=== PATIENT | female | born 1940 | race Caucasian/White ===

== ENCOUNTER → 2017-01-01 | Outpatient (CLI) | payer BC ==
[~2017-01-01] MED LIST: ASPI325T45 PO; CLC100 PO; FLAX10007 PO; FLNIN/ NAE; GLUC500C4 PO; LISI-461 PO; LVNIS80 SC; MULT-506 PO; OMEP20CA9 PO; POLY335025 PO; RXC5 PO; SALI0.6510 NAE; TNR25 PO; ULT50X PO
--- NOTE | 2017-01-01 17:21 | DIAGNOSTIC IMAGING REPORT ---
MRI OF THE BRAIN WITHOUT IV CONTRAST CLINICAL HISTORY: Right-sided facial droop. COMPARISON STUDY: CT of the brain dated 01/01/2013. MRI of the brain dated 04/17/2012. TECHNIQUE: MRI of the brain was performed utilizing various T1 and T2-weighted sequences in the axial, sagittal, and coronal planes. IV contrast was not administered for this examination. FINDINGS: Brain parenchyma: There is age-related involutional change noting mild subcortical and periventricular microangiopathic disease. Right occipital encephalomalacia is unchanged and consistent with a remote infarct. There is no hemorrhage or mass effect. There is no restricted diffusion to suggest acute ischemia. Lynn-white matter differentiation is preserved. No extra-axial fluid collection is seen. The cerebellar tonsils are normal in configuration. Ventricles, sulci, and cisterns: Prominent secondary to involutional change. Pituitary and sella: Unremarkable. Intracranial vasculature: Normal flow voids are maintained at the skull base. Orbits: The bony orbits are grossly intact. Orbital contents are normal in appearance. Sinuses and mastoids: Clear. Calvarium: Unremarkable. Cervical cord: Partially visualized cervical spinal cord is normal in morphology and signal intensity. IMPRESSION: 1. No acute intracranial abnormality. 2. Remote right occipital infarct. Electronically signed by: Irvin Barber M.D. 01/01/2017 5:19 PM Dictated Date/Time: 01/01/2017 5:16 PM
== END | disposition home or self-care (01) ==
LOC: C.MRIBC 15:43
PROVIDERS: ATTEND Internal Medicine
DX: G51.0 Bell's palsy (principal); R51 Headache

== ENCOUNTER → 2017-02-15 | Outpatient (CLI) | payer BC ==
[2017-02-15 17:50] LABS: HEMATOCRIT 40.9 % (37-47); MEAN CELL VOLUME 89.7 fL (80-100); MEAN CORPUSCULAR HEMOGLOBIN 28.9 pg (25-34); MEAN CORPUSCULAR HGB CONC 32.3 g/dl (32-36); MEAN PLATELET VOLUME 9.7 fL (7.4-10.4); PLATELET COUNT 251 K/uL (130-400); RED BLOOD COUNT 4.56 M/uL (4.2-5.4); WHITE BLOOD COUNT 6.34 K/uL (4.8-10.8)
[2017-02-18 12:32] LABS: C-REACTIVE PROT HIGHSEN 1.4 MG/L
== END | disposition home or self-care (01) ==
LOC: C.LAB 16:45
PROVIDERS: ATTEND Ophthalmology
DX: H47.10 Unspecified papilledema (principal)

== ENCOUNTER → 2017-05-15 | Day surgery (SDC) | payer BC ==
[2017-04-24 08:39] VITALS: Ht 167.6 cm; Wt 88.6 kg
[~2017-05-15] VITALS: Ht 167.6 cm; Wt 88.6 kg
[~2017-05-15] MED LIST changes: +500ML BSS 0.3ML EPI 1:1000PF IRRIG ONE; +ACETAMINOPHEN 325 MG TAB PO PRN; +AMVISC PLUS 0.8ML SYRINGE INT OCU ONE; +ATROPINE SULFATE 0.1 MG/ML 5ML SYR IV PRN; +BSS FLUSH ONE; -CLC100 PO; +ENDOCOAT 0.85ML SYRINGE INT OCU ONE; +EpHEDrine SULFATE INJ 50 MG/ML AMP IV PRN; +EpINEphrine INJ 1MG/ML AMP 1 MG/ML AMP ONE; -FLNIN/ NAE; -GLUC500C4 PO; +GLUCTAB7 PO; +LACTATED RINGER'S 1000ML 500 ML IV SCH; +LIDOCAINE 4% OP SOLN DROP CHARGE ONE; +LIDOCAINE 4% OP SOLN DROP CHARGE OPL SCH; +LIDOCAINE HCL 1% MPF 2 ML VIAL ONE; -LISI-461 PO; +LISI10TA PO; -LVNIS80 SC; +MIDAZOLAM HCL 1 MG/ML 2ML VIAL ONE; +MIX: 4ML BSS 1ML EPI 1:1000 PF TOP ONE; +MOXIFLOXACIN OPH SOLN PER DROP CHARGE ONE; -POLY335025 PO; +POVIDONE-IODINE OP SOLN 30 ML BTL ONE; +PROPARACAINE 0.5% OP SOLN PER DROP CHARGE OPL SCH; -RXC5 PO; -SALI0.6510 NAE; +SENNTAB23 PO; -TNR25 PO; +TOBRAMYCIN/DEXAMETHASONE OPH OINT PER APPLN CHARGE ONE; -ULT50X PO
--- NOTE | 2017-05-15 07:25 | History & Physical Bridge - SC ---
H&P Re-Evaluation Bridge Note: I have examined the patient, reviewed the History & Physical and in the interval since the performance of the History & Physical I have noted the following changes of clinical significance: No changes noted
[2017-05-15] MEDS: PHENYLEPHRINE HCL 2.5% OP SOLN PER DROP CHARGE OPL SCH ×3 (07:32→07:42)
[2017-05-15] MEDS: TROPICAMIDE 1% OP SOLN PER DROP CHARGE OPL SCH ×3 (07:33→07:43)
[2017-05-15] MEDS: CYCLOPENTOLATE HCL 1% OP SOLN PER DROP CHARGE OPL SCH ×3 (07:34→07:44)
[2017-05-15] MEDS: MOXIFLOXACIN OPH SOLN PER DROP CHARGE OPL SCH ×3 (07:35→07:45)
--- NOTE | 2017-05-15 08:30 | [facility] Post Operative Brief Note ---
Immediate Operative Summary Operative Date May 15, 2017. Pre-Operative Diagnosis Cataract Left Eye Post-Operative Diagnosis Same Procedure(s) Performed Left Cataract Phacoemulsification With Intraocular Lens Implant Surgeon Dr. Navarro Vice President Of Talent Acquisition Surgeon(s) None Estimated Blood Loss 0 Findings left cataract Specimens None Complication(s) None Disposition
--- NOTE | 2017-05-15 08:31 | [facility] Operative Report ---
Operative Report Date of Service May 15, 2017. Operative Report DATE OF OPERATION: 05/15/17 PREOPERATIVE DIAGNOSIS: Senile nuclear cataract, left eye POSTOPERATIVE DIAGNOSIS: Senile nuclear cataract, left eye PROCEDURE PERFORMED: Phacoemulsification with intraocular lens implantation, left eye SURGEON: Dr. Gerson Navarro ANESTHESIA: Topical with 1% intracameral lidocaine and monitored anesthesia care COMPLICATIONS: None DESCRIPTION OF PROCEDURE: After positively identifying the patient both verbally and by wristband in the preoperative area, the left eye was marked as the operative eye. The patient was then brought back to the operating room by the anesthesia and nursing staff where they were given a drop of Lidocaine and betadine into the operative eye. They were then sterilely prepped and draped in the standard fashion typical for ophthalmic surgery. Steri-strips were placed along the upper eyelids to keep the lashes back, and a lid speculum was placed into the operative eye. At this point, a documented time out was performed with members of the ophthalmology, nursing, and anesthesia staffs all agreeing upon the correct patient, correct location for surgery, correct procedure, and correct type and power of intraocular lens to be implanted. The microscope was then swung into position. First, a paracentesis wound was made using a sideport blade. Then, in sequence, 1% preservative-free lidocaine followed by Endocoat viscoelastic was injected into the anterior chamber. Next , the main incision was made with a keratome blade in triplanar fashion. A sharp cystotome was introduced into the eye and used to create a tear in the anterior capsule, which was directed into a continuous curvilinear capsulorrhexis using Utrata forceps. Hydrodissection was then performed with BSS on a flat-tip cannula. Next, the phacoemulsification handpiece was introduced into the eye and used to remove the nucleus in a chyijf-ewf-prdlwmw fashion. This was done without complication and then the irrigation-aspiration handpiece was introduced into the eye and used to remove all remaining cortical and epinuclear material. Amvisc was then injected into the anterior chamber as well as into the capsular bag and using the lens injector system, an MX60 24.0 D lens, serial number [id number], and expiration date 11/2019 was injected into the capsular bag and rotated into the correct position. Next, the irrigation- aspiration handpiece was used to remove all remaining Amvisc. BSS was used to hydrate the main wound, and then BSS was injected into the paracentesis site to reach physiologic pressure and then the main wound was checked and found to be watertight. The patient was given drops of Vigamox and Tobradex ointment into the operative eye, and then the surrounding area was cleaned and dried. A clear plastic shield was placed over the eye and the patient was then sat up and taken from the operating room by the anesthesia staff having tolerated the procedure well and suffering no complications. DISPOSITION: The patient was returned to the recovery room in stable condition. I attest to the content of the Intraoperative Record and any orders documented therein. Any exceptions are noted below.
[2017-05-15 08:32] VITALS: TEMP 36.4
--- NOTE | 2017-05-15 08:32 | Discharge Instructions-SurgCtr ---
Discharge Instructions Date of Service May 15, 2017. Visit Reason for Visit: Cataract Left Eye Discharge Discharge Diagnosis / Problem: left cataract Discharge Goals Goal(s): Decrease discomfort, Improve function Activity Recommendations Activity Limitations: as noted below Anesthesia . Post Anesthesia Instructions: If you have had General Anesthesia or IV Sedation: * Do not drive today. * Resume driving when surgeon permits. * Do not make important decisions or sign legal documents today. * Call surgeon for: 1. Temperature elevations greater than 101 degrees F. 2. Uncontrollable pain. 3. Excessive bleeding. 4. Persistent nausea and vomiting. 5. Medication intolerance (nausea, vomiting or rash). * For nausea and vomiting use only clear liquids such as: tea, soda, bouillon until nausea subsides, then gradually increase diet as tolerated. * If you have any concerns or questions, call your surgeon's office. If physician is unavailable and it is an emergency, call 911 or go to the nearest emergency room. . Instructions / Follow-Up Instructions / Follow-Up ACTIVITY RECOMMENDATIONS: * Light activities. * You may walk outside, read, watch television. * You may notice redness on the white part of the eye and some blurry vision - this is normal. MEDICATIONS: Resume previous medications unless instructed otherwise by your surgeon. Start all eye drops at 10:30 am today: * Eye drops (today): Prednisone - one drop in operative eye every 2 hours while awake Ofloxacin - one drop in operative eye every 2 hours while awake Bromfenac - one drop in operative eye daily SPECIAL CARE INSTRUCTIONS: * Tape plastic shield over eye to sleep at night. Call your doctor at with any concerns or problems. FOLLOW UP VISIT: Follow-up with Dr Navarro at [facility] as scheduled. Diet Recommendations Home Diet: no limitations Procedures Procedures Performed: Left Cataract Phacoemulsification With Intraocular Lens Implant Pending Studies Studies pending at discharge: no Medical Emergencies . Who to Call and When: Medical Emergencies: If at any time you feel your situation is an emergency, please call 911 immediately. . Non-Emergent Contact Non-Emergency issues call your: Surgeon . . "Provider Documentation" section prepared by Gerson Navarro. .
--- NOTE | 2017-05-15 08:54 | Anesthesia Progress Nt - [facility] ---
Anesthesia Post Op Note Date & Time May 15, 2017 at 08:53 Vital Signs Pain Intensity: 0 Vital Signs Past 12 Hours Date Time Temp Pulse Resp B/P (MAP) Pulse Ox O2 Delivery O2 Flow Rate FiO2 05/15/17 08:32 36.4 86 16 144/84 (104) 100 Room Air 05/15/17 07:19 36.2 89 16 157/93 (114) 97 Room Air Notes Mental Status: alert / awake / arousable, participated in evaluation Pt Amnestic to Procedure: Yes Nausea / Vomiting: adequately controlled Pain: adequately controlled Airway Patency, RR, SpO2: stable & adequate BP & HR: stable & adequate Hydration State: stable & adequate Anesthetic Complications: no major complications apparent
[2017-05-15 09:04] VITALS: BP 154/82; PULSE 89; O2SAT 100
== END | disposition home or self-care (01) ==
LOC: X.SURG 07:06
PROVIDERS: ATTEND Ophthalmology
DX: H25.12 Age-related nuclear cataract, left eye (principal); I10 Essential (primary) hypertension; G51.0 Bell's palsy; Z88.5 Allergy status to narcotic agent; Z98.890 Other specified postprocedural states; Z96.643 Presence of artificial hip joint, bilateral; Z86.73 Personal history of transient ischemic attack (TIA), and cerebral infarction without residual deficits

== ENCOUNTER → 2017-05-29 | Day surgery (SDC) | payer BC ==
[2017-05-21 16:40] VITALS: Ht 167.6 cm; Wt 88.6 kg
[~2017-05-29] VITALS: Ht 167.6 cm; Wt 88.6 kg
[~2017-05-29] MED LIST changes: +ACET-1047 PO; +ASPECOTC PO; +ASPI-428 PO; -ASPI325T45 PO; +ASPI325T60 PO; +ASPI81TA28 PO; +BENZ10LO2; +CMD5 PO; +CPC LOZ; +DLCS PR; +DOCU100C31 PO; +ERTA1INJ IV; +FRRS300 PO; +GNTOPO OP; -LIDOCAINE 4% OP SOLN DROP CHARGE OPL SCH; +LIDOCAINE 4% OP SOLN DROP CHARGE OPR SCH; +LPR25 PO; +LVNIS100 SQ; +METO-551 PO; +MOMLX PO; +MRLP17X PO; +ONDA4TAB46 PO; +PANT1TAB3 PO; +PANT40TA PO; -PROPARACAINE 0.5% OP SOLN PER DROP CHARGE OPL SCH; +PROPARACAINE 0.5% OP SOLN PER DROP CHARGE OPR SCH; +RXC5 PO; +SENN8.6T7 PO; +SODIENE6 PR; +WARF5TAB7 PO
[2017-05-29] MEDS: PHENYLEPHRINE HCL 2.5% OP SOLN PER DROP CHARGE OPR SCH ×3 (06:53→07:02)
[2017-05-29] MEDS: TROPICAMIDE 1% OP SOLN PER DROP CHARGE OPR SCH ×3 (06:54→07:03)
[2017-05-29] MEDS: CYCLOPENTOLATE HCL 1% OP SOLN PER DROP CHARGE OPR SCH ×3 (06:55→07:04)
[2017-05-29] MEDS: MOXIFLOXACIN OPH SOLN PER DROP CHARGE OPR SCH ×3 (06:55→07:05)
--- NOTE | 2017-05-29 07:59 | [facility] Post Operative Brief Note ---
Immediate Operative Summary Operative Date May 29, 2017. Pre-Operative Diagnosis Cataract Right Eye Post-Operative Diagnosis Same Procedure(s) Performed Right Cataract Phacoemulsification With Intraocular Lens Implant Surgeon Dr. Navarro Mold Sprayer Surgeon(s) None Estimated Blood Loss 0 mL Findings right cataract Specimens None Complication(s) None Disposition
--- NOTE | 2017-05-29 08:00 | [facility] Operative Report ---
Operative Report Date of Service May 29, 2017. Operative Report DATE OF OPERATION: 05/29/17 PREOPERATIVE DIAGNOSIS: Senile nuclear cataract, right eye POSTOPERATIVE DIAGNOSIS: Senile nuclear cataract, right eye PROCEDURE PERFORMED: Phacoemulsification with intraocular lens implantation, right eye SURGEON: Dr. Gerson Navarro ANESTHESIA: Topical with 1% intracameral lidocaine and monitored anesthesia care COMPLICATIONS: None DESCRIPTION OF PROCEDURE: After positively identifying the patient both verbally and by wristband in the preoperative area, the right eye was marked as the operative eye. The patient was then brought back to the operating room by the anesthesia and nursing staff where they were given a drop of Lidocaine and betadine into the operative eye. They were then sterilely prepped and draped in the standard fashion typical for ophthalmic surgery. Steri-strips were placed along the upper eyelids to keep the lashes back, and a lid speculum was placed into the operative eye. At this point, a documented time out was performed with members of the ophthalmology, nursing, and anesthesia staffs all agreeing upon the correct patient, correct location for surgery, correct procedure, and correct type and power of intraocular lens to be implanted. The microscope was then swung into position. First, a paracentesis wound was made using a sideport blade. Then, in sequence, 1% preservative-free lidocaine followed by Endocoat viscoelastic was injected into the anterior chamber. Next , the main incision was made with a keratome blade in triplanar fashion. A sharp cystotome was introduced into the eye and used to create a tear in the anterior capsule, which was directed into a continuous curvilinear capsulorrhexis using Utrata forceps. Hydrodissection was then performed with BSS on a flat-tip cannula. Next, the phacoemulsification handpiece was introduced into the eye and used to remove the nucleus in a [id number]-tro-jfopvzl fashion. This was done without complication and then the irrigation-aspiration handpiece was introduced into the eye and used to remove all remaining cortical and epinuclear material. Amvisc was then injected into the anterior chamber as well as into the capsular bag and using the lens injector system, an MX60 23.0 D lens, serial number [id number], and expiration date 01/2020 was injected into the capsular bag and rotated into the correct position. Next, the irrigation- aspiration handpiece was used to remove all remaining Amvisc. BSS was used to hydrate the main wound, and then BSS was injected into the paracentesis site to reach physiologic pressure and then the main wound was checked and found to be watertight. The patient was given drops of Vigamox and Tobradex ointment into the operative eye, and then the surrounding area was cleaned and dried. A clear plastic shield was placed over the eye and the patient was then sat up and taken from the operating room by the anesthesia staff having tolerated the procedure well and suffering no complications. DISPOSITION: The patient was returned to the recovery room in stable condition. I attest to the content of the Intraoperative Record and any orders documented therein. Any exceptions are noted below.
--- NOTE | 2017-05-29 08:01 | Discharge Instructions-SurgCtr ---
Discharge Instructions Date of Service May 29, 2017. Visit Reason for Visit: Cataract Right Eye Discharge Discharge Diagnosis / Problem: right cataract Discharge Goals Goal(s): Decrease discomfort, Improve function Activity Recommendations Activity Limitations: as noted below Anesthesia . Post Anesthesia Instructions: If you have had General Anesthesia or IV Sedation: * Do not drive today. * Resume driving when surgeon permits. * Do not make important decisions or sign legal documents today. * Call surgeon for: 1. Temperature elevations greater than 101 degrees F. 2. Uncontrollable pain. 3. Excessive bleeding. 4. Persistent nausea and vomiting. 5. Medication intolerance (nausea, vomiting or rash). * For nausea and vomiting use only clear liquids such as: tea, soda, bouillon until nausea subsides, then gradually increase diet as tolerated. * If you have any concerns or questions, call your surgeon's office. If physician is unavailable and it is an emergency, call 911 or go to the nearest emergency room. . Instructions / Follow-Up Instructions / Follow-Up ACTIVITY RECOMMENDATIONS: * Light activities. * You may walk outside, read, watch television. * You may notice redness on the white part of the eye and some blurry vision - this is normal. MEDICATIONS: Resume previous medications unless instructed otherwise by your surgeon. Start all eye drops at 10 am today: * Eye drops (today): Prednisone - one drop in operative eye every 2 hours while awake Ofloxacin - one drop in operative eye every 2 hours while awake Bromfenac - one drop in operative eye daily SPECIAL CARE INSTRUCTIONS: * Tape plastic shield over eye to sleep at night. Call your doctor at with any concerns or problems. FOLLOW UP VISIT: Follow-up with Dr Navarro at [facility] as scheduled. Diet Recommendations Home Diet: no limitations Procedures Procedures Performed: Right Cataract Phacoemulsification With Intraocular Lens Implant Pending Studies Studies pending at discharge: no Medical Emergencies . Who to Call and When: Medical Emergencies: If at any time you feel your situation is an emergency, please call 911 immediately. . Non-Emergent Contact Non-Emergency issues call your: Surgeon . . "Provider Documentation" section prepared by Gerson Navarro. .
[2017-05-29 08:02] VITALS: TEMP 36.4
--- NOTE | 2017-05-29 08:17 | Anesthesiology Progress Note ---
Anesthesia Post Op Note Date & Time May 29, 2017 at 08:17 Vital Signs Pain Intensity: 0 Vital Signs Past 12 Hours Date Time Temp Pulse Resp B/P (MAP) Pulse Ox O2 Delivery O2 Flow Rate FiO2 05/29/17 08:02 36.4 90 16 150/88 (108) 98 Room Air 05/29/17 06:43 36.3 95 18 144/84 (104) 95 Room Air Notes Mental Status: alert / awake / arousable, participated in evaluation Nausea / Vomiting: adequately controlled Pain: adequately controlled Airway Patency, RR, SpO2: stable & adequate BP & HR: stable & adequate Hydration State: stable & adequate Anesthetic Complications: no major complications apparent
[2017-05-29 08:27] VITALS: BP 127/78; PULSE 94; O2SAT 99
== END | disposition home or self-care (01) ==
LOC: X.SURG 06:28
PROVIDERS: ATTEND Ophthalmology
DX: H25.11 Age-related nuclear cataract, right eye (principal); Z96.643 Presence of artificial hip joint, bilateral; Z98.42 Cataract extraction status, left eye; Z98.890 Other specified postprocedural states; I10 Essential (primary) hypertension; Z88.5 Allergy status to narcotic agent; Z86.73 Personal history of transient ischemic attack (TIA), and cerebral infarction without residual deficits

== ENCOUNTER 2017-09-19 14:11 | Inpatient (IN) | payer OTHER ==
[~2017-09-19] VITALS: Ht 170.2 cm; Wt 105.0 kg
[~2017-09-19 14:11] MED LIST changes: -500ML BSS 0.3ML EPI 1:1000PF IRRIG ONE; -ACET-1047 PO; -ACETAMINOPHEN 325 MG TAB PO PRN; -AMVISC PLUS 0.8ML SYRINGE INT OCU ONE; -ASPI-428 PO; -ASPI325T60 PO; -ASPI81TA28 PO; -ATROPINE SULFATE 0.1 MG/ML 5ML SYR IV PRN; -BENZ10LO2; -BSS FLUSH ONE; -CMD5 PO; -CPC LOZ; -DLCS PR; -DOCU100C31 PO; -ENDOCOAT 0.85ML SYRINGE INT OCU ONE; -ERTA1INJ IV; -EpHEDrine SULFATE INJ 50 MG/ML AMP IV PRN; -EpINEphrine INJ 1MG/ML AMP 1 MG/ML AMP ONE; -FRRS300 PO; -GNTOPO OP; -LACTATED RINGER'S 1000ML 500 ML IV SCH; -LIDOCAINE 4% OP SOLN DROP CHARGE ONE; -LIDOCAINE 4% OP SOLN DROP CHARGE OPR SCH; -LIDOCAINE HCL 1% MPF 2 ML VIAL ONE; -LPR25 PO; -LVNIS100 SQ; -METO-551 PO; -MIDAZOLAM HCL 1 MG/ML 2ML VIAL ONE; -MIX: 4ML BSS 1ML EPI 1:1000 PF TOP ONE; -MOMLX PO; -MOXIFLOXACIN OPH SOLN PER DROP CHARGE ONE; -MRLP17X PO; -ONDA4TAB46 PO; -PANT1TAB3 PO; -PANT40TA PO; -POVIDONE-IODINE OP SOLN 30 ML BTL ONE; -PROPARACAINE 0.5% OP SOLN PER DROP CHARGE OPR SCH; -RXC5 PO; -SENN8.6T7 PO; -SODIENE6 PR; -TOBRAMYCIN/DEXAMETHASONE OPH OINT PER APPLN CHARGE ONE; -WARF5TAB7 PO
--- NOTE | 2017-09-19 14:44 | EMERGENCY ROOM VISIT NOTE ---
History First contact with patient: 14:14 Chief Complaint: FALL Stated Complaint: FALL/HIP PAIN History of Present Illness The patient is a 77 year old female s/p bilat hip arthroplasty who presents to the Emergency Room with complaints of right hip pain after a fall from standing. The patient states that she was standing in front of a wood pile and placing wood on it. When she turned to grab more wood she misstep and fell onto the right hip. She instantly felt right hip pain and " I knew I broke it". Her called and she came to the ED via EMS. She notes no presyncope/ syncope / palpitations/ chest pain or SOB with the fall. She also notes no head injury with this fall and denies any sensation of nausea or a GR at this time. She it not on any blood thinners aside from aspirin. Currently the pain is a 2/10 however any movement will aggravate the pain and become a 10/10. She is non weight bearing because of the pain. It is described as an ache and is above the right hip and non radiating. She denies any numbness/ tingling of the LE. She notes weakness of the right LE secondary to pain. Her most recent hip arthroplasty was in [address] Jose and was also secondary to a left hip fracture. She is a non smoker and drinks a glass of wine 2-4 x/ week. She did not take her lisinopril this morning however did take her ASA. 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 Family History No significant family history Social History Smoking Status: Never Smoker Smokeless Tobacco Use: No Alcohol Use: occasionally Drug Use: none Marital Status: Housing Status: lives with significant other Occupation Status: retired Current/Historical Medications Scheduled Aspirin (Aspirin), 325 MG PO QAM Flaxseed (Linseed) (Flax Seed Oil), 1,000 MG PO QAM Hlahfanxnua-Rdovxvdkitz-Bbm C- (Glucosamine Chondroitin), 2 TABS PO QAM Lisinopril (Prinivil), 10 MG PO QAM Multivitamin (Multivitamin), 1 TAB PO QAM Omeprazole (Prilosec), 20 MG PO QAM Sennosides-Docusate Sodium (Stool Softener), 1 TAB PO QAM Physical Exam Vital Signs Date Time Temp Pulse Resp B/P (MAP) Pulse Ox O2 Delivery O2 Flow Rate FiO2 09/19/17 14:12 36.9 99 21 166/100 99 Room Air Physical Exam General: not in acute distress, laying in the bed Skin: no rashes noted, no suspicious lesions, no areas of inflammations/ lacerations/ erythema noted, mild stasis dermatitis of bilat LE CVS: S1/ S2 noted, RRR, no rubs/ murmurs noted, no cyanosis RVS: Clear throughout bilaterally, not in acute respiratory distress, no wheezing/ rales/ crackles noted ENT: no erythema/ injection/ ulcerations noted in the pharynx Neck: inspection WNL, full ROM of neck, no bruits noted ABD: BSx4, no pain/ tenderness on palpation, no organomegaly, negative murphys, psoas, Rovsing, CVA tenderness MSK: inspection of all limbs WNL except for an externally rotated right leg, no ecchymosis of the right hip noted and tender to palpation of the right hip, motor and sensation intact in all limbs except right LE, She is able to move the right foot and toes on command however refuses to test knee/ right leg secondary to pain NVS: PERRL, EOMI, sensation intact in all extremities Lymph: No lymphadenopathy palpable Medical Decision & Procedures ER Provider Diagnostic Interpretation: SINGLE VIEW PELVIS; 2 VIEWS RIGHT HIP; 2 VIEWS RIGHT FEMUR CLINICAL HISTORY: Fall with right leg pain. FINDINGS: An AP view of the pelvis with AP and crosstable lateral views of the right hip as well as AP and crosstable lateral views of the right femur are obtained. Correlation is made with pelvic radiograph dated 06/20/2014. The skeletal structures are osteopenic. There is no radiographic evidence of fracture involving the bony pelvis. There are bilateral hip arthroplasties in near-anatomic alignment. Periprosthetic lucency is noted around the right hip arthroplasty stem. There is a minimally distracted acute fracture through the subtrochanteric right femur around the proximal arthroplasty stem. There are small medial distracted fragments. Fracture lucency is also seen around the distal stem of the arthroplasty. This is not clearly extend to the cortex. The distal femoral shaft is intact. Arthritic change is noted in the right knee. There is mild soft tissue edema in the right upper thigh. Calcified fibroids are seen in the pelvis. Lumbosacral spondylosis is partially imaged. IMPRESSION: 1. There is an acute, comminuted, and minimally distracted fracture of the subtrochanteric right femur around the proximal stem of a right hip arthroplasty. 2. Fracture lucency is also identified involving the cortex around the distal aspect of the right hip arthroplasty. This does not clearly extend to the cortex. 3. The distal right femoral shaft is intact. 4. No fracture is identified involving the bony pelvis or the partially imaged left hip. SINGLE VIEW CHEST CLINICAL HISTORY: Fall. Hip fracture. Preoperative examination. FINDINGS: An AP, portable, supine chest radiograph is compared to study dated 06/18/2014. The examination is degraded by portable technique and apical lordotic positioning. The heart is enlarged and there is atherosclerotic calcification of the thoracic aorta. The pulmonary vasculature is noncongested. Chronic interstitial thickening is similar to previous. No airspace consolidation or large pleural effusion is identified. No pneumothorax is seen. The skeletal structures are osteopenic. The bony thorax is grossly intact. Arthritic change is noted in the shoulders. A band of linear sclerosis is noted in the right humeral head/neck. IMPRESSION: 1. Cardiomegaly with no acute cardiopulmonary abnormality. 2. A band of sclerosis is partially visualized in the right humeral head/neck. This may be on a degenerative basis. Correlate with radiographs if there is right shoulder pain. Laboratory Results 09/19/17 15:28 Red Blood Count 4.78, Mean Corpuscular Volume 88.5, Mean Corpuscular Hemoglobin 29.5, Mean Corpuscular Hemoglobin Concent 33.3, Mean Platelet Volume 9.6, Neutrophils (%) (Auto) 69.9, Lymphocytes (%) (Auto) 21.4, Monocytes (%) (Auto) 7.5, Eosinophils (%) (Auto) 0.7, Basophils (%) (Auto) 0.2, Neutrophils # (Auto) 6.36, Lymphocytes # (Auto) 1.95, Monocytes # (Auto) 0.68, Eosinophils # (Auto) 0.06, Basophils # (Auto) 0.02 Test 09/19/17 15:28 White Blood Count 9.10 K/uL (4.8-10.8) Red Blood Count 4.78 M/uL (4.2-5.4) Hemoglobin 14.1 g/dL (12.0-16.0) Hematocrit 42.3 % (37-47) Mean Corpuscular Volume 88.5 fL (80-100) Mean Corpuscular Hemoglobin 29.5 pg (25-34) Mean Corpuscular Hemoglobin Concent 33.3 g/dl (32-36) Platelet Count 258 K/uL (130-400) Mean Platelet Volume 9.6 fL (7.4-10.4) Neutrophils (%) (Auto) 69.9 % Lymphocytes (%) (Auto) 21.4 % Monocytes (%) (Auto) 7.5 % Eosinophils (%) (Auto) 0.7 % Basophils (%) (Auto) 0.2 % Neutrophils # (Auto) 6.36 K/uL (1.4-6.5) Lymphocytes # (Auto) 1.95 K/uL (1.2-3.4) Monocytes # (Auto) 0.68 K/uL (0.11-0.59) Eosinophils # (Auto) 0.06 K/uL (0-0.5) Basophils # (Auto) 0.02 K/uL (0-0.2) RDW Standard Deviation 47.1 fL (36.4-46.3) RDW Coefficient of Variation 14.5 % (11.5-14.5) Immature Granulocyte % (Auto) 0.3 % Immature Granulocyte # (Auto) 0.03 K/uL (0.00-0.02) Prothrombin Time 10.2 SECONDS (9.0-12.0) Prothromb Time International Ratio 1.0 (0.9-1.1) Activated Partial Thromboplast Time 23.6 SECONDS (21.0-31.0) Partial Thromboplastin Ratio 0.9 ECG Per My Interpretation Indication: other Rate (beats per minute): 87 Rhythm: atrial fibrillation Change: A fibb has now replaced NSR, rate controlled No overt ischemic changes, no ectopy ED Course 1415: Patient was evaluated by resident 1430: Patient was evaluated by attending 1530: Case was discussed with orthopedics, Jamal Canales, made aware of case [id number]: Barbarasanti Cruz of [facility] [place] was contacted and patient will be further evaluated by hospitalist Medical Decision Differential diagnosis includes but is not limited to hip fracture, hip dislocation, septic arthritis, AVN, OA Patient was assessed in the ED and findings were concerning for a right hip fracture as hip was noted to externally rotated but neurovascularly intact. Xrays revealed a right subtrochanteric fracture. The patient was evaluated with a CBC/ blood type/ BMP and coag levels and case was discussed with the surgeon and PA Jamal Gillespie. CBC did not reveal any anemia or sign of infectious process. EKG interestingly revealed A fibb however on initial assessment the patient was regular based on auscultation and corresponding palpation of radial pulse. Patient denied a history of heart arrhythmia. A magnesium and TSH was added to the patient's labs. Case was discussed with hospitalist and patient was accepted for admission for further evaluation and care. Medication Reconcilliation Current Medication List: was personally reviewed by id Blood Pressure Screening Patient's blood pressure: Elevated blood pressure Blood pressure disposition: Elevated BP felt to be situational Impression Primary Impression: Subtrochanteric fracture of right femur Additional Impression: Atrial fibrillation by electrocardiogram Departure Information Dispostion Admitted as an inpatient Condition GOOD Referrals Radha Mirza D.O. (PCP) Patient Instructions My [facility] Problem Qualifiers
[2017-09-19] MEDS ORDERED: ACETAMINOPHEN 500 MG TAB PO PRN (15:15)
[2017-09-19] MEDS ORDERED: HYDROmorphone INJ 0.5 MG/0.5 ML SYR IV PRN ×2 (15:15→16:45)
--- NOTE | 2017-09-19 15:31 | DIAGNOSTIC IMAGING REPORT ---
SINGLE VIEW PELVIS; 2 VIEWS RIGHT HIP; 2 VIEWS RIGHT FEMUR CLINICAL HISTORY: Fall with right leg pain. FINDINGS: An AP view of the pelvis with AP and crosstable lateral views of the right hip as well as AP and crosstable lateral views of the right femur are obtained. Correlation is made with pelvic radiograph dated 06/20/2014. The skeletal structures are osteopenic. There is no radiographic evidence of fracture involving the bony pelvis. There are bilateral hip arthroplasties in near-anatomic alignment. Periprosthetic lucency is noted around the right hip arthroplasty stem. There is a minimally distracted acute fracture through the subtrochanteric right femur around the proximal arthroplasty stem. There are small medial distracted fragments. Fracture lucency is also seen around the distal stem of the arthroplasty. This is not clearly extend to the cortex. The distal femoral shaft is intact. Arthritic change is noted in the right knee. There is mild soft tissue edema in the right upper thigh. Calcified fibroids are seen in the pelvis. Lumbosacral spondylosis is partially imaged. IMPRESSION: 1. There is an acute, comminuted, and minimally distracted fracture of the subtrochanteric right femur around the proximal stem of a right hip arthroplasty. 2. Fracture lucency is also identified involving the cortex around the distal aspect of the right hip arthroplasty. This does not clearly extend to the cortex. 3. The distal right femoral shaft is intact. 4. No fracture is identified involving the bony pelvis or the partially imaged left hip. Electronically signed by: Irvin Barber M.D. 09/19/2017 3:29 PM Dictated Date/Time: 09/19/2017 3:24 PM
--- NOTE | 2017-09-19 15:33 | DIAGNOSTIC IMAGING REPORT ---
SINGLE VIEW CHEST CLINICAL HISTORY: Fall. Hip fracture. Preoperative examination. FINDINGS: An AP, portable, supine chest radiograph is compared to study dated 06/18/2014. The examination is degraded by portable technique and apical lordotic positioning. The heart is enlarged and there is atherosclerotic calcification of the thoracic aorta. The pulmonary vasculature is noncongested. Chronic interstitial thickening is similar to previous. No airspace consolidation or large pleural effusion is identified. No pneumothorax is seen. The skeletal structures are osteopenic. The bony thorax is grossly intact. Arthritic change is noted in the shoulders. A band of linear sclerosis is noted in the right humeral head/neck. IMPRESSION: 1. Cardiomegaly with no acute cardiopulmonary abnormality. 2. A band of sclerosis is partially visualized in the right humeral head/neck. This may be on a degenerative basis. Correlate with radiographs if there is right shoulder pain. Electronically signed by: Irvin Barber M.D. 09/19/2017 3:32 PM Dictated Date/Time: 09/19/2017 3:30 PM
[2017-09-19 15:43] LABS: BASO % 0.2 %; BASO ABS # 0.02 K/uL (0-0.2); EOS % 0.7 %; EOS ABS # 0.06 K/uL (0-0.5); HEMATOCRIT 42.3 % (37-47); HEMOGLOBIN 14.1 g/dL (12.0-16.0); IG# 0.03 K/uL (0.00-0.02); LYMPH % 21.4 %; LYMPH ABS # 1.95 K/uL (1.2-3.4); MEAN CELL VOLUME 88.5 fL (80-100); MEAN CORPUSCULAR HEMOGLOBIN 29.5 pg (25-34); MEAN CORPUSCULAR HGB CONC 33.3 g/dl (32-36); MEAN PLATELET VOLUME 9.6 fL (7.4-10.4); MONO % 7.5 %; MONO ABS # 0.68 K/uL (0.11-0.59); NEUT % 69.9 %; NEUT ABS # 6.36 K/uL (1.4-6.5); PLATELET COUNT 258 K/uL (130-400); RED CELL DISTRIBUTION WIDTH CV 14.5 % (11.5-14.5); RED CELL DISTRIBUTION WIDTH SD 47.1 fL (36.4-46.3)
[2017-09-19 15:56] LABS: PTT PATIENT 23.6 SECONDS (21.0-31.0)
[2017-09-19 16:10] LABS: CALCIUM 9.3 mg/dl (8.5-10.1); CREATININE 1.25 mg/dl (0.60-1.20)
[2017-09-19 16:12] VITALS: O2SAT 99; Ht 170.2 cm; Wt 105.0 kg
[2017-09-19] MEDS: HYDROmorphone INJ 0.5 MG/0.5 ML SYR IV PRN ×2 (16:29→23:31)
[2017-09-19] MEDS ORDERED: MAGNESIUM HYDROXIDE SUSP 30 ML UDC PO PRN (16:45)
[2017-09-19] MEDS ORDERED: POLYETHYLENE (MIRALAX) 17 GM PACK PO PRN (16:45)
[2017-09-19] MEDS ORDERED: SOD PHOSPHATE/SOD BIPHOSPHATE ENEMA 132 ML BTL PR PRN (16:45)
[2017-09-19] MEDS ORDERED: BISACODYL 10 MG SUPP PR PRN (16:45)
[2017-09-19] MEDS ORDERED: NALOXONE HCL 0.4 MG/1 ML VIAL/CARP IV PRN (16:45)
[2017-09-19] MEDS ORDERED: ONDANSETRON INJ 2 MG/ML 2 ML VIAL IV PRN (16:45)
--- NOTE | 2017-09-19 17:15 | History and Physical ---
History & Physical Date & Time of Service: Sep 19, 2017 at 16:46 Chief Complaint: Fall/Hip Pain Primary Care Physician: Radha Mirza D.O. History of Present Illness Source: patient She is a 77-year-old white female with the significant past medical history of atrial fibrillation, hypertension, esophageal reflux, hyperlipidemia, and also history of CVA with residual deficit and apparently was brought to the emergency room with a history of fall and subsequent right hip fracture. She was standing on a pellet of food and then picked up a piece of food to stack it on the other time, she lost balance and fell on her right. She has had severe pain in the right hip area and she could not get. She denies to have any warning symptoms before the fall and she did not lose any consciousness. She was brought into the emergency room and an x-ray noted to have right closed periprosthetic fracture of the from that point also consulted and she was admitted on the medical service She denies to have any cardiac symptoms on exertion before for she has history of atrial fibrillation rate is controlled and she was on Xarelto before but not been taking any anticoagulation. 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 (9) Carotis Stenosis-asymptomatic Surgical Problems: (1) Knee Joint Replacement Status (2) Presence of both artificial hip joints Family History No significant family history Social History Smoking Status: Never Smoker Smokeless Tobacco Use: No Drug Use: none Marital Status: Housing status: lives with significant other Occupational Status: retired Immunizations History of Influenza Vaccine: Yes Influenza Vaccine Date: Apr 18, 2012 History of Tetanus Vaccine?: Yes History of Pneumococcal: Yes History of Hepatitis B Vaccine: No Other Immunizations: Varicella Zoster Allergies Coded Allergies: Morphine (Verified Adverse Reaction, Mild, N/V, 09/19/17) Had morphine and zofran and did not get sick Propoxyphene (Verified Adverse Reaction, Mild, N/V, 09/19/17) Home Medications Scheduled Aspirin (Aspirin), 325 MG PO QAM Flaxseed (Linseed) (Flax Seed Oil), 1,000 MG PO QAM Qixawnrokng-Wxhgmxtyopc-Mtv C- (Glucosamine Chondroitin), 2 TABS PO QAM Lisinopril (Prinivil), 10 MG PO QAM Multivitamin (Multivitamin), 1 TAB PO QAM Omeprazole (Prilosec), 20 MG PO QAM Sennosides-Docusate Sodium (Stool Softener), 1 TAB PO QAM Review of Systems Musculoskeletal: + joint pain (Right Hip and Adjoining area) Physical Exam Vital Signs Date Time Temp Pulse Resp B/P (MAP) Pulse Ox O2 Delivery O2 Flow Rate FiO2 09/19/17 16:30 90 18 156/86 97 Room Air 09/19/17 16:12 99 Room Air 09/19/17 14:12 36.9 99 21 166/100 99 Room Air General Appearance: + moderate distress (Pain in right hip) Head: normocephalic Eyes: normal inspection ENT: normal ENT inspection Neck: supple Respiratory/Chest: chest non-tender, lungs clear, normal breath sounds Cardiovascular: + systolic murmur (2/6 precordial area), + irregularly irregular Abdomen/GI: non tender Back: normal inspection Extremities/Musculoskelatal: + pedal edema (Chronic ), + swelling (Right hip and adjoining area) Neurologic/Psych: no motor/sensory deficits Skin: normal color Lymphatic: no adenopathy Diagnostics Laboratory Results Results Past 24 Hours Test 09/19/17 15:28 Range/Units White Blood Count 9.10 4.8-10.8 K/uL Red Blood Count 4.78 4.2-5.4 M/uL Hemoglobin 14.1 12.0-16.0 g/dL Hematocrit 42.3 37-47 % Mean Corpuscular Volume 88.5 80-100 fL Mean Corpuscular Hemoglobin 29.5 25-34 pg Mean Corpuscular Hemoglobin Concent 33.3 32-36 g/dl Platelet Count 258 130-400 K/uL Mean Platelet Volume 9.6 7.4-10.4 fL Neutrophils (%) (Auto) 69.9 % Lymphocytes (%) (Auto) 21.4 % Monocytes (%) (Auto) 7.5 % Eosinophils (%) (Auto) 0.7 % Basophils (%) (Auto) 0.2 % Neutrophils # (Auto) 6.36 1.4-6.5 K/uL Lymphocytes # (Auto) 1.95 1.2-3.4 K/uL Monocytes # (Auto) 0.68 0.11-0.59 K/uL Eosinophils # (Auto) 0.06 0-0.5 K/uL Basophils # (Auto) 0.02 0-0.2 K/uL RDW Standard Deviation 47.1 36.4-46.3 fL RDW Coefficient of Variation 14.5 11.5-14.5 % Immature Granulocyte % (Auto) 0.3 % Immature Granulocyte # (Auto) 0.03 0.00-0.02 K/uL Prothrombin Time 10.2 9.0-12.0 SECONDS Prothromb Time International Ratio 1.0 0.9-1.1 Activated Partial Thromboplast Time 23.6 21.0-31.0 SECONDS Partial Thromboplastin Ratio 0.9 Sodium Level 139 136-145 mmol/L Potassium Level 4.0 3.5-5.1 mmol/L Chloride Level 107 98-107 mmol/L Carbon Dioxide Level 26 21-32 mmol/L Anion Gap 7.0 3-11 mmol/L Blood Urea Nitrogen 11 7-18 mg/dl Creatinine 1.25 0.60-1.20 mg/dl Est Creatinine Clear Calc Drug Dose 45.5 ml/min Estimated GFR () 47.4 Estimated GFR (Non- 40.9 BUN/Creatinine Ratio 9.0 10-20 Random Glucose 131 70-99 mg/dl Calcium Level 9.3 8.5-10.1 mg/dl Magnesium Level 2.2 1.8-2.4 mg/dl Thyroid Stimulating Hormone (TSH) 1.890 0.300-4.500 uIu/ml Diagnostic Radiology Femur::1. There is an acute, comminuted, and minimally distracted fracture of the subtrochanteric right femur around the proximal stem of a right hip arthroplasty. 2. Fracture lucency is also identified involving the cortex around the distal aspect of the right hip arthroplasty. This does not clearly extend to the CXR::1. Cardiomegaly with no acute cardiopulmonary abnormality. 2. A band of sclerosis is partially visualized in the right humeral head/neck. This may be on a degenerative basis. Correlate with radiographs if there is right shoulder pain. Pelvis::1. There is an acute, comminuted, and minimally distracted fracture of the subtrochanteric right femur around the proximal stem of a right hip arthroplasty. 2. Fracture lucency is also identified involving the cortex around the distal aspect of the right hip arthroplasty. This does not clearly extend to the EKG EKG-Atrial Fibrillation -Rate controlled,Nonspecific ST-T changes Impression Assessment and Plan Right hip periprosthetic fracture secondary to mechanical fall No orthopedic surgeon was consulted and she will be admitted to medical floor Hip fracture protocol followed There is no contraindication to proposed surgery Discussed with Orth-Surgery on Saturday Atrial fibrillation Rate is controlled without any symptoms Not on any anticoagulation now except aspirin Origins Xarelto before Echo in December 2016 unremarkable Hypertension BP is controlled and continue lisinopril Esophageal reflux Continue with omeprazole DVT prophylaxis SCDs for now CODE STATUS-she will be full code In my clinical assessment the beneficially meets criteria as per CMS for 2 minute rest in the hospital Advanced Directives Existing Living Will: Yes Existing Power of Catalog Specialist: No Resuscitation Status VTE Prophylaxis Will order VTE Prophylaxis: Yes (As per Ortho)
--- NOTE | 2017-09-19 17:48 | EMERGENCY ROOM VISIT NOTE ---
History Report prepared by Parth: Theron Faria Under the Supervision of: Dr. Mauro Kauffman D.O. First contact with patient: 14:14 Chief Complaint: FALL Stated Complaint: FALL/HIP PAIN History of Present Illness The patient is a 77 year old female who presents to the Emergency Room with complaints of right hip pain after a mechanical fall that occurred shortly prior to arrival today. The patient states that she was standing in front of a wood pile and placing wood on it. When she turned to grab more wood she misstep and fell onto her right hip. She instantly felt right hip pain and stats; "I knew I broke it." Her called and she came to the ED via EMS. She notes no presyncope, syncope, palpitations, chest pain or SOB with the fall. She also notes no head injury with this fall and denies any sensation of nausea or a GR at this time. She is not on any blood thinners aside from aspirin. Currently the pain is a 2/10 however any movement will aggravate the pain and become a 10/ 10. She is non-weight bearing because of the pain. It is described as an "ache" and is above the right hip and non radiating. She denies any numbness or tingling of the LE. She notes weakness of the right LE secondary to pain. Source of History: patient Onset: Shortly [employer] Position: other (RIGHT HIP) Symptom Intensity: 10/10 with movement. 2/10 curently Quality: ache Modifying Factors (Worsening): movement Associated Symptoms: No LOC, No headache Review of Systems See HPI for pertinent positives & negatives. A total of 10 systems reviewed and were otherwise negative. Past Medical & Surgical Medical Problems: (1) Closed right hip fracture (2) Diab Diana Wo Compl, Type Ii Or Unspec Type, Not Uncntrld (3) Esophageal Reflux (4) Hyperlipidemia Nec/Nos (5) Hypertension Nos (6) Personal Hx Of Tia,& Cerebral Infarction W/Out Res Deficits Surgical Problems: (1) Knee Joint Replacement Status (2) Presence of both artificial hip joints Family History No significant family history Social History Smoking Status: Never Smoker Smokeless Tobacco Use: No Alcohol Use: occasionally Drug Use: none Marital Status: Housing Status: lives with significant other Occupation Status: retired Current/Historical Medications Scheduled Aspirin (Aspirin), 325 MG PO QAM Flaxseed (Linseed) (Flax Seed Oil), 1,000 MG PO QAM Rzwppacyksh-Cbhgexlgofg-Qav C- (Glucosamine Chondroitin), 2 TABS PO QAM Lisinopril (Prinivil), 10 MG PO QAM Multivitamin (Multivitamin), 1 TAB PO QAM Omeprazole (Prilosec), 20 MG PO QAM Sennosides-Docusate Sodium (Stool Softener), 1 TAB PO QAM Allergies Coded Allergies: Morphine (Verified Adverse Reaction, Mild, N/V, 09/19/17) Had morphine and zofran and did not get sick Propoxyphene (Verified Adverse Reaction, Mild, N/V, 09/19/17) Physical Exam Vital Signs Date Time Temp Pulse Resp B/P (MAP) Pulse Ox O2 Delivery O2 Flow Rate FiO2 09/19/17 16:30 90 18 156/86 97 Room Air 09/19/17 16:12 99 Room Air 09/19/17 14:12 36.9 99 21 166/100 99 Room Air Physical Exam GENERAL: alert, well appearing, well nourished, no distress, non-toxic, laying on coronel. HEAD: normal cephalic, atraumatic EYE EXAM: normal conjunctiva, PERRL and EOM's grossly intact OROPHARYNX: no exudate, no erythema, lips, buccal mucosa, and tongue normal and mucous membranes are moist EARS: TMs clear b/l NECK: supple, no nuchal rigidity, no adenopathy, non-tender CHEST: stable to compression anteriorly and posteriorly LUNGS: clear to auscultation. Normal chest wall mechanics HEART: no murmurs, S1 normal and S2 normal ABDOMEN: abdomen soft, non-tender, normo-active bowel sounds, no masses, no rebound or guarding. PELVIS: stable to compression anteriorly and posteriorly BACK: Back is symmetrical on inspection and there is no deformity, no midline tenderness, no CVA tenderness. UPPER EXTREMITIES: full active and passive range of motion of all joints without tenderness to palpation LOWER EXTREMITIES: There is tenderness to palpation over the right proximal femur. DP 2/4 bilaterally. full active and passive range of motion of all joints without tenderness to palpation. Gross sensation is intact. NEURO EXAM: Normal sensorium, cranial nerves II-XII grossly intact, normal speech, no gross weakness of arms.GCS: 15. Medical Decision & Procedures ER Provider Diagnostic Interpretation: Radiology results as stated below per my review and the radiologist's interpretation: SINGLE VIEW CHEST CLINICAL HISTORY: Fall. Hip fracture. Preoperative examination. FINDINGS: An AP, portable, supine chest radiograph is compared to study dated 06/18/2014. The examination is degraded by portable technique and apical lordotic positioning. The heart is enlarged and there is atherosclerotic calcification of the thoracic aorta. The pulmonary vasculature is noncongested. Chronic interstitial thickening is similar to previous. No airspace consolidation or large pleural effusion is identified. No pneumothorax is seen. The skeletal structures are osteopenic. The bony thorax is grossly intact. Arthritic change is noted in the shoulders. A band of linear sclerosis is noted in the right humeral head/neck. IMPRESSION: 1. Cardiomegaly with no acute cardiopulmonary abnormality. 2. A band of sclerosis is partially visualized in the right humeral head/neck. This may be on a degenerative basis. Correlate with radiographs if there is right shoulder pain. Electronically signed by: Irvin Barber M.D. 09/19/2017 3:32 PM Dictated Date/Time: 09/19/2017 3:30 PM SINGLE VIEW PELVIS; 2 VIEWS RIGHT HIP; 2 VIEWS RIGHT FEMUR CLINICAL HISTORY: Fall with right leg pain. FINDINGS: An AP view of the pelvis with AP and crosstable lateral views of the right hip as well as AP and crosstable lateral views of the right femur are obtained. Correlation is made with pelvic radiograph dated 06/20/2014. The skeletal structures are osteopenic. There is no radiographic evidence of fracture involving the bony pelvis. There are bilateral hip arthroplasties in near-anatomic alignment. Periprosthetic lucency is noted around the right hip arthroplasty stem. There is a minimally distracted acute fracture through the subtrochanteric right femur around the proximal arthroplasty stem. There are small medial distracted fragments. Fracture lucency is also seen around the distal stem of the arthroplasty. This is not clearly extend to the cortex. The distal femoral shaft is intact. Arthritic change is noted in the right knee. There is mild soft tissue edema in the right upper thigh. Calcified fibroids are seen in the pelvis. Lumbosacral spondylosis is partially imaged. IMPRESSION: 1. There is an acute, comminuted, and minimally distracted fracture of the subtrochanteric right femur around the proximal stem of a right hip arthroplasty. 2. Fracture lucency is also identified involving the cortex around the distal aspect of the right hip arthroplasty. This does not clearly extend to the cortex. 3. The distal right femoral shaft is intact. 4. No fracture is identified involving the bony pelvis or the partially imaged left hip. Electronically signed by: Irvin Barber M.D. 09/19/2017 3:29 PM Dictated Date/Time: 09/19/2017 3:24 PM SINGLE VIEW PELVIS; 2 VIEWS RIGHT HIP; 2 VIEWS RIGHT FEMUR CLINICAL HISTORY: Fall with right leg pain. FINDINGS: An AP view of the pelvis with AP and crosstable lateral views of the right hip as well as AP and crosstable lateral views of the right femur are obtained. Correlation is made with pelvic radiograph dated 06/20/2014. The skeletal structures are osteopenic. There is no radiographic evidence of fracture involving the bony pelvis. There are bilateral hip arthroplasties in near-anatomic alignment. Periprosthetic lucency is noted around the right hip arthroplasty stem. There is a minimally distracted acute fracture through the subtrochanteric right femur around the proximal arthroplasty stem. There are small medial distracted fragments. Fracture lucency is also seen around the distal stem of the arthroplasty. This is not clearly extend to the cortex. The distal femoral shaft is intact. Arthritic change is noted in the right knee. There is mild soft tissue edema in the right upper thigh. Calcified fibroids are seen in the pelvis. Lumbosacral spondylosis is partially imaged. IMPRESSION: 1. There is an acute, comminuted, and minimally distracted fracture of the subtrochanteric right femur around the proximal stem of a right hip arthroplasty. 2. Fracture lucency is also identified involving the cortex around the distal aspect of the right hip arthroplasty. This does not clearly extend to the cortex. 3. The distal right femoral shaft is intact. 4. No fracture is identified involving the bony pelvis or the partially imaged left hip. Electronically signed by: Irvin Barber M.D. 09/19/2017 3:29 PM Dictated Date/Time: 09/19/2017 3:24 PM Laboratory Results 09/19/17 15:28 Red Blood Count 4.78, Mean Corpuscular Volume 88.5, Mean Corpuscular Hemoglobin 29.5, Mean Corpuscular Hemoglobin Concent 33.3, Mean Platelet Volume 9.6, Neutrophils (%) (Auto) 69.9, Lymphocytes (%) (Auto) 21.4, Monocytes (%) (Auto) 7.5, Eosinophils (%) (Auto) 0.7, Basophils (%) (Auto) 0.2, Neutrophils # (Auto) 6.36, Lymphocytes # (Auto) 1.95, Monocytes # (Auto) 0.68, Eosinophils # (Auto) 0.06, Basophils # (Auto) 0.02 09/19/17 15:28 Test 09/19/17 15:28 09/19/17 16:40 White Blood Count 9.10 K/uL (4.8-10.8) Red Blood Count 4.78 M/uL (4.2-5.4) Hemoglobin 14.1 g/dL (12.0-16.0) Hematocrit 42.3 % (37-47) Mean Corpuscular Volume 88.5 fL (80-100) Mean Corpuscular Hemoglobin 29.5 pg (25-34) Mean Corpuscular Hemoglobin Concent 33.3 g/dl (32-36) Platelet Count 258 K/uL (130-400) Mean Platelet Volume 9.6 fL (7.4-10.4) Neutrophils (%) (Auto) 69.9 % Lymphocytes (%) (Auto) 21.4 % Monocytes (%) (Auto) 7.5 % Eosinophils (%) (Auto) 0.7 % Basophils (%) (Auto) 0.2 % Neutrophils # (Auto) 6.36 K/uL (1.4-6.5) Lymphocytes # (Auto) 1.95 K/uL (1.2-3.4) Monocytes # (Auto) 0.68 K/uL (0.11-0.59) Eosinophils # (Auto) 0.06 K/uL (0-0.5) Basophils # (Auto) 0.02 K/uL (0-0.2) RDW Standard Deviation 47.1 fL (36.4-46.3) RDW Coefficient of Variation 14.5 % (11.5-14.5) Immature Granulocyte % (Auto) 0.3 % Immature Granulocyte # (Auto) 0.03 K/uL (0.00-0.02) Prothrombin Time 10.2 SECONDS (9.0-12.0) Prothromb Time International Ratio 1.0 (0.9-1.1) Activated Partial Thromboplast Time 23.6 SECONDS (21.0-31.0) Partial Thromboplastin Ratio 0.9 Anion Gap 7.0 mmol/L (3-11) Est Creatinine Clear Calc Drug Dose 45.5 ml/min Estimated GFR () 47.4 Estimated GFR (Non- 40.9 BUN/Creatinine Ratio 9.0 (10-20) Calcium Level 9.3 mg/dl (8.5-10.1) Magnesium Level 2.2 mg/dl (1.8-2.4) Thyroid Stimulating Hormone (TSH) 1.890 uIu/ml (0.300-4.500) Urine Color YELLOW Urine Appearance CLEAR (CLEAR) Urine pH 5.5 (4.5-7.5) Urine Specific Shorter 1.015 (1.000-1.030) Urine Protein NEG (NEG) Urine Glucose (UA) NEG (NEG) Urine Ketones 1+ (NEG) Urine Occult Blood NEG (NEG) Urine Nitrite NEG (NEG) Urine Bilirubin NEG (NEG) Urine Urobilinogen NEG (NEG) Urine Leukocyte Esterase NEG (NEG) Laboratory results per my review. Medications Administered Medications (Trade) Dose Ordered Sig/Beatriz Route Start Time Stop Time Status Last Admin Dose Admin Hydromorphone HCl (Dilaudid Inj) 0.25 mg Q20M PRN IV 09/19/17 15:15 10/03/17 15:14 09/19/17 16:29 0.25 MG ED Course ED COURSE: Vital signs were reviewed and showed hypertensive vitals. The patients medical record was reviewed The above diagnostic studies were performed and reviewed. ED treatments and interventions as stated above. 1414: The patient was evaluated by the Resident Physician at this time. 1429: The patient was evaluated in room B4B. A complete history and physical examination was performed. 1520: Upon reevaluation, the patient is laying flat in bed.I discussed my findings with the patient and she understands and agrees with the treatment plan. Based on the patients age, coexisting illnesses, exam and lab findings the decision to treat as an inpatient was made. The patient remained stable while under my care. The patient will be evaluated for further management. 1529: I discussed the case with Dr. Jamal Jean Baptiste - [facility]. He will evaluate the patient for further treatment. Medical Decision Differential diagnoses include major intracranial, cervical, spinal, thoracic, abdominal, pelvic and neurologic injury. Fracture, contusion, sprain, strain, laceration, abrasions included as well. Patient is a 77-year-old female who presents the ER following a mechanical fall onto her right hip. X-rays were obtained and show right hip fracture. Labs along with CBC, BMP and INR were consequently obtained and were unremarkable. UA negative. Patient was given IV Dilaudid. Patient was discussed with orthopedics and internal medicine. Patient was seen independently of my resident. Patient was admitted after discussion with the patient, orthopedics and internal medicine for a right hip fracture following a mechanical fall. She had no headache or neck pain. No blood thinners. Medication Reconcilliation Current Medication List: was personally reviewed by me Blood Pressure Screening Patient's blood pressure: Elevated blood pressure Consults Time Called: 1529 [facility] Phys[facility] Returned Call: 1529 I discussed the case with Dr. Berry [facility]. He will evaluate the patient for further treatment. Impression Primary Impression: Subtrochanteric fracture of right femur Additional Impression: Atrial fibrillation by electrocardiogram Scribe Attestation The scribe's documentation has been prepared under my direction and personally reviewed by me in its entirety. I confirm that the note above accurately reflects all work, treatment, procedures, and medical decision making performed by me. Departure Information Dispostion Admitted as an inpatient Referrals Radha Mirza D.O. (PCP) Patient Instructions [facility] Problem Qualifiers Primary Impression: Subtrochanteric fracture of right femur Encounter type: initial encounter Fracture type: closed Fracture alignment : nondisplaced Qualified Codes: S72.24XA - Nondisplaced subtrochanteric fracture of right femur, initial encounter for closed fracture
[2017-09-19] MEDS: D5W AND LACTATED RINGERS 1,000 ML IV SCH (18:24)
[2017-09-19 18:25] VITALS: BP 164/95; PULSE 88; TEMP 36.5; O2SAT 92
--- NOTE | 2017-09-19 20:07 | Anesthesiology Progress Note ---
Anesthesia Progress Note Date of Service Sep 19, 2017. Progress Notes Pt is scheduled for repair of R hip periprosthetic fx on 09/20/17. The pt is a 77F h/o chronic afib, HTN, HL, PVD s/p R CEA, h/o TIA, GERD, cancer. She presents 2/2 mechanical fall. The patient has a remote history of xarelto use but has not used the medication in months. She is currently on ASA 325 for anticoagulation. The patient has good functional status. Labs and EKG were reviewed. The patient is an acceptable candidate for anesthesia. Consent was obtained from the patient. All questions and concerns were addressed.
[2017-09-19] MEDS: DOCUSATE SODIUM/SENNA 50/8.6MG TAB PO SCH (20:45)
[2017-09-19 23:25] VITALS: BP 178/102; PULSE 103; TEMP 36.9; O2SAT 96
[2017-09-19 23:54] VITALS: BP 149/82; PULSE 92
[2017-09-20] MEDS: HYDROmorphone INJ 0.5 MG/0.5 ML SYR IV PRN (05:31)
[2017-09-20] MEDS: D5W AND LACTATED RINGERS 1,000 ML IV SCH (05:35)
[2017-09-20 05:44] LABS: HEMATOCRIT 40.7 % (37-47); HEMOGLOBIN 13.8 g/dL (12.0-16.0); MEAN CELL VOLUME 87.7 fL (80-100); MEAN CORPUSCULAR HEMOGLOBIN 29.7 pg (25-34); MEAN CORPUSCULAR HGB CONC 33.9 g/dl (32-36); MEAN PLATELET VOLUME 9.4 fL (7.4-10.4); PLATELET COUNT 248 K/uL (130-400); RED CELL DISTRIBUTION WIDTH CV 14.4 % (11.5-14.5); RED CELL DISTRIBUTION WIDTH SD 46.5 fL (36.4-46.3)
[2017-09-20] MEDS ORDERED: CEFAZOLIN 2000MG IV PUSH 15 ML IV SCH (06:00)
[2017-09-20] MEDS ORDERED: CEFAZOLIN IV 2,000 MG in DEXTROSE 5% 50ML 50 ML IV SCH (06:00)
[2017-09-20 06:19] LABS: CALCIUM 9.3 mg/dl (8.5-10.1); CREATININE 0.93 mg/dl (0.60-1.20)
[2017-09-20 07:41] VITALS: BP 157/92; PULSE 100; TEMP 36.8; O2SAT 94
--- NOTE | 2017-09-20 08:28 | Clinical Documentation Query ---
CLINICAL DOCUMENTATION QUERY 77 yo female admitted for fall and right hip periprosthetic fracture. Creatinine level was 1.25 trending down to 0.93. Baseline creatinines are 0.84 - 0.96. In your clinical opinion is this patient being managed for: ( ) Acute kidney failure, resolved ( ) Not Agree ( ) Other explanation of clinical findings (Please Explain) ( ) Unable to determine (Please Define) ( ) Need to Discuss The medical record reflects the following clinical findings, treatment, and risk factors. Clinical Indicators: As above Treatment: IV hydration, PRPs Risk Factors: Afib, HTN, age Please clarify and document your clinical opinion in the progress notes and discharge summary. Terms such as "probable", "suspected", "likely", "questionable", "possible", or "still to be ruled out" are acceptable. IF IN AGREEMENT, YOU MUST DOCUMENT ABOVE DIAGNOSTIC STATEMENT IN DAILY PROGRESS NOTES AND DISCHARGE SUMMARY. This document is not part of the patient's record. Thank You, Erin Sy RN [phone]
[2017-09-20] MEDS: PANTOprazole SOD 40 MG TAB PO SCH (09:03)
[2017-09-20] MEDS: LISINOPRIL 10 MG TAB PO SCH (09:04)
[2017-09-20] MEDS: DOCUSATE SODIUM/SENNA 50/8.6MG TAB PO SCH ×2 (09:04→20:40)
[2017-09-20] MEDS: MULTIVITAMIN TAB PO SCH (09:04)
[2017-09-20] MEDS: SODIUM CHLORIDE 0.9% 1000ML 1,000 ML IV SCH ×2 (09:43→22:17)
[2017-09-20] MEDS ORDERED: TRAMADOL HCL 50 MG TAB PO PRN (14:45)
[2017-09-20 15:04] VITALS: BP 149/90; PULSE 88; TEMP 36.8; O2SAT 95
--- NOTE | 2017-09-20 17:10 | Progress Note ---
Medicine Progress Note Date & Time of Visit: Sep 20, 2017 at 16:54. Subjective Pt was seen and examined Lying in bed with no distress Pt said that she does have pain in her RLE only when she moves the leg She said that last night the pain woke her up while sleeping after tossing around She said that she was very active and cutting her wood because the fracture She said that she never had any chest pain, palpitation and SOB She said that she does not have any pain currently Objective Last 8 Hrs Date Time Temp Pulse Resp B/P (MAP) Pulse Ox O2 Delivery O2 Flow Rate FiO2 09/20/17 15:15 Room Air 09/20/17 15:04 36.8 88 18 149/90 (109) 95 Room Air Physical Exam: General- No acute distress Head- atraumatic Eyes- PERRL, EOMI ENT- oropharynx clear Neck- supple, no JVD Lungs- clear to auscultation Heart- regular rhythm; +murmur Abdomen- normal bowel sounds, soft Extremities- no calf tenderness Neuro- alert, oriented x 3; PERRL, EOMI Skin- warm & dry Laboratory Results: Last 24 Hours Test 09/20/17 05:25 White Blood Count 9.90 K/uL Red Blood Count 4.64 M/uL Hemoglobin 13.8 g/dL Hematocrit 40.7 % Mean Corpuscular Volume 87.7 fL Mean Corpuscular Hemoglobin 29.7 pg Mean Corpuscular Hemoglobin Concent 33.9 g/dl RDW Standard Deviation 46.5 fL RDW Coefficient of Variation 14.4 % Platelet Count 248 K/uL Mean Platelet Volume 9.4 fL Sodium Level 137 mmol/L Potassium Level 4.0 mmol/L Chloride Level 107 mmol/L Carbon Dioxide Level 27 mmol/L Anion Gap 3.0 mmol/L Blood Urea Nitrogen 10 mg/dl Creatinine 0.93 mg/dl Est Creatinine Clear Calc Drug Dose 61.1 ml/min Estimated GFR () 67.7 Estimated GFR (Non- 58.5 BUN/Creatinine Ratio 11.3 Random Glucose 146 mg/dl Calcium Level 9.3 mg/dl Assessment & Plan Right hip periprosthetic fracture secondary to mechanical fall Xray right hip showed an acute, comminuted, and minimally distracted fracture of the subtrochanteric right femur around the proximal stem of a right hip arthroplasty. Continue pain control Before the fracture pt had a a functional capacity with a METS greater than 4 Never had any chest pain, palpitation and SOB Last ECHO was done on 12/24 was unremarkable Medically stable to proceed with the surgery Ortho plan for surgery tomorrow NPO after midnight Atrial fibrillation Rate is controlled without any symptoms Not on any anticoagulation now except aspirin Stable Acute Kidney Injury Creatine on admission 1.25 Baseline btw 0.9 to 1.1 Resolved Hypertension BP stable Will hold am dose lisinopril for the surgery Monitor BP Esophageal reflux Continue with omeprazole DVT prophylaxis On SCDs for now Disposition Plan for surgery tomorrow Current Inpatient Medications: Current Inpatient Medications Medications (Trade) Dose Ordered Sig/Beatriz Route Start Time Stop Time Status Last Admin Dose Admin Acetaminophen (Tylenol Tab) 1,000 mg Q6H PRN PO 09/19/17 15:15 10/19/17 15:14 09/20/17 12:29 1,000 MG Hydromorphone HCl (Dilaudid Inj) 0.25 mg Q20M PRN IV 09/19/17 15:15 10/03/17 15:14 09/20/17 05:31 0.25 MG Ondansetron HCl (Zofran Inj) 4 mg Q6H PRN IV 09/19/17 16:45 10/19/17 16:44 Hydromorphone HCl (Dilaudid Inj) 0.5 mg Q20M PRN IV 09/19/17 16:45 10/03/17 16:44 Naloxone HCl (Narcan Inj) 0.1 mg PRN PRN IV 09/19/17 16:45 10/19/17 16:44 Senna/Docusate Sodium (Senokot S Tab) 2 tab HS PO 09/19/17 21:00 10/19/17 20:59 09/19/17 20:45 2 TAB Polyethylene (Miralax Powder Packet) 17 gm DAILY PRN PO 09/19/17 16:45 10/19/17 16:44 Magnesium Hydroxide (Milk Of Magnesia Susp) 30 ml DAILY PRN PO 09/19/17 16:45 10/19/17 16:44 Bisacodyl (Dulcolax Supp) 10 mg DAILY PRN [place] 09/19/17 16:45 10/19/17 16:44 Sodium Biphosphate/ Sodium Phosphate (Fleet Enema) 132 ml PRN PRN [place] 09/19/17 16:45 Lisinopril (Zestril Tab) 10 mg QAM PO 09/20/17 09:00 10/20/17 08:59 09/20/17 09:04 10 MG Multivitamins (Multivitamin Tab) 1 tab QAM PO 09/20/17 09:00 10/20/17 08:59 09/20/17 09:04 1 TAB Senna/Docusate Sodium (Senokot S Tab) 1 tab QAM PO 09/20/17 09:00 10/20/17 08:59 09/20/17 09:04 1 TAB Pantoprazole Sodium (Protonix Tab) 40 mg QAM PO 09/20/17 09:00 10/20/17 08:59 09/20/17 09:03 40 MG Cefazolin Sodium 15 ml @ 3.75 mls/ min PREOP IV 09/20/17 06:00 09/20/17 18:00 Sodium Chloride 1,000 ml @ 75 mls/hr [id number] IV 09/20/17 09:15 10/20/17 09:14 09/20/17 09:43 75 MLS/HR Tramadol HCl (Ultram Tab) 50 mg Q6 PRN PO 09/20/17 14:45 10/20/17 14:44
--- NOTE | 2017-09-20 20:01 | CONSULTATION REPORT ---
DATE OF CONSULTATION: 09/20/2017 REASON FOR CONSULT: Right periprosthetic femur fracture. HISTORY OF PRESENT ILLNESS: Patient is a 77-year-old white female known to our practice who is status post left and right total hip arthroplasties by Dr. Jose in the past. The right one was done in 2002. She apparently was helping load some firewood at home, and she was standing on a pallet. She states that she has been having balance issues of late and ended up losing her balance and fell off the pallet on to her right side. She had immediate pain in her hip and groin, and she was unable to ambulate well and was brought to the Emergency Room. She was seen by the staff. X-rays were taken, and it was found that she had a periprosthetic femur fracture of the right hip. She was admitted by [facility] service, and we have been asked to see her for her hip fracture. She denies any loss of consciousness at the time of the fall. She denies any spinning sensations, lightheadedness, or dizziness. No shortness of breath or chest pain at the time of the fall or after the fall. Currently, she is comfortable with the right hip as long as she does not move but is complaining of some low back pain which she always has due to sleeping on her back for too long. She states that this has not worsened since after the admission. PAST MEDICAL HISTORY: Diabetes mellitus, GERD, hyperlipidemia, hypertension, history of CVA in the past, atrial fibrillation with no chronic anticoagulation, history of Elkins's palsy, Lyme's disease, carotid artery stenosis. 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 FAMILY HISTORY: Noncontributory. SOCIAL HISTORY: Patient is a nonsmoker, does not use alcohol, and is . MEDICATIONS: Aspirin 325 mg p.o. daily, flaxseed oil 1000 mg p.o. q.a.m., glucosamine 2 tabs p.o. q.a.m., lisinopril 10 mg p.o. q.a.m., multivitamin 1 tablet p.o. q.a.m., omeprazole 20 mg p.o. q.a.m., and stool softener 1 tablet p.o. q.a.m. ALLERGIES: MORPHINE WHICH WAS CAUSING MILD NAUSEA AND VOMITING AND PROPOXYPHENE. REVIEW OF SYSTEMS: As per admitting history and physical. PHYSICAL EXAMINATION: GENERAL: Patient is an elderly white female who appears her stated age. She is pleasant and cooperative, in no acute distress, alert and oriented to person and place at this time. MUSCULOSKELETAL: On examination of her right lower extremity, it is shortened and externally rotated compared to the left side. No attempts were made to move the right hip due to a fracture. She states that even moving the knee causes extreme pain in her right hip, and at this point, range of motion of the knee is declined. She is nontender on palpation of the right knee at this time. She is able to move her right ankle and toes quite well and has good sensation of her right foot. Left lower extremity essentially within normal limits at this time. A well-healed scar from the previous NIDA is noted. She has range of motion within normal limits of the left lower extremity. Distal pulses of the lower extremities are 2/4, and again, sensation is intact. Upper extremities essentially at this time bilaterally are within normal limits and has good range of motion, and she denies pain at the shoulders, elbows, and wrists. Strengths are equal, and distal pulses of the upper extremities are essentially 2/4 bilaterally. She denies any neck pain at this time and has good range of motion with flexion, extension, and rotationally. She complains of some low back pain which she always has and has had it for quite some time, which has not increased since the fall. She denies any thoracic back pain. There are no gross motor or sensory deficits seen at this time other than due to fracture of her right hip. ASSESSMENT: Right periprosthetic femur fracture. PLAN: The case has been discussed with Dr. Bonilla who has reviewed her films. Plans will be for open reduction and internal fixation of the current hip fracture, removal of hardware, and implantation of a long stem total hip arthroplasty. We will have to order long NIDA stems in as they are not kept here at the hospital. Hopefully they will be here later this afternoon , and plans will be to do the case tomorrow. CAT
[2017-09-20 22:43] VITALS: BP 169/91; PULSE 115; TEMP 37.4; O2SAT 94
[2017-09-20 23:15] VITALS: BP 163/85; PULSE 118
[2017-09-21] VITALS (10 sets, daily range): BP systolic 96–161; BP diastolic 47–97; PULSE 88–108; TEMP 36.2–37.2; O2SAT 91–97
[2017-09-21] MEDS: TRANEXAMIC ACID INJ 1,000 MG in SODIUM CHLORIDE 0.9% 100ML 100 ML IV SCH ×2 (06:00→07:00)
[2017-09-21] MEDS ORDERED: CEFAZOLIN 2000MG IV PUSH 15 ML IV SCH (06:00)
[2017-09-21] MEDS ORDERED: ROPIVACAINE 5MG/ML 30 ML 150 MG, BUPIVACAINE 0.5% MPF INJ 30 ML, EpINEphrine HCL INJ 0.... INFIL SCH ×8 (06:00)
[2017-09-21] MEDS ORDERED: MIDAZOLAM HCL 1 MG/ML 2ML VIAL ONE (06:52)
[2017-09-21] MEDS ORDERED: LIDOCAINE HCL 2% 2 ML VIAL (20MG/ML) ONE (06:52)
[2017-09-21] MEDS ORDERED: PROPOFOL IV EMULSION 10 MG/ML 20 ML VIAL IV ONE (06:52)
[2017-09-21] MEDS ORDERED: POVIDONE-IODINE OP SOLN 30 ML BTL ONE (07:09)
[2017-09-21] MEDS ORDERED: BACITRACIN 50000 UNIT VIAL ONE (07:09)
[2017-09-21] MEDS ORDERED: FENTANYL CITRATE INJ 50 MCG/1 ML 2 ML VIAL ONE ×4 (07:15→12:11)
[2017-09-21] MEDS ORDERED: ROCURONIUM BROMIDE 10 MG/ML 5 ML VIAL IV ONE (07:17)
[2017-09-21] MEDS ORDERED: LABETALOL HCL IV 5 MG/ML 20ML IV PRN (07:30)
[2017-09-21] MEDS ORDERED: ONDANSETRON INJ 2 MG/ML 2 ML VIAL IV PRN ×2 (07:30→13:45)
[2017-09-21] MEDS ORDERED: ATROPINE SULFATE 0.1 MG/ML 5ML SYR IV PRN (07:30)
[2017-09-21] MEDS ORDERED: HYDROmorphone INJ 2 MG/ML SYR/VIAL IV PRN (07:30)
--- NOTE | 2017-09-21 07:47 | Orthopedic Progress Note ---
Orthopedic Progress Note Date of Service Sep 21, 2017. Subjective Additional Notes: Patient was seen in the preoperative holding area, comfortable, pain with movement of her right lower extremity, no acute issues overnight. Objective No apparent distress, alert and oriented 3 Right lower extremity is neurovascularly sensory intact, positive EHL/FHL/TA/ GS. Sensory intact to light touch grossly, +2 dorsalis pedis pulse, compartments soft nontender, skin intact over right hip. Date Time Temp Pulse Resp B/P (MAP) Pulse Ox O2 Delivery O2 Flow Rate FiO2 09/21/17 07:04 37.2 105 20 161/97 (118) 93 Room Air 09/20/17 23:15 Room Air 09/20/17 23:15 118 163/85 (111) 09/20/17 22:43 37.4 115 18 169/91 (117) 94 Room Air 09/20/17 15:15 Room Air 09/20/17 15:04 36.8 88 18 149/90 (109) 95 Room Air Assessment & Plan Assessment: Right proximal femur periprosthetic fracture with loose femoral stem Plan: I have indicated the patient for open reduction internal fixation of her greater trochanteric fracture, revision of the femoral stem component, head and liner exchange and possible acetabular cup revision. The patient was medically stabilized on 09/21/2017. I indicated the patient for revision right total hip arthroplasty, femoral stem, ORIF greater trochanter, head and liner exchange and possible revision acetabular cup. The patient was informed of the risks and benefits of surgery, which include but not limited to infection, bleeding, blood clots, damage to nerves, vessels, bone and soft tissue, nonunion malunion of greater trochanter, dislocation, leg length discrepancy, failure of the implants, need for additional surgery and . The the patient chose to move forward with surgical intervention and informed consent was obtained.
[2017-09-21] MEDS ORDERED: CEFAZOLIN SOD 1 GM VIAL ONE ×2 (07:51→11:54)
[2017-09-21] MEDS ORDERED: METOPROLOL TARTRATE 1 MG/ML VIAL ONE (08:23)
[2017-09-21] MEDS ORDERED: ESMOLOL HCL 10 MG/ML 10 ML VIAL ONE (08:28)
[2017-09-21] MEDS: DOCUSATE SODIUM/SENNA 50/8.6MG TAB PO SCH ×2 (09:00→21:37)
[2017-09-21] MEDS: PANTOprazole SOD 40 MG TAB PO SCH (09:00)
[2017-09-21] MEDS: MULTIVITAMIN TAB PO SCH (09:00)
[2017-09-21 11:31] LABS: HEMATOCRIT 38.6 % (37-47); HEMOGLOBIN 13.1 g/dL (12.0-16.0)
[2017-09-21] MEDS: SODIUM CHLORIDE 0.9% 1000ML 1,000 ML IV SCH (11:55)
--- NOTE | 2017-09-21 12:46 | DIAGNOSTIC IMAGING REPORT ---
CROSSTABLE LATERAL VIEW OF THE RIGHT HIP 2 VIEWS CLINICAL HISTORY: Intraoperative radiograph. COMPARISON: 09/19/2017 DISCUSSION: 2 intraoperative views are provided for interpretation. There is a long stem total right hip arthroplasty. There are multiple proximal cerclage wires present. There is no dislocation. There is air within the soft tissues. IMPRESSION: Intraoperative radiograph demonstrating a total right hip arthroplasty with long femoral stem and multiple proximal cerclage wires. Electronically signed by: Tanner Fernández M.D. 09/21/2017 12:44 PM Dictated Date/Time: 09/21/2017 12:43 PM
[2017-09-21] MEDS ORDERED: NEOSTIGMINE METHYLSULFATE 5 MG/5 ML SYR ONE (13:11)
[2017-09-21] MEDS ORDERED: ONDANSETRON INJ 2 MG/ML 2 ML VIAL ONE (13:11)
[2017-09-21] MEDS ORDERED: GLYCOPYRROLATE INJ 0.2 MG/ML VIAL ONE (13:11)
--- NOTE | 2017-09-21 13:38 | [facility] Post Operative Brief Note ---
Immediate Operative Summary Operative Date Sep 21, 2017. Pre-Operative Diagnosis Right proximal femur periprosthetic fracture with loose femoral stem Post-Operative Diagnosis Same as preoperative Procedure(s) Performed Right Hip, Revision Total Hip, Femoral Stem, Head and Liner Exchange, Open Reduction Internal Fixation Greater Trochanter Surgeon Dr. Nam Zhu Medical Economics Consultant Surgeon(s) Javier Quintero PA-C Estimated Blood Loss 500ml Findings Consistent with Post-Op Diagnosis Fluids (cc crystalloids) 3200 Specimens A.) Explanted Hardware, Right Hip Drains None Anesthesia Type General Complication(s) none Disposition Disposition: Recovery Room / PACU
[2017-09-21] MEDS ORDERED: SODIUM CHLORIDE 0.9% 1000ML 1,000 ML IV SCH (13:41)
[2017-09-21] MEDS ORDERED: HYDROmorphone INJ 0.5 MG/0.5 ML SYR IV PRN (13:45)
[2017-09-21] MEDS ORDERED: COUGH DROP (SUGAR FREE) LOZ 24 LOZ/1 BOX LOZ PRN (13:45)
[2017-09-21] MEDS ORDERED: NALOXONE HCL 0.4 MG/1 ML VIAL/CARP IV PRN (13:45)
[2017-09-21 14:49] LABS: HEMATOCRIT 37.6 % (37-47); HEMOGLOBIN 12.3 g/dL (12.0-16.0)
--- NOTE | 2017-09-21 14:52 | DIAGNOSTIC IMAGING REPORT ---
R HIP UNILATERAL 2 VIEWS CLINICAL HISTORY: Total right hip revision. COMPARISON: 09/19/2017 DISCUSSION: There is a long stem total right hip arthroplasty with multiple cerclage wires. There is a metallic claw with screws at the level the greater trochanter. The lesser trochanter is fractured and distracted proximally, by approximately 3 cm.. IMPRESSION: Total right hip revision with a long stem femoral component and greater trochanteric claw with screws. There are multiple cerclage wires. The lesser trochanter is fractured and distracted proximally x 3 cm. There is is no dislocation. Electronically signed by: Tanner Fernández M.D. 09/21/2017 2:50 PM Dictated Date/Time: 09/21/2017 2:40 PM
--- NOTE | 2017-09-21 15:56 | Orthopedic Progress Note ---
Orthopedic Progress Note Date of Service Sep 21, 2017. Subjective Additional Notes: Post-operative progress note Patient seen in recovery room, comfortable, pain well controlled, no acute issues. Objective NAD, AOx3 RLE NVSI +EHL/FHL/TA/GS SILT grossly, CR< 2 seconds, +2 DP pulse, dressing cdi, compartments soft NT Date Time Temp Pulse Resp B/P (MAP) Pulse Ox O2 Delivery O2 Flow Rate FiO2 09/21/17 15:21 36.4 93 18 114/70 (85) 93 Nasal Cannula 2.0 09/21/17 14:55 36.2 96 18 140/71 (94) 91 Nasal Cannula 2.0 09/21/17 14:40 36.6 96 20 128/71 96 Nasal Cannula 3 09/21/17 14:30 94 20 122/78 99 Nasal Cannula 3 09/21/17 14:20 89 20 108/78 97 Nasal Cannula 3 09/21/17 14:10 89 18 127/63 95 Oxymask 10 09/21/17 14:00 87 18 125/81 97 Oxymask 10 09/21/17 13:50 104 18 112/68 97 Oxymask 10 09/21/17 13:44 36.8 104 18 116/68 97 Oxymask 10 09/21/17 07:05 Room Air 09/21/17 07:04 37.2 105 20 161/97 (118) 93 Room Air 09/20/17 23:15 Room Air 09/20/17 23:15 118 163/85 (111) 09/20/17 22:43 37.4 115 18 169/91 (117) 94 Room Air Laboratory Results 24 Hours: Test 09/21/17 00:00 09/21/17 14:36 Hematocrit 38.6 % 37.6 % Hemoglobin 13.1 g/dL 12.3 g/dL Assessment & Plan Assessment: Revision right NIDA, femoral stem, head and liner exchange, ORIF greater trochanter. Plan: -ancef x24 -DVT ppx: ASA BID -TTWB RLE -PT/OT -Posterior hip precautions -PO XR: well aligned well fixed prosthesis, no dislocation -am labs -monitor HMV
--- NOTE | 2017-09-21 17:48 | Anesthesiology Progress Note ---
Anesthesia Progress Note Date of Service Sep 21, 2017. Progress Notes patient complaining of irritated right eye, "feels like there's something in it ". Was not bothering her after surgery while in recovery. Eye is not red but is watering, maybe a little better since they put saline drops in it. Don't see anything in her eye. Will have them use gentamicin ointment for a couple days, told her to let us know if still bothering her tomorrow.
--- NOTE | 2017-09-21 18:39 | Progress Note ---
Medicine Progress Note Date & Time of Visit: Sep 21, 2017 at 18:31. Subjective Pt was seen and examined Lying in bed with no distress eating her dinner Pt had surgery done and tolerated well She said that she feels fine She said that she felt a little dizzy early when she was standing up to transfer to chair Denies any any chest pain, palpitation, dizziness and SOB Objective Last 8 Hrs Date Time Temp Pulse Resp B/P (MAP) Pulse Ox O2 Delivery O2 Flow Rate FiO2 09/21/17 17:45 36.3 94 20 99/47 (64) 96 Room Air 09/21/17 16:58 36.3 97 18 115/79 (91) 97 Nasal Cannula 2.0 09/21/17 15:51 36.5 88 18 96/58 (71) 97 Nasal Cannula 2.0 09/21/17 15:21 36.4 93 18 114/70 (85) 93 Nasal Cannula 2.0 09/21/17 15:15 93 Nasal Cannula 2.0 09/21/17 14:55 36.2 96 18 140/71 (94) 91 Nasal Cannula 2.0 09/21/17 14:40 36.6 96 20 128/71 96 Nasal Cannula 3 09/21/17 14:30 94 20 122/78 99 Nasal Cannula 3 09/21/17 14:20 89 20 108/78 97 Nasal Cannula 3 09/21/17 14:10 89 18 127/63 95 Oxymask 10 09/21/17 14:00 87 18 125/81 97 Oxymask 10 09/21/17 13:50 104 18 112/68 97 Oxymask 10 09/21/17 13:44 36.8 104 18 116/68 97 Oxymask 10 Physical Exam: General- No acute distress Head- atraumatic Eyes- PERRL, EOMI ENT- oropharynx clear Neck- supple, no JVD Lungs- clear to auscultation Heart- regular rhythm; +murmur Abdomen- normal bowel sounds, soft Extremities- no calf tenderness Neuro- alert, oriented x 3; PERRL, EOMI Skin- warm & dry Laboratory Results: Last 24 Hours Test 09/21/17 00:00 09/21/17 13:53 09/21/17 14:36 Hemoglobin 13.1 g/dL 12.3 g/dL Hematocrit 38.6 % 37.6 % Bedside Glucose 106 mg/dl Assessment & Plan Right hip periprosthetic fracture secondary to mechanical fall Xray right hip showed an acute, comminuted, and minimally distracted fracture of the subtrochanteric right femur around the proximal stem of a right hip arthroplasty. Continue pain control Before the fracture pt had a a functional capacity with a METS greater than 4 Never had any chest pain, palpitation and SOB Last ECHO was done on 12/24 was unremarkable Medically stable to proceed with the surgery Ortho plan for surgery tomorrow NPO after midnight 09/21 S/P day#0 Revision right NIDA, femoral stem, head and liner exchange, ORIF greater trochanter. No post op complication Monitor H/H Incentive spirometry Fall precaution Continue pain control PT/OT Fall precaution Atrial fibrillation Rate is controlled without any symptoms Not on any anticoagulation now except aspirin Stable Acute Kidney Injury Creatine on admission 1.25 Baseline btw 0.9 to 1.1 Resolved Hypertension BP low Continue holding lisinopril for the surgery If BP drops further, will start on gentle fluid (500ml) Monitor BP Esophageal reflux Continue with omeprazole DVT prophylaxis ASA BID as per ortho Disposition Will discharge once medically stable Current Inpatient Medications: Current Inpatient Medications Medications (Trade) Dose Ordered Sig/Beatriz Route Start Time Stop Time Status Last Admin Dose Admin Polyethylene (Miralax Powder Packet) 17 gm DAILY PRN PO 09/19/17 16:45 10/19/17 16:44 Magnesium Hydroxide (Milk Of Magnesia Susp) 30 ml DAILY PRN PO 09/19/17 16:45 10/19/17 16:44 Bisacodyl (Dulcolax Supp) 10 mg DAILY PRN [place] 09/19/17 16:45 10/19/17 16:44 Sodium Biphosphate/ Sodium Phosphate (Fleet Enema) 132 ml PRN PRN [place] 09/19/17 16:45 Lisinopril (Zestril Tab) 10 mg QAM PO 09/20/17 09:00 10/20/17 08:59 Future Hold 09/20/17 09:04 10 MG Multivitamins (Multivitamin Tab) 1 tab QAM PO 09/20/17 09:00 10/20/17 08:59 09/20/17 09:04 1 TAB Senna/Docusate Sodium (Senokot S Tab) 1 tab QAM PO 09/20/17 09:00 10/20/17 08:59 09/20/17 09:04 1 TAB Pantoprazole Sodium (Protonix Tab) 40 mg QAM PO 09/20/17 09:00 10/20/17 08:59 09/20/17 09:03 40 MG Sodium Chloride 1,000 ml @ 0 mls/hr Q0M IV 09/21/17 13:41 10/21/17 13:40 Cefazolin Sodium 2000 mg/Syringe 15 ml @ 3.75 mls/ min Q8H IV 09/21/17 16:00 09/22/17 00:03 Ondansetron HCl (Zofran Inj) 4 mg Q6H PRN IV 09/21/17 13:45 10/21/17 13:44 Acetaminophen (Tylenol Tab) 650 mg Q6H PRN PO 09/21/17 13:45 10/21/17 13:44 Oxycodone HCl (Roxicodone Immediate Rel Tab) 5 mg Q4H PRN PO 09/21/17 13:45 10/05/17 13:44 Oxycodone HCl (Roxicodone Immediate Rel Tab) 10 mg Q4H PRN PO 09/21/17 13:45 10/05/17 13:44 Aspirin/Aluminum/ Magnesium/Ca Carb (Ascriptin Tab) 325 mg BID PO 09/21/17 21:00 10/21/17 20:59 Hydromorphone HCl (Dilaudid Inj) 0.5 mg Q20M PRN IV 09/21/17 13:45 10/05/17 13:44 Naloxone HCl (Narcan Inj) 0.4 mg Q1M PRN IV 09/21/17 13:45 10/21/17 13:44 Menthol (Nice Shena) 1 shena Q2H PRN SHENA 09/21/17 13:45 10/21/17 13:44 Senna/Docusate Sodium (Senokot S Tab) 2 tab HS PO 09/21/17 21:00 10/21/17 20:59 Gentamicin Sulfate (Gentamicin 0.3% Oph Oint) 1 appln Q4 OP 09/21/17 20:00 09/24/17 20:00
[2017-09-21] MEDS: CEFAZOLIN IV 2,000 MG in SYRINGE 0 ML IV SCH (18:42)
[2017-09-21] MEDS: GENTAMICIN SULFATE 0.3% OP OINT 3.5 GM TUBE OP SCH (21:34)
[2017-09-21] MEDS: ASPIRIN/ALUM/MAGNES/CAL CARB 325 MG TAB PO SCH (21:37)
[2017-09-22] MEDS: CEFAZOLIN IV 2,000 MG in SYRINGE 0 ML IV SCH (00:57)
[2017-09-22] MEDS: GENTAMICIN SULFATE 0.3% OP OINT 3.5 GM TUBE OP SCH ×6 (00:58→20:27)
[2017-09-22] MEDS ORDERED: CEFAZOLIN IV 2,000 MG in DEXTROSE 5% 50ML 50 ML IV SCH (06:00)
[2017-09-22] MEDS ORDERED: ROPIVACAINE 5MG/ML 30 ML 150 MG, BUPIVACAINE/EPINEPHR 0.5% MPF 30 ML, KETOROLAC TROMETH... INFIL SCH ×7 (06:00)
[2017-09-22] MEDS ORDERED: TRANEXAMIC ACID INJ 1,000 MG in SODIUM CHLORIDE 0.9% 100ML 100 ML IV SCH (06:00)
[2017-09-22] MEDS: OXYCODONE HCL IR 5 MG TAB (IMMEDIATE RELEASE) PO PRN ×3 (06:27→16:41)
[2017-09-22 07:06] LABS: CALCIUM 7.9 mg/dl (8.5-10.1); CREATININE 0.95 mg/dl (0.60-1.20); POTASSIUM 4.4 mmol/L (3.5-5.1)
--- NOTE | 2017-09-22 07:22 | Orthopedic Progress Note ---
Orthopedic Progress Note Date of Service Sep 22, 2017. Subjective Post OP Day: 1 Reports: feeling well, pain controlled w PO medications, Denies: complaints, chest pain, SOB, nausea / vomiting, light headedness, calf pain Additional Notes: denies chest pain, SOB, denies fever/chills. currently at rest pain tolerable Objective calves soft nontender, N/V intact, dressing C/D/I, A&O x3, toes mobile, hemovac drainage (275cc total since surgery) DP+2 Date Time Temp Pulse Resp B/P (MAP) Pulse Ox O2 Delivery O2 Flow Rate FiO2 09/21/17 23:45 93 Nasal Cannula 2.0 09/21/17 23:40 36.4 100 18 121/74 (90) 96 Nasal Cannula 2.0 09/21/17 19:53 36.4 108 18 104/65 (78) 92 Nasal Cannula 2.0 09/21/17 17:45 36.3 94 20 99/47 (64) 96 Room Air 09/21/17 16:58 36.3 97 18 115/79 (91) 97 Nasal Cannula 2.0 09/21/17 15:51 36.5 88 18 96/58 (71) 97 Nasal Cannula 2.0 09/21/17 15:21 36.4 93 18 114/70 (85) 93 Nasal Cannula 2.0 09/21/17 15:15 93 Nasal Cannula 2.0 09/21/17 14:55 36.2 96 18 140/71 (94) 91 Nasal Cannula 2.0 09/21/17 14:40 36.6 96 20 128/71 96 Nasal Cannula 3 09/21/17 14:30 94 20 122/78 99 Nasal Cannula 3 09/21/17 14:20 89 20 108/78 97 Nasal Cannula 3 09/21/17 14:10 89 18 127/63 95 Oxymask 10 09/21/17 14:00 87 18 125/81 97 Oxymask 10 09/21/17 13:50 104 18 112/68 97 Oxymask 10 09/21/17 13:44 36.8 104 18 116/68 97 Oxymask 10 Laboratory Results 24 Hours: Test 09/21/17 14:36 09/22/17 06:11 Hematocrit 37.6 % Hemoglobin 12.3 g/dL Assessment & Plan Assessment: POD #1 s/p Revision right NIDA, femoral stem, head and liner exchange, ORIF greater trochanter. Plan: -ancef x24 -DVT ppx: ASA BID -TTWB RLE -PT/OT -Posterior hip precautions -PO XR: well aligned well fixed prosthesis, no dislocation -am labs- CBC pending Discharge Planning Discharge Planning: uncertain DVT Prophylaxis: TEDs, SCDs, ASA
[2017-09-22 07:25] LABS: HEMATOCRIT 28.8 % (37-47); HEMOGLOBIN 9.4 g/dL (12.0-16.0); MEAN CELL VOLUME 88.6 fL (80-100); MEAN CORPUSCULAR HEMOGLOBIN 28.9 pg (25-34); MEAN CORPUSCULAR HGB CONC 32.6 g/dl (32-36); MEAN PLATELET VOLUME 9.9 fL (7.4-10.4); PLATELET COUNT 195 K/uL (130-400); RED CELL DISTRIBUTION WIDTH CV 14.3 % (11.5-14.5); RED CELL DISTRIBUTION WIDTH SD 46.6 fL (36.4-46.3); WHITE BLOOD COUNT 11.97 K/uL (4.8-10.8)
[2017-09-22 08:10] VITALS: BP 127/81; PULSE 113; TEMP 36.5; O2SAT 94
[2017-09-22] MEDS: MULTIVITAMIN TAB PO SCH (08:24)
[2017-09-22] MEDS: PANTOprazole SOD 40 MG TAB PO SCH (08:24)
[2017-09-22] MEDS: ASPIRIN/ALUM/MAGNES/CAL CARB 325 MG TAB PO SCH ×2 (08:24→20:28)
[2017-09-22] MEDS: DOCUSATE SODIUM/SENNA 50/8.6MG TAB PO SCH ×2 (08:24→20:27)
[2017-09-22] MEDS: ACETAMINOPHEN 325 MG TAB PO PRN (09:22)
[2017-09-22 11:50] VITALS: BP 107/70; PULSE 113; TEMP 36.4; O2SAT 90
[2017-09-22 15:19] VITALS: BP 127/74; PULSE 105; TEMP 37; O2SAT 94
--- NOTE | 2017-09-22 17:36 | Progress Note ---
Medicine Progress Note Date & Time of Visit: Sep 22, 2017 at 17:31. Subjective Pt was seen and examined Lying in bed with no distress Pt said that pain seems to control She said that she does have some pain when moving her leg certain way Denies any chest pain, palpitation, dizziness and SOB Objective Last 8 Hrs Date Time Temp Pulse Resp B/P (MAP) Pulse Ox O2 Delivery O2 Flow Rate FiO2 09/22/17 15:35 Room Air 09/22/17 15:19 37.0 105 18 127/74 (91) 94 Room Air 09/22/17 11:50 36.4 113 18 107/70 (82) 90 Room Air Physical Exam: General- No acute distress Head- atraumatic Eyes- PERRL, EOMI ENT- oropharynx clear Neck- supple, no JVD Lungs- clear to auscultation Heart- regular rhythm; +murmur Abdomen- normal bowel sounds, soft Extremities- no calf tenderness Neuro- alert, oriented x 3; PERRL, EOMI Skin- warm & dry Laboratory Results: Last 24 Hours Test 09/22/17 06:11 White Blood Count 11.97 K/uL Red Blood Count 3.25 M/uL Hemoglobin 9.4 g/dL Hematocrit 28.8 % Mean Corpuscular Volume 88.6 fL Mean Corpuscular Hemoglobin 28.9 pg Mean Corpuscular Hemoglobin Concent 32.6 g/dl RDW Standard Deviation 46.6 fL RDW Coefficient of Variation 14.3 % Platelet Count 195 K/uL Mean Platelet Volume 9.9 fL Sodium Level 136 mmol/L Potassium Level 4.4 mmol/L Chloride Level 107 mmol/L Carbon Dioxide Level 25 mmol/L Anion Gap 4.0 mmol/L Blood Urea Nitrogen 15 mg/dl Creatinine 0.95 mg/dl Est Creatinine Clear Calc Drug Dose 59.9 ml/min Estimated GFR () 66.0 Estimated GFR (Non- 57.0 BUN/Creatinine Ratio 16.3 Random Glucose 109 mg/dl Calcium Level 7.9 mg/dl Assessment & Plan Right hip periprosthetic fracture secondary to mechanical fall Xray right hip showed an acute, comminuted, and minimally distracted fracture of the subtrochanteric right femur around the proximal stem of a right hip arthroplasty. Continue pain control Before the fracture pt had a a functional capacity with a METS greater than 4 Never had any chest pain, palpitation and SOB Last ECHO was done on 12/24 was unremarkable Medically stable to proceed with the surgery Ortho plan for surgery tomorrow NPO after midnight 09/22 S/P day#1 Revision right NIDA, femoral stem, head and liner exchange, ORIF greater trochanter. No post op complication Hgb 9.4 Incentive spirometry Fall precaution Continue pain control PT/OT Fall precaution Atrial fibrillation Rate is controlled without any symptoms Not on any anticoagulation now except aspirin Stable Acute Kidney Injury Creatine on admission 1.25 Baseline btw 0.9 to 1.1 Resolved Hypertension BP low Will resume lisinopril tomorrow Monitor BP Esophageal reflux Continue with omeprazole DVT prophylaxis ASA BID as per ortho Disposition Will discharge once medically stable Current Inpatient Medications: Current Inpatient Medications Medications (Trade) Dose Ordered Sig/Beatriz Route Start Time Stop Time Status Last Admin Dose Admin Polyethylene (Miralax Powder Packet) 17 gm DAILY PRN PO 09/19/17 16:45 10/19/17 16:44 Magnesium Hydroxide (Milk Of Magnesia Susp) 30 ml DAILY PRN PO 09/19/17 16:45 10/19/17 16:44 Bisacodyl (Dulcolax Supp) 10 mg DAILY PRN [place] 09/19/17 16:45 10/19/17 16:44 Sodium Biphosphate/ Sodium Phosphate (Fleet Enema) 132 ml PRN PRN [place] 09/19/17 16:45 Lisinopril (Zestril Tab) 10 mg QAM PO 09/20/17 09:00 10/20/17 08:59 Future Hold 09/20/17 09:04 10 MG Multivitamins (Multivitamin Tab) 1 tab QAM PO 09/20/17 09:00 10/20/17 08:59 09/22/17 08:24 1 TAB Senna/Docusate Sodium (Senokot S Tab) 1 tab QAM PO 09/20/17 09:00 10/20/17 08:59 09/22/17 08:24 1 TAB Pantoprazole Sodium (Protonix Tab) 40 mg QAM PO 09/20/17 09:00 10/20/17 08:59 09/22/17 08:24 40 MG Sodium Chloride 1,000 ml @ 0 mls/hr Q0M IV 09/21/17 13:41 10/21/17 13:40 Ondansetron HCl (Zofran Inj) 4 mg Q6H PRN IV 09/21/17 13:45 10/21/17 13:44 Acetaminophen (Tylenol Tab) 650 mg Q6H PRN PO 09/21/17 13:45 10/21/17 13:44 09/22/17 09:22 650 MG Oxycodone HCl (Roxicodone Immediate Rel Tab) 5 mg Q4H PRN PO 09/21/17 13:45 10/05/17 13:44 09/22/17 06:27 5 MG Oxycodone HCl (Roxicodone Immediate Rel Tab) 10 mg Q4H PRN PO 09/21/17 13:45 10/05/17 13:44 09/22/17 16:41 10 MG Aspirin/Aluminum/ Magnesium/Ca Carb (Ascriptin Tab) 325 mg BID PO 09/21/17 21:00 10/21/17 20:59 09/22/17 08:24 325 MG Hydromorphone HCl (Dilaudid Inj) 0.5 mg Q20M PRN IV 09/21/17 13:45 10/05/17 13:44 09/22/17 09:56 0.5 MG Naloxone HCl (Narcan Inj) 0.4 mg Q1M PRN IV 09/21/17 13:45 10/21/17 13:44 Menthol (Nice Shena) 1 shena Q2H PRN SHENA 09/21/17 13:45 10/21/17 13:44 Senna/Docusate Sodium (Senokot S Tab) 2 tab HS PO 09/21/17 21:00 10/21/17 20:59 09/21/17 21:37 2 TAB Gentamicin Sulfate (Gentamicin 0.3% Oph Oint) 1 appln Q4 OP 09/21/17 20:00 09/24/17 20:00 09/22/17 15:34 1 APPLN
[2017-09-22 23:05] VITALS: BP 124/74; PULSE 103; TEMP 37.1; O2SAT 91
[2017-09-23] MEDS: GENTAMICIN SULFATE 0.3% OP OINT 3.5 GM TUBE OP SCH ×7 (00:58→23:48)
[2017-09-23] MEDS: OXYCODONE HCL IR 5 MG TAB (IMMEDIATE RELEASE) PO PRN ×2 (04:43→10:10)
[2017-09-23 07:02] VITALS: BP 152/77; PULSE 113; TEMP 37.2; O2SAT 93
[2017-09-23] MEDS: ACETAMINOPHEN 325 MG TAB PO PRN (07:51)
[2017-09-23 08:39] LABS: HEMATOCRIT 29.1 % (37-47); HEMOGLOBIN 9.5 g/dL (12.0-16.0); MEAN CELL VOLUME 88.7 fL (80-100); MEAN CORPUSCULAR HGB CONC 32.6 g/dl (32-36); MEAN PLATELET VOLUME 9.6 fL (7.4-10.4); PLATELET COUNT 262 K/uL (130-400); RED CELL DISTRIBUTION WIDTH CV 14.7 % (11.5-14.5); RED CELL DISTRIBUTION WIDTH SD 47.6 fL (36.4-46.3); WHITE BLOOD COUNT 11.12 K/uL (4.8-10.8)
--- NOTE | 2017-09-23 08:40 | Orthopedic Progress Note ---
Orthopedic Progress Note Date of Service Sep 23, 2017. Subjective Additional Notes: Patient seen sitting in the chair at bedside, comfortable, c/o pain with activity, no acute issues overnight. Objective NAD, AOx3 RLE NVSI +EHL/FHL/TA'/GS SILT grossly, + 2 DP pulse, compartments soft NT, dressing cdi Date Time Temp Pulse Resp B/P (MAP) Pulse Ox O2 Delivery O2 Flow Rate FiO2 09/23/17 07:02 37.2 113 20 152/77 (102) 93 Room Air 09/22/17 23:30 Room Air 09/22/17 23:05 37.1 103 17 124/74 (91) 91 Room Air 09/22/17 15:35 Room Air 09/22/17 15:19 37.0 105 18 127/74 (91) 94 Room Air 09/22/17 11:50 36.4 113 18 107/70 (82) 90 Room Air Laboratory Results 24 Hours: Test 09/23/17 08:24 Assessment & Plan Assessment: POD #2 s/p Revision right NIDA, femoral stem, head and liner exchange, ORIF greater trochanter. Plan: -DVT ppx: ASA BID -TTWB RLE -PT/OT -Posterior hip precautions -PO XR: well aligned well fixed prosthesis, no dislocation -am labs- CBC pending Discharge Planning Discharge Planning: uncertain DVT Prophylaxis: TEDs, SCDs, ASA
[2017-09-23] MEDS: DOCUSATE SODIUM/SENNA 50/8.6MG TAB PO SCH ×2 (08:55→21:04)
[2017-09-23] MEDS: MULTIVITAMIN TAB PO SCH (08:55)
[2017-09-23] MEDS: ASPIRIN/ALUM/MAGNES/CAL CARB 325 MG TAB PO SCH ×2 (08:55→21:03)
[2017-09-23] MEDS: PANTOprazole SOD 40 MG TAB PO SCH (08:56)
--- NOTE | 2017-09-23 09:42 | Anesthesiology Progress Note ---
Anesthesia Post Op Note Date & Time Sep 23, 2017 at 09:42 Vital Signs Pain Intensity: 4.0 Vital Signs Past 12 Hours Date Time Temp Pulse Resp B/P (MAP) Pulse Ox O2 Delivery O2 Flow Rate FiO2 09/23/17 07:30 Room Air 09/23/17 07:02 37.2 113 20 152/77 (102) 93 Room Air 09/22/17 23:30 Room Air 09/22/17 23:05 37.1 103 17 124/74 (91) 91 Room Air Notes Mental Status: alert / awake / arousable, participated in evaluation Pt Amnestic to Procedure: Yes Nausea / Vomiting: adequately controlled Pain: adequately controlled Airway Patency, RR, SpO2: stable & adequate BP & HR: stable & adequate Hydration State: stable & adequate Anesthetic Complications: no major complications apparent
[2017-09-23] MEDS: LISINOPRIL 10 MG TAB PO SCH (10:07)
[2017-09-23 15:33] VITALS: BP 96/58; PULSE 122; TEMP 36.7; O2SAT 96
[2017-09-23] MEDS ORDERED: SODIUM CHLORIDE 0.9% 500ML 500 ML IV SCH (16:30)
[2017-09-23 17:34] LABS: POTASSIUM 4.2 mmol/L (3.5-5.1)
--- NOTE | 2017-09-23 19:16 | Progress Note ---
Medicine Progress Note Date & Time of Visit: Sep 23, 2017 at 19:04. Subjective Pt was seen and examined Lying in bed with no distress Pt said that she feels tired today She said that she feels weak when she tried to get up to go to use the bathroom Pt said that she is having a lot of pain Denies any chest pain, palpitation, dizziness and SOB Objective Last 8 Hrs Date Time Temp Pulse Resp B/P (MAP) Pulse Ox O2 Delivery O2 Flow Rate FiO2 09/23/17 17:18 Room Air 09/23/17 15:33 36.7 122 18 96/58 (71) 96 Room Air Physical Exam: General- No acute distress Head- atraumatic Eyes- PERRL, EOMI ENT- oropharynx clear Neck- supple, no JVD Lungs- clear to auscultation Heart- irregular rhythm; +murmur Abdomen- normal bowel sounds, soft Extremities- no calf tenderness Neuro- alert, oriented x 3; PERRL, EOMI Skin- warm & dry Laboratory Results: Last 24 Hours Test 09/23/17 08:24 09/23/17 16:32 White Blood Count 11.12 K/uL Red Blood Count 3.28 M/uL Hemoglobin 9.5 g/dL Hematocrit 29.1 % Mean Corpuscular Volume 88.7 fL Mean Corpuscular Hemoglobin 29.0 pg Mean Corpuscular Hemoglobin Concent 32.6 g/dl RDW Standard Deviation 47.6 fL RDW Coefficient of Variation 14.7 % Platelet Count 262 K/uL Mean Platelet Volume 9.6 fL Potassium Level 4.2 mmol/L Magnesium Level 2.4 mg/dl Assessment & Plan Right hip periprosthetic fracture secondary to mechanical fall Xray right hip showed an acute, comminuted, and minimally distracted fracture of the subtrochanteric right femur around the proximal stem of a right hip arthroplasty. Continue pain control Before the fracture pt had a a functional capacity with a METS greater than 4 Never had any chest pain, palpitation and SOB Last ECHO was done on 12/24 was unremarkable Medically stable to proceed with the surgery Ortho plan for surgery tomorrow NPO after midnight 09/23 S/P day#2 Revision right NIDA, femoral stem, head and liner exchange, ORIF greater trochanter. No post op complication Hgb 9.5 Incentive spirometry Fall precaution Continue pain control PT/OT Fall precaution Atrial fibrillation Rate has been in the low 100's Not on any anticoagulation now except aspirin EKG done showed Afib with Rate in the 118 If HR remains above 110, will transfer to telemetry to monitor Low BP, unable to start on beta lia Stable Acute Kidney Injury Creatine on admission 1.25 Baseline btw 0.9 to 1.1 Resolved Hypertension BP low Hold BP med Monitor BP Esophageal reflux Continue with omeprazole DVT prophylaxis ASA BID as per ortho Disposition Possible transfer to tele if BP remains elevate Current Inpatient Medications: Current Inpatient Medications Medications (Trade) Dose Ordered Sig/Beatriz Route Start Time Stop Time Status Last Admin Dose Admin Polyethylene (Miralax Powder Packet) 17 gm DAILY PRN PO 09/19/17 16:45 10/19/17 16:44 Magnesium Hydroxide (Milk Of Magnesia Susp) 30 ml DAILY PRN PO 09/19/17 16:45 10/19/17 16:44 Bisacodyl (Dulcolax Supp) 10 mg DAILY PRN IN 09/19/17 16:45 10/19/17 16:44 Sodium Biphosphate/ Sodium Phosphate (Fleet Enema) 132 ml PRN PRN IN 09/19/17 16:45 Lisinopril (Zestril Tab) 10 mg QAM PO 09/20/17 09:00 10/20/17 08:59 Future hold 09/23/17 10:07 10 MG Multivitamins (Multivitamin Tab) 1 tab QAM PO 09/20/17 09:00 10/20/17 08:59 09/23/17 08:55 1 TAB Senna/Docusate Sodium (Senokot S Tab) 1 tab QAM PO 09/20/17 09:00 10/20/17 08:59 09/23/17 08:55 1 TAB Pantoprazole Sodium (Protonix Tab) 40 mg QAM PO 09/20/17 09:00 10/20/17 08:59 09/23/17 08:56 40 MG Ondansetron HCl (Zofran Inj) 4 mg Q6H PRN IV 09/21/17 13:45 10/21/17 13:44 Acetaminophen (Tylenol Tab) 650 mg Q6H PRN PO 09/21/17 13:45 10/21/17 13:44 09/23/17 07:51 650 MG Oxycodone HCl (Roxicodone Immediate Rel Tab) 5 mg Q4H PRN PO 09/21/17 13:45 10/05/17 13:44 09/23/17 04:43 5 MG Oxycodone HCl (Roxicodone Immediate Rel Tab) 10 mg Q4H PRN PO 09/21/17 13:45 10/05/17 13:44 09/23/17 10:10 10 MG Aspirin/Aluminum/ Magnesium/Ca Carb (Ascriptin Tab) 325 mg BID PO 09/21/17 21:00 10/21/17 20:59 09/23/17 08:55 325 MG Hydromorphone HCl (Dilaudid Inj) 0.5 mg Q20M PRN IV 09/21/17 13:45 10/05/17 13:44 09/22/17 09:56 0.5 MG Naloxone HCl (Narcan Inj) 0.4 mg Q1M PRN IV 09/21/17 13:45 10/21/17 13:44 Menthol (Nice Shena) 1 shena Q2H PRN SHENA 09/21/17 13:45 10/21/17 13:44 Senna/Docusate Sodium (Senokot S Tab) 2 tab HS PO 09/21/17 21:00 10/21/17 20:59 09/22/17 20:27 2 TAB Gentamicin Sulfate (Gentamicin 0.3% Oph Oint) 1 appln Q4 OP 09/21/17 20:00 09/24/17 20:00 09/23/17 17:18 1 APPLN Sodium Chloride 500 ml @ 50 mls/hr Q10H IV 09/23/17 16:30 09/24/17 02:29 09/23/17 17:17 50 MLS/HR
[2017-09-23 21:02] VITALS: BP 124/73; PULSE 104
[2017-09-23 23:14] VITALS: BP 145/79; PULSE 122; TEMP 37.1; O2SAT 96
[2017-09-24] VITALS (7 sets, daily range): BP systolic 99–128; BP diastolic 57–72; PULSE 99–115; TEMP 36.9; O2SAT 92–95
[2017-09-24] MEDS: GENTAMICIN SULFATE 0.3% OP OINT 3.5 GM TUBE OP SCH ×3 (03:28→13:34)
--- NOTE | 2017-09-24 08:11 | Orthopedic Progress Note ---
Orthopedic Progress Note Date of Service Sep 24, 2017. Subjective Post OP Day: 3 Reports: feeling well, Denies: complaints Additional Notes: Sitting up in chair at bedside. No complaints this AM. Objective calves soft nontender, N/V intact, dressing C/D/I, A&O x3, toes mobile Date Time Temp Pulse Resp B/P (MAP) Pulse Ox O2 Delivery O2 Flow Rate FiO2 09/24/17 07:30 Room Air 09/24/17 07:14 36.9 99 17 110/61 (77) 95 Room Air 09/24/17 03:00 106 128/71 (90) 09/23/17 23:30 Room Air 09/23/17 23:14 37.1 122 18 145/79 (101) 96 Room Air 09/23/17 21:02 104 124/73 (90) 09/23/17 17:18 Room Air 09/23/17 15:33 36.7 122 18 96/58 (71) 96 Room Air Laboratory Results 24 Hours: Test 09/23/17 08:24 Hematocrit 29.1 % Hemoglobin 9.5 g/dL Assessment & Plan Assessment: POD #3 s/p Revision right NIDA, femoral stem, head and liner exchange, ORIF greater trochanter. Plan: Continue PT/OT Planning for SNF transfer today Inhouse Planning Pain Management: Dilaudid, Oxy IR DVT Prophylaxis: VENKATESHs, SCDs, ASA Discharge Planning Discharge Planning: retirement facility DVT Prophylaxis: TEDs, SCDs, ASA Therapy: Physical Therapy
--- NOTE | 2017-09-24 08:15 | Consultant Recommendations ---
Bone Drier Operator Recommendations Date of Service Sep 24, 2017. Bone Drier Operator Recommendations ACTIVITY RECOMMENDATIONS: YOU WILL BE TOE TOUCH WEIGHT BEARING ON THE RIGHT LEG. USE WALKER FOR AMBULATION. SELF CARE INSTRUCTIONS AFTER TOTAL HIP REPLACEMENT Until the incision and soft tissues around your hip have healed, there is a possibility that the hip prosthesis could dislocate. A. Observe the following precautions to prevent dislocation: 1. Don't bend your hip greater than 90 degrees. 2. Avoid crossing your legs or ankles while standing or lying. 3. Sit with your feet placed 6 inches apart. 4. When sitting, keep your knees below your hips. Sit on a firm surface, avoid deep, soft chairs and couches. Use an elevated toilet seat in the bathroom. 5. Don't bend over at the waist. Use a long handled shoehorn and a sock aid to help you put on your shoes and socks. A manager physical can help you waste picker objects that are too high or too low to reach. 6. Keep car riding to a minimum for at least one month after surgery. B. Your balance may be shaky for a while. Use crutches or a walker until directed by your doctor. C. Use hand rails when walking on stairs. D. Wear low heeled shoes with non-slip soles. E. Be sure that your floors are free of things that could trip you - throw rugs , electrical cords, small objects. Avoid wet and waxed floors, especially with crutches and canes. F. Try to walk several times a day with rest periods between. G. Continue with all the exercises taught to you in the hospital. Again, make walking a part of your daily routine. SPECIAL CARE INSTRUCTIONS: VERY IMPORTANT TO READ AND REVIEW A. You may still be at risk for phlebitis and blood clots. 1. Wear surgical stockings (VENKATESH hose) for 2 weeks after surgery to improve circulation and reduce swelling. 2. Take Aspirin 81mg twice daily for 4 weeks or as directed by your doctor. This is your blood thinner. 3. High risk patients may be prescribed a stronger blood thinner if necessary. 4. If you are on Coumadin normally, your family doctor/entry level management should monitor your blood work. Expect a phone call the day of or the day after bloodwork is drawn to adjust your dosage. B. You must take antibiotics before having dental work, bladder, bowel and other surgery. Your doctor will provide you with a permanent card to carry describing precautions. C. Call [facility] if you have a fever, redness or swelling around the incision, cloudy drainage from incision, or sudden increase in pain in your hip, not relieved by your regular pain medication. D. Please call the office at if you have any concerns or questions about your operation or recovery. * YOU MAY SHOWER, NO TUB BATHS UNTIL CLEARED BY YOUR DOCTOR. * WEAR VENKATESH HOSE 20 HOURS PER DAY FOR 2 WEEKS. * YOU SHOULD USE A WALKER OR CRUTCHES FOR 2-4 WEEKS. THIS WILL HELP PREVENT STRAIN ON YOUR HIP MUSCLE AND ALLOW IT TO HEAL PROPERLY. YOU MAY WEAN TO A CANE TOLERATED. * MOST PATIENTS WILL HAVE HOME NURSING FOR THERAPY. IF YOU DECIDE TO DO OUTPATIENT PHYSICAL THERAPY, PLEASE SCHEDULE THIS 3 TIMES PER WEEK. * CHANGE DRESSING DAILY. KEEP WOUND COVERED WITH TEGADERM/4X4'S UNTIL SEEN BACK IN OFFICE . FOLLOW UP VISIT: If appointment is not already scheduled: Please call [facility] to make a follow-up appointment with DR Bonilla for 2 weeks after your surgery at .
[2017-09-24] MEDS: OXYCODONE HCL IR 5 MG TAB (IMMEDIATE RELEASE) PO PRN ×2 (08:38→14:06)
[2017-09-24] MEDS: ACETAMINOPHEN 325 MG TAB PO PRN ×2 (08:38→14:06)
[2017-09-24] MEDS: MULTIVITAMIN TAB PO SCH (08:39)
[2017-09-24] MEDS: ASPIRIN/ALUM/MAGNES/CAL CARB 325 MG TAB PO SCH (08:39)
[2017-09-24] MEDS: PANTOprazole SOD 40 MG TAB PO SCH (08:39)
[2017-09-24] MEDS: DOCUSATE SODIUM/SENNA 50/8.6MG TAB PO SCH (08:39)
[2017-09-24] MEDS ORDERED: MOMLX PO (12:53)
[2017-09-24] MEDS ORDERED: DLCS PR (12:53)
[2017-09-24] MEDS ORDERED: SENN8.6T7 PO (12:53)
[2017-09-24] MEDS ORDERED: ASPI325T60 PO (12:53)
[2017-09-24] MEDS ORDERED: MRLP17X PO (12:53)
[2017-09-24] MEDS ORDERED: BISACODYL 10 MG SUPP PR STA (13:13)
[2017-09-24] MEDS ORDERED: SOD PHOSPHATE/SOD BIPHOSPHATE ENEMA 132 ML BTL PR ONE (13:15)
[2017-09-24] MEDS ORDERED: SODIENE6 PR (13:17)
[2017-09-24] MEDS ORDERED: CPC LOZ (13:17)
[2017-09-24] MEDS ORDERED: GNTOPO OP (13:17)
[2017-09-24] MEDS ORDERED: ACET-1047 PO (13:17)
[2017-09-24] MEDS ORDERED: RXC5 PO (13:17)
--- NOTE | 2017-09-24 13:21 | Discharge Summary ---
Discharge Summary Date of Service Sep 24, 2017. Discharge Summary Admission Date: Sep 19, 2017 at 16:50 Discharge Date: Sep 24, 2017 Discharge Disposition: snf facility ([facility] ) Principal Diagnosis: RIGHT HIP PERIPROSTHETIC FRACTURE S/P ORIF REVISION SURGERY /A FIB CHRONIC Procedures: s/p Revision R NIDA, femoral stem and head and liner exchange, ORIF greater trochanter Consultations: ORTHOPEDICS Medication Reconciliation New Medications: Metoprolol Tartrate (Lopressor) 25 Mg Tab 12.5 MG PO BID for 30 Days, #30 TAB Acetaminophen (Mapap) 325 Mg Tab 650 MG PO Q6H PRN for For mild pain (pain scale 1-3), #30 TAB Aspirin Buffered (Olivier Carb-Mag (Tri-Buffered Aspirin) 1 Tab Tab 325 MG PO BID for 60 Days, TAB TAKE WITH FULL STOMACH NEEDS TO CONTINUE 6-8 WEEKS POST HIP SURGERY FOR DVT PROPHYLAXIS THEN TRANSITION TO 325 MG ONCE DAILY Bisacodyl (Bisac-Evac) 10 Mg Supp 10 MG ID DAILY PRN for Constipation, #30 SUPP Gentamicin Sulfate (Gentak) 12 Appln/3.5 Gm Oint 1 APPLN OP Q4 for 30 Days Magnesium Hydroxide (Milk of Magnesia) 30 Ml Susp 30 ML PO Q8 PRN for Constipation for 30 Days Menthol (Ricola) 24 Shena/1 Box Lozg 1 SHENA SHENA Q2H PRN for SORE THROAT, #30 Oxycodone HCl (Oxycodone HCl) 5 Mg Tab 10 MG PO Q6 PRN for Pain, #10 TAB Polyethylene (Miralax) 17 Gm Pow 17 GM PO DAILY PRN for Constipation for 30 Days Sennosides-Docusate Sodium (Senokot S) 1 Tab Tab 2 TAB PO HS for 30 Days, TAB CONTINUE SCHEDULED DOSE WHEN TAKING NARCOTIC PAIN MEDICATIONS HOLD FOR LOOSE STOOL Sodium Phosphates (Enema Jaobv-Zi-Wlo) 1 Pat Pat 132 ML ID PRN PRN for Constipation, #30 Continued Medications: Flaxseed (Linseed) (Flax Seed Oil) 1,000 Mg Cap 1000 MG PO QAM Vvrrghfwldh-Zrezmtnkocl-Exc C- (Glucosamine Chondroitin) 1 Tab Tab 2 TABS PO QAM Lisinopril (Prinivil) 10 Mg Tab 10 MG PO QAM Multivitamin (Multivitamin) Tab 1 TAB PO QAM Omeprazole (Prilosec) 20 Mg Cap 20 MG PO QAM Sennosides-Docusate Sodium (Stool Softener) 1 Tab Tab 1 TAB PO QAM Discontinued Medications: Aspirin (Aspirin) 325 Mg Tab 325 MG PO QAM Admission Information HPI (per Admitting provider): She is a 77-year-old white female with the significant past medical history of atrial fibrillation, hypertension, esophageal reflux, hyperlipidemia, and also history of CVA with residual deficit and apparently was brought to the emergency room with a history of fall and subsequent right hip fracture. She was standing on a pellet of food and then picked up a piece of food to stack it on the other time, she lost balance and fell on her right. She has had severe pain in the right hip area and she could not get. She denies to have any warning symptoms before the fall and she did not lose any consciousness. She was brought into the emergency room and an x-ray noted to have right closed periprosthetic fracture of the from that point also consulted and she was admitted on the medical service She denies to have any cardiac symptoms on exertion before for she has history of atrial fibrillation rate is controlled and she was on Xarelto before but not been taking any anticoagulation. She had an echocardiogram that was done in December of last year and that did show mild borderline LVH with EF of 55-60% mild aortic sclerosis but no stenosis and mild MR Physical Exam (per Admitting): General Appearance: + moderate distress (Pain in right hip) Head: normocephalic Eyes: normal inspection ENT: normal ENT inspection Neck: supple Respiratory/Chest: chest non-tender, lungs clear, normal breath sounds Cardiovascular: + systolic murmur (2/6 precordial area), + irregularly irregular Abdomen/GI: non tender Back: normal inspection Extremities/Musculoskelatal: + pedal edema (Chronic ), + swelling (Right hip and adjoining area) Neurologic/Psych: no motor/sensory deficits Skin: normal color Lymphatic: no adenopathy Hospital Course Has minimum pain on the right hip surgical area, Had not had a bowel movement since admission, Ordered for Dulcolax suppository Denies of any complaint of palpitation, chest discomfort or dizzy spell Accepted at rehab to [facility] PHYSICAL EXAM General: Very pleasant elderly female no sign of any distress HEENT: Sclera nonicteric, pupils reactive to light Lungs: Clear to auscultate no wheeze or rales Heart: Irregular Abdomen: Soft nontender, active bowel sounds : Extremity: Right hip surgical site well-healed Neuro: Alert awake oriented 3, no focal neurological deficit Date Time Temp Pulse Resp B/P (MAP) Pulse Ox O2 Delivery O2 Flow Rate FiO2 09/24/17 14:57 103 09/24/17 14:52 115 21 124/72 (89) 95 Room Air 09/24/17 14:22 36.9 106 12 92 Room Air 09/24/17 14:07 106 12 107/57 (74) 92 Room Air 09/24/17 07:30 Room Air 09/24/17 07:14 36.9 99 17 110/61 (77) 95 Room Air 09/24/17 03:00 106 128/71 (90) ASSESSMENT AND PLAN RIGHT HIP PERIPROSTHETIC FRACTURE secondary to mechanical fall Xray right hip showed an acute, comminuted, and minimally distracted fracture of the subtrochanteric right femur around the proximal stem of a right hip arthroplasty. S/P day#3 Revision right NIDA, femoral stem, head and liner exchange, ORIF greater trochanter. No post op complication Hemoglobin stable Incentive spirometry Appreciate input from orthopedics PT OT evaluation appreciated Accepted at [facility] for rehab CHRONIC ATRIAL FIBRILLATION Rate has been in the low 100's Denies of any symptom Patient has been on full-strength aspirin 325 mg daily for anticoagulation Added Lopressor AK I on CKD stage III Creatine on admission 1.25 Baseline btw 0.9 to 1.1 Resolved with IV fluids Hypertension Blood pressure stabilized Added low dose Lopressor for A. fib DVT prophylaxis ASA 325 BID for 4-6 weeks as per ortho Disposition Transfer to [facility] for rehab today Total time spent on discharge = 40 MINS This includes examination of the patient, discharge planning, medication reconciliation, and communication with other providers. Discharge Instructions Discharge Instructions Date of Service Sep 24, 2017. Admission Reason for Admission: Closed Right Hip Fracture Discharge Discharge Diagnosis / Problem: RIGHT HIP PERIPROSTHETIC FRACTURE S/P ORIF REVISION SURGERY /A FIB CHRONIC Discharge Goals Goal(s): Decrease discomfort, Improve function, Increase independence, Improve disease control, Diagnostic testing, Therapeutic intervention Activity Recommendations Activity Level: Assistance Required Therapies: Physical Therapy, Occupational Therapy Weightbearing Status: Right toe touch Lifting Limitations: until after follow-up appointment (WITH ORTHOPEDICS ) .- Additional Information Patient informed of condition: Yes Advance Directives: No DNR: No Level of Care: Skilled Communicable Disease: No Prognosis: Stable Rosas Catheter: No Instructions / Follow-Up Instructions / Follow-Up ORTHOPEDICS FOLLOW UP WITH DR Bonilla in 2 weeks call .to schedule appointment Family physician follow up with Kristi Nice in 1-2 weeks after discharge from Rehab Current Hospital Diet Patient's current hospital diet: Diabetes Type 2 Diet Discharge Diet Recommended Diet: Diabetes Type 2 Diet Procedures Procedures Performed: Right Hip, Revision Total Hip, Femoral Stem, Head and Liner Exchange, Open Reduction Internal Fixation Greater Trochanter Pending Studies Studies pending at discharge: yes List of pending studies: STAPLE REMOVAL/REPEAT XRAY OF HIP IN 2 WEEKS AT ORTHOPEDICS OFFICE Physician Orders On Transfer Dressing Changes: CHANGE DRESSING DAILY Medical Emergencies . Who to Call and When: Medical Emergencies: If at any time you feel your situation is an emergency, please call 911 immediately. . Non-Emergent Contact Non-Emergency issues call your: Primary Care Provider, Specialist (ORTHOPEDICS ) Contact Number: ORTHOPEDICS DR Bonilla Call Non-Emergent contact if: you have a fever, your pain is not controlled, your pain is worsening, your pain is concerning you, wound has increased drainage, wound has increased redness, wound has increased pain . . "Provider Documentation" section prepared by Johanna Mock. . Family Law Paralegal Recommendations Family Law Paralegal Recommendations: ACTIVITY RECOMMENDATIONS: YOU WILL BE TOE TOUCH WEIGHT BEARING ON THE RIGHT LEG. USE WALKER FOR AMBULATION. SELF CARE INSTRUCTIONS AFTER TOTAL HIP REPLACEMENT Until the incision and soft tissues around your hip have healed, there is a possibility that the hip prosthesis could dislocate. A. Observe the following precautions to prevent dislocation: 1. Don't bend your hip greater than 90 degrees. 2. Avoid crossing your legs or ankles while standing or lying. 3. Sit with your feet placed 6 inches apart. 4. When sitting, keep your knees below your hips. Sit on a firm surface, avoid deep, soft chairs and couches. Use an elevated toilet seat in the bathroom. 5. Don't bend over at the waist. Use a long handled shoehorn and a sock aid to help you put on your shoes and socks. A pineapple plantation manager can help you picking crew supervisor objects that are too high or too low to reach. 6. Keep car riding to a minimum for at least one month after surgery. B. Your balance may be shaky for a while. Use crutches or a walker until directed by your doctor. C. Use hand rails when walking on stairs. D. Wear low heeled shoes with non-slip soles. E. Be sure that your floors are free of things that could trip you - throw rugs , electrical cords, small objects. Avoid wet and waxed floors, especially with crutches and canes. F. Try to walk several times a day with rest periods between. G. Continue with all the exercises taught to you in the hospital. Again, make walking a part of your daily routine. SPECIAL CARE INSTRUCTIONS: VERY IMPORTANT TO READ AND REVIEW A. You may still be at risk for phlebitis and blood clots. 1. Wear surgical stockings (VENKATESH hose) for 2 weeks after surgery to improve circulation and reduce swelling. 2. Take Aspirin 325 mg twice daily for 4 weeks or as directed by your doctor. This is your blood thinner. B. You must take antibiotics before having dental work, bladder, bowel and other surgery. Your doctor will provide you with a permanent card to carry describing precautions. C. Call [facility] if you have a fever, redness or swelling around the incision, cloudy drainage from incision, or sudden increase in pain in your hip, not relieved by your regular pain medication. D. Please call the office at if you have any concerns or questions about your operation or recovery. * YOU MAY SHOWER, NO TUB BATHS UNTIL CLEARED BY YOUR DOCTOR. * WEAR VENKATESH HOSE 20 HOURS PER DAY FOR 2 WEEKS. * YOU SHOULD USE A WALKER OR CRUTCHES FOR 2-4 WEEKS. THIS WILL HELP PREVENT STRAIN ON YOUR HIP MUSCLE AND ALLOW IT TO HEAL PROPERLY. YOU MAY WEAN TO A CANE TOLERATED. * CHANGE DRESSING DAILY. KEEP WOUND COVERED WITH TEGADERM/4X4'S UNTIL SEEN BACK IN OFFICE . FOLLOW UP VISIT: If appointment is not already scheduled: Please call [facility] to make a follow-up appointment with DR Bonilla for 2 weeks after your surgery at . Core Measure Problem Core Measures: None [place] Drug Monitoring Program Search Results: no issues identified
--- NOTE | 2017-09-24 13:24 | Discharge Instructions ---
Discharge Instructions Date of Service Sep 24, 2017. Admission Reason for Admission: Closed Right Hip Fracture Discharge Discharge Diagnosis / Problem: RIGHT HIP PERIPROSTETIC FRACTURE S/P ORIF REVISION SURGERY /A FIB CHRONIC Discharge Goals Goal(s): Decrease discomfort, Improve function, Increase independence, Improve disease control, Diagnostic testing, Therapeutic intervention Activity Recommendations Activity Level: Assistance Required Therapies: Physical Therapy, Occupational Therapy Weightbearing Status: Right toe touch Lifting Limitations: until after follow-up appointment (WITH ORTHOPEDICS ) .- Additional Information Patient informed of condition: Yes Advance Directives: No DNR: No Level of Care: Skilled Communicable Disease: No Prognosis: Stable Rosas Catheter: No Instructions / Follow-Up Instructions / Follow-Up ORTHOPEDICS FOLLOW UP WITH DR Bonilla in 2 weeks call .to schedule appointment Family physician follow up with Kristi Nice in 1-2 weeks after discharge from Rehab Current Hospital Diet Patient's current hospital diet: Diabetes Type 2 Diet Discharge Diet Recommended Diet: Diabetes Type 2 Diet Procedures Procedures Performed: Right Hip, Revision Total Hip, Femoral Stem, Head and Liner Exchange, Open Reduction Internal Fixation Greater Trochanter Pending Studies Studies pending at discharge: yes List of pending studies: STAPLE REMOVAL/REPEAT XRAY OF HIP IN 2 WEEKS AT ORTHOPEDICS OFFICE Physician Orders On Transfer Dressing Changes: CHANGE DRESSING DAILY Medical Emergencies . Who to Call and When: Medical Emergencies: If at any time you feel your situation is an emergency, please call 911 immediately. . Non-Emergent Contact Non-Emergency issues call your: Primary Care Provider, Specialist (ORTHOPEDICS ) Contact Number: ORTHOPEDICS DR Bonilla Call Non-Emergent contact if: you have a fever, your pain is not controlled, your pain is worsening, your pain is concerning you, wound has increased drainage, wound has increased redness, wound has increased pain . . "Provider Documentation" section prepared by Johanna Mock. . Welding Equipment Repairer Recommendations Welding Equipment Repairer Recommendations: ACTIVITY RECOMMENDATIONS: YOU WILL BE TOE TOUCH WEIGHT BEARING ON THE RIGHT LEG. USE WALKER FOR AMBULATION. SELF CARE INSTRUCTIONS AFTER TOTAL HIP REPLACEMENT Until the incision and soft tissues around your hip have healed, there is a possibility that the hip prosthesis could dislocate. A. Observe the following precautions to prevent dislocation: 1. Don't bend your hip greater than 90 degrees. 2. Avoid crossing your legs or ankles while standing or lying. 3. Sit with your feet placed 6 inches apart. 4. When sitting, keep your knees below your hips. Sit on a firm surface, avoid deep, soft chairs and couches. Use an elevated toilet seat in the bathroom. 5. Don't bend over at the waist. Use a long handled shoehorn and a sock aid to help you put on your shoes and socks. A beef killer can help you sisal picker objects that are too high or too low to reach. 6. Keep car riding to a minimum for at least one month after surgery. B. Your balance may be shaky for a while. Use crutches or a walker until directed by your doctor. C. Use hand rails when walking on stairs. D. Wear low heeled shoes with non-slip soles. E. Be sure that your floors are free of things that could trip you - throw rugs , electrical cords, small objects. Avoid wet and waxed floors, especially with crutches and canes. F. Try to walk several times a day with rest periods between. G. Continue with all the exercises taught to you in the hospital. Again, make walking a part of your daily routine. SPECIAL CARE INSTRUCTIONS: VERY IMPORTANT TO READ AND REVIEW A. You may still be at risk for phlebitis and blood clots. 1. Wear surgical stockings (VENKATESH hose) for 2 weeks after surgery to improve circulation and reduce swelling. 2. Take Aspirin 325 mg twice daily for 4 weeks or as directed by your doctor. This is your blood thinner. B. You must take antibiotics before having dental work, bladder, bowel and other surgery. Your doctor will provide you with a permanent card to carry describing precautions. C. Call [facility] if you have a fever, redness or swelling around the incision, cloudy drainage from incision, or sudden increase in pain in your hip, not relieved by your regular pain medication. D. Please call the office at if you have any concerns or questions about your operation or recovery. * YOU MAY SHOWER, NO TUB BATHS UNTIL CLEARED BY YOUR DOCTOR. * WEAR VENKATESH HOSE 20 HOURS PER DAY FOR 2 WEEKS. * YOU SHOULD USE A WALKER OR CRUTCHES FOR 2-4 WEEKS. THIS WILL HELP PREVENT STRAIN ON YOUR HIP MUSCLE AND ALLOW IT TO HEAL PROPERLY. YOU MAY WEAN TO A CANE TOLERATED. * CHANGE DRESSING DAILY. KEEP WOUND COVERED WITH TEGADERM/4X4'S UNTIL SEEN BACK IN OFFICE . FOLLOW UP VISIT: If appointment is not already scheduled: Please call [facility] to make a follow-up appointment with DR Bonilla for 2 weeks after your surgery at . Core Measure Problem Core Measures: None [place] Drug Monitoring Program Search Results: no issues identified
[2017-09-24] MEDS ORDERED: METOPROLOL TARTRATE 25 MG TAB PO STA (13:35)
[2017-09-24] MEDS ORDERED: LPR25 PO ×2 (14:25→17:18)
--- NOTE | 2017-09-25 08:26 | Progress Note ---
Progress Note Date of Service Sep 25, 2017. Progress Note ATTENDING NOTE : pt has hx of chronic Afib HR was elevated ~100 no symptom of palpitation , SOB , chest heaviness EKG prior to transfer shows : AFIB , HR 106 pt was started on Lopressor 12.5 mg daily -given 1 dose prior to discharge prior to discharge to [facility] : vital shows HR in 103 /afib Lopressor dose increased to 12.5 mg BID -new discharge instruction faxed to [facility] spoke with Nursing at [facility] -confirmed the twice daily Lopressor 12.5 mg dose per nursing : evening HR was 79 /this AM HR in 90's no symptom as per nursing
--- NOTE | 2017-09-25 11:37 | [facility] Operative Report ---
Operative Report Operative Date Sep 25, 2017. Pre-Operative Diagnosis Right proximal femur periprosthetic fracture with loose femoral stem Post-Operative Diagnosis Same as preoperative Procedure(s) Performed Right Hip, Revision Total Hip, Femoral Stem, Head and Liner Exchange, Open Reduction Internal Fixation Greater Trochanter Surgeon Dr. Nam Zhu Huller Operator Surgeon(s) Javier Quintero PA-C Estimated Blood Loss 500ml Findings see dictated op note Fluids 3200 Specimens A.) Explanted Hardware, Right Hip Drains None Anesthesia Type General Complication(s) none Disposition Recovery Room / PACU Indications I have indicated the patient for open reduction internal fixation of her greater trochanteric fracture, revision of the femoral stem component, head and liner exchange and possible acetabular cup revision. The patient was medically stabilized on 09/21/2017. I indicated the patient for revision right total hip arthroplasty, femoral stem, ORIF greater trochanter, head and liner exchange and possible revision acetabular cup. The patient was informed of the risks and benefits of surgery, which include but not limited to infection, bleeding, blood clots, damage to nerves, vessels, bone and soft tissue, nonunion malunion of greater trochanter, dislocation, leg length discrepancy, failure of the implants, need for additional surgery and . The the patient chose to move forward with surgical intervention and informed consent was obtained. Description of Procedure Following induction of adequate anesthesia, the patient was transferred to the OR table and placed in lateral decubitus position with left hip down. The right hip was prepped and draped in the typical sterile fashion and a posterolateral/Jignesh-Langenbeck incision was made inline with the previous incision. This incision was extended distally. Subcutaneous tissue was sharply dissected. Electrocautery was utilized for hemostasis. The fascia was incised throughout the length of the wound and retracted with the Charnley retractor. Retained suture from previous surgery was removed. The bursa was taken down and the short external rotators and capsule were identified and tagged with two #1 Vicryl sutures. The short external rotators and capsule were divided from the posterior aspect of the femur using electrocautery. Both external rotators and posterior capsule were swept posterior and protected, along with protecting the sciatic nerve. Total hip prosthesis was identified and three meticulous removal of intra-articular scar tissue was performed with bovie. Next, using the extended incision, the gluteus augusta insertion was detached from the femur leaving a cuff of tissue for repair. This allowed for adequate exposure of the fracture site. The hip prosthesis was carefully dislocated by flexion and internal rotation in a controlled manner. The femoral head was removed from the trunion utilizing bone tamp and mallet. The femoral stem stability assessed and found to be completely loose distal to the fracture site and well fixed proximally to the lesser and greater trochanter. Utilizing flexible osteotomes, the bone-implant connection was disrupted proximally. The stem was removed at this time. Next, exposure of the acetabulum was obtained. Additional scar tissue removal and debridement of the intra-articular soft tissue was performed. The liner was removed and the acetabular component was assessed for stability. The cup was well fixed and trial 58 x 40 liner was inserted. Next, I turned my attention to the proximal femur. The fracture extended distally spiraling down from the proximal fracture site. I identified the extent of this fracture and placed a cable at the distal most aspect of this fracture. I then placed 3 additional cables proximally to protect the proximal shaft. Next, access was gained to the proximal shaft and sequential broaching was performed from a 9 to a 17 until good cortical chatter was observed. A 17 x 90 STS distal stem was inserted and impacted into place until there was audible pitch change and no more advancement of the stem was observed. Next, a size C 60 high offset cone body was attached to the distal stem followed by a 40 mm +0 trial head. A trial reduction was carried out and found to be stable in all degrees of rotation with no impingement. X ray was brought in at this time and a flat plate image was taken to assess reduction, length and fit of the femoral stem. The hip was dislocated, trial components were removed and access to the acetabulum was re-established. The trial liner was removed and the cup was irrigated to ensure all debris was removed. A final 58x40 acetabular liner was inserted. Access to the proximal femur was once more gained and the final size C 60 high offset cone body was inserted and tightened in place utilizing torque limiter with the appropriate amount of version. The trial 40 mm +0 head was once again inserted and stability assessed a final time. Range of motion was checked once again and found to be stable. The hip was dislocated and final 40 mm +0 ceramic head inserted. Next, I turned my attention to the greater trochanter. The troch plate insertion guide was attached to the proximal stem and the greater/lesser trochanters were reduced to the stem. Utilizing a large troch plate, the fractures were reduced and held in place. A 24 mm bolt was inserted into the plate and stem followed by 3 cables to aid in reduction of the plate to the greater trochanter as well as reduction of the lesser trochanter. These were tightened down sequentially and provided adequate fixation of both the greater and lesser trochanter. The wound was copiously irrigated with sterile saline solution with bacitracin. The nils-incisional soft tissue was injected utilizing [place] ortho mix which includes a combination of Ropivicaine 0.5% 150mg, Bupivicaine 0.5%/Epinephrine 1:200,000 30ml, Toradol 30mg, Dexamethasone 4mg, Ketamine 10mg , Clonidine 100mcg and NSS 30ml solution. The gluteus augusta was repaired utilizing #5 FiberWire and the external rotators and capsule were repaired to the greater trochanter through bone tunnels using #5 FiberWire. The fascia was closed using #1 Vicryl. A superficial Hemovac drain 2 was placed in the subcutaneous tissue. The subcutaneous tissue was closed using 2-0 Vicryl, and skin was closed with lola.. Sterile dressings were applied which included Xeroform, 4x4s , ABDs and foam tape. The patient tolerated the procedure well and was transported to PACU in stable condition. Due to the complex nature of the procedure, the entire surgery was performed with the operational assistance of Javier Quintero PA-C. The inventory control assistant, under direct supervision, was involved in the actual performance of all aspects of the surgical procedure including patient positioning, hemostasis, tissue retraction, instrument management and wound closure. I attest to the content of the Intraoperative Record and any orders documented therein. Any exceptions are noted below.
== END 2017-09-24 14:30 | DRG 467 ==
LOC: EDBD 14:11 → C.EDB 14:12 → C.MSN 16:50 → ENRESERV 16:55
PROVIDERS: ADMIT Internal Medicine; ATTEND Hospitalist
PROC: 0T9B70Z Drainage of Bladder with Drainage Device, Via Natural or Artificial Opening (ICD-10-PCS; 2017-09-19)
PROC: 0SR903Z Replacement of Right Hip Joint with Ceramic Synthetic Substitute, Open Approach (ICD-10-PCS; principal; 2017-09-21 07:30)
PROC: 0QS604Z Reposition Right Upper Femur with Internal Fixation Device, Open Approach (ICD-10-PCS; principal; 2017-09-21 07:30)
PROC: 0SP90JZ Removal of Synthetic Substitute from Right Hip Joint, Open Approach (ICD-10-PCS; principal; 2017-09-21 07:30)
DX: M97.01XA Periprosthetic fracture around internal prosthetic right hip joint, initial encounter (principal); N17.9 Acute kidney failure, unspecified; T84.030A Mechanical loosening of internal right hip prosthetic joint, initial encounter; W19.XXXA Unspecified fall, initial encounter; Z96.643 Presence of artificial hip joint, bilateral; I48.2 Chronic atrial fibrillation; I12.9 Hypertensive chronic kidney disease with stage 1 through stage 4 chronic kidney disease, or unspecified chronic kidney disease; N18.3 Chronic kidney disease, stage 3 (moderate); K21.9 Gastro-esophageal reflux disease without esophagitis; E66.9 Obesity, unspecified; Z68.36 Body mass index [BMI] 36.0-36.9, adult; Y93.H9 Activity, other involving exterior property and land maintenance, building and construction; Z86.73 Personal history of transient ischemic attack (TIA), and cerebral infarction without residual deficits; Z86.19 Personal history of other infectious and parasitic diseases; Z85.858 Personal history of malignant neoplasm of other endocrine glands; Z98.890 Other specified postprocedural states; Z79.82 Long term (current) use of aspirin; Z79.899 Other long term (current) drug therapy; Z88.5 Allergy status to narcotic agent

== ENCOUNTER 2017-10-09 13:28 | Inpatient (IN) | payer OTHER ==
[2017-10-09] VITALS (14 sets, daily range): BP systolic 94–122; BP diastolic 55–68; PULSE 100–134; TEMP 36.9–37.9; O2SAT 90–99; Ht 170.2 cm; Wt 99.0 kg
[~2017-10-09] VITALS: Ht 170.2 cm; Wt 99.0 kg
--- NOTE | 2017-10-09 10:10 | History and Physical ---
History & Physical Date October 09, 2017. Chief Complaint Acute right hip pain status post recent revision right total hip arthroplasty secondary to periprosthetic fracture. History of Present Illness The patient is a 77 year old female with complaints of acute onset right hip pain on . She was sitting on the commode and proceeded to stand up and subsequently developed pain and inability to ambulate. She states she does not use elevated commode at the group home like DC instructions stated. The patient has significant past medical history which includes right periprosthetic hip fracture subsequent revision right total hip arthroplasty with ORIF of greater trochanter performed on September 21, 2017. The patient was seen on 10/03/2017 at her two-week postoperative appointment and was doing well at that time. She made a emergent office visit today on 10/09/17 and repeat x- rays were taken which demonstrated a dislocation of the right total hip. She was subsequently transported from the office to the hospital for close reduction under conscious sedation of her right NIDA. Past Medical/Surgical History Medical Problems: (1) Closed right hip fracture (2) Diab Diana Wo Compl, Type Ii Or Unspec Type, Not Uncntrld (3) Esophageal Reflux (4) Hyperlipidemia Nec/Nos (5) Hypertension Nos (6) Personal Hx Of Tia,& Cerebral Infarction W/Out Res Deficits Surgical Problems: (1) Knee Joint Replacement Status (2) Presence of both artificial hip joints Allergies Coded Allergies: Morphine (Verified Adverse Reaction, Mild, N/V, 10/09/17) Had morphine and zofran and did not get sick Propoxyphene (Verified Adverse Reaction, Mild, N/V, 10/09/17) Home Medications Scheduled Aspirin Buffered (Olivier Carb-Mag (Tri-Buffered Aspirin), 325 MG PO BID Flaxseed (Linseed) (Flax Seed Oil), 1,000 MG PO QAM Gentamicin Sulfate (Gentak), 1 APPLN OP Q4 Lhdpwskplaj-Hkehpguhfja-Lae C- (Glucosamine Chondroitin), 2 TABS PO QAM Lisinopril (Prinivil), 10 MG PO QAM Metoprolol Tartrate (Lopressor), 12.5 MG PO BID Multivitamin (Multivitamin), 1 TAB PO QAM Omeprazole (Prilosec), 20 MG PO QAM Sennosides-Docusate Sodium (Stool Softener), 1 TAB PO QAM Sennosides-Docusate Sodium (Senokot S), 2 TAB PO HS Scheduled PRN Acetaminophen (Mapap), 650 MG PO Q6H PRN for For mild pain (pain scale 1-3) Bisacodyl (Bisac-Evac), 10 MG MD DAILY PRN for Constipation Magnesium Hydroxide (Milk of Magnesia), 30 ML PO Q8 PRN for Constipation Oxycodone HCl (Oxycodone HCl), 10 MG PO Q6 PRN for Pain Polyethylene (Miralax), 17 GM PO DAILY PRN for Constipation Sodium Phosphates (Enema Pjwkd-Si-Aig), 132 ML MD PRN PRN for Constipation Miscellaneous Medications Benzocaine-Menthol (Mouth-Thro (Cepacol Sore Throat) Physical Examination Skin: warm/dry, no rash Eyes: normal inspection, EOMI, sclerae normal ENT: normal ENT inspection, pharynx normal Head: normocephalic, atraumatic Neck: supple, no adenopathy, trachea midline Respiratory/Chest: lungs clear, normal breath sounds, no respiratory distress Cardiovascular: no edema, no murmur, + abnormal rate, + abnormal rhythm Abdomen / GI: normal bowel sounds, non tender Back: normal inspection Extremities: normal inspection, normal range of motion, + pertinent finding ( Decreased, painful ROM, short internally rotated RLE, incision CDI) Neurologic/Psych: no motor/sensory deficits, alert, normal reflexes, oriented x 3 Diagnosis Dislocated R NIDA Plan of Treatment I have indicated the patient for close reduction of the right total hip under conscious sedation. I discussed the risks and benefits of the procedure which include but not limited to persistent dislocation, redislocation, injury to surrounding soft tissue, bone, vessels and nerves, failure of the implant, need for additional procedures/surgery secondary to persistent instability, cardiac and pulmonary events and . The patient was agreeable to the treatment plan and informed consent was obtained at this time. Patient seen in pre operative holding area by anesthesia, Dr Brooke, did not feel patient was medically stable to proceed with closed reduction with conscious sedation secondary to current medical status, a.fib and anemia. Asked that medicine see her and clear her today, patients procedure will be on hold for possible closed reduction tomorrow. [facility] will see today and optimize for the OR tomorrow.
[~2017-10-09 13:28] MED LIST changes: +ACET-1047 PO; -ASPECOTC PO; +ASPI325T60 PO; +BENZ10LO2; +CPC LOZ; +DLCS PR; +GNTOPO OP; +LPR25 PO; +MOMLX PO; +MRLP17X PO; +RXC5 PO; +SENN8.6T7 PO; +SODIENE6 PR
[2017-10-09 14:24] LABS: BASO % 0.1 %; BASO ABS # 0.01 K/uL (0-0.2); EOS % 1.5 %; EOS ABS # 0.14 K/uL (0-0.5); HEMOGLOBIN 7.9 g/dL (12.0-16.0); IG# 0.03 K/uL (0.00-0.02); LYMPH % 13.1 %; LYMPH ABS # 1.22 K/uL (1.2-3.4); MEAN CELL VOLUME 88.7 fL (80-100); MEAN PLATELET VOLUME 8.6 fL (7.4-10.4); MONO % 8.1 %; MONO ABS # 0.75 K/uL (0.11-0.59); NEUT % 76.9 %; NEUT ABS # 7.15 K/uL (1.4-6.5); PLATELET COUNT 385 K/uL (130-400); RED CELL DISTRIBUTION WIDTH CV 15.5 % (11.5-14.5); RED CELL DISTRIBUTION WIDTH SD 50.1 fL (36.4-46.3)
[2017-10-09 14:37] LABS: MEAN CORPUSCULAR HGB CONC 31.6 g/dl (32-36)
[2017-10-09 14:41] LABS: PTT PATIENT 23.2 SECONDS (21.0-31.0)
[2017-10-09 14:42] LABS: BLOOD UREA NITROGEN 15 mg/dl (7-18); CALCIUM 8.4 mg/dl (8.5-10.1); CARBON DIOXIDE 24 mmol/L (21-32); CREATININE 0.85 mg/dl (0.60-1.20); GLUCOSE 103 mg/dl (70-99); POTASSIUM 4.6 mmol/L (3.5-5.1); SODIUM 139 mmol/L (136-145)
[2017-10-09] MEDS ORDERED: FENTANYL CITRATE INJ 50 MCG/1 ML 2 ML VIAL ONE (16:11)
[2017-10-09] MEDS ORDERED: NURSING VERBAL MED ORDER ONE (16:15)
[2017-10-09] MEDS ORDERED: FENTANYL CITRATE INJ 50 MCG/1 ML 2 ML VIAL IV ONE (16:15)
[2017-10-09] MEDS ORDERED: ONDANSETRON INJ 2 MG/ML 2 ML VIAL IV PRN (16:30)
[2017-10-09] MEDS ORDERED: ALUMINUM/MAGNESIUM SUSP 30 ML UDC PO PRN (16:30)
--- NOTE | 2017-10-09 17:17 | Progress Note ---
Progress Note Date of Service October 09, 2017. Progress Note The patient is a 77 year old female who came to us through same day surgery for a closed reduction of a hip dislocation. Her hemoglobin was 7.9 and her color was not good. She has a history of atrial fibrillation with a rapid ventricular response. Her rate was in the 120s. I feel that she should be admitted and transfused two units of packed red cells overnight and bring her rate down to 100 or less and we will be able to give her a safe anesthetic tomorrow. I discussed this with Dr. Bonilla and will discuss it with Dr. Chaidez who will be hospitalist.
[2017-10-09] MEDS ORDERED: MoRPHine SULFATE 4 MG/ML 1 ML CARP\\VIAL IV PRN (18:15)
[2017-10-09] MEDS ORDERED: OXYCODONE HCL IR 5 MG TAB (IMMEDIATE RELEASE) PO PRN (18:15)
[2017-10-09] MEDS ORDERED: PHARMACY GLYCEMIC MGMT CONSULT PRN (18:24)
--- NOTE | 2017-10-09 18:43 | DIAGNOSTIC IMAGING REPORT ---
R FEMUR 2 VIEWS ROUTINE HISTORY: 77 years-old Female right hip dislocation, assess stem position status post right hip dislocation COMPARISON: Right femur radiographs 09/19/2017 and right hip radiographs 09/21/2017 TECHNIQUE: 2 views of the right femur FINDINGS: Right hip arthroplasty with long femoral stem and cerclage wires of the proximal femoral shaft redemonstrated. Multiple bone fragments inferior and lateral to the acetabulum are again seen measuring up to 2.9 cm. The femoral head hardware component is displaced superiorly 7.3 cm in laterally approximately 3.8 cm. Moderate soft tissue swelling about the right hip. Superiormost cerclage wire appears displaced. The bones appear mildly demineralized. No acute fracture is identified. Tricompartmental osteoarthritis about the knee with small joint effusion. IMPRESSION: 1. Superolateral dislocation of the prosthetic femoral head in relation to the acetabular component with moderate associated soft tissue swelling. 2. Multiple bone fragments about the right hip are unchanged from comparison. The above report was generated using voice recognition software. It may contain grammatical, syntax or spelling errors. Electronically signed by: Randall Adorno M.D. 10/09/2017 6:41 PM Dictated Date/Time: 10/09/2017 6:37 PM
[2017-10-09] MEDS ORDERED: IV FLUIDS COMPLETED PRN (19:00)
[2017-10-09] MEDS ORDERED: METOPROLOL TARTRATE 25 MG TAB PO SCH (21:00)
--- NOTE | 2017-10-09 21:08 | Medical Consult ---
History General Date of Service: October 09, 2017. Stated Complaint: Rapid Atrial Fibrillation HPI This is a 77-year-old female with prior past medical history of high blood pressure,History of paroxysmal A. fib, osteoarthritis of pelvis GERD, history of carotid artery stenosis dyslipidemia, history of prior CVA, borderline diabetic Underwent ORIF of nils-prosthetic fracture of left hip 5 weeks ago was discharged to rehab Today presents with acute onset of pain on the left hip area after being transferred from, commode X-ray of right femur shows dislocation of prosthesis Patient was brought to the outpatient surgical unit by orthopedics for possible ORIF Patient was found to be severely anemic hemoglobin 7.9, in rapid A. fib Surgical procedure was canceled [facility] Historian: patient Onset: just prior to arrival Severity: severe Complaint Status: persistent Quality of Pain: throbbing, sharp Method of Injury: unknown Modifying Factors: immobilization Review of Systems Constitutional: denies: no symptoms, as stated in HPI, chills, diaphoresis, fever, malaise, weakness, weight gain, weight loss, other Eyes: denies: no symptoms, as stated in HPI, eye pain, tearing, itching, redness, discharge, double vision, visual changes, blurred vision, photophobia, other ENT: denies: no symptoms, as stated in HPI, ear pain, ear discharge, loss of hearing, tinnitus, nasal pain, nasal congestion, rhinorrhea, epistaxis, sore throat, stridor, throat swelling, mouth pain, mouth swelling, dental pain, gum swelling, other Cardiovascular: denies: no symptoms, as stated in HPI, chest pain, chest pressure, chest tightness, diaphoresis, edema, intermittent claudication, orthopnea, palpitations, syncope, other Respiratory: reports: PORRAS Gastrointestinal: reports: other (no report of dark stool or blood in stool ), denies: no symptoms, as stated in HPI, abdominal pain, constipation, diarrhea, nausea, vomiting, hematemesis, hematochezia, hemorrhoids, anorexia, appetite changes, stool changes, flatulence, belching, food intolerance, jaundice Musculoskeletal: reports: other (right hip pain ) Neurologic: reports: dizziness, general weakness Family History No significant family history Social History Hx Tobacco Use In Past Year?: No Smoking Status: Never Smoker Marital status: Housing status: lives with significant other Occupational Status: retired Immunizations History of Influenza Vaccine: Yes Influenza Vaccine Date: Apr 18, 2012 History of Tetanus Vaccine?: Yes History of Pneumococcal: Yes History of Hepatitis B Vaccine: No History of MDRO History of MDRO: No Allergies Coded Allergies: Morphine (Verified Adverse Reaction, Mild, N/V, 10/09/17) Had morphine and zofran and did not get sick Propoxyphene (Verified Adverse Reaction, Mild, N/V, 10/09/17) Current Medications Reported Home Medications Medications Dose Route/Sig Max Daily Dose Days Date Category Dose Instructions Cepacol Sore Throat (Benzocaine-Menthol (Mouth-Thro) 1 Shena Shena 10/09/17 Reported Lopressor (Metoprolol Tartrate) 25 Mg Tab 12.5 Mg PO BID 30 09/24/17 Rx Enema Rvnnx-Nf-Owe (Sodium Phosphates) 1 Pat Pat 132 Ml NV PRN PRN 09/24/17 Rx Gentak (Gentamicin Sulfate) 12 Appln/3.5 Gm Oint 1 Appln OP Q4 30 09/24/17 Rx Mapap (Acetaminophen) 325 Mg Tab 650 Mg PO Q6H PRN 09/24/17 Rx Oxycodone HCl 5 Mg Tab 10 Mg PO Q6 PRN 09/24/17 Rx Senokot S (Sennosides-Docusate Sodium) 1 Tab Tab 2 Tab PO HS 30 09/24/17 Rx CONTINUE SCHEDULED DOSE WHEN TAKING NARCOTIC PAIN MEDICATIONS HOLD FOR LOOSE STOOL Miralax (Polyethylene) 17 Gm Pow 17 Gm PO DAILY PRN 30 09/24/17 Rx Milk of Magnesia (Magnesium Hydroxide) 30 Ml Susp 30 Ml PO Q8 PRN 30 09/24/17 Rx Bisac-Evac (Bisacodyl) 10 Mg Supp 10 Mg NV DAILY PRN 09/24/17 Rx Tri-Buffered Aspirin (Aspirin Buffered (Olivier Carb-Mag) 1 Tab Tab 325 Mg PO BID 60 09/24/17 Rx TAKE WITH FULL STOMACH NEEDS TO CONTINUE 6-8 WEEKS POST HIP SURGERY FOR DVT PROPHYLAXIS THEN TRANSITION TO 325 MG ONCE DAILY Glucosamine Chondroitin (Wakhkhodqwi-Ytztvicsbjt-Knr C-) 1 Tab Tab 2 Tabs PO QAM 04/24/17 Reported Stool Softener (Sennosides-Docusate Sodium) 1 Tab Tab 1 Tab PO QAM 04/24/17 Reported Prinivil (Lisinopril) 10 Mg Tab 10 Mg PO QAM 04/24/17 Reported Flax Seed Oil (Flaxseed (Linseed)) 1,000 Mg Cap 1,000 Mg PO QAM 06/17/14 Reported Prilosec (Omeprazole) 20 Mg Cap 20 Mg PO QAM 04/17/12 Reported Multivitamin (Multivitamins) Tab 1 Tab PO QAM 11/22/10 Reported Physical Physical Exam Vital Signs: Date Time Temp Pulse Resp B/P (MAP) Pulse Ox O2 Delivery O2 Flow Rate FiO2 10/09/17 20:31 37.3 134 20 119/57 (77) 92 Room Air 10/09/17 18:39 37.2 130 20 108/68 (81) 90 Room Air 10/09/17 17:12 37 126 18 122/69 (86) Nasal Cannula 2 10/09/17 14:05 36.9 126 20 122/66 (84) 99 Room Air General Appearance: NO APPARENT DISTRESS, other (pale ) Head: NORMOCEPHALIC, ATRAUMATIC Eyes: PERRLA, EOMI, SCLERAE NORMAL Neck: NO THYROMEGALY Respiratory: BREATH SOUNDS NORMAL, CLEAR TO AUSCULTATION, NO RESPIRATORY DISTRESS Cardiovasular: irregular rate Abdomen: NON TENDER Lower Extremities: limited ROM (on left hip /prior surgical incision healing well ) Neuro: ALERT, ORIENTED x 3 Diagnostics Labs Results Past 24 Hours Test 10/09/17 14:10 10/09/17 14:11 Range/Units Prothrombin Time 10.8 9.0-12.0 SECONDS Prothromb Time International Ratio 1.0 0.9-1.1 Activated Partial Thromboplast Time 23.2 21.0-31.0 SECONDS Partial Thromboplastin Ratio 0.9 Sodium Level 139 136-145 mmol/L Potassium Level 4.6 3.5-5.1 mmol/L Chloride Level 108 98-107 mmol/L Carbon Dioxide Level 24 21-32 mmol/L Anion Gap 7.0 3-11 mmol/L Blood Urea Nitrogen 15 7-18 mg/dl Creatinine 0.85 0.60-1.20 mg/dl Estimated GFR () 75.5 Estimated GFR (Non- 65.2 BUN/Creatinine Ratio 17.2 10-20 Random Glucose 103 70-99 mg/dl Calcium Level 8.4 8.5-10.1 mg/dl White Blood Count 9.30 4.8-10.8 K/uL Red Blood Count 2.82 4.2-5.4 M/uL Hemoglobin 7.9 12.0-16.0 g/dL Hematocrit 25.0 37-47 % Mean Corpuscular Volume 88.7 80-100 fL Mean Corpuscular Hemoglobin 28.0 25-34 pg Mean Corpuscular Hemoglobin Concent 31.6 32-36 g/dl Platelet Count 385 130-400 K/uL Mean Platelet Volume 8.6 7.4-10.4 fL Neutrophils (%) (Auto) 76.9 % Lymphocytes (%) (Auto) 13.1 % Monocytes (%) (Auto) 8.1 % Eosinophils (%) (Auto) 1.5 % Basophils (%) (Auto) 0.1 % Neutrophils # (Auto) 7.15 1.4-6.5 K/uL Lymphocytes # (Auto) 1.22 1.2-3.4 K/uL Monocytes # (Auto) 0.75 0.11-0.59 K/uL Eosinophils # (Auto) 0.14 0-0.5 K/uL Basophils # (Auto) 0.01 0-0.2 K/uL RDW Standard Deviation 50.1 36.4-46.3 fL RDW Coefficient of Variation 15.5 11.5-14.5 % Immature Granulocyte % (Auto) 0.3 % Immature Granulocyte # (Auto) 0.03 0.00-0.02 K/uL Hypersegmented Polys 1+ Microcytosis PRESENT Diagnostic Radiology X-ray of right femur 2 view: IMPRESSION: 1. Superolateral dislocation of the prosthetic femoral head in relation to the acetabular component with moderate associated soft tissue swelling. 2. Multiple bone fragments about the right hip are unchanged from comparison. EKG Rapid A. fib with RVR Impression Assessment and Plan DISLOCATION OF RIGHT HIP PROSTHESIS : Will require possible repeat ORIF Patient remains moderate to high risk for nils-and postoperative cardiac arrhythmia/congestive heart failure Anemia will be corrected with 2 units of PRBC transfusion Cardiology consulted for rapid A. fib Resting echo, serial cardiac markers Order for beta-lia ANEMIA : Hemoglobin 7.9 with normal MCV Patient denies of any dark stool, no blood in stool Patient developed acute blood loss anemia postoperatively on 09/22/2017 hemoglobin dropped to 9.4 At baseline patient's hemoglobin is 12-13 ( 09/20/17) Ordered for 2 units of PRBC to be transfused Monitor H&H every 2 hours RAPID AFIB Chart review shows patient was diagnosed with paroxysmal A. fib in 2017 Was started on beta-lia Lopressor, Xarelto (was discontinued later for unknown reason) Echo in 2017 showed normal LV function normal ejection fraction Patient was scheduled to see cardiology Appointment was canceled Patient never had an outpatient cardiology follow-up Possible rapid A. fib secondary to anemia Ordered for 2 units of PRBC to be transfused Increased beta-lia Cardiology eval requested Patient has elevated CHADS 2 VAS score > 5 (age, female, high blood pressure, prior history of CVA, borderline diabetes) IV anticoagulation not initiated for acute anemia/need for immediate hip surgery Patient will need to be anticoagulated postop Will defer to cardiology HTN : Blood pressure stable Will increase Lopressor to 25 mg 4 times daily Continue lisinopril FULL CODE DVT PROPHYLAXIS : SCD and teds due to anemia DISPOSITION : Continue to monitor in telemetry patient will need preop cardiology evaluation Admit To Telemetry Code Status Level 1 - Full Code DVT Prophylaxis T.E.D. stockings, SCDs
[2017-10-09] MEDS ORDERED: METOPROLOL TARTRATE 25 MG TAB PO STA (21:51)
[2017-10-09] MEDS ORDERED: FUROSEMIDE INJ 20 MG in SYRINGE 0 ML IV SCH (22:00)
[2017-10-10] VITALS (13 sets, daily range): BP systolic 101–143; BP diastolic 56–89; PULSE 91–110; TEMP 36.4–37.5; O2SAT 93–99
[2017-10-10] MEDS: SODIUM CHLORIDE 0.9% 1000ML 1,000 ML IV SCH ×3 (01:58→16:41)
[2017-10-10 04:08] LABS: HEMATOCRIT 26.8 % (37-47); HEMOGLOBIN 8.6 g/dL (12.0-16.0); MEAN CELL VOLUME 87.9 fL (80-100); MEAN CORPUSCULAR HEMOGLOBIN 28.2 pg (25-34); MEAN CORPUSCULAR HGB CONC 32.1 g/dl (32-36); MEAN PLATELET VOLUME 8.5 fL (7.4-10.4); PLATELET COUNT 290 K/uL (130-400); RED CELL DISTRIBUTION WIDTH CV 16.2 % (11.5-14.5); RED CELL DISTRIBUTION WIDTH SD 52.3 fL (36.4-46.3); WHITE BLOOD COUNT 9.77 K/uL (4.8-10.8)
[2017-10-10 04:26] LABS: BLOOD UREA NITROGEN 17 mg/dl (7-18); CALCIUM 8.2 mg/dl (8.5-10.1); CARBON DIOXIDE 26 mmol/L (21-32); CREATININE 0.81 mg/dl (0.60-1.20); GLUCOSE 119 mg/dl (70-99); POTASSIUM 4.2 mmol/L (3.5-5.1); SODIUM 136 mmol/L (136-145)
[2017-10-10 06:51] LABS: HEMOGLOBIN A1C 5.3 % (4.5-5.6)
--- NOTE | 2017-10-10 07:13 | DIAGNOSTIC IMAGING REPORT ---
CHEST ONE VIEW PORTABLE CLINICAL HISTORY: PRE OP preoperative evaluation COMPARISON STUDY: 09/19/2017 FINDINGS: Mild stable cardiomegaly. Mild chronic interstitial change. Mild Baseline emphysematous change. IMPRESSION: Chronic change. No acute process. The above report was generated using voice recognition software. It may contain grammatical, syntax or spelling errors. Electronically signed by: Javier Erickson M.D. 10/10/2017 7:12 AM Dictated Date/Time: 10/10/2017 7:11 AM
--- NOTE | 2017-10-10 07:42 | Orthopedic Progress Note ---
Orthopedic Progress Note Date of Service October 10, 2017. Subjective Additional Notes: Patient seen laying in bed this morning, comfortable, pain well controlled, feeling better, no acute issues overnight. Objective NAD, AOx3 RLE NVSI +EHL/FHL/TA/GS SILT grossly, CR< 2 seconds, +2 DP pulse, compartments soft NT Date Time Temp Pulse Resp B/P (MAP) Pulse Ox O2 Delivery O2 Flow Rate FiO2 10/10/17 07:06 36.6 108 16 137/79 (98) 98 Room Air 10/10/17 04:00 37.1 96 18 101/60 (74) 96 Nasal Cannula 2.0 10/10/17 04:00 96 Nasal Cannula 2.0 10/10/17 01:55 37.5 105 20 118/61 94 10/10/17 01:30 106 20 118/61 95 10/10/17 01:00 105 16 131/58 94 10/10/17 00:30 102 17 114/64 93 10/10/17 00:15 37.0 103 20 110/65 94 10/10/17 00:01 37.0 110 18 107/56 (73) 93 Room Air 10/09/17 23:59 93 Room Air 10/09/17 23:58 37.5 105 20 100/64 93 10/09/17 23:45 37.5 114 17 100/64 94 10/09/17 22:58 37.5 114 107/56 10/09/17 22:43 90 Room Air 10/09/17 22:33 37.3 100 98/55 10/09/17 21:58 37.6 108 94/60 10/09/17 21:45 37.9 128 97/60 10/09/17 21:30 37.2 127 122/65 90 10/09/17 21:21 125 122/65 (84) 10/09/17 20:31 37.3 134 20 119/57 (77) 92 Room Air 10/09/17 20:00 90 Room Air 10/09/17 18:39 37.2 130 20 108/68 (81) 90 Room Air 10/09/17 17:12 37 126 18 122/69 (86) Nasal Cannula 2 10/09/17 14:05 36.9 126 20 122/66 (84) 99 Room Air Laboratory Results 24 Hours: Test 10/09/17 14:10 10/09/17 14:11 10/10/17 03:53 10/10/17 07:00 Prothromb Time International Ratio 1.0 Prothrombin Time 10.8 SECONDS White Blood Count 9.30 K/uL Red Blood Count 2.82 M/uL Hemoglobin 7.9 g/dL 8.6 g/dL Hematocrit 25.0 % 26.8 % Mean Corpuscular Volume 88.7 fL Mean Corpuscular Hemoglobin 28.0 pg Mean Corpuscular Hemoglobin Concent 31.6 g/dl Platelet Count 385 K/uL Mean Platelet Volume 8.6 fL Neutrophils (%) (Auto) 76.9 % Lymphocytes (%) (Auto) 13.1 % Monocytes (%) (Auto) 8.1 % Eosinophils (%) (Auto) 1.5 % Basophils (%) (Auto) 0.1 % Neutrophils # (Auto) 7.15 K/uL Lymphocytes # (Auto) 1.22 K/uL Monocytes # (Auto) 0.75 K/uL Eosinophils # (Auto) 0.14 K/uL Basophils # (Auto) 0.01 K/uL Assessment & Plan Assessment: dislocation right NIDA Anemia A.fib Plan: -Bedrest -NWB RLE -Closed reduction with conscious sedation procedure canceled yesterday 10/09/17 secondary to patient's medical status -Med consult - recs appreciated -Cardio consult - pending -Once medically optimized plan for closed reduction by Dr. Jose today -Patients HR improving -a.m. labs - Hgb 8.6
[2017-10-10] MEDS: PANTOprazole SOD 40 MG TAB PO SCH (08:17)
[2017-10-10] MEDS: LISINOPRIL 10 MG TAB PO SCH (08:17)
[2017-10-10] MEDS ORDERED: METOPROLOL TARTRATE 25 MG TAB PO SCH (09:00)
--- NOTE | 2017-10-10 10:10 | ECHOCARDIOGRAM REPORT ---
*NOTICE TO RECEIVING REPUBLICAN AGENCY This information is strictly Confidential and protected under [place] law. [place] law prohibits you from making any further disclosure of this information unless further disclosure is expressly permitted by the written consent of the person to whom it pertains or is authorized by law. A general authorization for the release of medical or other information is not sufficient for this purpose. Hospital accepts no responsibility if the information is made available to any other person, INCLUDING THE PATIENT. Interpretation Summary * Name: MAUDE ONEAL Study Date: 10/10/2017 07:52 AM BP: 101/60 mmHg * Patient Location: C.2E\S\E212\S\1 HR: 96 * : 1940 (M/d/yyyy) Gender: Female Height: 66 in * Age: 77 yrs Ethnicity: CA Weight: 200 lb * Ordering Physician: Johanna Mock * Referring Physician: Nam Bonilla D.O. * Performed By: Erasmo Neves RCS * * Reason For Study: A-FIB * BSA: 2.0 m2 * -- Conclusions -- * The left ventricle is normal in size. * There is mild concentric left ventricular hypertrophy. * Left ventricular systolic function is normal. * The left ventricular wall motion is normal. * Ejection Fraction = 60-65%. * Aortic valve sclerosis mild, without significant aortic valvular stenosis. * There is mild mitral regurgitation. * There is mild tricuspid regurgitation. * Right ventricular systolic pressure is elevated at 40-50mmHg. Procedure Details * A complete two-dimensional transthoracic echocardiogram was performed (2D, M-mode, Doppler and color flow Doppler). Left Ventricle * The left ventricle is normal in size. * There is mild concentric left ventricular hypertrophy. * Left ventricular systolic function is normal. * Ejection Fraction = 60-65%. * The left ventricular wall motion is normal. Right Ventricle * The right ventricle is normal in size and function. Atria * The left atrium is mildly dilated. * Right atrial size is normal. * No ASD detected; PFO is not assessed. Mitral Valve * The mitral valve leaflets are mildly thickened and there is mild annular calcification with good coaptation * There is no mitral valve stenosis. * There is mild mitral regurgitation. Tricuspid Valve * The tricuspid valve anatomy is normal. * There is no tricuspid stenosis. * There is mild tricuspid regurgitation. * Right ventricular systolic pressure is elevated at 40-50mmHg. Aortic Valve * The aortic valve is trileaflet. * Aortic valve sclerosis mild, without significant aortic valvular stenosis. * No aortic regurgitation is present. Pulmonic Valve * The pulmonic valve is not well visualized. Great Vessels * The aortic root is normal size. Pericardium/Pleural * There is no pericardial effusion. Great Vessels * Normal inferior vena cava diameter and respiratory variation suggests normal central venous pressure. MMode 2D Measurements and Calculations IVSd 0.95 cm IVSs 1.2 cm LVIDd 4.3 cm LVIDs 3.2 cm LVPWd 1.0 cm LVPWs 1.6 cm IVS/LVPW 0.94 FS 27.1 % EDV(Teich) 84.0 ml ESV(Teich) 39.4 ml EF(Teich) 53.1 % EDV(cubed) 80.7 ml ESV(cubed) 31.3 ml EF(cubed) 61.3 % % IVS thick 26.7 % % LVPW thick 54.4 % LV mass(C)d 138.9 grams LV mass(C)dI 69.5 grams/m\S\2 LV mass(C)s 145.8 grams LV mass(C)sI 72.9 grams/m\S\2 SV(Teich) 44.6 ml SI(Teich) 22.3 ml/m\S\2 SV(cubed) 49.4 ml SI(cubed) 24.7 ml/m\S\2 Ao root diam 3.4 cm Ao root area 9.1 cm\S\2 ACS 1.7 cm LA dimension 4.5 cm asc Aorta Diam 3.4 cm LA/Ao 1.3 EDV(MOD-sp4) 89.0 ml ESV(MOD-sp4) 46.0 ml EF(MOD-sp4) 48.3 % EDV(MOD-sp2) 93.0 ml ESV(MOD-sp2) 46.0 ml EF(MOD-sp2) 50.5 % SV(MOD-sp4) 43.0 ml SI(MOD-sp4) 21.5 ml/m\S\2 SV(MOD-sp2) 47.0 ml SI(MOD-sp2) 23.5 ml/m\S\2 Doppler Measurements and Calculations MV E max gema 127.8 cm/sec MV P1/2t max gema 122.5 cm/sec MV P1/2t 98.0 msec MVA(P1/2t) 2.2 cm\S\2 MV dec slope 366.2 cm/sec\S\2 MV dec time 0.26 sec Ao V2 max 162.8 cm/sec Ao max PG 10.6 mmHg Ao max PG (full) 6.1 mmHg LV V1 max PG 4.5 mmHg LV V1 max 106.4 cm/sec PA V2 max 79.2 cm/sec PA max PG 2.6 mmHg TR max gema 339.3 cm/sec
[2017-10-10] MEDS ORDERED: METOPROLOL TARTRATE 25 MG TAB PO STA (10:24)
[2017-10-10 10:42] LABS: HEMATOCRIT 27.2 % (37-47); HEMOGLOBIN 8.8 g/dL (12.0-16.0)
--- NOTE | 2017-10-10 11:40 | CARDIOLOGY CONSULTATION ---
DATE OF CONSULTATION: 10/10/2017 REFERRING PHYSICIAN: Johanna Mock M.D. INDICATIONS: Atrial fibrillation, chronic with elevated ventricular response rate; preoperative assessment. 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 Per review of records and outpatient records, the patient has a history of persistent atrial fibrillation since at least 12/2015, but had not been recently on anticoagulation or rate control therapy. During recent hospitalization, she was at time of discharge placed on metoprolol 12.5 mg daily. The patient presents now noting having dislocated her hip during mechanical maneuver at [facility]. She is referred now for management of atrial fibrillation and preoperative assessment prior to planned surgical manipulation. She denies any history of chest pain, angina, myocardial infarction or congestive heart failure. Is aware of her history of atrial fibrillation, has not been on anticoagulant therapy. She denies fevers, chills, sweats, cough, hoarseness, wheeze or hemoptysis. Notes no melena or hematochezia. Notes no pleuritic pain or discomfort. ALLERGIES: MORPHINE, PROPOXYPHENE. MEDICATIONS: On presentation were aspirin 325 mg per day, flaxseed oil, glucosamine and chondroitin, Prinivil 10 mg p.o. daily, milk of magnesia, metoprolol 12.5 mg b.i.d., multivitamin per day, omeprazole 20 mg q.a.m. and bowel regimen. PAST SURGICAL HISTORY: Notable for prior carotid endarterectomy, bilateral hip replacements, bladder prolapse repair, right adrenalectomy. PAST MEDICAL HISTORY: As described. In addition, hypertension, borderline hyperglycemia, atherosclerotic carotid disease status post right carotid endarterectomy, history of remote occipital stroke in 2009. FAMILY HISTORY: Positive for heart disease. SOCIAL HISTORY: The patient is a nonsmoker. Very rare alcohol user. She is physically active about her home. Does not climb stairs anymore, but does shop, etc. Notes no difficulties with recent physical therapy. Denies any signs of angina or congestive heart failure. Is aware of history of atrial fibrillation, but denies tachy-palpitations. PHYSICAL EXAMINATION: VITAL SIGNS: Heart rate is 108, blood pressure is 137/79, O2 saturations 98% on room air. HEENT: Normocephalic and atraumatic. Nares without discharge. Throat was clear. NECK: There is a well-healed right carotid endarterectomy scar. LUNGS: Clear at the bases. CARDIOVASCULAR: Irregularly irregular. There is no S3 gallop. There is no audible murmur or rub. PMI is nondisplaced. ABDOMEN: Soft, nontender. EXTREMITIES: Without cyanosis or clubbing. There is chronic venous stasis of lower extremities without edema. There are intact distal pulses. LABORATORY DATA: Troponins are negative x2. Sodium is 136, potassium is 4.2, chloride is 108, bicarbonate is 26, BUN 17, creatinine 0.8, glucose is 119. Chest x-ray reveals no infiltrate or edema with chronic interstitial changes. EKG reveals atrial fibrillation with elevated ventricular response rate. No ST segment abnormalities or Q-waves. Echocardiogram today demonstrates preserved LV systolic function, [id number] left atrial dilatation. No wall motion abnormalities. There is mild mitral and tricuspid insufficiency and evidence of mild elevation in pulmonary pressures. IMPRESSION: A 77-year-old female referred for preoperative setting with history of chronic/persistent atrial fibrillation since at least 12/2016. There are no contraindications to proceeding to minor procedure as noted for hip as planned. Ultimate goals will be continued rate control. I agree with metoprolol begun, had increased on this admission. We will likely make this 25 mg b.i.d. and give additional 12.5 mg this morning. Anticoagulation should be discussed and initiated with patient with high CHADS-VASc score prior to discharge.
[2017-10-10] MEDS ORDERED: MIDAZOLAM HCL 1 MG/ML 2ML VIAL ONE (13:20)
[2017-10-10] MEDS ORDERED: FENTANYL CITRATE INJ 50 MCG/1 ML 2 ML VIAL ONE (13:20)
[2017-10-10] MEDS ORDERED: PROPOFOL IV EMULSION 10 MG/ML 20 ML VIAL ONE (13:20)
[2017-10-10] MEDS ORDERED: LIDOCAINE HCL 2% 2 ML VIAL (20MG/ML) ONE (13:20)
[2017-10-10] MEDS ORDERED: LABETALOL HCL IV 5 MG/ML 20ML IV PRN (14:15)
[2017-10-10] MEDS ORDERED: EpHEDrine SULFATE INJ 50 MG/ML AMP IV PRN (14:15)
[2017-10-10] MEDS ORDERED: ATROPINE SULFATE 0.1 MG/ML 5ML SYR IV PRN (14:15)
[2017-10-10] MEDS ORDERED: HYDROmorphone INJ 0.5 MG/0.5 ML SYR IV PRN (14:15)
[2017-10-10] MEDS ORDERED: ONDANSETRON INJ 2 MG/ML 2 ML VIAL IV PRN (14:15)
[2017-10-10] MEDS ORDERED: PHENYLEPHRINE 100MCG/ML 5ML SYR IV PRN (14:15)
[2017-10-10] MEDS ORDERED: FENTANYL CITRATE INJ 50 MCG/1 ML 2 ML VIAL IV PRN (14:15)
--- NOTE | 2017-10-10 14:42 | [facility] Post Operative Brief Note ---
Immediate Operative Summary Operative Date October 10, 2017. Pre-Operative Diagnosis Dislocated Right Total Hip Arthroplasty Post-Operative Diagnosis Same as preoperative. Procedure(s) Performed Right Closed Reduction Hip Surgeon Dr. Jose Cage Tender Surgeon(s) Jovan Mosley PA-C Estimated Blood Loss 0ml Findings Consistent with Post-Op Diagnosis Specimens None Anesthesia Type General Complication(s) none Disposition Accompanied Pt To Recover: no Disposition: Recovery Room / PACU
--- NOTE | 2017-10-10 14:46 | DIAGNOSTIC IMAGING REPORT ---
RIGHT HIP FLUOROSCOPIC IMAGES CLINICAL HISTORY: RT C/R HIP COMPARISON STUDY: Right femur radiographs October 09, 2017. Fluoroscopy time: 28 seconds. FINDINGS: Single fluoroscopic image demonstrates anatomic alignment of the right hip arthroplasty. Cerclage wires and lateral plate are noted. There is an acetabular screw. The distal aspect of the long stem femoral component was not imaged on this exam. IMPRESSION: Anatomic alignment of the right hip arthroplasty post reduction. Electronically signed by: Andrew Candelario M.D. 10/10/2017 2:45 PM Dictated Date/Time: 10/10/2017 2:43 PM
[2017-10-10] MEDS ORDERED: PHENYLEPHRINE HCL INJ 10 MG/ML VIAL ONE (14:55)
--- NOTE | 2017-10-10 15:32 | Anesthesiology Progress Note ---
Anesthesia Post Op Note Date & Time October 10, 2017 at 15:32 Vital Signs Pain Intensity: 0 Vital Signs Past 12 Hours Date Time Temp Pulse Resp B/P (MAP) Pulse Ox O2 Delivery O2 Flow Rate FiO2 10/10/17 15:15 91 20 118/69 (96) 99 Oxymask 10 10/10/17 15:05 87 18 113/62 (90) 100 Oxymask 10 10/10/17 14:55 88 22 118/64 (89) 100 Oxymask 10 10/10/17 14:47 36.2 106 20 120/71 100 Oxymask 10 10/10/17 12:00 95 Nasal Cannula 2.0 10/10/17 10:59 36.8 99 20 143/89 (107) 97 Nasal Cannula 2.0 10/10/17 08:00 96 Nasal Cannula 2.0 10/10/17 07:06 36.6 108 16 137/79 (98) 98 Room Air 10/10/17 04:00 37.1 96 18 101/60 (74) 96 Nasal Cannula 2.0 10/10/17 04:00 96 Nasal Cannula 2.0 Notes Mental Status: alert / awake / arousable, participated in evaluation Pt Amnestic to Procedure: Yes Nausea / Vomiting: adequately controlled Pain: adequately controlled Airway Patency, RR, SpO2: stable & adequate BP & HR: stable & adequate Hydration State: stable & adequate Anesthetic Complications: no major complications apparent
--- NOTE | 2017-10-10 15:46 | OPERATIVE REPORT ---
DATE OF OPERATION: 10/10/2017 PREOPERATIVE DIAGNOSIS: Dislocated total hip revision, right. POSTOPERATIVE DIAGNOSIS: Dislocated total hip revision, right. PROCEDURE: Closed reduction of dislocated total hip, right. SURGEON: Low Jose MD REVIEW NURSE: Jovan Mosley PA-C ANESTHESIA: General. COMPLICATIONS: None. NOTE: Following induction of adequate general anesthesia, the patient's right hip was examining anesthesia, the dislocation was found to be posterior. Using longitudinal traction and external rotation, the hip was reduced. A concentric reduction was obtained. The dislocation was not particularly easy and the hip was stable to 90 degrees of flexion and 30 degrees of internal rotation. The patient was placed in an abduction pillow and knee immobilizer. She was taken to recovery after awakening in stable and good condition. She tolerated the procedure well. I attest to the content of the Intraoperative Record and any orders documented therein. Any exception s are noted below.
--- NOTE | 2017-10-10 16:14 | Progress Note ---
Internal Med Progress Note Date of Service: October 10, 2017. Provider Documentation: Internal Medicine / Hospitalist Consultation Follow up Note SUBJECTIVE: Patient s/p surgery. There is hand molder meat at bedside to draw troponin labs. Denies acute pain or shortness of breath. patient breathing on room air. Heart rate monitor showing irregular beats or afib but heart rate generally in the 90s OBJECTIVE: Exam: General- no acute distress Eyes- EOMI Neck- no JVD Lungs- Clear on anterior auscultation Heart- irregular beats but not tachycardic Abdomen- soft, nontender, + bowel sounds Extremities- lower extremities in SCDs and foam wedge, able to wiggle toes on both feet Neuro-awake and alert ASSESSMENT & PLAN: This is a 77 year old F with Closed reduction of dislocated total hip on after she had a right dislocated hip prosthesis (Superolateral dislocation of the prosthetic femoral head in relation to the acetabular component) Patient's preop course was complicated by atrial fibrillation with RVR but heart rate better controlled with better blockers, Also had 2 units PRBC transfusion preop on 10/09/17 for anemia Recommendations -maintain patient on telemetry post-op -trend CBC for anemia or if any postop bleed or hematoma -history of chronic/persistent atrial fibrillation since at least 12/2016; cardiology service is following patient for heart rate control with beta blockers; cardiology recommends that Anticoagulation should be discussed and initiated with patient with high CHADS-VASc score prior to discharge; at this time will defer to orthopedics when patient should start anticoagulation given that she just had the surgery but agree with cardiology that anticoagulation for the atrial fibrillation should be started at some point before she is discharged -blood pressure control with home dose lisinopril -Pain control as per orthopedics -PT/OT ordered -DVT ppx for now is SCDs, consider pharmacologic anticoagulation for the atrial fibrillation Hospitalist medical service to continue with following the patient as consult service Vital Signs: Date Time Temp Pulse Resp B/P (MAP) Pulse Ox O2 Delivery O2 Flow Rate FiO2 10/10/17 15:47 36.7 91 20 128/67 (87) 99 Nasal Cannula 2.0 10/10/17 15:35 36.8 94 23 132/66 (79) 100 Nasal Cannula 2 10/10/17 15:25 85 20 121/62 (70) 100 Nasal Cannula 2 10/10/17 15:15 91 20 118/69 (96) 99 Oxymask 10 10/10/17 15:05 87 18 113/62 (90) 100 Oxymask 10 10/10/17 14:55 88 22 118/64 (89) 100 Oxymask 10 10/10/17 14:47 36.2 106 20 120/71 100 Oxymask 10 10/10/17 12:00 95 Nasal Cannula 2.0 10/10/17 10:59 36.8 99 20 143/89 (107) 97 Nasal Cannula 2.0 10/10/17 08:00 96 Nasal Cannula 2.0 10/10/17 07:06 36.6 108 16 137/79 (98) 98 Room Air 10/10/17 04:00 37.1 96 18 101/60 (74) 96 Nasal Cannula 2.0 10/10/17 04:00 96 Nasal Cannula 2.0 10/10/17 01:55 37.5 105 20 118/61 94 10/10/17 01:30 106 20 118/61 95 10/10/17 01:00 105 16 131/58 94 10/10/17 00:30 102 17 114/64 93 10/10/17 00:15 37.0 103 20 110/65 94 10/10/17 00:01 37.0 110 18 107/56 (73) 93 Room Air 10/09/17 23:59 93 Room Air 10/09/17 23:58 37.5 105 20 100/64 93 10/09/17 23:45 37.5 114 17 100/64 94 10/09/17 22:58 37.5 114 107/56 10/09/17 22:43 90 Room Air 10/09/17 22:33 37.3 100 98/55 10/09/17 21:58 37.6 108 94/60 10/09/17 21:45 37.9 128 97/60 10/09/17 21:30 37.2 127 122/65 90 10/09/17 21:21 125 122/65 (84) 10/09/17 20:31 37.3 134 20 119/57 (77) 92 Room Air 10/09/17 20:00 90 Room Air 10/09/17 18:39 37.2 130 20 108/68 (81) 90 Room Air 10/09/17 17:12 37 126 18 122/69 (86) Nasal Cannula 2 Lab Results: Results Past 24 Hours Test 10/09/17 22:01 10/09/17 22:39 10/10/17 03:53 10/10/17 10:19 Range/Units Troponin I < 0.015 < 0.015 < 0.015 0-0.045 ng/ml Urine Color DK YELLOW Urine Appearance TURBID CLEAR Urine pH 5.0 4.5-7.5 Urine Specific [place] 1.021 1.000-1.030 Urine Protein NEG NEG Urine Glucose (UA) NEG NEG Urine Ketones 1+ NEG Urine Occult Blood NEG NEG Urine Nitrite NEG NEG Urine Bilirubin NEG NEG Urine Urobilinogen NEG NEG Urine Leukocyte Esterase TRACE NEG Urine WBC (Auto) 5-10 0-5 /hpf Urine RBC (Auto) 0-4 0-4 /hpf Urine Hyaline Casts (Auto) 0-5 /lpf Urine Epithelial Cells (Auto) >30 0-5 /lpf Urine Bacteria (Auto) 1+ NEG Urine Pathogenic Casts 0 /lpf White Blood Count 9.77 4.8-10.8 K/uL Red Blood Count 3.05 4.2-5.4 M/uL Hemoglobin 8.6 8.8 12.0-16.0 g/dL Hematocrit 26.8 27.2 37-47 % Mean Corpuscular Volume 87.9 80-100 fL Mean Corpuscular Hemoglobin 28.2 25-34 pg Mean Corpuscular Hemoglobin Concent 32.1 32-36 g/dl RDW Standard Deviation 52.3 36.4-46.3 fL RDW Coefficient of Variation 16.2 11.5-14.5 % Platelet Count 290 130-400 K/uL Mean Platelet Volume 8.5 7.4-10.4 fL Sodium Level 136 136-145 mmol/L Potassium Level 4.2 3.5-5.1 mmol/L Chloride Level 108 98-107 mmol/L Carbon Dioxide Level 26 21-32 mmol/L Anion Gap 2.0 3-11 mmol/L Blood Urea Nitrogen 17 7-18 mg/dl Creatinine 0.81 0.60-1.20 mg/dl Est Creatinine Clear Calc Drug Dose 65.3 ml/min Estimated GFR () 80.1 Estimated GFR (Non- 69.1 BUN/Creatinine Ratio 21.2 10-20 Random Glucose 119 70-99 mg/dl Estimated Average Glucose 105 mg/dl Hemoglobin A1c 5.3 4.5-5.6 % Calcium Level 8.2 8.5-10.1 mg/dl Test 10/10/17 16:10 Range/Units Microbiology Results 10/09/17 Urine Culture, Received Pending
[2017-10-10] MEDS ORDERED: OPTIRAY 320 IV PRN (17:00)
[2017-10-10] MEDS: METOPROLOL TARTRATE 25 MG TAB PO SCH (17:59)
[2017-10-11] VITALS (14 sets, daily range): BP systolic 94–133; BP diastolic 54–76; PULSE 96–208; TEMP 36.5–37.2; O2SAT 90–94
[2017-10-11] MEDS: SODIUM CHLORIDE 0.9% 1000ML 1,000 ML IV SCH ×2 (01:08→12:33)
[2017-10-11 07:01] LABS: HEMATOCRIT 27.9 % (37-47); HEMOGLOBIN 8.8 g/dL (12.0-16.0); MEAN CELL VOLUME 88.9 fL (80-100); MEAN CORPUSCULAR HGB CONC 31.5 g/dl (32-36); MEAN PLATELET VOLUME 8.8 fL (7.4-10.4); PLATELET COUNT 283 K/uL (130-400); RED CELL DISTRIBUTION WIDTH CV 16.6 % (11.5-14.5); WHITE BLOOD COUNT 7.52 K/uL (4.8-10.8)
[2017-10-11 07:41] LABS: CALCIUM 8.3 mg/dl (8.5-10.1); CREATININE 0.76 mg/dl (0.60-1.20); POTASSIUM 4.1 mmol/L (3.5-5.1)
--- NOTE | 2017-10-11 07:55 | Anesthesiology Progress Note ---
Anesthesia Post Op Note Date & Time October 11, 2017 at 07:54 Vital Signs Pain Intensity: 0.0 Vital Signs Past 12 Hours Date Time Temp Pulse Resp B/P (MAP) Pulse Ox O2 Delivery O2 Flow Rate FiO2 10/11/17 06:13 37.0 105 20 100/76 (84) 94 Room Air 10/11/17 04:12 36.8 111 18 111/67 (82) 92 Room Air 10/11/17 04:00 90 Nasal Cannula 2.0 10/11/17 00:15 37.2 108 18 119/67 (84) 90 Room Air 10/11/17 00:01 90 Nasal Cannula 2.0 10/10/17 20:00 Room Air Notes Mental Status: alert / awake / arousable, participated in evaluation Pt Amnestic to Procedure: Yes Nausea / Vomiting: adequately controlled Pain: adequately controlled Airway Patency, RR, SpO2: stable & adequate BP & HR: stable & adequate Hydration State: stable & adequate Anesthetic Complications: no major complications apparent
--- NOTE | 2017-10-11 08:05 | Orthopedic Progress Note ---
Orthopedic Progress Note Date of Service October 11, 2017. Subjective Post OP Day: 1 Reports: feeling well, Denies: chest pain, SOB, nausea / vomiting, light headedness, calf pain Additional Notes: FEELING MUCH BETTER. HAS NO PAIN SINCE HIP HAS BEEN REDUCED. Objective calves soft nontender, N/V intact, hip located, capillary refill less than 2 sec., incision C/D/I, A&O x3, toes mobile RIGHT THIGH WITH EDEMA, BUT SOFT, NONTENDER. Date Time Temp Pulse Resp B/P (MAP) Pulse Ox O2 Delivery O2 Flow Rate FiO2 10/11/17 06:13 37.0 105 20 100/76 (84) 94 Room Air 10/11/17 04:12 36.8 111 18 111/67 (82) 92 Room Air 10/11/17 04:00 90 Nasal Cannula 2.0 10/11/17 00:15 37.2 108 18 119/67 (84) 90 Room Air 10/11/17 00:01 90 Nasal Cannula 2.0 10/10/17 20:00 Room Air 10/10/17 19:00 36.4 92 18 131/68 (89) 93 Room Air 10/10/17 16:00 Nasal Cannula 2.0 10/10/17 15:47 36.7 91 20 128/67 (87) 99 Nasal Cannula 2.0 10/10/17 15:35 36.8 94 23 132/66 (79) 100 Nasal Cannula 2 10/10/17 15:25 85 20 121/62 (70) 100 Nasal Cannula 2 10/10/17 15:15 91 20 118/69 (96) 99 Oxymask 10 10/10/17 15:05 87 18 113/62 (90) 100 Oxymask 10 10/10/17 14:55 88 22 118/64 (89) 100 Oxymask 10 10/10/17 14:47 36.2 106 20 120/71 100 Oxymask 10 10/10/17 12:00 95 Nasal Cannula 2.0 10/10/17 10:59 36.8 99 20 143/89 (107) 97 Nasal Cannula 2.0 10/10/17 08:00 96 Nasal Cannula 2.0 Laboratory Results 24 Hours: Test 10/10/17 10:19 10/11/17 06:47 Hematocrit 27.2 % 27.9 % Hemoglobin 8.8 g/dL 8.8 g/dL Assessment & Plan Assessment: POD#1 SP CLOSED REDUCTION RIGHT NIDA. Anemia A.fib Plan: PT/OT- WBAT WITH WALKER -Med consult - recs appreciated -OK TO RESUME ANTICOAGULATION ANYTIME -Cardio consult - -Patients HR improving CONTINUE STRICT HIP PRECAUTIONS, INCLUDING ABDUCTION PILLOW. CONTINUE KNEE IMMOBILIZER TO HELP MAINTAIN HIP PRECAUTIONS PATIENT FEELS COMFORTABLE WITH DISCHARGE TO HOME. WILL ORDER PT/OT TODAY AND SEE HOW SHE DOES. IF NOT DEEMED SAFE, MAY CONSIDER RETURN TO [facility]. WILL AWAIT PT NOTES. CM TO DISCUSS. WILL RECHECK LATER TO CONFIRM DISPOSITION ORTHOPEDICALLY STABLE FOR DISCHARGE TODAY IF GOING HOME. IF NOT MEDICALLY STABLE , WOULD CONSIDER TRANSFER TO THEIR SERVICE.
[2017-10-11] MEDS: PANTOprazole SOD 40 MG TAB PO SCH (08:40)
[2017-10-11] MEDS: METOPROLOL TARTRATE 25 MG TAB PO SCH (08:40)
[2017-10-11] MEDS: LISINOPRIL 10 MG TAB PO SCH (08:41)
[2017-10-11] MEDS: METOPROLOL TARTRATE 1 MG/ML VIAL IV PRN (09:22)
--- NOTE | 2017-10-11 10:06 | Cardiology Follow-Up ---
Subjective General Date of Service: October 11, 2017. Chief Complaint: Atrial fibrillation with a rapid ventricular response Pt evaluation today including: conversation w/ patient, physical exam, chart review, lab review, review of studies, review of inpatient medication list History of Present Illness Patient seen and examined just after attempting to sit up for therapy, heart rates increasing from 100-115 to ~200 bpm with weakness, dyspnea, tachypalpitations. 5 mg of IV Lopressor given with improvement. No chest pain. Telemetry: Atrial fibrillation with a rapid ventricular response throughout. October 10, 2017 TTE Interpretation Summary ([facility], Dr. Myrick): The left ventricle is normal in size. There is mild concentric left ventricular hypertrophy. Left ventricular systolic function is normal. The left ventricular wall motion is normal. Ejection Fraction = 60-65%. Aortic valve sclerosis mild, without significant aortic valvular stenosis. There is mild mitral regurgitation. There is mild tricuspid regurgitation. Right ventricular systolic pressure is elevated at 40-50mmHg. Allergies Coded Allergies: Morphine (Verified Adverse Reaction, Mild, N/V, 10/09/17) Had morphine and zofran and did not get sick Propoxyphene (Verified Adverse Reaction, Mild, N/V, 10/09/17) Social History Smoking Status: Unknown if Ever Smoked Hx Tobacco Use In Past Year?: No Hx Alcohol Use - Type And Amou: No Hx Substance Use - Type And Am: No Problem List Medical Problems: (1) Atrial fibrillation by electrocardiogram Status: Acute (2) Subtrochanteric fracture of right femur Status: Acute Physical Exam Vital Signs Last Vital Signs Documentation Date Time Temp Pulse Resp B/P (MAP) Pulse Ox O2 Delivery O2 Flow Rate FiO2 10/11/17 09:28 117 22 101/67 (78) 10/11/17 06:13 37.0 94 Room Air 10/11/17 04:00 2.0 Physical Exam Constitutional: Level of Distress: moderate distress, acutely ill Psychiatric: Mental Status: active & alert Orientation: to time, to place, to person Memory: recent memory normal, remote memory normal Head: normocephalic, atraumatic Neck: pertinent finding (Neck veins are flat) Lungs: Respiratory effort: dyspneic Auscultation: no wheezing, no rhonchi, deminished air movement, decreased breath sounds Cardiovascular: Heart Auscultation: no murmurs, no rubs, tachycardia, irregular rate rhythm Peripheral Pulses: Radial Pulse: normal on the left, normal on the right Dorsalis Pedis Pulse: decreased on the left, decreased on the right Abdomen: Bowel Sounds: normal Inspection & Palpation: soft Extremities: no cyanosis, no edema, no clubbing Neurologic: Cranial Nerves: grossly intact Assessment and Plan Assessment and Plan RECOMMENDATIONS/PLAN: See above Discontinue Lisinopril given hypotension, to allow for titration of Metoprolol tartrate to 50 mg twice a day. Continue IV fluids. Repeat H&H. ? Transfuse a 3rd unit of packed red blood cells. Eventual initiation of Coumadin anticoagulation Patient seen and personally examined assessment and plan as above. Plan to increase metoprolol for rate control ultimate plans for anticoagulation once hemodynamically stable Miko Myrick MD Laboratory Results Last 24 Hours Test 10/10/17 10:19 10/10/17 16:10 10/10/17 16:30 10/10/17 20:51 Hemoglobin 8.8 g/dL Hematocrit 27.2 % Troponin I < 0.015 ng/ml < 0.015 ng/ml Bedside Glucose 80 mg/dl 102 mg/dl Test 10/11/17 06:47 10/11/17 07:29 White Blood Count 7.52 K/uL Red Blood Count 3.14 M/uL Hemoglobin 8.8 g/dL Hematocrit 27.9 % Mean Corpuscular Volume 88.9 fL Mean Corpuscular Hemoglobin 28.0 pg Mean Corpuscular Hemoglobin Concent 31.5 g/dl RDW Standard Deviation 54.0 fL RDW Coefficient of Variation 16.6 % Platelet Count 283 K/uL Mean Platelet Volume 8.8 fL Sodium Level 138 mmol/L Potassium Level 4.1 mmol/L Chloride Level 109 mmol/L Carbon Dioxide Level 24 mmol/L Anion Gap 5.0 mmol/L Blood Urea Nitrogen 17 mg/dl Creatinine 0.76 mg/dl Est Creatinine Clear Calc Drug Dose 71.0 ml/min Estimated GFR () 86.5 Estimated GFR (Non- 74.6 BUN/Creatinine Ratio 22.0 Random Glucose 86 mg/dl Calcium Level 8.3 mg/dl Bedside Glucose 89 mg/dl
[2017-10-11 10:28] LABS: HEMOGLOBIN 8.6 g/dL (12.0-16.0)
[2017-10-11] MEDS: METOPROLOL TARTRATE 50 MG TAB PO SCH (16:37)
--- NOTE | 2017-10-11 16:56 | Progress Note ---
Internal Med Progress Note Date of Service: October 11, 2017. Provider Documentation: Internal Medicine / Hospitalist Consultation Follow up Note SUBJECTIVE: Patient seen and examined. Is Eating dinner at bedside. Heart rate on monitor between 110 to 120 bpm. Patient denies chest pain or shortness of breath. Denies palpitations. Spoke with nurse and patinet recently received oral metoprolol. OBJECTIVE: Exam: General- no acute distress Eyes- EOMI Neck- no JVD Lungs- Clear on anterior auscultation Heart- irregular beats, tachycardic Abdomen- soft, nontender, + bowel sounds Extremities- lower extremities in SCDs, able to wiggle toes on both feet Neuro-awake and alert ASSESSMENT & PLAN: This is a 77 year old F with Closed reduction of dislocated total hip on after she had a right dislocated hip prosthesis (Superolateral dislocation of the prosthetic femoral head in relation to the acetabular component) Patient's preop course was complicated by atrial fibrillation with RVR but heart rate better controlled with better blockers, Also had 2 units PRBC transfusion preop on 10/09/17 for anemia Recommendations -maintain patient on telemetry post-op -had 2 units PRBC transfusion preop on 10/09/17 for anemia, currently the CBC is stable post-op between 8.8 to 8.6, cardiology service PA suggested possibly to transfuse a 3rd unit of PRBC. Medicine consult does not think there is need for a 3rd blood transfusion at this time as patient's blood count stable, unclear whether a 3rd unit of blood would slow down the heart rate, also patient is not in acute chest pain to indicate a liberal blood transfusion strategy -history of chronic/persistent atrial fibrillation since at least 12/2016; cardiology service is following patient for heart rate control with beta blockers; currently oral metoprolol 50 mg BID and prn IV metoprolol 5 mg [id number] for heart rate above 100 beats per minute -cardiology recommends that Anticoagulation should be discussed and initiated with patient with high CHADS-VASc score -have read orthopedic notes that anticogaultion could be started -coumadin 5 mg ordered by hospitalist consult service and for daily -blood pressure control with home dose lisinopril -Pain is controlled -PT/OT as tolerated with patient's tachycardia -DVT ppx for now is SCDs, and to start coumadin Hospitalist medical service to continue with following the patient as consult service Vital Signs: Date Time Temp Pulse Resp B/P (MAP) Pulse Ox O2 Delivery O2 Flow Rate FiO2 10/11/17 16:16 36.6 117 20 133/70 (91) 93 Room Air 10/11/17 12:00 37.0 109 20 100/54 (69) 92 Room Air 10/11/17 12:00 Room Air 10/11/17 10:43 37.1 106 20 92 Room Air 10/11/17 10:10 108 116/75 (89) 10/11/17 09:28 117 22 101/67 (78) 10/11/17 09:23 208 10/11/17 09:22 155 156/93 10/11/17 08:00 Nasal Cannula 2.0 10/11/17 06:13 37.0 105 20 100/76 (84) 94 Room Air 10/11/17 04:12 36.8 111 18 111/67 (82) 92 Room Air 10/11/17 04:00 90 Nasal Cannula 2.0 10/11/17 00:15 37.2 108 18 119/67 (84) 90 Room Air 10/11/17 00:01 90 Nasal Cannula 2.0 10/10/17 20:00 Room Air 10/10/17 19:00 36.4 92 18 131/68 (89) 93 Room Air Lab Results: Results Past 24 Hours Test 10/10/17 20:51 10/11/17 06:47 10/11/17 07:29 10/11/17 10:19 Range/Units Bedside Glucose 102 89 70-90 mg/dl White Blood Count 7.52 4.8-10.8 K/uL Red Blood Count 3.14 4.2-5.4 M/uL Hemoglobin 8.8 8.6 12.0-16.0 g/dL Hematocrit 27.9 27.0 37-47 % Mean Corpuscular Volume 88.9 80-100 fL Mean Corpuscular Hemoglobin 28.0 25-34 pg Mean Corpuscular Hemoglobin Concent 31.5 32-36 g/dl RDW Standard Deviation 54.0 36.4-46.3 fL RDW Coefficient of Variation 16.6 11.5-14.5 % Platelet Count 283 130-400 K/uL Mean Platelet Volume 8.8 7.4-10.4 fL Sodium Level 138 136-145 mmol/L Potassium Level 4.1 3.5-5.1 mmol/L Chloride Level 109 98-107 mmol/L Carbon Dioxide Level 24 21-32 mmol/L Anion Gap 5.0 3-11 mmol/L Blood Urea Nitrogen 17 7-18 mg/dl Creatinine 0.76 0.60-1.20 mg/dl Est Creatinine Clear Calc Drug Dose 71.0 ml/min Estimated GFR () 86.5 Estimated GFR (Non- 74.6 BUN/Creatinine Ratio 22.0 10-20 Random Glucose 86 70-99 mg/dl Calcium Level 8.3 8.5-10.1 mg/dl Test 10/11/17 11:37 10/11/17 16:18 Range/Units Bedside Glucose 117 94 70-90 mg/dl
[2017-10-11] MEDS ORDERED: WARFARIN SOD 5 MG TAB PO ONE (17:00)
[2017-10-12] VITALS (9 sets, daily range): BP systolic 103–119; BP diastolic 56–66; PULSE 85–109; TEMP 36.6–37.5; O2SAT 96–97
[2017-10-12] MEDS: SODIUM CHLORIDE 0.9% 1000ML 1,000 ML IV SCH ×2 (01:17→12:44)
[2017-10-12 04:46] LABS: HEMATOCRIT 25.8 % (37-47); HEMOGLOBIN 8.1 g/dL (12.0-16.0); MEAN CELL VOLUME 88.1 fL (80-100); MEAN CORPUSCULAR HEMOGLOBIN 27.6 pg (25-34); MEAN CORPUSCULAR HGB CONC 31.4 g/dl (32-36); MEAN PLATELET VOLUME 8.8 fL (7.4-10.4); PLATELET COUNT 241 K/uL (130-400); RED CELL DISTRIBUTION WIDTH CV 16.7 % (11.5-14.5); WHITE BLOOD COUNT 6.82 K/uL (4.8-10.8)
[2017-10-12 04:58] LABS: INR 1.1 (0.9-1.1)
[2017-10-12 05:14] LABS: CREATININE 0.69 mg/dl (0.60-1.20); POTASSIUM 4.1 mmol/L (3.5-5.1)
[2017-10-12] MEDS: METOPROLOL TARTRATE 50 MG TAB PO SCH (07:47)
[2017-10-12] MEDS: PANTOprazole SOD 40 MG TAB PO SCH (07:47)
[2017-10-12] MEDS: METOPROLOL TARTRATE 1 MG/ML VIAL IV PRN (08:55)
--- NOTE | 2017-10-12 09:38 | Orthopedic Progress Note ---
Orthopedic Progress Note Date of Service October 12, 2017. Subjective Post OP Day: 2 Reports: feeling well, Denies: chest pain, SOB, nausea / vomiting, light headedness, calf pain Additional Notes: FEELING BETTER THIS AM. ANEMIA CONTINUES TO BE ASYMPTOMATIC. SAW MARIJA DOMINGUEZ YESTERDAY FOR ABDUCTION BRACE BUT SHE IS REFUSING. PATIENT AWARE OF RISKS AND POTENTIAL NEED FOR ADDITIONAL SURGERY SHOULD SHE DISLOCATE AGAIN. Objective calves soft nontender, N/V intact, hip located, capillary refill less than 2 sec., incision C/D/I, A&O x3, toes mobile Date Time Temp Pulse Resp B/P (MAP) Pulse Ox O2 Delivery O2 Flow Rate FiO2 10/12/17 08:55 125 10/12/17 08:00 Nasal Cannula 2.0 10/12/17 07:04 36.6 89 19 111/66 (81) 97 Nasal Cannula 2.0 10/12/17 04:03 97 Nasal Cannula 2.0 10/12/17 03:31 36.8 86 19 112/56 (74) 97 Nasal Cannula 2.0 10/12/17 00:01 97 Nasal Cannula 2.0 10/11/17 23:07 36.8 105 20 115/73 (87) 92 Room Air 10/11/17 20:00 90 Nasal Cannula 2.0 10/11/17 19:40 36.5 96 20 94/61 (72) 91 Room Air 10/11/17 16:16 36.6 117 20 133/70 (91) 93 Room Air 10/11/17 16:00 Room Air 10/11/17 12:00 37.0 109 20 100/54 (69) 92 Room Air 10/11/17 12:00 Room Air 10/11/17 10:43 37.1 106 20 92 Room Air 10/11/17 10:10 108 116/75 (89) Laboratory Results 24 Hours: Test 10/11/17 10:19 10/12/17 04:33 Hematocrit 27.0 % 25.8 % Hemoglobin 8.6 g/dL 8.1 g/dL Prothromb Time International Ratio 1.1 Prothrombin Time 11.3 SECONDS Assessment & Plan Assessment: POD#2 SP CLOSED REDUCTION RIGHT NIDA. Anemia A.fib Plan: PT/OT- TOE TOUCH NWB WITH WALKER -Med consult - recs appreciated -OK TO RESUME ANTICOAGULATION ANYTIME- COUMADIN TO START TODAY -SPOKE WITH DR. GUERRERO THIS AM. MEDICALLY STABLE FOR DISCHARGE ONCE BETA WILMA MEDS ADJUSTED. -Cardio consult - -AWAIT BETA WILMA ADJUSTMENT PRIOR TO DISCHARGE. -Patients HR improving CONTINUE STRICT HIP PRECAUTIONS, INCLUDING ABDUCTION PILLOW. CONTINUE KNEE IMMOBILIZER TO HELP MAINTAIN HIP PRECAUTIONS PATIENT FEELS COMFORTABLE WITH DISCHARGE TO HOME. WILL ATTEMPT PT/OT TODAY AND SEE HOW SHE DOES. IF NOT DEEMED SAFE, MAY CONSIDER RETURN TO [facility]. WILL AWAIT PT NOTES. CM TO DISCUSS. WILL RECHECK LATER TO CONFIRM DISPOSITION PATIENT HAS REFUSED ABDUCTION BRACE. DISCUSSED STRICT HIP PRECAUTIONS. PATIENT AWARE AND UNDERSTANDS POTENTIAL COMPLICATIONS FROM NOT WEARING THE BRACE.
[2017-10-12] MEDS ORDERED: METOPROLOL TARTRATE 25 MG TAB PO STA (10:05)
--- NOTE | 2017-10-12 10:34 | PROGRESS NOTE ---
DATE: 10/12/2017 SUBJECTIVE: The patient feels well this morning. Heart rate still remains variable but generally controlled. Blood pressures are good. She denies any chest pains, dizziness, lightheadedness, syncope or near syncope. Hemoglobins have remained relatively stable. OBJECTIVE: VITAL SIGNS: Heart rate is 90-120, with increase with activity. O2 saturations 97%. NECK: Thin. There is no jugular venous distention. LUNGS: Reveal mildly diminished breath sounds, but are clear. CARDIOVASCULAR: Irregularly , irregular. There is no S3 gallop. ABDOMEN: Soft, nontender. EXTREMITIES: Without cyanosis or clubbing. There is trace edema. LABORATORY DATA: Sodium is 137, potassium is 4.1, chloride is 110, bicarbonate is 22, BUN 16, creatinine 0.7. INR is 1.1, hemoglobin is 8.1. IMPRESSION: A 77-year-old female with persistent atrial fibrillation of multiple months' duration, now status post closed reduction of a hip dislocation, atrial fibrillations rates are still running slightly higher. Will increase metoprolol to 75 mg a.m., 50 mg p.m., plans for outpatient anticoagulation are in place. Gradual increase in activities as per orthopedics. MTDD
--- NOTE | 2017-10-12 14:56 | Progress Note ---
Internal Med Progress Note Date of Service: October 12, 2017. Provider Documentation: Internal Medicine / Hospitalist Consultation Follow up Note SUBJECTIVE: Generally patient's heart rate this morning on the monitoring above 90 beats per minute however with the atrial fibrillation the monitoring picks up high heart rates. Compared to yesterday the heart rate is better controlled. Patient denies chest pain or shortness of breath. But minimal physical therapy performed as physical therapist concerned about tachycardia with movements. Cardiology service have made adjustments to increase the beta blockers. OBJECTIVE: Exam: General- no acute distress Eyes- EOMI Neck- no JVD Lungs- Clear on anterior auscultation Heart- irregular beats, better rate controlled today Abdomen- soft, nontender, + bowel sounds Extremities- lower extremities in SCDs, able to wiggle toes on both feet Neuro-awake and alert ASSESSMENT & PLAN: This is a 77 year old F with Closed reduction of dislocated total hip on after she had a right dislocated hip prosthesis (Superolateral dislocation of the prosthetic femoral head in relation to the acetabular component) Patient's preop course was complicated by atrial fibrillation with RVR but heart rate better controlled with better blockers, Also had 2 units PRBC transfusion preop on 10/09/17 for anemia Assessment -had 2 units PRBC transfusion preop on 10/09/17 for anemia, currently the CBC is stable post-op stable above 8. Hgb did trend down from 8.6 to 8.1. But can avoid blood transfusions for now -history of chronic/persistent atrial fibrillation since at least 12/2016; cardiology service is following patient for heart rate control with beta blockers; currently oral metoprolol increased from 50 mg BID to 75 mg in AM with 50 mg in the PM, prn IV metoprolol 5 mg [id number] for heart rate above 100 beats per minute -patient recently started on coumadin postop on this admission because of atrial fibrillation and high CHADSVASC score, continue coumadin and monitor INR -PT note on 10/12/17: due to pt medical issues with high heart rate, no sit to stand or bed transfers have been attempted -blood pressure control with home dose lisinopril -Pain is controlled -DVT ppx for now is SCDs and coumadin Recommendations: Hospitalist medical service to continue with following the patient as consult service, agree with cardiology service's beta lia strategy, patient still needs further physical therapy evaluations as she is post-op under orthopedic service Vital Signs: Date Time Temp Pulse Resp B/P (MAP) Pulse Ox O2 Delivery O2 Flow Rate FiO2 10/12/17 12:00 Nasal Cannula 2.0 10/12/17 11:30 37.4 85 20 96 Nasal Cannula 2.0 10/12/17 10:28 91 103/60 (74) 10/12/17 08:55 125 10/12/17 08:00 Nasal Cannula 2.0 10/12/17 07:04 36.6 89 19 111/66 (81) 97 Nasal Cannula 2.0 10/12/17 04:03 97 Nasal Cannula 2.0 10/12/17 03:31 36.8 86 19 112/56 (74) 97 Nasal Cannula 2.0 10/12/17 00:01 97 Nasal Cannula 2.0 10/11/17 23:07 36.8 105 20 115/73 (87) 92 Room Air 10/11/17 20:00 90 Nasal Cannula 2.0 10/11/17 19:40 36.5 96 20 94/61 (72) 91 Room Air 10/11/17 16:16 36.6 117 20 133/70 (91) 93 Room Air 10/11/17 16:00 Room Air Lab Results: Results Past 24 Hours Test 10/11/17 16:18 10/11/17 21:04 10/12/17 04:33 10/12/17 07:28 Range/Units Bedside Glucose 94 108 101 70-90 mg/dl White Blood Count 6.82 4.8-10.8 K/uL Red Blood Count 2.93 4.2-5.4 M/uL Hemoglobin 8.1 12.0-16.0 g/dL Hematocrit 25.8 37-47 % Mean Corpuscular Volume 88.1 80-100 fL Mean Corpuscular Hemoglobin 27.6 25-34 pg Mean Corpuscular Hemoglobin Concent 31.4 32-36 g/dl RDW Standard Deviation 54.0 36.4-46.3 fL RDW Coefficient of Variation 16.7 11.5-14.5 % Platelet Count 241 130-400 K/uL Mean Platelet Volume 8.8 7.4-10.4 fL Prothrombin Time 11.3 9.0-12.0 SECONDS Prothromb Time International Ratio 1.1 0.9-1.1 Sodium Level 137 136-145 mmol/L Potassium Level 4.1 3.5-5.1 mmol/L Chloride Level 110 98-107 mmol/L Carbon Dioxide Level 22 21-32 mmol/L Anion Gap 5.0 3-11 mmol/L Blood Urea Nitrogen 16 7-18 mg/dl Creatinine 0.69 0.60-1.20 mg/dl Est Creatinine Clear Calc Drug Dose 78.2 ml/min Estimated GFR () 96.0 Estimated GFR (Non- 82.8 BUN/Creatinine Ratio 22.7 10-20 Random Glucose 90 70-99 mg/dl Calcium Level 8.0 8.5-10.1 mg/dl Test 10/12/17 11:25 Range/Units Bedside Glucose 107 70-90 mg/dl
[2017-10-12] MEDS: WARFARIN SOD 5 MG TAB PO SCH (16:07)
[2017-10-12] MEDS ORDERED: METOPROLOL TARTRATE 50 MG TAB PO SCH (21:00)
[2017-10-13] VITALS (11 sets, daily range): BP systolic 119–144; BP diastolic 66–88; PULSE 83–151; TEMP 36.6–37.1; O2SAT 91–97
[2017-10-13] MEDS: SODIUM CHLORIDE 0.9% 1000ML 1,000 ML IV SCH (01:26)
[2017-10-13 05:56] LABS: HEMOGLOBIN 8.1 g/dL (12.0-16.0); MEAN CELL VOLUME 88.7 fL (80-100); MEAN CORPUSCULAR HEMOGLOBIN 27.6 pg (25-34); MEAN CORPUSCULAR HGB CONC 31.2 g/dl (32-36); MEAN PLATELET VOLUME 8.8 fL (7.4-10.4); PLATELET COUNT 204 K/uL (130-400); RED CELL DISTRIBUTION WIDTH CV 16.6 % (11.5-14.5); RED CELL DISTRIBUTION WIDTH SD 53.9 fL (36.4-46.3); WHITE BLOOD COUNT 6.76 K/uL (4.8-10.8)
[2017-10-13 06:22] LABS: CALCIUM 8.1 mg/dl (8.5-10.1); CREATININE 0.77 mg/dl (0.60-1.20); POTASSIUM 4.5 mmol/L (3.5-5.1)
[2017-10-13] MEDS: PANTOprazole SOD 40 MG TAB PO SCH (07:44)
--- NOTE | 2017-10-13 08:59 | Orthopedic Progress Note ---
Orthopedic Progress Note Date of Service October 13, 2017. Subjective Post OP Day: 3 Reports: feeling well, Denies: chest pain, SOB, nausea / vomiting, light headedness, calf pain Objective calves soft nontender, N/V intact, hip located, capillary refill less than 2 sec., incision C/D/I, A&O x3, toes mobile Date Time Temp Pulse Resp B/P (MAP) Pulse Ox O2 Delivery O2 Flow Rate FiO2 10/13/17 07:06 36.8 101 18 144/66 (92) 93 Nasal Cannula 2.0 10/13/17 04:00 94 Nasal Cannula 2.0 10/13/17 03:33 36.7 107 19 132/88 (103) 94 Nasal Cannula 2.0 10/13/17 00:36 37.0 98 15 131/66 (87) 97 Nasal Cannula 2.0 10/12/17 23:59 97 Nasal Cannula 2.0 10/12/17 20:11 37.5 109 22 104/60 (75) 97 Nasal Cannula 2.0 10/12/17 20:00 Nasal Cannula 2.0 10/12/17 16:39 37.0 103 16 119/65 (83) 97 Nasal Cannula 2.0 10/12/17 16:00 Nasal Cannula 2.0 10/12/17 12:00 Nasal Cannula 2.0 10/12/17 11:30 37.4 85 20 96 Nasal Cannula 2.0 10/12/17 10:28 91 103/60 (74) Laboratory Results 24 Hours: Test 10/13/17 05:45 Hematocrit 26.0 % Hemoglobin 8.1 g/dL Assessment & Plan Assessment: POD#3 SP CLOSED REDUCTION RIGHT NIDA. Anemia A.fib Plan: PT/OT- TOE TOUCH NWB WITH WALKER -Med consult - recs appreciated -OK TO RESUME ANTICOAGULATION ANYTIME- COUMADIN RESTARTED -SPOKE WITH DR. GUERRERO. MEDICALLY STABLE FOR DISCHARGE ONCE BETA WILMA MEDS ADJUSTED. -Cardio consult - -NEW BETA WILMA DOSE -Patients HR improving CONTINUE STRICT HIP PRECAUTIONS, INCLUDING ABDUCTION PILLOW. CONTINUE KNEE IMMOBILIZER TO HELP MAINTAIN HIP PRECAUTIONS PATIENT FEELS COMFORTABLE WITH DISCHARGE TO HOME. PT RECOMMEND RETURN TO SNF. DISCUSSED WITH PATIENT TODAY. SHE IS OPEN TO DISCUSS OPTIONS BUT REALLY PREFERS TO GO HOME. WILL LIKELY NEED TO WAIT UNTIL TOMORROW TO DETERMINE DISPOSITION. WILL MAKE DR. EVANS AWARE. PATIENT HAS REFUSED ABDUCTION BRACE. DISCUSSED STRICT HIP PRECAUTIONS. PATIENT AWARE AND UNDERSTANDS POTENTIAL COMPLICATIONS FROM NOT WEARING THE BRACE.
[2017-10-13] MEDS ORDERED: METOPROLOL TARTRATE 25 MG TAB PO SCH (09:00)
[2017-10-13 09:49] LABS: BASO % 0.1 %; BASO ABS # 0.01 K/uL (0-0.2); EOS % 1.8 %; EOS ABS # 0.12 K/uL (0-0.5); HEMATOCRIT 28.4 % (37-47); HEMOGLOBIN 8.8 g/dL (12.0-16.0); IG# 0.03 K/uL (0.00-0.02); LYMPH % 17.6 %; LYMPH ABS # 1.18 K/uL (1.2-3.4); MEAN CELL VOLUME 89.3 fL (80-100); MEAN CORPUSCULAR HEMOGLOBIN 27.7 pg (25-34); MEAN PLATELET VOLUME 9.3 fL (7.4-10.4); MONO % 10.1 %; MONO ABS # 0.68 K/uL (0.11-0.59); NEUT ABS # 4.69 K/uL (1.4-6.5); PLATELET COUNT 267 K/uL (130-400); RED CELL DISTRIBUTION WIDTH CV 16.5 % (11.5-14.5); RED CELL DISTRIBUTION WIDTH SD 54.6 fL (36.4-46.3); WHITE BLOOD COUNT 6.71 K/uL (4.8-10.8)
[2017-10-13 09:57] LABS: INR 1.1 (0.9-1.1)
--- NOTE | 2017-10-13 10:13 | Progress Note ---
Internal Med Progress Note Date of Service: October 13, 2017. Provider Documentation: Internal Medicine / Hospitalist Consultation Follow up Note SUBJECTIVE: Today when examined at bedside the heart rate in the 90s. Review of telemetry monitoring shows heart rates more consistent with the 90s since yesterday. Patient denies feeling palpitations or chest pain. Discussed with patient about where she was planning to go after hospital discharge from orthopedics. She has preference for home because she is concerned about senior living or physical rehabilitation facility. OBJECTIVE: Exam: General- no acute distress Eyes- EOMI Neck- no JVD Lungs- Clear on anterior auscultation, no wheezing Heart- irregular beats, heart rate in the 90s Abdomen- soft, nontender, + bowel sounds Extremities- lower extremities in SCDs, right leg in soft brace Neuro-awake and alert ASSESSMENT & PLAN: This is a 77 year old F with Closed reduction of dislocated total hip on after she had a right dislocated hip prosthesis (Superolateral dislocation of the prosthetic femoral head in relation to the acetabular component) Patient's preop course was complicated by atrial fibrillation with RVR but heart rate better controlled with better blockers, Also had 2 units PRBC transfusion preop on 10/09/17 for anemia Assessment -had 2 units PRBC transfusion preop on 10/09/17 for anemia, currently the CBC is stable post-op stable above 8. Hgb did trend down from 8.6 to 8.1. Repeat Hgb on 10/13/17 is 8.8 -history of chronic/persistent atrial fibrillation since at least 12/2016; cardiology service is following patient for heart rate control with beta blockers; prn IV metoprolol 5 mg [id number] for heart rate above 100 beats per minute, currently oral metoprolol 50 mg BID to 75 mg in AM with 50 mg in the PM , appears that the oral regimen is sufficient at rest -patient recently started on coumadin postop on this admission because of atrial fibrillation and high CHADSVASC score, continue coumadin and monitor INR. INR on 10/13/17 is 1.1 which is unchanged from yesterday. Patient may need increased coumadin than current 5 mg coumadin daily if INR is not rising by tomorrow 10/14/17 in order to trend towards therapeutic INR of 2 to 3. Patient does not need to be kept in the hospital until INR opf 2 is achieved as long she has proper outpatient followup. Hospitalist has called [facility] appointment line [phone] on notifying for outpatient anticoagulation clinic follow up. Patient also familiar with INR monitoring because she reports her also on coumadin -PT note on 10/12/17: due to pt medical issues with high heart rate, no sit to stand or bed transfers have been attempted -Discussed with patient about where she was planning to go after hospital discharge from orthopedics. She has preference for home because she is concerned about senior living or physical rehabilitation facility; have notified case management about these concerns -blood pressure control with home dose lisinopril -Pain is controlled -DVT ppx for now is SCDs and coumadin Recommendations: Hospitalist medical service to continue with following the patient as consult service. Orthopedics service planning discharge of the patient when they can finalize where patient will go whether to return home vs nursing facility vs physical rehab. Vital Signs: Date Time Temp Pulse Resp B/P (MAP) Pulse Ox O2 Delivery O2 Flow Rate FiO2 10/13/17 07:06 36.8 101 18 144/66 (92) 93 Nasal Cannula 2.0 10/13/17 04:00 94 Nasal Cannula 2.0 10/13/17 03:33 36.7 107 19 132/88 (103) 94 Nasal Cannula 2.0 10/13/17 00:36 37.0 98 15 131/66 (87) 97 Nasal Cannula 2.0 10/12/17 23:59 97 Nasal Cannula 2.0 10/12/17 20:11 37.5 109 22 104/60 (75) 97 Nasal Cannula 2.0 10/12/17 20:00 Nasal Cannula 2.0 10/12/17 16:39 37.0 103 16 119/65 (83) 97 Nasal Cannula 2.0 10/12/17 16:00 Nasal Cannula 2.0 10/12/17 12:00 Nasal Cannula 2.0 10/12/17 11:30 37.4 85 20 96 Nasal Cannula 2.0 10/12/17 10:28 91 103/60 (74) Lab Results: Results Past 24 Hours Test 10/12/17 11:25 10/12/17 16:11 10/12/17 20:17 10/13/17 05:45 Range/Units Bedside Glucose 107 93 96 70-90 mg/dl White Blood Count 6.76 4.8-10.8 K/uL Red Blood Count 2.93 4.2-5.4 M/uL Hemoglobin 8.1 12.0-16.0 g/dL Hematocrit 26.0 37-47 % Mean Corpuscular Volume 88.7 80-100 fL Mean Corpuscular Hemoglobin 27.6 25-34 pg Mean Corpuscular Hemoglobin Concent 31.2 32-36 g/dl RDW Standard Deviation 53.9 36.4-46.3 fL RDW Coefficient of Variation 16.6 11.5-14.5 % Platelet Count 204 130-400 K/uL Mean Platelet Volume 8.8 7.4-10.4 fL Sodium Level 140 136-145 mmol/L Potassium Level 4.5 3.5-5.1 mmol/L Chloride Level 110 98-107 mmol/L Carbon Dioxide Level 25 21-32 mmol/L Anion Gap 5.0 3-11 mmol/L Blood Urea Nitrogen 11 7-18 mg/dl Creatinine 0.77 0.60-1.20 mg/dl Est Creatinine Clear Calc Drug Dose 71.5 ml/min Estimated GFR () 85.1 Estimated GFR (Non- 73.4 BUN/Creatinine Ratio 14.4 10-20 Random Glucose 88 70-99 mg/dl Calcium Level 8.1 8.5-10.1 mg/dl Test 10/13/17 07:40 10/13/17 09:35 Range/Units Bedside Glucose 99 70-90 mg/dl White Blood Count 6.71 4.8-10.8 K/uL Red Blood Count 3.18 4.2-5.4 M/uL Hemoglobin 8.8 12.0-16.0 g/dL Hematocrit 28.4 37-47 % Mean Corpuscular Volume 89.3 80-100 fL Mean Corpuscular Hemoglobin 27.7 25-34 pg Mean Corpuscular Hemoglobin Concent 31.0 32-36 g/dl Platelet Count 267 130-400 K/uL Mean Platelet Volume 9.3 7.4-10.4 fL Neutrophils (%) (Auto) 70.0 % Lymphocytes (%) (Auto) 17.6 % Monocytes (%) (Auto) 10.1 % Eosinophils (%) (Auto) 1.8 % Basophils (%) (Auto) 0.1 % Neutrophils # (Auto) 4.69 1.4-6.5 K/uL Lymphocytes # (Auto) 1.18 1.2-3.4 K/uL Monocytes # (Auto) 0.68 0.11-0.59 K/uL Eosinophils # (Auto) 0.12 0-0.5 K/uL Basophils # (Auto) 0.01 0-0.2 K/uL RDW Standard Deviation 54.6 36.4-46.3 fL RDW Coefficient of Variation 16.5 11.5-14.5 % Immature Granulocyte % (Auto) 0.4 % Immature Granulocyte # (Auto) 0.03 0.00-0.02 K/uL Prothrombin Time 12.0 9.0-12.0 SECONDS Prothromb Time International Ratio 1.1 0.9-1.1
--- NOTE | 2017-10-13 10:43 | PROGRESS NOTE ---
DATE: 10/13/2017 The patient seen and examined. Chart reviewed. SUBJECTIVE: The patient feels slightly stronger today, has been out of bed to chair. Denies any chest pains. Heart rates are trending down, slightly better controlled, though occasionally elevated. OBJECTIVE: VITAL SIGNS: Heart rate is 86, blood pressure is 144/66. NECK: Thin. There is no jugular venous distention. LUNGS: Clear with mildly diminished breath sounds. CARDIOVASCULAR: Irregular, irregular. There is no S3 gallop. EXTREMITIES: Without cyanosis or clubbing. There is no peripheral edema with right leg in brace. LABORATORY DATA: INR is 1.1. Sodium is 140, potassium is 4.5, chloride is 110, bicarbonate is 25, BUN is 11, creatinine is 0.77. IMPRESSION: A 77-year-old female with history of persistent atrial fibrillation of nearly 1 year's duration. Anticoagulation has been initiated. We will increase metoprolol tartrate to 75 mg twice per day for rate control. No other adjustments made. The patient dissipates likely discharge to extended care facility.
[2017-10-13] MEDS: WARFARIN SOD 5 MG TAB PO SCH (16:43)
[2017-10-13] MEDS: METOPROLOL TARTRATE 1 MG/ML VIAL IV PRN (16:48)
[2017-10-13] MEDS: METOPROLOL TARTRATE 25 MG TAB PO SCH (19:36)
[2017-10-14] VITALS (18 sets, daily range): BP systolic 106–143; BP diastolic 54–93; PULSE 88–108; TEMP 36.5–36.8; O2SAT 84–100
[2017-10-14 06:35] LABS: BASO % 0.1 %; BASO ABS # 0.01 K/uL (0-0.2); EOS % 2.3 %; EOS ABS # 0.16 K/uL (0-0.5); HEMATOCRIT 27.1 % (37-47); HEMOGLOBIN 8.4 g/dL (12.0-16.0); IG# 0.03 K/uL (0.00-0.02); LYMPH % 20.5 %; MEAN CORPUSCULAR HEMOGLOBIN 27.3 pg (25-34); MEAN PLATELET VOLUME 9.3 fL (7.4-10.4); MONO % 10.1 %; MONO ABS # 0.69 K/uL (0.11-0.59); NEUT % 66.6 %; NEUT ABS # 4.55 K/uL (1.4-6.5); PLATELET COUNT 210 K/uL (130-400); RED CELL DISTRIBUTION WIDTH CV 16.6 % (11.5-14.5); RED CELL DISTRIBUTION WIDTH SD 53.1 fL (36.4-46.3); WHITE BLOOD COUNT 6.84 K/uL (4.8-10.8)
[2017-10-14 06:45] LABS: INR 1.3 (0.9-1.1)
[2017-10-14] MEDS: METOPROLOL TARTRATE 25 MG TAB PO SCH ×2 (08:26→21:10)
[2017-10-14] MEDS: METOPROLOL TARTRATE 1 MG/ML VIAL IV PRN (09:18)
[2017-10-14] MEDS ORDERED: FUROSEMIDE INJ 40 MG in SYRINGE 0 ML IV ONE (09:30)
--- NOTE | 2017-10-14 09:31 | Cardiology Follow-Up ---
Subjective Subjective Date of Service: October 14, 2017. Pt evaluation today including: conversation w/ patient, physical exam, chart review, lab review, review of studies, review of inpatient medication list Additional Details: Pt seen and examined, states that she feels well today. Hip pain is well controlled. But does admit to some sob but with obvious conversational dyspnea. Nursing agrees that this appears to be new for her. Denies cp, palpitations, lightheadedness or dizziness. Tele reviewed: atrial fibrillation, rates uncontrolled this AM. Problem List Medical Problems: (1) Atrial fibrillation by electrocardiogram Status: Acute (2) Subtrochanteric fracture of right femur Status: Acute Review of Systems Respiratory: No see HPI, No cough, No sputum, No wheezing, No shortness of breath, No dyspnea on exertion, No dyspnea at rest, No hemoptysis, No problem reported Cardiac: No see HPI, No chest pain, No orthopnea, No PND, No edema, No claudication, No palpitations, No problem reported Objective Vital Signs Last Vital Signs Documentation Date Time Temp Pulse Resp B/P (MAP) Pulse Ox O2 Delivery O2 Flow Rate FiO2 10/14/17 09:18 156 123/68 10/14/17 06:39 36.7 17 95 Nasal Cannula 2.0 Physical Exam: General Appearance: WD/WN, + mild distress Eyes: bilateral eyes normal inspection, bilateral eyes PERRL, bilateral eyes EOMI ENT: normal ENT inspection, hearing grossly normal, pharynx normal Neck: supple, no adenopathy, thyroid normal, no JVD, no carotid bruits, trachea midline Respiratory/Chest: chest non-tender, normal breath sounds, no accessory muscle use, + rhonchi Cardiovascular: + tachycardia, + irregularly irregular Abdomen: normal bowel sounds, non tender, soft, no organomegaly, no pulsatile mass Extremities: normal inspection, no pedal edema, no calf tenderness, + pertinent finding (RLE immobilizer ) Neurologic/Psychiatric: road roller engineer II-XII nml as tested, no motor/sensory deficits, alert, normal mood/affect, oriented x 3 Skin: normal color, warm/dry, no rash Lymphatic: no adenopathy Assessment and Plan 1. Post op hip fx repair doing well pain controlled 2. atrial fibrillation known for approx 1 year now anticoagulation initiated this admission rates now elevated this AM and now with conversational dyspnea and significant sob with ambulation IV Lopressor being given now per PRN instructions already receiving metoprolol bid po bp has been tenuous will check cxr and give a dose of IV lasix x 1 now bmp to be repeated will follow clinical course closely after receiving above treatments if no improvement may have to consider PE work up cont to monitor on tele
[2017-10-14 10:20] LABS: CALCIUM 8.1 mg/dl (8.5-10.1); CREATININE 0.71 mg/dl (0.60-1.20); POTASSIUM 4.2 mmol/L (3.5-5.1)
--- NOTE | 2017-10-14 10:39 | Progress Note ---
Internal Med Progress Note Date of Service: October 14, 2017. Provider Documentation: Internal Medicine / Hospitalist Consultation Follow up Note SUBJECTIVE: Is more tachycardic today. Patient seen and examined in the AM with heart rate on monitor to be 110 beats per minute. Patient continues to wear nasal cannula. She feels comfortable without it at rest but feels subjectively more shortness of breath with exertion. Patient does not use oxygen at baseline at home previous to the surgery. Patient reports that she does have oxygen at home for her . Denies feeling palpitations. Denies chest pain OBJECTIVE: Exam: General- no acute distress Eyes- EOMI Neck- no JVD Lungs- good air entry, no wheezing Heart- irregular beats, tachycardic Abdomen- soft, nontender, + bowel sounds Extremities- lower extremities in SCDs, right leg in soft immobilizer Neuro-awake and alert ASSESSMENT & PLAN: This is a 77 year old F with Closed reduction of dislocated total hip on after she had a right dislocated hip prosthesis (Superolateral dislocation of the prosthetic femoral head in relation to the acetabular component) Patient's preop course was complicated by atrial fibrillation with RVR but heart rate better controlled with better blockers, Also had 2 units PRBC transfusion preop on 10/09/17 for anemia Assessment -had 2 units PRBC transfusion preop on 10/09/17 for anemia, currently the CBC is stable post-op stable above 8. Hgb did trend down from 8.6 to 8.1. Repeat Hgb on 10/13/17 is 8.8 -history of chronic/persistent atrial fibrillation since at least 12/2016; cardiology service is following patient for heart rate control with beta blockers; prn IV metoprolol 5 mg [id number] for heart rate above 100 beats per minute, currently oral metoprolol 75 mg BID, appears that the oral regimen is sufficient at rest, patient also given Lasix in the AM on 10/14/17 by cardiology but chest X ray does not show evidence of fluid overload. -patient recently started on coumadin postop on this admission because of atrial fibrillation and high CHADSVASC score, continue coumadin and monitor INR. -on coumadin 5 mg daily and INR trended up from 1.1 to 1.3 -Hospitalist had called [facility] appointment line [phone] on notifying for outpatient anticoagulation clinic follow up -however given recent difficulties with heart rate control, the patient does not appear to be ready for discharge from the hospital -subjective dyspnea, on nasal cannula: does not use oxygen at home previous to surgery, hypoxia may be due to atrial fibrillation vs other acute process however does appear to be due fluid overload. Have attempted to contact orthopedic attending physician, spoke with orthopedic physician business office assistant about potential for pulmonary embolism. Hospitalist have ordered CTA scan for rule out pulmonary embolism -Renal function: patient's renal function is good with creatinine 0.71, monitor renal function after pulmonary embolism scan because CT test requires IV contrast -PT note on 10/12/17: due to pt medical issues with high heart rate, no sit to stand or bed transfers have been attempted -Discussed with patient about where she was planning to go after hospital discharge from orthopedics. She has preference for home because she is concerned about custodial or physical rehabilitation facility; have notified case management about these concerns -blood pressure controlled with home dose lisinopril -Pain is controlled -DVT ppx for now is SCDs and coumadin Disposition: Patient on orthopedic service. Patient not likely ready for hospital discharge today. Cardiology and Hospitalist medicine service are following the patient's heart rate control for the atrial fibrillation and dyspnea as marketing operations consultant services Vital Signs: Date Time Temp Pulse Resp B/P (MAP) Pulse Ox O2 Delivery O2 Flow Rate FiO2 10/14/17 09:18 156 123/68 10/14/17 08:00 97 Nasal Cannula 2.0 10/14/17 06:39 36.7 93 17 106/71 (83) 95 Nasal Cannula 2.0 10/14/17 04:00 97 Nasal Cannula 2.0 10/14/17 03:39 36.6 99 23 128/67 (87) 97 Nasal Cannula 2.0 10/13/17 23:59 96 Nasal Cannula 2.0 10/13/17 23:45 36.6 83 21 137/84 (101) 96 Nasal Cannula 2.0 10/13/17 20:00 91 Nasal Cannula 2.0 10/13/17 19:45 36.8 104 25 119/71 (87) 91 Nasal Cannula 2.0 10/13/17 16:48 118 10/13/17 16:41 37.1 109 22 137/88 (104) 97 Nasal Cannula 3.0 10/13/17 16:00 Nasal Cannula 2.0 10/13/17 13:09 151 97 10/13/17 12:00 Nasal Cannula 2.0 10/13/17 11:30 37.1 92 20 124/76 (92) 92 Room Air Lab Results: Results Past 24 Hours Test 10/13/17 11:43 10/13/17 16:18 10/13/17 20:48 10/14/17 06:00 Range/Units Bedside Glucose 96 114 104 70-90 mg/dl White Blood Count 6.84 4.8-10.8 K/uL Red Blood Count 3.08 4.2-5.4 M/uL Hemoglobin 8.4 12.0-16.0 g/dL Hematocrit 27.1 37-47 % Mean Corpuscular Volume 88.0 80-100 fL Mean Corpuscular Hemoglobin 27.3 25-34 pg Mean Corpuscular Hemoglobin Concent 31.0 32-36 g/dl Platelet Count 210 130-400 K/uL Mean Platelet Volume 9.3 7.4-10.4 fL Neutrophils (%) (Auto) 66.6 % Lymphocytes (%) (Auto) 20.5 % Monocytes (%) (Auto) 10.1 % Eosinophils (%) (Auto) 2.3 % Basophils (%) (Auto) 0.1 % Neutrophils # (Auto) 4.55 1.4-6.5 K/uL Lymphocytes # (Auto) 1.40 1.2-3.4 K/uL Monocytes # (Auto) 0.69 0.11-0.59 K/uL Eosinophils # (Auto) 0.16 0-0.5 K/uL Basophils # (Auto) 0.01 0-0.2 K/uL RDW Standard Deviation 53.1 36.4-46.3 fL RDW Coefficient of Variation 16.6 11.5-14.5 % Immature Granulocyte % (Auto) 0.4 % Immature Granulocyte # (Auto) 0.03 0.00-0.02 K/uL Ovalocytes 1+ Prothrombin Time 13.4 9.0-12.0 SECONDS Prothromb Time International Ratio 1.3 0.9-1.1 Sodium Level 139 136-145 mmol/L Potassium Level 4.2 3.5-5.1 mmol/L Chloride Level 108 98-107 mmol/L Carbon Dioxide Level 22 21-32 mmol/L Anion Gap 9.0 3-11 mmol/L Blood Urea Nitrogen 11 7-18 mg/dl Creatinine 0.71 0.60-1.20 mg/dl Est Creatinine Clear Calc Drug Dose 78.6 ml/min Estimated GFR () 93.9 Estimated GFR (Non- 81.0 BUN/Creatinine Ratio 16.0 10-20 Random Glucose 88 70-99 mg/dl Calcium Level 8.1 8.5-10.1 mg/dl Test 10/14/17 07:18 Range/Units Bedside Glucose 96 70-90 mg/dl
[2017-10-14] MEDS ORDERED: OPTIRAY 320 IV PRN (11:15)
--- NOTE | 2017-10-14 11:40 | DIAGNOSTIC IMAGING REPORT ---
CHEST ONE VIEW PORTABLE CLINICAL HISTORY: Shortness of breath COMPARISON STUDY: 10/10/2017 FINDINGS: The heart remains borderline enlarged. There is no failure. There is no focal pulmonary consolidation. There are no pleural effusions. There is a prominent left cardiophrenic angle fat pad. Arthritic changes are present within the shoulders and spine.[ IMPRESSION: No active disease in the chest. Electronically signed by: Tanner Fernández M.D. 10/14/2017 11:39 AM Dictated Date/Time: 10/14/2017 11:39 AM
--- NOTE | 2017-10-14 12:17 | DIAGNOSTIC IMAGING REPORT ---
CT ANGIOGRAM OF THE CHEST CLINICAL HISTORY: Chest pain and shortness of breath COMPARISON STUDY: Chest x-ray dated 10/14/2017 , CT scan of the abdomen pelvis performed December 2012 TECHNIQUE: Following the IV administration of 94 mL of Optiray-320, CT angiogram of the thorax was performed from the thoracic inlet to the lung bases utilizing the pulmonary embolus protocol. Images are reviewed in the axial, sagittal, and coronal planes. IV contrast was administered without complication. MIP imaging was performed. A dose lowering technique was utilized adhering to the principles of ALARA. CT DOSE: 553.80 mGycm FINDINGS: There is a persistent 3 cm left adrenal nodule. This likely represents a benign adenoma given the stability No pathologically enlarged axillary mediastinal or hilar lymph nodes were visualized. There was no evidence of thoracic aortic dilatation. There are moderately extensive bilateral pulmonary artery filling defects. These involve all lobes. There is evidence for mild right ventricular strain. There is a small left pleural effusion There is no lobar consolidation. IMPRESSION: Extensive acute bilateral pulmonary embolism Electronically signed by: Tanner Fernández M.D. 10/14/2017 12:16 PM Dictated Date/Time: 10/14/2017 12:10 PM
--- NOTE | 2017-10-14 12:33 | Progress Note ---
Progress Note Date of Service October 14, 2017. Progress Note Imaging Report Extensive acute bilateral pulmonary embolism on CT scan as ordered by hospitalist. Patient ordered 150 mg Lovenox by hospitalist. Discussed with cardiology Dr. Jhaveri about echocardiogram to assess right heart strain. Dr. Jhaveri to order echocardiogram
[2017-10-14] MEDS ORDERED: PERFLUTREN LIPID MICROSPHERE (DEFINITY) IV ONE (12:59)
--- NOTE | 2017-10-14 12:59 | Progress Note ---
Progress Note Date of Service October 14, 2017. Progress Note CTA of chest ordered and found significant PE burden. Discussed with Dr. Hsu, Pt to receive Lovenox now. Echo ordered to evaluate for possible RV involvement unfortunately, RV systolic function is now severely reduced (new finding) and wall motion abnormalities (Wren's sign) are compatible with acute PE and cor pulmonale NSS ordered to maintain preload pt remains asymptomatic at rest but sob and tachycardic with minimal exertion Discussed with Dr. Hsu, will need critical care eval for further management
[2017-10-14] MEDS ORDERED: ENOXAPARIN 150 MG/1ML SYR SQ ONE (13:30)
[2017-10-14] MEDS ORDERED: HEPARIN 25000 UNIT/500 ML D5W ONE (13:36)
[2017-10-14] MEDS: SODIUM CHLORIDE 0.9% 1000ML 1,000 ML IV SCH ×3 (13:47→23:06)
[2017-10-14] MEDS ORDERED: HEPARIN 25,000 UNIT/500ML D5W 500 ML IV SCH (14:00)
--- NOTE | 2017-10-14 14:06 | ECHOCARDIOGRAM REPORT ---
*NOTICE TO RECEIVING [employer] This information is strictly Confidential and protected under [place] law. [place] law prohibits you from making any further disclosure of this information unless further disclosure is expressly permitted by the written consent of the person to whom it pertains or is authorized by law. A general authorization for the release of medical or other information is not sufficient for this purpose. Hospital accepts no responsibility if the information is made available to any other person, INCLUDING THE PATIENT. Interpretation Summary * Name: MAUDE ONEAL Study Date: 10/14/2017 12:40 PM BP: 107/67 mmHg * Patient Location: .MSICU\S\E105\S\1 HR: 87 * : 1940 (M/d/) Gender: Female Height: 67 in * Age: 77 yrs Ethnicity: CA Weight: 223 lb * Ordering Physician: Josh Jhaveri * Referring Physician: Nam Bonilla D.O. * Performed By: Carie Souza RDCS * * Reason For Study: ACUTE PE, LIMITED RV * BSA: 2.1 m2 * -- Conclusions -- * Normal LV systolic function with flattened, D shaped septum, consistent with RV pressure/volume overload, EF 60-65%. * Dilated RV chamber size with severely reduced RV systolic function. Akinesis of the RV free wall with preserved apical wall motion (Wren's sign). * Pulmonary hypertension is present with a PASP of 59 mmHg assuming RA pressure of 3 mmHg. Procedure Details * A contrast injection of Definity was performed to improve assessment of LV function. * Contrast was injected into an intravenous site in the right arm. * One vial of Definity ultrasound contrast was diluted in normal saline to a total volume of 10 ml. A total of '2' ml of solution was administered during imaging. * Lot # [id number] of Definity utilized for procedure. * Expiration date SEP 26. * The attending nurse who injected the contrast agent was ANNY PERALTA. Left Ventricle * The left ventricle is normal in size. * There is mild concentric left ventricular hypertrophy. * Left ventricular systolic function is normal. * Ejection Fraction = 60-65%. * Flattened septum is consistent with RV pressure/volume overload. Right Ventricle * The right ventricular cavity size is enlarged (proximal parasternal long axis right ventricular outflow tract dimension >3.3 cm). * The right ventricular systolic function is severely reduced. Atria * The right atrium is mildly dilated. Tricuspid Valve * The tricuspid valve anatomy is normal. * There is trace tricuspid regurgitation. Right Ventricle * Akinesis of the RV free wall with preserved apical wall motion (Wren's sign). MMode 2D Measurements and Calculations IVSd 1.1 cm IVSs 1.5 cm LVIDd 3.3 cm LVIDs 2.3 cm LVPWd 1.4 cm LVPWs 2.0 cm IVS/LVPW 0.74 FS 31.8 % EDV(Teich) 44.7 ml ESV(Teich) 17.4 ml EF(Teich) 61.1 % EDV(cubed) 36.5 ml ESV(cubed) 11.6 ml EF(cubed) 68.2 % % IVS thick 43.4 % % LVPW thick 39.1 % LV mass(C)d 132.8 grams LV mass(C)dI 62.7 grams/m\S\2 LV mass(C)s 150.5 grams LV mass(C)sI 71.1 grams/m\S\2 SV(Teich) 27.3 ml SI(Teich) 12.9 ml/m\S\2 SV(cubed) 24.9 ml SI(cubed) 11.8 ml/m\S\2 Doppler Measurements and Calculations TR max gema 374.3 cm/sec
[2017-10-14 14:32] LABS: PTT PATIENT 102.2 SECONDS (21.0-31.0)
--- NOTE | 2017-10-14 14:38 | Critical Care Consultation ---
Critical Care Consultation Date of Consultation: October 14, 2017. Attending Physician: Nam Bonilla D.O. Reason for Consultation: Treatment and monitoring for pulmonary embolism History of Present Illness 77 year old female was transferred from the floor following a CT angiography revealing significant bilateral pulmonary emboli. She reports that she has been experiencing shortness of breath over the past couple of weeks during rehab for ORIF performed on her right knee 3 weeks ago. Patient was admitted from [facility] rehab to [facility] following dislocation of the prosthetic joint. She denies chest pain, cough, fevers, hemoptysis or calf pain. Prior to hospitalization, the patient reports taking ASA daily. 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 DMII HLD Afib Family History No significant family history Social History Smoking Status: Never Smoker Drug Use: none Marital Status: Housing Status: lives with significant other Occupation Status: retired Allergies Coded Allergies: Morphine (Verified Adverse Reaction, Mild, N/V, 10/09/17) Had morphine and zofran and did not get sick Propoxyphene (Verified Adverse Reaction, Mild, N/V, 10/09/17) Home Medications Scheduled Aspirin Buffered (Olivier Carb-Mag (Tri-Buffered Aspirin), 325 MG PO BID Flaxseed (Linseed) (Flax Seed Oil), 1,000 MG PO QAM Gentamicin Sulfate (Gentak), 1 APPLN OP Q4 Lsevfucshzk-Wghohszmpfk-Sor C- (Glucosamine Chondroitin), 2 TABS PO QAM Lisinopril (Prinivil), 10 MG PO QAM Metoprolol Tartrate (Lopressor), 12.5 MG PO BID Multivitamin (Multivitamin), 1 TAB PO QAM Omeprazole (Prilosec), 20 MG PO QAM Sennosides-Docusate Sodium (Stool Softener), 1 TAB PO QAM Sennosides-Docusate Sodium (Senokot S), 2 TAB PO HS Scheduled PRN Acetaminophen (Mapap), 650 MG PO Q6H PRN for For mild pain (pain scale 1-3) Bisacodyl (Bisac-Evac), 10 MG NV DAILY PRN for Constipation Magnesium Hydroxide (Milk of Magnesia), 30 ML PO Q8 PRN for Constipation Oxycodone HCl (Oxycodone HCl), 10 MG PO Q6 PRN for Pain Polyethylene (Miralax), 17 GM PO DAILY PRN for Constipation Sodium Phosphates (Enema Epiik-Ey-Uqe), 132 ML NV PRN PRN for Constipation Miscellaneous Medications Benzocaine-Menthol (Mouth-Thro (Cepacol Sore Throat) Current Inpatient Medications Current Inpatient Medications Medications (Trade) Dose Ordered Sig/Beatriz Route Start Time Stop Time Status Last Admin Dose Admin Acetaminophen (Tylenol Tab) 650 mg Q6H PRN PO 10/09/17 16:30 11/08/17 16:29 Diphenhydramine HCl (Benadryl Cap) 25 mg Q8 PRN PO 10/09/17 16:30 11/08/17 16:29 Ondansetron HCl (Zofran Inj) 4 mg Q6H PRN IV 10/09/17 16:30 11/08/17 16:29 Al Hydroxide/Mg Hydroxide (Maalox Susp) 30 ml Q6H PRN PO 10/09/17 16:30 11/08/17 16:29 Oxycodone HCl (Roxicodone Immediate Rel Tab) 1 TABLET FOR PAIN RATING... Q4H PRN PO 10/09/17 18:15 10/23/17 18:14 Morphine Sulfate (MoRPHine SULFATE INJ) 4 mg Q4H PRN IV 10/09/17 18:15 10/23/17 18:14 10/09/17 19:59 4 MG Miscellaneous (Iv Fluids Completed) 1 ea PRN PRN N/A 10/09/17 19:00 10/09/18 18:59 Metoprolol Tartrate (Lopressor Iv) 5 mg Q6 PRN IV 10/09/17 21:15 11/08/17 21:14 10/14/17 09:18 5 MG Ioversol (Optiray 320) 100 ml UD PRN IV 10/10/17 17:00 10/14/17 16:59 Metoprolol Tartrate (Lopressor Tab) 75 mg BID PO 10/13/17 21:00 11/11/17 20:59 10/14/17 08:26 75 MG Ioversol (Optiray 320) 100 ml UD PRN IV 10/14/17 11:15 10/18/17 11:14 Sodium Chloride 1,000 ml @ 150 mls/hr Q6H40M IV 10/14/17 12:15 11/13/17 12:14 10/14/17 13:47 150 MLS/HR Warfarin Sodium (Coumadin Tab) 7.5 mg DAILY@16 PO 10/14/17 16:00 11/13/17 15:59 Heparin Sodium/ Dextrose 500 ml @ 28 mls/hr [id number] IV 10/14/17 14:00 11/13/17 13:59 Review of Systems Constitutional: No fever, No chills Respiratory: + shortness of breath, + dyspnea on exertion, No cough, No sputum , No wheezing, No hemoptysis Cardiovascular: No chest pain, No edema, No palpitations Abdomen: No pain, No nausea, No vomiting, No diarrhea Musculoskeletal: + joint pain (right hip ) Genitourinary - Female: No dysuria, No urinary frequency Neurologic: No memory loss, No paralysis, No weakness, No numbness/tingling Physical Exam Date Time Temp Pulse Resp B/P (MAP) Pulse Ox O2 Delivery O2 Flow Rate FiO2 10/14/17 12:00 97 Nasal Cannula 2.0 10/14/17 11:37 36.5 96 25 107/67 (80) 99 Nasal Cannula 2.0 10/14/17 09:18 156 123/68 10/14/17 08:00 97 Nasal Cannula 2.0 10/14/17 06:39 36.7 93 17 106/71 (83) 95 Nasal Cannula 2.0 10/14/17 04:00 97 Nasal Cannula 2.0 10/14/17 03:39 36.6 99 23 128/67 (87) 97 Nasal Cannula 2.0 10/13/17 23:59 96 Nasal Cannula 2.0 10/13/17 23:45 36.6 83 21 137/84 (101) 96 Nasal Cannula 2.0 10/13/17 20:00 91 Nasal Cannula 2.0 10/13/17 19:45 36.8 104 25 119/71 (87) 91 Nasal Cannula 2.0 10/13/17 16:48 118 10/13/17 16:41 37.1 109 22 137/88 (104) 97 Nasal Cannula 3.0 10/13/17 16:00 Nasal Cannula 2.0 General Appearance: well-appearing, WD/WN, no apparent distress Head: normocephalic Eyes: PERRLA, sclerae normal ENT: normal mouth exam, normal throat exam Neck: normal range of motion, no tenderness, trachea midline, no stridor Respiratory: breath sounds normal, clear to auscultation, clear to percussion, no respiratory distress Cardiovasular: no M/G/R, no rub, no JVD, other (irregularily irregular rhythm ) Abdomen: non tender, normal bowel sounds, no rebound, no masses, no guarding, no organomegaly Upper Extremities: no edema, no deformity Edema: Bilateral LE Neuro: alert, oriented x 3, normal sensation, normal speech, normal memory Psychiatric: normal affect Laboratory Results Last 24 Hours Test 10/13/17 16:18 10/13/17 20:48 10/14/17 06:00 10/14/17 07:18 Bedside Glucose 114 mg/dl 104 mg/dl 96 mg/dl White Blood Count 6.84 K/uL Red Blood Count 3.08 M/uL Hemoglobin 8.4 g/dL Hematocrit 27.1 % Mean Corpuscular Volume 88.0 fL Mean Corpuscular Hemoglobin 27.3 pg Mean Corpuscular Hemoglobin Concent 31.0 g/dl Platelet Count 210 K/uL Mean Platelet Volume 9.3 fL Neutrophils (%) (Auto) 66.6 % Lymphocytes (%) (Auto) 20.5 % Monocytes (%) (Auto) 10.1 % Eosinophils (%) (Auto) 2.3 % Basophils (%) (Auto) 0.1 % Neutrophils # (Auto) 4.55 K/uL Lymphocytes # (Auto) 1.40 K/uL Monocytes # (Auto) 0.69 K/uL Eosinophils # (Auto) 0.16 K/uL Basophils # (Auto) 0.01 K/uL RDW Standard Deviation 53.1 fL RDW Coefficient of Variation 16.6 % Immature Granulocyte % (Auto) 0.4 % Immature Granulocyte # (Auto) 0.03 K/uL Ovalocytes 1+ Prothrombin Time 13.4 SECONDS Prothromb Time International Ratio 1.3 Sodium Level 139 mmol/L Potassium Level 4.2 mmol/L Chloride Level 108 mmol/L Carbon Dioxide Level 22 mmol/L Anion Gap 9.0 mmol/L Blood Urea Nitrogen 11 mg/dl Creatinine 0.71 mg/dl Est Creatinine Clear Calc Drug Dose 78.6 ml/min Estimated GFR () 93.9 Estimated GFR (Non- 81.0 BUN/Creatinine Ratio 16.0 Random Glucose 88 mg/dl Calcium Level 8.1 mg/dl Test 10/14/17 11:34 10/14/17 13:55 Bedside Glucose 125 mg/dl Assessment & Plan 77 yo female presents to the ICU for monitoring and treatment of pulmonary emboli. Assessment; Patient reports SOB, but is otherwise asymptomatic--no chest pain, cough, hemoptysis or fever. Patient describes a h/o uncontrolled atrial fibrillation--this hospitalization the patient was started on rate control medications, as well as anticoagulation. Pt has endorsed dyspnea with exertion over the course of her rehabilitation and was ultimately worked up for PE. CT of the chest this am demonstrated significant bilateral PE. TTE demonstrated increased RV pressures likely 2/2 increased pulmonary pressures. Plan of care; Anticoagulate, assess for lower extremity DVT, IVF to maintain adequate IVC pressures Neuro - -PMH of stroke--reports residual right eye visual deficits, no new focal neuro deficits Cardiac -Hemodynamically stable -TT Echo--demonstrated increased RV pressure--plan to maintain venous pressures- -MIVF 150 mls/hr -Atrial fibrillation--rate controlled, metoprolol -Warfarin 7.5 mg q daily -Daily INR Respiratory -CTAB--sating 95 % on 3 L -Extensive bilateral PE -5,000 unit IV bolus--initial PTT drawn while bolus was infused, thus inaccurate. -IV heparin--recheck PTT q 6 per protocol GI -No ppx indicated -Diabetic diet RENAL/LYTES - -No significant electrolyte derangement. -Replace lytes as needed. - -UA--+LE, urine cx--no growth ENDO - -Documented history of diabetes, but no home med regimen -Sugars have been stable 95-125 -Continue to monitor HEME - -Stable H&H, although anemic, Hgb 8.4 -Will monitor for any drops in the setting of Heparin ID - -No concerns for infection at this point. -Monitor fever curve. LINES/IV ACCESS - -PIVs intact. DVT PROPHYLAXIS - -IV Heparin Resident Physician Supervision Note: Dr. Herrera was resident physician during care of patient. I separately evaluated patient and did history and exam. I discussed the case with the resident and generally agree with the findings and plan. Start warfarin therapy tonight. Heparin gtt, high risk for bleeding given recent orthopedic procedure. Confirmed DNR/DNI status acute cor pulmonale. Documented By: Burt Ramirez DO
--- NOTE | 2017-10-14 14:46 | Progress Note ---
Progress Note Date of Service October 14, 2017. Progress Note Patient seen and examined, comfortable, pain well controlled. RLE NVSI +EHL/FHL/TA/GS SILT grossly, compartment soft NT, KI in place, incision cdi Postop day #4 status post closed reduction right total hip arthroplasty A. fib Tachycardia Bilateral PE Patient will need to maintain toe-touch nonweightbearing on her right lower extremity. Strict adherence to posterior hip precautions. Had a long discussion with patient in regards to abduction brace, patient agreeable to wearing the brace at this time. We will order the brace to be fitted during her hospital stay. She will need to maintain knee immobilizer right lower extremity until abduction brace is fitted. Developed tachycardia with physical therapy today subsequently diagnosed with bilateral PEs on CTA and cor pulmonale on echocardiogram currently being seen and managed by engineering leader, hospitalist and cardiology teams. Had a discussion with the hospitalist team as well as the engineering leader team in regards to her current medical status. Patient transferred to medical ICU for more acute observation and treatment. From an orthopedic standpoint no further intervention in regards to right hip, hip abduction brace fitting can be done inpatient or outpatient. Patient is several weeks postoperative revision right total hip arthroplasty, no surgical contraindications to starting therapeutic anticoagulation. The patient will need extensive medical care moving forward, awaiting recs and discussed with hospital team, Dr. Hsu, in regards to transfer of service to appropriate medical team.
[2017-10-14] MEDS ORDERED: HEPARIN IV BOLUS 6,000 UNIT in SYRINGE 0 ML IV ONE (16:00)
[2017-10-14] MEDS ORDERED: HEPARIN IV BOLUS 5,000 UNIT in SYRINGE 0 ML IV ONE (16:00)
[2017-10-14] MEDS ORDERED: WARFARIN SOD 7.5 MG TAB PO SCH (16:00)
[2017-10-14] MEDS: HEPARIN 25,000 UNIT/500ML D5W 500 ML IV SCH ×2 (16:15→23:05)
[2017-10-14] MEDS ORDERED: NURSING VERBAL MED ORDER ONE (16:45)
--- NOTE | 2017-10-14 19:18 | DIAGNOSTIC IMAGING REPORT ---
VENOUS DOPPLER LWR EXT BILA HISTORY: Pain. Edema. PE, s/p right hip replacement COMPARISON STUDY: None. FINDINGS: Right leg shows thrombus within the common femoral vein to all catheter remains. Right iliac vein and proximal upper thigh veins are patent. Left leg shows nonocclusive thrombus within the common femoral vein as well as the superficial femoral vein. There is also involvement of one of the 2. Posterior tibial veins as well as peroneal veins. IMPRESSION: Findings consistent with bilateral acute deep venous thrombosis. The above report was generated using voice recognition software. It may contain grammatical, syntax or spelling errors. Electronically signed by: Javier Erickson M.D. 10/14/2017 7:17 PM Dictated Date/Time: 10/14/2017 7:16 PM
[2017-10-14 20:34] LABS: PTT PATIENT 52.5 SECONDS (21.0-31.0)
[2017-10-15] VITALS (18 sets, daily range): BP systolic 98–146; BP diastolic 52–77; PULSE 81–104; TEMP 36.5–36.8; O2SAT 94–99
[2017-10-15 04:25] LABS: HEMATOCRIT 24.9 % (37-47); HEMOGLOBIN 7.8 g/dL (12.0-16.0); MEAN CORPUSCULAR HEMOGLOBIN 27.6 pg (25-34); MEAN CORPUSCULAR HGB CONC 31.3 g/dl (32-36); MEAN PLATELET VOLUME 9.4 fL (7.4-10.4); PLATELET COUNT 194 K/uL (130-400); RED CELL DISTRIBUTION WIDTH CV 16.7 % (11.5-14.5); RED CELL DISTRIBUTION WIDTH SD 53.5 fL (36.4-46.3); WHITE BLOOD COUNT 7.18 K/uL (4.8-10.8)
[2017-10-15 04:49] LABS: CALCIUM 7.6 mg/dl (8.5-10.1); CREATININE 0.87 mg/dl (0.60-1.20); PHOSPHORUS 3.1 mg/dl (2.5-4.9); POTASSIUM 3.9 mmol/L (3.5-5.1)
[2017-10-15 05:31] LABS: PTT PATIENT 55.3 SECONDS (21.0-31.0)
[2017-10-15] MEDS: MAGNESIUM OXIDE 400 MG TAB PO SCH ×3 (05:36→14:16)
[2017-10-15 06:41] LABS: INR 1.6 (0.9-1.1)
[2017-10-15] MEDS: SODIUM CHLORIDE 0.9% 1000ML 1,000 ML IV SCH (07:24)
[2017-10-15] MEDS: METOPROLOL TARTRATE 25 MG TAB PO SCH ×2 (07:25→21:01)
--- NOTE | 2017-10-15 08:32 | DIAGNOSTIC IMAGING REPORT ---
CHEST ONE VIEW PORTABLE CLINICAL HISTORY: 77 years-old Female presenting with Bilateral PE, hypoxia, r/o infarct. TECHNIQUE: Portable upright AP view of the chest was obtained. COMPARISON: 10/14/2017. FINDINGS: Atherosclerosis of aortic arch. Cardiac silhouette enlarged. Heterogeneity of lung parenchyma. No focal opacity. No large effusion or pneumothorax. Degenerative changes of the thoracic spine. Degenerative changes of the bilateral glenohumeral joints. Upper abdomen normal. IMPRESSION: 1. Heterogeneity of lung parenchyma could relate to heterogeneous perfusion to the presence of multiple bilateral pulmonary emboli. No focal infiltrate to suggest developing infarct. 2. Cardiomegaly. Electronically signed by: Hipolito Sher M.D. 10/15/2017 8:30 AM Dictated Date/Time: 10/15/2017 8:29 AM
[2017-10-15] MEDS ORDERED: DOCUSATE SODIUM 100 MG CAP PO PRN (09:15)
[2017-10-15] MEDS ORDERED: POTASSIUM CHLORIDE 20 MEQ TABCR PO ONE (09:15)
--- NOTE | 2017-10-15 09:17 | Progress Note ---
Medicine Progress Note Date & Time of Visit: October 15, 2017 at 09:00 . Subjective CC: Follow-up visit for pulmonary emboli, hip dislocation, and other problems. HPI: Developed acute pulmonary emboli yesterday associated with dyspnea. Transferred to ICU and started on IV heparin. Venous duplex demonstrated DVTs of bilateral lower extremities. Feels better today. Less short of breath. No cough/hemoptysis. No pleuritic chest pain or angina. No abnormal bleeding or bruising. ROS: General- no fever, no chills Resp- as noted above in HPI Cardiac- as noted above in HPI GI- no nausea, no vomiting, no diarrhea, no constipation - no dysuria, no difficulty voiding . Objective Last 8 Hrs Date Time Temp Pulse Resp B/P (MAP) Pulse Ox O2 Delivery O2 Flow Rate FiO2 10/15/17 08:00 96 Nasal Cannula 3.0 10/15/17 06:00 90 23 136/70 (92) 95 Nasal Cannula 3.0 10/15/17 04:01 36.8 89 20 107/60 (76) 98 Nasal Cannula 3.0 10/15/17 04:00 97 Nasal Cannula 3.0 10/15/17 03:00 83 19 114/64 (81) 95 Nasal Cannula 3.0 10/15/17 02:01 86 16 118/56 (76) 99 Nasal Cannula 3.0 Physical Exam: General-lying in bed, no distress Lungs- clear to auscultation; no respiratory distress Cardiovascular- irregular; no murmur or gallop appreciated; no JVD; trace pretibial edema Abdomen- + bowel sounds, soft, nontender Extremities- no cyanosis; no calf tenderness; knee immobilizer applied to right lower extremity Neuro- alert, oriented Skin- warm & dry . Laboratory Results: Last 24 Hours Test 10/14/17 11:34 10/14/17 13:55 10/14/17 16:26 10/14/17 19:58 Bedside Glucose 125 mg/dl 95 mg/dl Activated Partial Thromboplast Time 102.2 SECONDS 52.5 SECONDS Partial Thromboplastin Ratio 3.9 2.0 Test 10/14/17 20:01 10/15/17 03:58 Bedside Glucose 108 mg/dl White Blood Count 7.18 K/uL Red Blood Count 2.83 M/uL Hemoglobin 7.8 g/dL Hematocrit 24.9 % Mean Corpuscular Volume 88.0 fL Mean Corpuscular Hemoglobin 27.6 pg Mean Corpuscular Hemoglobin Concent 31.3 g/dl RDW Standard Deviation 53.5 fL RDW Coefficient of Variation 16.7 % Platelet Count 194 K/uL Mean Platelet Volume 9.4 fL Prothrombin Time 16.8 SECONDS Prothromb Time International Ratio 1.6 Activated Partial Thromboplast Time 55.3 SECONDS Partial Thromboplastin Ratio 2.1 Sodium Level 139 mmol/L Potassium Level 3.9 mmol/L Chloride Level 109 mmol/L Carbon Dioxide Level 25 mmol/L Anion Gap 5.0 mmol/L Blood Urea Nitrogen 11 mg/dl Creatinine 0.87 mg/dl Est Creatinine Clear Calc Drug Dose 62.9 ml/min Estimated GFR () 73.4 Estimated GFR (Non- 63.4 BUN/Creatinine Ratio 12.4 Random Glucose 105 mg/dl Calcium Level 7.6 mg/dl Phosphorus Level 3.1 mg/dl Magnesium Level 1.9 mg/dl Date/Time Source Procedure Growth Status 10/14/17 13:25 Nasal MRSA DNA Surveillance Screen - Final Specimen Negative for MRSA by DNA Probe Complete Assessment & Plan PULMONARY EMBOLISM / DVT Diagnosed 10/14/17. CTA demonstrated bilateral pulmonary emboli. Venous duplex of lower extremities demonstrated bilateral DVTs. Echocardiogram demonstrated RV strain and pulmonary hypertension. IV heparin chosen as initial anticoagulation due to anemia and other concerns. Had already been started on warfarin due to atrial fibrillation. Continue IV heparin; consider transition to enoxaparin if H&H stable and stools heme negative. Continue and titrate warfarin. ATRIAL FIBRILLATION Continue metoprolol for rate control. Continue and titrate warfarin. HYPERTENSION Continue metoprolol and lisinopril. ANEMIA Hemoglobin at time of admission was 7.9. Probably postoperative anemia from recent hip surgery. Received 2 units of packed RBCs. Hemoglobin today = 7.8. Check iron studies, reticulocyte count, stools for occult blood. Follow H&H. HIP DISLOCATION Closed reduction performed by Ortho. VTE PROPHYLAXIS Initially managed with SCDs rather than anticoagulants in light of anemia. Now receiving IV heparin and warfarin. DISPOSITION Anticipated need for ongoing skilled care at [facility] once medical problems have stabilized. Family Medicine follow-up with Dr. Radha Mirza. . Current Inpatient Medications: Current Inpatient Medications Medications (Trade) Dose Ordered Sig/Beatriz Route Start Time Stop Time Status Last Admin Dose Admin Acetaminophen (Tylenol Tab) 650 mg Q6H PRN PO 10/09/17 16:30 11/08/17 16:29 Diphenhydramine HCl (Benadryl Cap) 25 mg Q8 PRN PO 10/09/17 16:30 11/08/17 16:29 Ondansetron HCl (Zofran Inj) 4 mg Q6H PRN IV 10/09/17 16:30 11/08/17 16:29 Al Hydroxide/Mg Hydroxide (Maalox Susp) 30 ml Q6H PRN PO 10/09/17 16:30 11/08/17 16:29 Oxycodone HCl (Roxicodone Immediate Rel Tab) 1 TABLET FOR PAIN RATING... Q4H PRN PO 10/09/17 18:15 10/23/17 18:14 Morphine Sulfate (MoRPHine SULFATE INJ) 4 mg Q4H PRN IV 10/09/17 18:15 10/23/17 18:14 10/09/17 19:59 4 MG Miscellaneous (Iv Fluids Completed) 1 ea PRN PRN N/A 10/09/17 19:00 10/09/18 18:59 Metoprolol Tartrate (Lopressor Iv) 5 mg Q6 PRN IV 10/09/17 21:15 11/08/17 21:14 10/14/17 09:18 5 MG Metoprolol Tartrate (Lopressor Tab) 75 mg BID PO 10/13/17 21:00 11/11/17 20:59 10/15/17 07:25 75 MG Ioversol (Optiray 320) 100 ml UD PRN IV 10/14/17 11:15 10/18/17 11:14 Warfarin Sodium (Coumadin Tab) 7.5 mg DAILY@16 PO 10/14/17 16:00 11/13/17 15:59 10/14/17 15:27 7.5 MG Heparin Sodium/ Dextrose 500 ml @ 28 mls/hr [id number] IV 10/14/17 16:15 11/13/17 16:14 10/14/17 23:05 28 MLS/HR Magnesium Oxide (Mag-Ox Tab) 400 mg Q4H PO 10/15/17 05:15 10/15/17 13:16 10/15/17 07:26 400 MG Lisinopril (Zestril Tab) 10 mg QAM PO 10/15/17 10:00 11/14/17 09:59 Docusate Sodium (coLACE CAP) 100 mg BID PRN PO 10/15/17 09:15 11/14/17 09:14 Senna (Senokot Tab) 8.6 mg BID PRN PO 10/15/17 09:15 11/14/17 09:14
[2017-10-15] MEDS: LISINOPRIL 10 MG TAB PO SCH (09:21)
--- NOTE | 2017-10-15 13:19 | Critical Care Progress Note ---
Critical Care Progress Note Date of Service October 15, 2017. Attending Dr. Ramirez Subjective Patient is doing well this am. No SOB, chest pain, hemoptysis or fever. She is tolerating a diabetic diet. Objective General; alert, oriented X3, NAD HEENT: supple, NT, no thyromegaly, no epistaxis CV: irregularly irregular rhythm, rate was 90-100, no murmurs, rubs or gallops Pulm: CTAB, no rales, rhonchi or wheezes Abdomen--distended, nontender, no palpable masses, normal bowel sounds Ext--no deformity, no edema, right hip immobile--sore Neuro-normal contact, appropriately answers questions and follows commands Assessment & Plan 77 yo female presents to the ICU for monitoring and treatment of pulmonary emboli. Assessment; Patient is doing well today, hemodynamically stable. Doppler showed bilateral deep venous thrombosis. Discussed with the patient regarding her previous recommendations to take Xeralto. Patient describes noncompliance due to side effects and decided to take herself off the medicine. Discussed risk of future thromboembolic events and advised to follow recommendations at discharge regarding anticoagulant therapy. The patient voiced understanding. Plan today; -Transfer to tele -Wean O2 -Adding Lisinopril -Continue heparin, warfarin 7.5 mg, follow daily INR Neuro - -PMH of stroke--reports residual right eye visual deficits, no new focal neuro deficits Cardiac -Hemodynamically stable -TT Echo--demonstrated increased RV pressure -Dc IVF today -Atrial fibrillation--rate controlled, metoprolol -Warfarin 7.5 mg q daily -Daily INR -Replete electrolytes--K, Mg Respiratory -CTAB--sating 95 % on 3 L--will wean today -1,000 cc with incentive spirometry -Extensive bilateral PE -5,000 unit IV bolus + IV heparin--per protocol -Bilateral DVT on dopplers. GI -No ppx indicated -Diabetic diet -Bowel regimen; docusate/senna PRN -Ordered LFT for tomorrow am--assess function for signs of liver congestion 2/2 pulmonary pressure or portal vein thrombosis RENAL/LYTES - -No significant electrolyte derangement. -Replace lytes as needed. -60mg of K given today - -UA--+LE, urine cx--no growth ENDO - -Documented history of diabetes, but no home med regimen, HbA1c of 5.3 -Sugars have been stable 95-125 -Check with am labs. HEME - -Stable H&H, although anemic, Hgb 7.8 -Will monitor for any drops in the setting of Heparin ID - -No concerns for infection at this point. -Monitor fever curve. LINES/IV ACCESS - -PIVs intact. DVT PROPHYLAXIS - -IV Heparin Resident Physician Supervision Note: Dr. Herrera was resident physician during care of patient. I separately evaluated patient and did history and exam. I discussed the case with the resident and generally agree with the findings and plan. Patient remains largely hemodynamically stable. No hypotension minimal oxygen requirements at this time still having some exertional dyspnea. On heparin at this point as well as transitioning to Coumadin. Heparin chosen given recent dislocation, possible need for any form of operative interventions or manipulations, discussed with Dr. Kaylynn ruby for downgrade to telemetry Documented By: Burt Ramirez DO Consults & Procedures Consultants: Cardiology Data Medications: Current Inpatient Medications Medications (Trade) Dose Ordered Sig/Beatriz Route Start Time Stop Time Status Last Admin Dose Admin Acetaminophen (Tylenol Tab) 650 mg Q6H PRN PO 10/09/17 16:30 11/08/17 16:29 Diphenhydramine HCl (Benadryl Cap) 25 mg Q8 PRN PO 10/09/17 16:30 11/08/17 16:29 Ondansetron HCl (Zofran Inj) 4 mg Q6H PRN IV 10/09/17 16:30 11/08/17 16:29 Al Hydroxide/Mg Hydroxide (Maalox Susp) 30 ml Q6H PRN PO 10/09/17 16:30 11/08/17 16:29 Oxycodone HCl (Roxicodone Immediate Rel Tab) 1 TABLET FOR PAIN RATING... Q4H PRN PO 10/09/17 18:15 10/23/17 18:14 Morphine Sulfate (MoRPHine SULFATE INJ) 4 mg Q4H PRN IV 10/09/17 18:15 10/23/17 18:14 10/09/17 19:59 4 MG Miscellaneous (Iv Fluids Completed) 1 ea PRN PRN N/A 10/09/17 19:00 10/09/18 18:59 Metoprolol Tartrate (Lopressor Iv) 5 mg Q6 PRN IV 10/09/17 21:15 11/08/17 21:14 10/14/17 09:18 5 MG Metoprolol Tartrate (Lopressor Tab) 75 mg BID PO 10/13/17 21:00 11/11/17 20:59 10/15/17 07:25 75 MG Ioversol (Optiray 320) 100 ml UD PRN IV 10/14/17 11:15 10/18/17 11:14 Heparin Sodium/ Dextrose 500 ml @ 28 mls/hr [id number] IV 10/14/17 16:15 11/13/17 16:14 10/14/17 23:05 28 MLS/HR Magnesium Oxide (Mag-Ox Tab) 400 mg Q4H PO 10/15/17 05:15 10/15/17 13:16 10/15/17 07:26 400 MG Lisinopril (Zestril Tab) 10 mg QAM PO 10/15/17 10:00 11/14/17 09:59 10/15/17 09:21 10 MG Docusate Sodium (coLACE CAP) 100 mg BID PRN PO 10/15/17 09:15 11/14/17 09:14 Senna (Senokot Tab) 8.6 mg BID PRN PO 10/15/17 09:15 11/14/17 09:14 Warfarin Sodium (Coumadin Tab) 5 mg DAILY@16 PO 10/15/17 16:00 11/14/17 15:59 Pantoprazole Sodium (Protonix Tab) 40 mg QAM PO 10/15/17 13:00 11/14/17 12:59 Vital Signs: Date Time Temp Pulse Resp B/P (MAP) Pulse Ox O2 Delivery O2 Flow Rate FiO2 10/15/17 12:18 97 Nasal Cannula 2.0 10/15/17 12:00 36.5 91 24 124/57 (79) 97 Nasal Cannula 2.0 10/15/17 11:00 81 18 111/60 (77) 97 Nasal Cannula 2.0 10/15/17 10:00 88 21 105/63 (77) 97 Nasal Cannula 2.0 10/15/17 09:00 86 22 108/75 (86) 97 Nasal Cannula 2.0 10/15/17 08:00 Nasal Cannula 10/15/17 08:00 96 Nasal Cannula 3.0 10/15/17 08:00 36.7 104 21 118/77 (91) 97 Nasal Cannula 3.0 10/15/17 07:00 82 17 146/75 (98) 98 10/15/17 06:00 90 23 136/70 (92) 95 Nasal Cannula 3.0 10/15/17 04:01 36.8 89 20 107/60 (76) 98 Nasal Cannula 3.0 10/15/17 04:00 97 Nasal Cannula 3.0 10/15/17 03:00 83 19 114/64 (81) 95 Nasal Cannula 3.0 10/15/17 02:01 86 16 118/56 (76) 99 Nasal Cannula 3.0 10/15/17 01:00 90 20 108/68 (81) 97 Nasal Cannula 3.0 10/15/17 00:00 97 Nasal Cannula 3.0 10/15/17 00:00 83 17 120/52 (74) 99 Nasal Cannula 3.0 10/14/17 23:00 88 22 109/54 (72) 100 Nasal Cannula 3.0 10/14/17 22:25 36.6 100 28 108/57 (74) 97 Nasal Cannula 3.0 10/14/17 21:00 99 23 141/86 (104) 98 Nasal Cannula 3.0 10/14/17 20:00 97 Nasal Cannula 3.0 10/14/17 19:00 36.5 100 24 122/70 (87) 97 Nasal Cannula 3.0 10/14/17 18:00 94 23 113/72 (86) 96 Nasal Cannula 3.0 10/14/17 17:00 108 17 136/76 (96) 98 Nasal Cannula 3.0 10/14/17 16:00 97 Nasal Cannula 3.0 10/14/17 16:00 100 23 134/86 (102) 99 Nasal Cannula 3.0 10/14/17 15:00 99 25 143/93 (110) 100 Nasal Cannula 3.0 10/14/17 14:30 36.8 90 24 131/90 (104) 99 Nasal Cannula 3.0 10/14/17 14:00 94 20 134/78 (96) 95 Nasal Cannula 3.0 Laboratory Results: Last 24 Hours Test 10/14/17 13:55 10/14/17 16:26 10/14/17 19:58 10/14/17 20:01 Activated Partial Thromboplast Time 102.2 SECONDS 52.5 SECONDS Partial Thromboplastin Ratio 3.9 2.0 Bedside Glucose 95 mg/dl 108 mg/dl Test 10/15/17 03:58 White Blood Count 7.18 K/uL Red Blood Count 2.83 M/uL Hemoglobin 7.8 g/dL Hematocrit 24.9 % Mean Corpuscular Volume 88.0 fL Mean Corpuscular Hemoglobin 27.6 pg Mean Corpuscular Hemoglobin Concent 31.3 g/dl RDW Standard Deviation 53.5 fL RDW Coefficient of Variation 16.7 % Platelet Count 194 K/uL Mean Platelet Volume 9.4 fL Prothrombin Time 16.8 SECONDS Prothromb Time International Ratio 1.6 Activated Partial Thromboplast Time 55.3 SECONDS Partial Thromboplastin Ratio 2.1 Sodium Level 139 mmol/L Potassium Level 3.9 mmol/L Chloride Level 109 mmol/L Carbon Dioxide Level 25 mmol/L Anion Gap 5.0 mmol/L Blood Urea Nitrogen 11 mg/dl Creatinine 0.87 mg/dl Est Creatinine Clear Calc Drug Dose 62.9 ml/min Estimated GFR () 73.4 Estimated GFR (Non- 63.4 BUN/Creatinine Ratio 12.4 Random Glucose 105 mg/dl Calcium Level 7.6 mg/dl Phosphorus Level 3.1 mg/dl Magnesium Level 1.9 mg/dl
--- NOTE | 2017-10-15 13:46 | Orthopedic Progress Note ---
Orthopedic Progress Note Date of Service October 15, 2017. Subjective Additional Notes: Patient seen and examined at bedside doing well, no acute issues, denies shortness of breath or chest pain no acute issues overnight. Objective No apparent distress, alert and oriented 3 Right lower extremity is neurovascular sensory intact, positive EHL/FHL/TA/GS, + 2 dorsalis pedis pulse, confirmed soft nontender, incision clean dry and intact , abduction brace intact. Date Time Temp Pulse Resp B/P (MAP) Pulse Ox O2 Delivery O2 Flow Rate FiO2 10/15/17 12:18 97 Nasal Cannula 2.0 10/15/17 12:00 36.5 91 24 124/57 (79) 97 Nasal Cannula 2.0 10/15/17 11:00 81 18 111/60 (77) 97 Nasal Cannula 2.0 10/15/17 10:00 88 21 105/63 (77) 97 Nasal Cannula 2.0 10/15/17 09:00 86 22 108/75 (86) 97 Nasal Cannula 2.0 10/15/17 08:00 Nasal Cannula 10/15/17 08:00 96 Nasal Cannula 3.0 10/15/17 08:00 36.7 104 21 118/77 (91) 97 Nasal Cannula 3.0 10/15/17 07:00 82 17 146/75 (98) 98 10/15/17 06:00 90 23 136/70 (92) 95 Nasal Cannula 3.0 10/15/17 04:01 36.8 89 20 107/60 (76) 98 Nasal Cannula 3.0 10/15/17 04:00 97 Nasal Cannula 3.0 10/15/17 03:00 83 19 114/64 (81) 95 Nasal Cannula 3.0 10/15/17 02:01 86 16 118/56 (76) 99 Nasal Cannula 3.0 10/15/17 01:00 90 20 108/68 (81) 97 Nasal Cannula 3.0 10/15/17 00:00 97 Nasal Cannula 3.0 10/15/17 00:00 83 17 120/52 (74) 99 Nasal Cannula 3.0 10/14/17 23:00 88 22 109/54 (72) 100 Nasal Cannula 3.0 10/14/17 22:25 36.6 100 28 108/57 (74) 97 Nasal Cannula 3.0 10/14/17 21:00 99 23 141/86 (104) 98 Nasal Cannula 3.0 10/14/17 20:00 97 Nasal Cannula 3.0 10/14/17 19:00 36.5 100 24 122/70 (87) 97 Nasal Cannula 3.0 10/14/17 18:00 94 23 113/72 (86) 96 Nasal Cannula 3.0 10/14/17 17:00 108 17 136/76 (96) 98 Nasal Cannula 3.0 10/14/17 16:00 97 Nasal Cannula 3.0 10/14/17 16:00 100 23 134/86 (102) 99 Nasal Cannula 3.0 10/14/17 15:00 99 25 143/93 (110) 100 Nasal Cannula 3.0 10/14/17 14:30 36.8 90 24 131/90 (104) 99 Nasal Cannula 3.0 10/14/17 14:00 94 20 134/78 (96) 95 Nasal Cannula 3.0 Laboratory Results 24 Hours: Test 10/15/17 03:58 Hematocrit 24.9 % Hemoglobin 7.8 g/dL Prothromb Time International Ratio 1.6 Prothrombin Time 16.8 SECONDS Assessment & Plan Assessment: POD#5 SP CLOSED REDUCTION RIGHT NIDA. Anemia A.fib PE Plan: Toe-touch nonweightbearing right lower extremity Maintain abduction brace at all times, may remove for hygiene purposes only. Anticoagulation per medical team, okay for therapeutic dose PT OT Pain control Upon discharge the patient will need to follow-up in the office in 2 weeks
[2017-10-15] MEDS: PANTOprazole SOD 40 MG TAB PO SCH (14:16)
--- NOTE | 2017-10-15 14:34 | Cardiology Follow-Up ---
Subjective Subjective Date of Service: October 15, 2017. Pt evaluation today including: conversation w/ patient, physical exam, chart review, lab review, review of studies, review of inpatient medication list Additional Details: Pt seen and examined, without complaint. Fitted with brace this AM. Denies cp, sob, palpitations, lightheadedness or dizziness. Tele reviewed: atrial fibrillation rate controlled at rest. Problem List Medical Problems: (1) Atrial fibrillation by electrocardiogram Status: Acute (2) Subtrochanteric fracture of right femur Status: Acute Review of Systems Respiratory: No see HPI, No cough, No sputum, No wheezing, No shortness of breath, No dyspnea on exertion, No dyspnea at rest, No hemoptysis, No problem reported Cardiac: No see HPI, No chest pain, No orthopnea, No PND, No edema, No claudication, No palpitations, No problem reported Objective Vital Signs Last Vital Signs Documentation Date Time Temp Pulse Resp B/P (MAP) Pulse Ox O2 Delivery O2 Flow Rate FiO2 10/15/17 14:00 94 21 117/61 (79) 96 Nasal Cannula 2.0 10/15/17 12:00 36.5 Physical Exam: General Appearance: WD/WN, no apparent distress Eyes: bilateral eyes normal inspection, bilateral eyes PERRL, bilateral eyes EOMI ENT: normal ENT inspection, hearing grossly normal, pharynx normal Neck: supple, no adenopathy, thyroid normal, no JVD, no carotid bruits, trachea midline Respiratory/Chest: chest non-tender, normal breath sounds, no accessory muscle use, + rhonchi Cardiovascular: + irregularly irregular Abdomen: normal bowel sounds, non tender, soft, no organomegaly, no pulsatile mass Extremities: normal inspection, no pedal edema, no calf tenderness, + pertinent finding (RLE immobilizer ) Neurologic/Psychiatric: head worker II-XII nml as tested, no motor/sensory deficits, alert, normal mood/affect, oriented x 3 Skin: normal color, warm/dry, no rash Lymphatic: no adenopathy Assessment and Plan 1. Post op hip fx repair doing well pain controlled ok to proceed with therapy from cardiac standpoint 2. atrial fibrillation known for approx 1 year now anticoagulation initiated this admission rates relatively well controlled now can expect rapid ventricular response with activity at this point given new PE's will follow rates and increase metoprolol as needed doubt cardioversion would be beneficial/successful given clinical context, will cont with rate control bridge until INR 2-3 3. acute pulmonary embolism on heparin and coumadin no intervention deemed necessary cont to monitor on tele, ok to d/c ICU from cardiac standpoint
[2017-10-15] MEDS: WARFARIN SOD 5 MG TAB PO SCH (15:33)
[2017-10-15] MEDS: HEPARIN 25,000 UNIT/500ML D5W 500 ML IV SCH (17:46)
[2017-10-15] MEDS: SENNA 8.6 MG TAB PO PRN (21:02)
[2017-10-16] VITALS (12 sets, daily range): BP systolic 93–116; BP diastolic 63–72; PULSE 81–109; TEMP 36.3–37.1; O2SAT 93–100
[2017-10-16 07:41] LABS: HEMATOCRIT 25.8 % (37-47); HEMOGLOBIN 8.2 g/dL (12.0-16.0); MEAN CELL VOLUME 87.5 fL (80-100); MEAN CORPUSCULAR HEMOGLOBIN 27.8 pg (25-34); MEAN CORPUSCULAR HGB CONC 31.8 g/dl (32-36); MEAN PLATELET VOLUME 9.4 fL (7.4-10.4); PLATELET COUNT 227 K/uL (130-400); RED CELL DISTRIBUTION WIDTH CV 16.7 % (11.5-14.5); RED CELL DISTRIBUTION WIDTH SD 53.1 fL (36.4-46.3); RETIC COUNT % 5.7 % (0.5-2.0); WHITE BLOOD COUNT 6.23 K/uL (4.8-10.8)
[2017-10-16 07:58] LABS: INR 1.9 (0.9-1.1)
[2017-10-16 07:59] LABS: PTT PATIENT 64.4 SECONDS (21.0-31.0)
[2017-10-16] MEDS: SENNA 8.6 MG TAB PO PRN ×2 (08:13→23:39)
[2017-10-16] MEDS: PANTOprazole SOD 40 MG TAB PO SCH (08:13)
[2017-10-16] MEDS: LISINOPRIL 10 MG TAB PO SCH (08:14)
[2017-10-16] MEDS: METOPROLOL TARTRATE 25 MG TAB PO SCH ×2 (08:14→20:29)
[2017-10-16 08:16] LABS: ALBUMIN 2.1 gm/dl (3.4-5.0); CALCIUM 8.2 mg/dl (8.5-10.1); CREATININE 0.73 mg/dl (0.60-1.20); POTASSIUM 4.1 mmol/L (3.5-5.1)
[2017-10-16 08:20] LABS: TOTAL PROTEIN 5.2 gm/dl (6.4-8.2)
[2017-10-16] MEDS: HEPARIN 25,000 UNIT/500ML D5W 500 ML IV SCH (12:01)
[2017-10-16] MEDS: WARFARIN SOD 5 MG TAB PO SCH (16:39)
--- NOTE | 2017-10-16 17:15 | Orthopedic Progress Note ---
Orthopedic Progress Note Date of Service October 16, 2017. Subjective Additional Notes: Patient seen laying in bed, comfortable, pain well controlled, no acute issues overnight. Objective No apparent distress, alert and oriented 3 Right lower extremity is neurovascular sensory intact, positive EHL/FHL/TA/GS, + 2 dorsalis pedis pulse, confirmed soft nontender, incision clean dry and intact , abduction brace intact. Date Time Temp Pulse Resp B/P (MAP) Pulse Ox O2 Delivery O2 Flow Rate FiO2 10/16/17 16:00 94 Nasal Cannula 2.0 10/16/17 15:29 36.3 109 20 116/72 (87) 99 Nasal Cannula 2.0 Humidified Oxygen 10/16/17 12:00 Nasal Cannula 2.0 10/16/17 11:22 36.5 83 18 102/63 (76) 100 Nasal Cannula 2.0 10/16/17 09:11 98 99 10/16/17 08:00 94 Nasal Cannula 2.0 10/16/17 06:55 37.1 93 18 115/68 (84) 100 2.0 10/16/17 04:15 93 Nasal Cannula 2.0 10/16/17 03:36 36.7 81 18 113/70 (84) 93 10/16/17 00:15 94 Nasal Cannula 2.0 10/16/17 00:05 36.5 85 16 93/63 (73) 99 Nasal Cannula 2.0 10/16/17 00:05 36.5 85 16 93/63 (73) 99 10/15/17 20:30 94 Nasal Cannula 2.0 10/15/17 19:52 36.8 104 20 113/67 (82) 94 2.0 Laboratory Results 24 Hours: Test 10/16/17 07:25 Hematocrit 25.8 % Hemoglobin 8.2 g/dL Prothromb Time International Ratio 1.9 Prothrombin Time 19.2 SECONDS Assessment & Plan Assessment: POD#6 SP CLOSED REDUCTION RIGHT NIDA. Anemia A.fib PE Plan: Toe-touch nonweightbearing right lower extremity Maintain abduction brace at all times, may remove for hygiene purposes only. Anticoagulation per medical team, okay for therapeutic dose PT OT Pain control Upon discharge the patient will need to follow-up in the office in 2 weeks
--- NOTE | 2017-10-16 22:27 | Progress Note ---
Medicine Progress Note Date & Time of Visit: October 16, 2017 at 13:00 . Subjective CC: Follow-up visit for pulmonary emboli, hip dislocation, and other problems. HPI: Feels better today. Less short of breath. No cough/hemoptysis. No pleuritic chest pain or angina. No abnormal bleeding or bruising. Appetite not very good. Received abduction brace. Worked with physical therapy today. ROS: General- no fever, no chills Resp- as noted above in HPI Cardiac- as noted above in HPI GI- no nausea, no vomiting, no diarrhea, no constipation - no dysuria, no difficulty voiding . Objective Last 8 Hrs Date Time Temp Pulse Resp B/P (MAP) Pulse Ox O2 Delivery O2 Flow Rate FiO2 10/16/17 19:45 36.6 89 18 115/69 (84) 97 Nasal Cannula 2.0 Humidified Oxygen 10/16/17 16:00 94 Nasal Cannula 2.0 10/16/17 15:29 36.3 109 20 116/72 (87) 99 Nasal Cannula 2.0 Humidified Oxygen Physical Exam: General-lying in bed, no distress Lungs- clear to auscultation; no respiratory distress Cardiovascular- irregular; no murmur or gallop appreciated; no JVD; trace pretibial edema Abdomen- + bowel sounds, soft, nontender Extremities- no cyanosis; no calf tenderness; abduction brace applied to right hip Neuro- alert, oriented Skin- warm & dry . Laboratory Results: Last 24 Hours Test 10/16/17 07:15 10/16/17 07:25 10/16/17 11:14 10/16/17 16:29 Bedside Glucose 116 mg/dl 118 mg/dl 99 mg/dl White Blood Count 6.23 K/uL Red Blood Count 2.95 M/uL Hemoglobin 8.2 g/dL Hematocrit 25.8 % Mean Corpuscular Volume 87.5 fL Mean Corpuscular Hemoglobin 27.8 pg Mean Corpuscular Hemoglobin Concent 31.8 g/dl RDW Standard Deviation 53.1 fL RDW Coefficient of Variation 16.7 % Platelet Count 227 K/uL Mean Platelet Volume 9.4 fL Absolute Reticulocyte Count 0.17 10^6/uL Percent Reticulocyte Count 5.7 % Prothrombin Time 19.2 SECONDS Prothromb Time International Ratio 1.9 Activated Partial Thromboplast Time 64.4 SECONDS Partial Thromboplastin Ratio 2.5 Sodium Level 140 mmol/L Potassium Level 4.1 mmol/L Chloride Level 110 mmol/L Carbon Dioxide Level 23 mmol/L Anion Gap 7.0 mmol/L Blood Urea Nitrogen 9 mg/dl Creatinine 0.73 mg/dl Est Creatinine Clear Calc Drug Dose 75.1 ml/min Estimated GFR () 90.8 Estimated GFR (Non- 78.3 BUN/Creatinine Ratio 12.0 Random Glucose 100 mg/dl Calcium Level 8.2 mg/dl Iron Level 21 mcg/dl Total Iron Binding Capacity 244 mcg/dl Transferrin 196 mg/dl Transferrin % Saturation 8 % Ferritin 176.8 ng/ml Total Bilirubin 0.6 mg/dl Direct Bilirubin 0.2 mg/dl Aspartate Amino Transf (AST/SGOT) 23 U/L Alanine Aminotransferase (ALT/SGPT) 27 U/L Alkaline Phosphatase 150 U/L Total Protein 5.2 gm/dl Albumin 2.1 gm/dl Test 10/16/17 20:29 Bedside Glucose 120 mg/dl Assessment & Plan PULMONARY EMBOLISM / DVT Diagnosed 10/14/17. CTA demonstrated bilateral pulmonary emboli. Venous duplex of lower extremities demonstrated bilateral DVTs. Echocardiogram demonstrated RV strain and pulmonary hypertension. IV heparin chosen as initial anticoagulation due to anemia and other concerns. Had already been started on warfarin due to atrial fibrillation. Continue IV heparin; consider transition to enoxaparin if H&H stable and stools heme negative. INR today 1.9. Continue and titrate warfarin. ATRIAL FIBRILLATION Continue metoprolol for rate control. Continue and titrate warfarin. HYPERTENSION Continue metoprolol and lisinopril. ANEMIA Hemoglobin at time of admission was 7.9. Probably postoperative anemia from recent hip surgery. Received 2 units of packed RBCs. Hemoglobin today = 8.2. Fecal occult blood pending. Serum iron 21, transferrin 196, transferrin saturation 8%, ferritin 176. Start iron therapy once anorexia improves. Follow H&H. HIP DISLOCATION Closed reduction performed by Ortho. VTE PROPHYLAXIS Initially managed with SCDs rather than anticoagulants in light of anemia. Now receiving IV heparin and warfarin. DISPOSITION Anticipated need for ongoing skilled care at [facility] once medical problems have stabilized. Family Medicine follow-up with Dr. Radha Mirza. . Current Inpatient Medications: Current Inpatient Medications Medications (Trade) Dose Ordered Sig/Beatriz Route Start Time Stop Time Status Last Admin Dose Admin Acetaminophen (Tylenol Tab) 650 mg Q6H PRN PO 10/09/17 16:30 11/08/17 16:29 Diphenhydramine HCl (Benadryl Cap) 25 mg Q8 PRN PO 10/09/17 16:30 11/08/17 16:29 Ondansetron HCl (Zofran Inj) 4 mg Q6H PRN IV 10/09/17 16:30 11/08/17 16:29 Al Hydroxide/Mg Hydroxide (Maalox Susp) 30 ml Q6H PRN PO 10/09/17 16:30 11/08/17 16:29 Oxycodone HCl (Roxicodone Immediate Rel Tab) 1 TABLET FOR PAIN RATING... Q4H PRN PO 10/09/17 18:15 10/23/17 18:14 Morphine Sulfate (MoRPHine SULFATE INJ) 4 mg Q4H PRN IV 10/09/17 18:15 10/23/17 18:14 10/09/17 19:59 4 MG Miscellaneous (Iv Fluids Completed) 1 ea PRN PRN N/A 10/09/17 19:00 10/09/18 18:59 Metoprolol Tartrate (Lopressor Iv) 5 mg Q6 PRN IV 10/09/17 21:15 11/08/17 21:14 10/14/17 09:18 5 MG Metoprolol Tartrate (Lopressor Tab) 75 mg BID PO 10/13/17 21:00 11/11/17 20:59 10/16/17 20:29 75 MG Ioversol (Optiray 320) 100 ml UD PRN IV 10/14/17 11:15 10/18/17 11:14 Heparin Sodium/ Dextrose 500 ml @ 28 mls/hr [id number] IV 10/14/17 16:15 11/13/17 16:14 10/16/17 12:01 28 MLS/HR Lisinopril (Zestril Tab) 10 mg QAM PO 10/15/17 10:00 11/14/17 09:59 10/16/17 08:14 10 MG Docusate Sodium (coLACE CAP) 100 mg BID PRN PO 10/15/17 09:15 11/14/17 09:14 Senna (Senokot Tab) 8.6 mg BID PRN PO 10/15/17 09:15 11/14/17 09:14 10/16/17 08:13 8.6 MG Warfarin Sodium (Coumadin Tab) 5 mg DAILY@16 PO 10/15/17 16:00 11/14/17 15:59 10/16/17 16:39 5 MG Pantoprazole Sodium (Protonix Tab) 40 mg QAM PO 10/15/17 13:00 11/14/17 12:59 10/16/17 08:13 40 MG
[2017-10-16] MEDS: ACETAMINOPHEN 325 MG TAB PO PRN (23:41)
[2017-10-17] VITALS (10 sets, daily range): BP systolic 95–117; BP diastolic 57–72; PULSE 76–102; TEMP 36.3–36.7; O2SAT 92–99
[2017-10-17] MEDS: HEPARIN 25,000 UNIT/500ML D5W 500 ML IV SCH ×3 (05:50→19:20)
[2017-10-17 06:35] LABS: HEMATOCRIT 26.7 % (37-47); HEMOGLOBIN 8.1 g/dL (12.0-16.0); MEAN CELL VOLUME 88.7 fL (80-100); MEAN CORPUSCULAR HEMOGLOBIN 26.9 pg (25-34); MEAN CORPUSCULAR HGB CONC 30.3 g/dl (32-36); MEAN PLATELET VOLUME 8.9 fL (7.4-10.4); PLATELET COUNT 227 K/uL (130-400); RED CELL DISTRIBUTION WIDTH CV 16.9 % (11.5-14.5); RED CELL DISTRIBUTION WIDTH SD 54.3 fL (36.4-46.3); WHITE BLOOD COUNT 5.61 K/uL (4.8-10.8)
[2017-10-17 06:53] LABS: INR 2.4 (0.9-1.1)
[2017-10-17 07:05] LABS: PTT PATIENT 80.2 SECONDS (21.0-31.0)
[2017-10-17] MEDS: LISINOPRIL 10 MG TAB PO SCH (08:16)
[2017-10-17] MEDS: METOPROLOL TARTRATE 25 MG TAB PO SCH ×2 (08:17→21:45)
[2017-10-17] MEDS: PANTOprazole SOD 40 MG TAB PO SCH (08:17)
--- NOTE | 2017-10-17 09:45 | Orthopedic Progress Note ---
Orthopedic Progress Note Date of Service October 17, 2017. Subjective Additional Notes: Patient seen lying in bed, comfortable, pain well controlled, denies any shortness of breath or chest pains, fevers or chills. Objective No apparent distress, alert and oriented 3 Right lower extremity is neurovascular sensory intact, positive EHL/FHL/TA/GS, + 2 dorsalis pedis pulse, confirmed soft nontender, incision clean dry and intact , abduction brace intact. Date Time Temp Pulse Resp B/P (MAP) Pulse Ox O2 Delivery O2 Flow Rate FiO2 10/17/17 06:40 36.4 84 20 108/68 (81) 97 Nasal Cannula 2.0 10/17/17 04:10 94 Nasal Cannula 2.0 10/17/17 04:00 36.3 83 18 117/72 (87) 97 Nasal Cannula 2.0 10/17/17 00:05 94 Nasal Cannula 2.0 10/17/17 00:00 36.6 76 18 116/72 (87) 99 Nasal Cannula 2.0 10/16/17 20:00 36.8 89 18 115/69 (84) 97 Nasal Cannula 2.0 10/16/17 20:00 94 Nasal Cannula 2.0 10/16/17 19:45 36.6 89 18 115/69 (84) 97 Nasal Cannula 2.0 Humidified Oxygen 10/16/17 16:00 94 Nasal Cannula 2.0 10/16/17 15:29 36.3 109 20 116/72 (87) 99 Nasal Cannula 2.0 Humidified Oxygen 10/16/17 12:00 Nasal Cannula 2.0 10/16/17 11:22 36.5 83 18 102/63 (76) 100 Nasal Cannula 2.0 Laboratory Results 24 Hours: Test 10/17/17 06:22 Hematocrit 26.7 % Hemoglobin 8.1 g/dL Prothromb Time International Ratio 2.4 Prothrombin Time 24.5 SECONDS Assessment & Plan Assessment: POD#7 SP CLOSED REDUCTION RIGHT NIDA. Anemia A.fib PE Plan: Toe-touch nonweightbearing right lower extremity Maintain abduction brace at all times, may remove for hygiene purposes only. Anticoagulation per medical team, okay for therapeutic dose PT OT Pain control Upon discharge the patient will need to follow-up in the office in 2 weeks
--- NOTE | 2017-10-17 12:11 | Cardiology Follow-Up ---
Subjective Subjective Date of Service: October 17, 2017. Pt evaluation today including: conversation w/ patient, physical exam, chart review, lab review, review of studies, review of inpatient medication list Additional Details: Pt seen and examined, oob in chair, states that she feels well. Is getting frustrated with hip brace. Denies cp, sob palpitations, lightheadedness or dizziness. Tele reviewed: afib rate controlled. Problem List Medical Problems: (1) Atrial fibrillation by electrocardiogram Status: Acute (2) Subtrochanteric fracture of right femur Status: Acute Review of Systems Respiratory: No see HPI, No cough, No sputum, No wheezing, No shortness of breath, No dyspnea on exertion, No dyspnea at rest, No hemoptysis, No problem reported Cardiac: No see HPI, No chest pain, No orthopnea, No PND, No edema, No claudication, No palpitations, No problem reported Musculoskeletal: + joint pain Objective Vital Signs Last Vital Signs Documentation Date Time Temp Pulse Resp B/P (MAP) Pulse Ox O2 Delivery O2 Flow Rate FiO2 10/17/17 11:34 36.7 83 20 95/62 (73) 95 Room Air 10/17/17 08:00 2.0 Physical Exam: General Appearance: WD/WN, no apparent distress Eyes: bilateral eyes normal inspection, bilateral eyes PERRL, bilateral eyes EOMI ENT: normal ENT inspection, hearing grossly normal, pharynx normal Neck: supple, no adenopathy, thyroid normal, no JVD, no carotid bruits, trachea midline Respiratory/Chest: chest non-tender, normal breath sounds, no accessory muscle use, + rhonchi Cardiovascular: + irregularly irregular Abdomen: normal bowel sounds, non tender, soft, no organomegaly, no pulsatile mass Extremities: normal inspection, no pedal edema, no calf tenderness, + pertinent finding (RLE immobilizer ) 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 Post op hip fx repair doing well pain controlled ok to proceed with therapy from cardiac standpoint 2. atrial fibrillation known for approx 1 year now anticoagulation initiated this admission rates relatively well controlled now can expect rapid ventricular response with activity at this point given new PE's INR now therapeutic at 2.3, will d/c heparin 3. acute pulmonary embolism INR therapeutic no intervention deemed necessary ok to d/c to home/rehab from cardiac standpoint ok to d/c tele cardiac follow up in 1 month, my office will call to arrange
[2017-10-17 13:40] LABS: PTT PATIENT 31.8 SECONDS (21.0-31.0)
[2017-10-17] MEDS ORDERED: NURSING VERBAL MED ORDER ONE (14:15)
[2017-10-17] MEDS: WARFARIN SOD 5 MG TAB PO SCH (15:40)
--- NOTE | 2017-10-17 23:42 | Progress Note ---
Medicine Progress Note Date & Time of Visit: October 17, 2017 at 18:30 . Subjective CC: Follow-up visit for pulmonary emboli, hip dislocation, and other problems. HPI: Pulmonary symptoms continue to improve. Weaned off supplemental O2. Less short of breath. No cough/hemoptysis. No pleuritic chest pain or angina. No abnormal bleeding or bruising. Appetite fair. Participated with physical therapy today. ROS: General- no fever, no chills Resp- as noted above in HPI Cardiac- as noted above in HPI GI- no nausea, no vomiting, no diarrhea, no constipation - no dysuria, no difficulty voiding . Objective Last 8 Hrs Date Time Temp Pulse Resp B/P (MAP) Pulse Ox O2 Delivery O2 Flow Rate FiO2 10/17/17 19:47 36.5 102 20 111/67 (82) 92 Room Air 10/17/17 16:00 36.7 90 20 114/68 (83) 92 Room Air 10/17/17 16:00 92 Room Air Physical Exam: General-lying in bed, no distress Lungs- clear to auscultation; no respiratory distress Cardiovascular- irregular; no murmur or gallop appreciated; no JVD; -t-r-a-c-[id number]- -l-c-r-c-[id number]-m-i-a-l- -e-d-e-m-a- 1-2+ pretibial edema [error corrected 10/18/17 00:25 SHEA] Abdomen- + bowel sounds, soft, nontender Extremities- no cyanosis; no calf tenderness; abduction brace applied to right hip Neuro- alert, oriented Skin- warm & dry . Laboratory Results: Last 24 Hours Test 10/17/17 06:22 10/17/17 07:22 10/17/17 11:24 10/17/17 13:16 White Blood Count 5.61 K/uL Red Blood Count 3.01 M/uL Hemoglobin 8.1 g/dL Hematocrit 26.7 % Mean Corpuscular Volume 88.7 fL Mean Corpuscular Hemoglobin 26.9 pg Mean Corpuscular Hemoglobin Concent 30.3 g/dl RDW Standard Deviation 54.3 fL RDW Coefficient of Variation 16.9 % Platelet Count 227 K/uL Mean Platelet Volume 8.9 fL Prothrombin Time 24.5 SECONDS Prothromb Time International Ratio 2.4 Activated Partial Thromboplast Time 80.2 SECONDS 31.8 SECONDS Partial Thromboplastin Ratio 3.1 1.2 Bedside Glucose 103 mg/dl 99 mg/dl Test 10/17/17 16:28 10/17/17 18:35 10/17/17 21:04 Bedside Glucose 91 mg/dl 105 mg/dl Stool Occult Blood NEGATIVE Assessment & Plan PULMONARY EMBOLISM / DVT Diagnosed 10/14/17. CTA demonstrated bilateral pulmonary emboli. Venous duplex of lower extremities demonstrated bilateral DVTs. Echocardiogram demonstrated RV strain and pulmonary hypertension. IV heparin chosen as initial anticoagulation due to anemia and other concerns. Had already been started on warfarin due to atrial fibrillation. INR today = 2.4. Today is day #4 of IV heparin; will continue for another 24 hours to complete at least 5 days of heparin with overlapping at least 2 days of the therapeutic INR. Provoked VTE would usually require 3-6 months duration of anticoagulation, the patient has underlying atrial fibrillation requiring long-term anticoagulation. ATRIAL FIBRILLATION [id number] score = 7. Continue metoprolol for rate control. Continue and titrate warfarin. HYPERTENSION Continue metoprolol and lisinopril. ANEMIA Hemoglobin at time of admission was 7.9. Probably postoperative anemia from recent hip surgery. Received 2 units of packed RBCs. Hemoglobin today = 8.1. Fecal occult blood pending. Serum iron 21, transferrin 196, transferrin saturation 8%, ferritin 176. Start iron therapy once anorexia improves. Follow H&H. HIP DISLOCATION Closed reduction performed by Ortho. Fitted for abduction brace. VTE PROPHYLAXIS Initially managed with SCDs rather than anticoagulants in light of anemia. Now receiving IV heparin and warfarin. DISPOSITION Patient is very motivated to return home, but requires ongoing PT and OT before she will be able to do so. Anticipated return to [facility] once medical problems have stabilized. Family Medicine follow-up with Dr. Radha Mirza. . Current Inpatient Medications: Current Inpatient Medications Medications (Trade) Dose Ordered Sig/Beatriz Route Start Time Stop Time Status Last Admin Dose Admin Acetaminophen (Tylenol Tab) 650 mg Q6H PRN PO 10/09/17 16:30 11/08/17 16:29 10/16/17 23:41 650 MG Diphenhydramine HCl (Benadryl Cap) 25 mg Q8 PRN PO 10/09/17 16:30 11/08/17 16:29 Ondansetron HCl (Zofran Inj) 4 mg Q6H PRN IV 10/09/17 16:30 11/08/17 16:29 Al Hydroxide/Mg Hydroxide (Maalox Susp) 30 ml Q6H PRN PO 10/09/17 16:30 11/08/17 16:29 Oxycodone HCl (Roxicodone Immediate Rel Tab) 1 TABLET FOR PAIN RATING... Q4H PRN PO 10/09/17 18:15 10/23/17 18:14 Morphine Sulfate (MoRPHine SULFATE INJ) 4 mg Q4H PRN IV 10/09/17 18:15 10/23/17 18:14 10/09/17 19:59 4 MG Miscellaneous (Iv Fluids Completed) 1 ea PRN PRN N/A 10/09/17 19:00 10/09/18 18:59 Metoprolol Tartrate (Lopressor Iv) 5 mg Q6 PRN IV 10/09/17 21:15 11/08/17 21:14 10/14/17 09:18 5 MG Metoprolol Tartrate (Lopressor Tab) 75 mg BID PO 10/13/17 21:00 11/11/17 20:59 10/17/17 21:45 75 MG Ioversol (Optiray 320) 100 ml UD PRN IV 10/14/17 11:15 10/18/17 11:14 Lisinopril (Zestril Tab) 10 mg QAM PO 10/15/17 10:00 11/14/17 09:59 10/17/17 08:16 10 MG Docusate Sodium (coLACE CAP) 100 mg BID PRN PO 10/15/17 09:15 11/14/17 09:14 10/16/17 23:39 100 MG Senna (Senokot Tab) 8.6 mg BID PRN PO 10/15/17 09:15 11/14/17 09:14 10/16/17 23:39 8.6 MG Warfarin Sodium (Coumadin Tab) 5 mg DAILY@16 PO 10/15/17 16:00 11/14/17 15:59 10/17/17 15:40 5 MG Pantoprazole Sodium (Protonix Tab) 40 mg QAM PO 10/15/17 13:00 11/14/17 12:59 10/17/17 08:17 40 MG Heparin Sodium/ Dextrose 500 ml @ 25 mls/hr Q20H IV 10/17/17 19:15 11/16/17 19:14 10/17/17 19:20 25 MLS/HR
[2017-10-18 01:33] LABS: PTT PATIENT 55.8 SECONDS (21.0-31.0)
[2017-10-18 03:30] VITALS: BP 107/69; PULSE 89; TEMP 36.6; O2SAT 92
[2017-10-18 06:11] VITALS: BP 111/66; PULSE 85; TEMP 36.7; O2SAT 92
[2017-10-18 07:13] LABS: HEMATOCRIT 27.6 % (37-47); HEMOGLOBIN 8.5 g/dL (12.0-16.0)
[2017-10-18 07:27] LABS: INR 2.8 (0.9-1.1)
[2017-10-18 07:29] LABS: PTT PATIENT 54.8 SECONDS (21.0-31.0)
[2017-10-18 07:30] LABS: CALCIUM 8.5 mg/dl (8.5-10.1); CREATININE 0.82 mg/dl (0.60-1.20); POTASSIUM 3.9 mmol/L (3.5-5.1)
[2017-10-18] MEDS ORDERED: FUROSEMIDE INJ 40 MG in SYRINGE 0 ML IV ONE (08:00)
[2017-10-18] MEDS: HEPARIN 25,000 UNIT/500ML D5W 500 ML IV SCH (08:07)
[2017-10-18] MEDS: LISINOPRIL 10 MG TAB PO SCH (08:09)
[2017-10-18] MEDS: PANTOprazole SOD 40 MG TAB PO SCH (08:09)
[2017-10-18] MEDS: METOPROLOL TARTRATE 25 MG TAB PO SCH (08:09)
[2017-10-18] MEDS: SENNA 8.6 MG TAB PO PRN (08:09)
[2017-10-18] MEDS ORDERED: POTASSIUM CHLORIDE 20 MEQ TABCR PO ONE (09:00)
[2017-10-18 11:45] VITALS: BP 99/63; PULSE 89; TEMP 36.3; O2SAT 97
--- NOTE | 2017-10-18 13:11 | Progress Note ---
Medicine Progress Note Date & Time of Visit: October 18, 2017 at ~ 11:00 . Subjective CC: Follow-up visit for pulmonary emboli, hip dislocation, and other problems. HPI: Dyspnea much better. Off O2. No cough/hemoptysis. No pleuritic chest pain or angina. No abnormal bleeding or bruising. ROS: General- no fever, no chills Resp- as noted above in HPI Cardiac- as noted above in HPI GI- no nausea, no vomiting, no diarrhea, no constipation - no dysuria, no difficulty voiding . Objective Last 8 Hrs Date Time Temp Pulse Resp B/P (MAP) Pulse Ox O2 Delivery O2 Flow Rate FiO2 10/18/17 12:00 Room Air 10/18/17 11:45 36.3 89 19 99/63 (75) 97 Room Air 10/18/17 08:00 Room Air 10/18/17 06:11 36.7 85 19 111/66 (81) 92 Room Air Physical Exam: General- sitting in chair, no distress Lungs- clear to auscultation; no respiratory distress Cardiovascular- irregular; no murmur or gallop appreciated; no JVD; 1+ pretibial edema Abdomen- + bowel sounds, soft, nontender Extremities- no cyanosis; no calf tenderness; abduction brace applied to right hip Neuro- alert, oriented Skin- warm & dry . Laboratory Results: Last 24 Hours Test 10/17/17 13:16 10/17/17 16:28 10/17/17 18:35 10/17/17 21:04 Activated Partial Thromboplast Time 31.8 SECONDS Partial Thromboplastin Ratio 1.2 Bedside Glucose 91 mg/dl 105 mg/dl Stool Occult Blood NEGATIVE Test 10/18/17 01:07 10/18/17 06:37 10/18/17 07:22 10/18/17 11:14 Activated Partial Thromboplast Time 55.8 SECONDS 54.8 SECONDS Partial Thromboplastin Ratio 2.1 2.1 Hemoglobin 8.5 g/dL Hematocrit 27.6 % Prothrombin Time 28.6 SECONDS Prothromb Time International Ratio 2.8 Sodium Level 141 mmol/L Potassium Level 3.9 mmol/L Chloride Level 109 mmol/L Carbon Dioxide Level 25 mmol/L Anion Gap 7.0 mmol/L Blood Urea Nitrogen 8 mg/dl Creatinine 0.82 mg/dl Est Creatinine Clear Calc Drug Dose 67.2 ml/min Estimated GFR () 78.9 Estimated GFR (Non- 68.1 BUN/Creatinine Ratio 9.8 Random Glucose 91 mg/dl Calcium Level 8.5 mg/dl Bedside Glucose 120 mg/dl 106 mg/dl Assessment & Plan PULMONARY EMBOLISM / DVT Diagnosed 10/14/17 when patient developed dyspnea and tachycardia. CTA demonstrated bilateral pulmonary emboli. Venous duplex of lower extremities demonstrated bilateral DVTs. Echocardiogram demonstrated RV strain and pulmonary hypertension. IV heparin chosen as initial anticoagulation due to anemia and other concerns. Had already been started on warfarin due to atrial fibrillation. INR today = 2.8. Received 5 days of IV heparin, overlapping with warfarin. INR therapeutic x 2 consecutive days before IV heparin discontinued. Discharge on warfarin 5 mg daily, titrated to INR 2-3. Provoked VTE would usually require 3-6 months duration of anticoagulation, the patient has underlying atrial fibrillation requiring long-term anticoagulation. ATRIAL FIBRILLATION [id number] score = 7. Continue metoprolol for rate control. Continue and titrate warfarin. HYPERTENSION Continue metoprolol and lisinopril. ANEMIA Hemoglobin at time of admission was 7.9. Probably postoperative anemia from recent hip surgery. Received 2 units of packed RBCs. Hemoglobin today = 8.5. Fecal occult blood pending. Serum iron 21, transferrin 196, transferrin saturation 8%, ferritin 176. Start iron therapy. Follow H&H. HIP DISLOCATION Closed reduction performed by Ortho. Fitted for abduction brace which should be worn at all times, removed for hygiene purposes only. Requires elevated toilet seat. VTE PROPHYLAXIS Initially managed with SCDs rather than anticoagulants in light of anemia. Now receiving IV heparin and warfarin. DISPOSITION Patient is very motivated to return home, but requires ongoing PT and OT before she will be able to do so. Arrangements being made for return to [facility]. Family Medicine follow-up with Dr. Radha Mirza. Ortho follow-up with Dr. Bonilla in 2 weeks. . Current Inpatient Medications: Current Inpatient Medications Medications (Trade) Dose Ordered Sig/Beatriz Route Start Time Stop Time Status Last Admin Dose Admin Acetaminophen (Tylenol Tab) 650 mg Q6H PRN PO 10/09/17 16:30 11/08/17 16:29 10/16/17 23:41 650 MG Diphenhydramine HCl (Benadryl Cap) 25 mg Q8 PRN PO 10/09/17 16:30 11/08/17 16:29 Ondansetron HCl (Zofran Inj) 4 mg Q6H PRN IV 10/09/17 16:30 11/08/17 16:29 Al Hydroxide/Mg Hydroxide (Maalox Susp) 30 ml Q6H PRN PO 10/09/17 16:30 11/08/17 16:29 Oxycodone HCl (Roxicodone Immediate Rel Tab) 1 TABLET FOR PAIN RATING... Q4H PRN PO 10/09/17 18:15 10/23/17 18:14 Morphine Sulfate (MoRPHine SULFATE INJ) 4 mg Q4H PRN IV 10/09/17 18:15 10/23/17 18:14 10/09/17 19:59 4 MG Miscellaneous (Iv Fluids Completed) 1 ea PRN PRN N/A 10/09/17 19:00 10/09/18 18:59 Metoprolol Tartrate (Lopressor Iv) 5 mg Q6 PRN IV 10/09/17 21:15 11/08/17 21:14 10/14/17 09:18 5 MG Metoprolol Tartrate (Lopressor Tab) 75 mg BID PO 10/13/17 21:00 11/11/17 20:59 10/18/17 08:09 75 MG Lisinopril (Zestril Tab) 10 mg QAM PO 10/15/17 10:00 11/14/17 09:59 10/18/17 08:09 10 MG Docusate Sodium (coLACE CAP) 100 mg BID PRN PO 10/15/17 09:15 11/14/17 09:14 10/16/17 23:39 100 MG Senna (Senokot Tab) 8.6 mg BID PRN PO 10/15/17 09:15 11/14/17 09:14 10/18/17 08:09 8.6 MG Warfarin Sodium (Coumadin Tab) 5 mg DAILY@16 PO 10/15/17 16:00 11/14/17 15:59 10/17/17 15:40 5 MG Pantoprazole Sodium (Protonix Tab) 40 mg QAM PO 10/15/17 13:00 11/14/17 12:59 10/18/17 08:09 40 MG
[2017-10-18] MEDS ORDERED: ASPI-428 PO (13:26)
[2017-10-18] MEDS ORDERED: CMD5 PO (13:26)
[2017-10-18] MEDS ORDERED: METO-551 PO (13:26)
--- NOTE | 2017-10-18 14:00 | Cardiology Follow-Up ---
Subjective Subjective Date of Service: October 18, 2017. Pt evaluation today including: conversation w/ patient, conversation w/ family , physical exam, chart review, lab review, review of studies, review of inpatient medication list Additional Details: Pt seen and examined, sitting oob in chair with family member present. States that she feels well. States breathing is back to baseline. Denies cp, sob, palpitations, lightheadedness or dizziness. Tele reviewed: atrial fibrillation rate controlled. Problem List Medical Problems: (1) Atrial fibrillation by electrocardiogram Status: Acute (2) Subtrochanteric fracture of right femur Status: Acute Review of Systems Respiratory: No see HPI, No cough, No sputum, No wheezing, No shortness of breath, No dyspnea on exertion, No dyspnea at rest, No hemoptysis, No problem reported Cardiac: No see HPI, No chest pain, No orthopnea, No PND, No edema, No claudication, No palpitations, No problem reported Musculoskeletal: + joint pain Objective Vital Signs Last Vital Signs Documentation Date Time Temp Pulse Resp B/P (MAP) Pulse Ox O2 Delivery O2 Flow Rate FiO2 10/18/17 12:00 Room Air 10/18/17 11:45 36.3 89 19 99/63 (75) 97 10/17/17 08:00 2.0 Physical Exam: General Appearance: WD/WN, no apparent distress Eyes: bilateral eyes normal inspection, bilateral eyes PERRL, bilateral eyes EOMI ENT: normal ENT inspection, hearing grossly normal, pharynx normal Neck: supple, no adenopathy, thyroid normal, no JVD, no carotid bruits, trachea midline Respiratory/Chest: chest non-tender, normal breath sounds, no accessory muscle use, + rhonchi Cardiovascular: + irregularly irregular Abdomen: normal bowel sounds, non tender, soft, no organomegaly, no pulsatile mass Extremities: normal inspection, no pedal edema, no calf tenderness, + pertinent finding (RLE immobilizer ) 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 Post op hip fx repair doing well pain controlled ok to proceed with therapy from cardiac standpoint 2. atrial fibrillation known for approx 1 year now anticoagulation initiated this admission rates relatively well controlled now can expect rapid ventricular response with activity at this point given new PE's INR now therapeutic at 2.8, will d/c heparin 3. acute pulmonary embolism INR therapeutic I inadvertently d/c'ed heparin prior to completion of protocol, restarted by Dr. Kaylynn knutson to d/c to home/rehab from cardiac standpoint eamon to d/c tele cardiac follow up in 1 month, my office will call to arrange
--- NOTE | 2017-10-18 15:28 | Discharge Instructions ---
Discharge Instructions Date of Service October 18, 2017. Admission Reason for Admission: dislocation right hip, atrial fibrillation with rapid ventricular response . Discharge Discharge Diagnosis / Problem: dislocation right hip, atrial fibrillation, pulmonary embolism, DVT Discharge Goals Goal(s): Decrease discomfort, Improve disease control Activity Recommendations Activity Level: Assistance Required Therapies: Physical Therapy, Occupational Therapy Weightbearing Status: Right toe touch (with abduction brace) . Additional Information Patient informed of condition: Yes Advance Directives: Yes DNR: No Level of Care: Skilled Communicable Disease: No Prognosis: Improving Oxygen at (LPM): PRN with exertion if O2 sats < 90% Rosas Catheter: No Instructions / Follow-Up Instructions / Follow-Up FOLLOW-UP APPOINTMENTS [facility] Please contact his office for a follow-up appointment in [address] Radha Mirza Please arrange for office appt within 1 week after discharge from your facility. CARDIOLOGY Dr. Jhaveri. His office will arrange for appointment. Thank you for receiving this patient in transfer. Please call if you have any questions. Mark Chaidez . Current Hospital Diet Patient's current hospital diet: Diabetes Type 2 Diet Discharge Diet Recommended Diet: AHA Diet (Heart Healthy), Diabetes Type 2 Diet Procedures Procedures Performed: Right Closed Reduction Hip CTA chest venous duplex lower extremities echo Pending Studies Studies pending at discharge: no Physician Orders On Transfer Special Precautions: RIGHT HIP PRECAUTIONS toe-touch nonweightbearing RLE maintain abduction brace at all times, may remove for hygiene purposes only raised toilet seat SKIN PRECAUTIONS FALL PRECAUTIONS . Vital Signs: routine . Weigh: routine . Additional Orders: INR 3 times a week, then as clinically indicated titrate INR to 2-3 duration of anticoagulation long-term Please check CBC and basic metabolic profile weekly. . Laboratory Results Hemoglobin A1c Test 10/10/17 03:53 Range/Units Estimated Average Glucose 105 mg/dl Hemoglobin A1c 5.3 4.5-5.6 % Medical Emergencies . Who to Call and When: Medical Emergencies: If at any time you feel your situation is an emergency, please call 911 immediately. . Non-Emergent Contact Non-Emergency issues call your: Primary Care Provider, Body Former, Hospital Doctor, Surgeon (Orthopedics) . . "Provider Documentation" section prepared by Mark C Coppes. . Core Measure Problem Core Measures: VTE VTE Core Measures Date of VTE Diagnosis: October 14, 2017 Time of VTE Diagnosis: 12:10 Reason no anticoag overlap I/P: Treatment provided - N/A Reason no anticoag overlap @DC: Treatment not indicated
[2017-10-18] MEDS ORDERED: FRRS300 PO (15:29)
--- NOTE | 2017-10-18 15:42 | Discharge Summary ---
Discharge Summary Date of Service October 18, 2017. Discharge Summary Admission Date: October 09, 2017 at 17:09 Discharge Date: October 12, 2017 Discharge Disposition: assisted facility ([facility]) Principal Diagnosis: dislocation femoral head right hip prosthesis OTHER ACUTE / SECONDARY DIAGNOSES: atrial fibrillation with rapid ventricular rate acute pulmonary embolism DVT bilateral lower extremities . 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 Procedures: closed reduction right hip dislocation CTA chest venous duplex lower extremities echocardiogram PT OT . Consultations: Cardiology CCM . Medication Reconciliation New Medications: Aspirin (Ecotrin Low Strength) 81 Mg Tab 81 MG PO DAILY for 30 Days New dose 10/18/17. Ferrous Sulfate (Ferrous Sulfate) 325 Mg Tab 325 MG PO DAILY for 30 Days Take with lunch. Metoprolol Tartrate (Lopressor) 50 Mg Tab 50 MG PO BID for 30 Days, TAB New dose 10/18/17. Will need Rx when discharged from [facility]. Warfarin Sod (Coumadin) 5 Mg Tab 5 MG PO DAILY for 30 Days New med 10/18/17. Titrate INR 2-3. Will need Rx when discharged from [facility]. Continued Medications: Acetaminophen (Mapap) 325 Mg Tab 650 MG PO Q6H PRN for For mild pain (pain scale 1-3), #30 TAB Bisacodyl (Bisac-Evac) 10 Mg Supp 10 MG OR DAILY PRN for Constipation, #30 SUPP Flaxseed (Linseed) (Flax Seed Oil) 1,000 Mg Cap 1000 MG PO QAM Zrqggrvultf-Uhshmmksxyq-Blx C- (Glucosamine Chondroitin) 1 Tab Tab 2 TABS PO QAM Lisinopril (Prinivil) 10 Mg Tab 10 MG PO QAM Magnesium Hydroxide (Milk of Magnesia) 30 Ml Susp 30 ML PO Q8 PRN for Constipation for 30 Days Multivitamin (Multivitamin) Tab 1 TAB PO QAM Omeprazole (Prilosec) 20 Mg Cap 20 MG PO QAM Polyethylene (Miralax) 17 Gm Pow 17 GM PO DAILY PRN for Constipation for 30 Days Sennosides-Docusate Sodium (Stool Softener) 1 Tab Tab 1 TAB PO QAM Sennosides-Docusate Sodium (Senokot S) 1 Tab Tab 2 TAB PO HS for 30 Days, TAB CONTINUE SCHEDULED DOSE WHEN TAKING NARCOTIC PAIN MEDICATIONS HOLD FOR LOOSE STOOL Sodium Phosphates (Enema [place]-Ibf) 1 Pat Pat 132 ML OR PRN PRN for Constipation, #30 Discontinued Medications: Aspirin Buffered (Olivier Carb-Mag (Tri-Buffered Aspirin) 1 Tab Tab 325 MG PO BID for 60 Days, TAB TAKE WITH FULL STOMACH NEEDS TO CONTINUE 6-8 WEEKS POST HIP SURGERY FOR DVT PROPHYLAXIS THEN TRANSITION TO 325 MG ONCE DAILY Benzocaine-Menthol (Mouth-Thro (Cepacol Sore Throat) 1 Shena Shena Gentamicin Sulfate (Gentak) 12 Appln/3.5 Gm Oint 1 APPLN OP Q4 for 30 Days Metoprolol Tartrate (Lopressor) 25 Mg Tab 12.5 MG PO BID for 30 Days, #30 TAB Oxycodone HCl (Oxycodone HCl) 5 Mg Tab 10 MG PO Q6 PRN for Pain, #10 TAB Admission Information HPI (per Admitting provider): The patient is a 77 year old female with complaints of acute onset right hip pain on . She was sitting on the commode and proceeded to stand up and subsequently developed pain and inability to ambulate. She states she does not use elevated commode at the shelter like DC instructions stated. The patient has significant past medical history which includes right periprosthetic hip fracture subsequent revision right total hip arthroplasty with ORIF of greater trochanter performed on September 21, 2017. The patient was seen on 10/03/2017 at her two-week postoperative appointment and was doing well at that time. She made a emergent office visit today on 10/09/17 and repeat x- rays were taken which demonstrated a dislocation of the right total hip. She was subsequently transported from the office to the hospital for close reduction under conscious sedation of her right NIDA. . Physical Exam (per Admitting): Skin: warm/dry, no rash Eyes: normal inspection, EOMI, sclerae normal ENT: normal ENT inspection, pharynx normal Head: normocephalic, atraumatic Neck: supple, no adenopathy, trachea midline Respiratory/Chest: lungs clear, normal breath sounds, no respiratory distress Cardiovascular: no edema, no murmur, + abnormal rate, + abnormal rhythm Abdomen / GI: normal bowel sounds, non tender Back: normal inspection Extremities: normal inspection, normal range of motion, + pertinent finding ( Decreased, painful ROM, short internally rotated RLE, incision CDI) Neurologic/Psych: no motor/sensory deficits, alert, normal reflexes, oriented x 3 . Hospital Course HIP DISLOCATION Patient presented to ED after experiencing severe right hip pain after rising from sitting position on toilet. X-ray showed dislocation right hip prosthetic femoral head. Closed reduction performed by Ortho. Fitted for abduction brace which should be worn at all times, removed for hygiene purposes only. Requires elevated toilet seat. PULMONARY EMBOLISM / DVT SCD's used for VTE prophylaxis at time of admission. Developed dyspnea and tachycardia 5/. CTA demonstrated bilateral pulmonary emboli. Venous duplex of lower extremities demonstrated bilateral DVTs. Echocardiogram demonstrated RV strain and pulmonary hypertension. IV heparin chosen as initial anticoagulation due to anemia and other concerns. Had already been started on warfarin due to atrial fibrillation. Symptoms and oxygenation improved. INR day of discharge 2.8. Received 5 days of IV heparin, overlapping with warfarin. INR therapeutic x 2 consecutive days before IV heparin discontinued. Discharge on warfarin 5 mg daily, titrated to INR 2-3. Provoked VTE would usually require 3-6 months duration of anticoagulation, the patient has underlying atrial fibrillation requiring long-term anticoagulation. ATRIAL FIBRILLATION [id number] score = 7. Continue metoprolol for rate control. Continue warfarin long-term. HYPERTENSION Continue metoprolol and lisinopril. DM TYPE 2 Diet controlled. Hgb A1C 5.3. FBS day of discharge = 120. ANEMIA Hemoglobin at time of admission was 7.9. Probably postoperative anemia from recent hip surgery. Received 2 units of packed RBCs. Hemoglobin day of discharge 8.5. Fecal occult blood negative. Serum iron 21, transferrin 196, transferrin saturation 8%, ferritin 176. Start iron therapy. Follow H&H. VTE PROPHYLAXIS Initially managed with SCDs rather than anticoagulants in light of anemia. Now receiving IV heparin and warfarin. DISPOSITION Patient is very motivated to return home, but requires ongoing PT and OT before she will be able to do so. Arrangements being made for return to [facility] skilled care. Family Medicine follow-up with Dr. Radha Mirza. Ortho follow-up with Dr. Bonilla in 2 weeks. Cardiology follow-up with Dr. Jhaveri in 1 month. . Total time spent on discharge = 50 min. This includes examination of the patient, discharge planning, medication reconciliation, and communication with other providers. . Discharge Instructions Date of Service October 18, 2017. Admission Reason for Admission: dislocation right hip, atrial fibrillation with rapid ventricular response . Discharge Discharge Diagnosis / Problem: dislocation right hip, atrial fibrillation, pulmonary embolism, DVT Discharge Goals Goal(s): Decrease discomfort, Improve disease control Activity Recommendations Activity Level: Assistance Required Therapies: Physical Therapy, Occupational Therapy Weightbearing Status: Right toe touch (with abduction brace) . Additional Information Patient informed of condition: Yes Advance Directives: Yes DNR: No Level of Care: Skilled Communicable Disease: No Prognosis: Improving Oxygen at (LPM): PRN with exertion if O2 sats < 90% Rosas Catheter: No Instructions / Follow-Up Instructions / Follow-Up FOLLOW-UP APPOINTMENTS [facility]ED[facility] Please contact his office for a follow-up appointment in [address] Radha Mirza Please arrange for office appt within 1 week after discharge from your facility. CARDIOLOGY Dr. Jhaveri. His office will arrange for appointment. Thank you for receiving this patient in transfer. Please call if you have any questions. Mark Trevizolavonen . Current Hospital Diet Patient's current hospital diet: Diabetes Type 2 Diet Discharge Diet Recommended Diet: AHA Diet (Heart Healthy), Diabetes Type 2 Diet Procedures Procedures Performed: Right Closed Reduction Hip CTA chest venous duplex lower extremities echo Pending Studies Studies pending at discharge: no Physician Orders On Transfer Special Precautions: RIGHT HIP PRECAUTIONS toe-touch nonweightbearing RLE maintain abduction brace at all times, may remove for hygiene purposes only raised toilet seat SKIN PRECAUTIONS FALL PRECAUTIONS . Vital Signs: routine . Weigh: routine . Additional Orders: INR 3 times a week, then as clinically indicated titrate INR to 2-3 duration of anticoagulation long-term Please check CBC and basic metabolic profile weekly. . Laboratory Results Hemoglobin A1c Test 10/10/17 03:53 Range/Units Estimated Average Glucose 105 mg/dl Hemoglobin A1c 5.3 4.5-5.6 % Medical Emergencies . Who to Call and When: Medical Emergencies: If at any time you feel your situation is an emergency, please call 911 immediately. . Non-Emergent Contact Non-Emergency issues call your: Primary Care Provider, Disability Representative, Hospital Doctor, Surgeon (Orthopedics) . . "Provider Documentation" section prepared by Mark Chaidez. . Core Measure Problem Core Measures: VTE VTE Core Measures Date of VTE Diagnosis: October 14, 2017 Time of VTE Diagnosis: 12:10 Reason no anticoag overlap I/P: Treatment provided - N/A Reason no anticoag overlap @DC: Treatment not indicated . Additional Copies To Josh Jhaveri D.O.; Nam Bonilla D.O.; Radha Mirza D.O.
[2017-10-18 15:44] VITALS: BP 136/70; PULSE 89; TEMP 36.5; O2SAT 92
[2017-10-18 15:54] VITALS: BP 99/63; PULSE 89; TEMP 36.3; O2SAT 97
[2017-10-18] MEDS: WARFARIN SOD 5 MG TAB PO SCH (16:12)
[2017-10-18] MEDS: ACETAMINOPHEN 325 MG TAB PO PRN (16:12)
[2017-10-23] MEDS ORDERED: WARF5TAB7 PO ×2 (09:23)
[2017-10-23] MEDS ORDERED: DOCU100C31 PO (09:23)
[2017-10-31] MEDS ORDERED: ONDA4TAB46 PO (13:38)
== END 2017-10-18 17:04 | DRG 559 ==
LOC: C.ACU 13:28 → C.2E 17:09 → EDBEDREQSVC 17:10 → EDBEDREQTM 17:10 → EDBEDREQ 17:10 → ENRESERV 17:45 → C.MSICU 10-14 13:13 → C.2T 10-15 17:01
PROVIDERS: ADMIT Hospitalist; ATTEND Hospitalist
PROC: 0SW9XJZ Revision of Synthetic Substitute in Right Hip Joint, External Approach (ICD-10-PCS; principal; 2017-10-10 10:15)
DX: T84.020A Dislocation of internal right hip prosthesis, initial encounter (principal); I26.09 Other pulmonary embolism with acute cor pulmonale; D62 Acute posthemorrhagic anemia; I82.403 Acute embolism and thrombosis of unspecified deep veins of lower extremity, bilateral; I48.1 Persistent atrial fibrillation; Y79.2 Prosthetic and other implants, materials and accessory orthopedic devices associated with adverse incidents; I27.29 Other secondary pulmonary hypertension; I50.810 Right heart failure, unspecified; R00.0 Tachycardia, unspecified; I48.2 Chronic atrial fibrillation; R06.00 Dyspnea, unspecified; I11.0 Hypertensive heart disease with heart failure; R73.03 Prediabetes; K21.9 Gastro-esophageal reflux disease without esophagitis; I69.398 Other sequelae of cerebral infarction; H53.9 Unspecified visual disturbance; E66.9 Obesity, unspecified; Z68.34 Body mass index [BMI] 34.0-34.9, adult; Z96.643 Presence of artificial hip joint, bilateral; Z96.659 Presence of unspecified artificial knee joint; Z79.82 Long term (current) use of aspirin; Z79.899 Other long term (current) drug therapy; Z88.5 Allergy status to narcotic agent

== ENCOUNTER → 2017-10-21 | Outpatient (CLI) | payer OTHER ==
[~2017-10-21] MED LIST changes: +ASPI-428 PO; -ASPI325T60 PO; -BENZ10LO2; +CMD5 PO; -CPC LOZ; +DOCU100C31 PO; +FRRS300 PO; -GNTOPO OP; -LPR25 PO; +METO-551 PO; -RXC5 PO; +WARF5TAB7 PO
[2017-10-21 08:49] LABS: INR 1.6 (0.9-1.1)
[2017-10-21 08:54] LABS: BLOOD UREA NITROGEN 8 mg/dl (7-18); CALCIUM 8.1 mg/dl (8.5-10.1); CARBON DIOXIDE 27 mmol/L (21-32); CREATININE 0.81 mg/dl (0.60-1.20); GLUCOSE 82 mg/dl (70-99); POTASSIUM 3.9 mmol/L (3.5-5.1); SODIUM 143 mmol/L (136-145)
[2017-10-21 08:55] LABS: HEMATOCRIT 29.7 % (37-47); HEMOGLOBIN 8.8 g/dL (12.0-16.0); MEAN CELL VOLUME 89.2 fL (80-100); MEAN CORPUSCULAR HEMOGLOBIN 26.4 pg (25-34); MEAN CORPUSCULAR HGB CONC 29.6 g/dl (32-36); MEAN PLATELET VOLUME 9.4 fL (7.4-10.4); PLATELET COUNT 333 K/uL (130-400); RED CELL DISTRIBUTION WIDTH CV 17.9 % (11.5-14.5); RED CELL DISTRIBUTION WIDTH SD 57.9 fL (36.4-46.3); WHITE BLOOD COUNT 5.77 K/uL (4.8-10.8)
[2017-10-21 09:26] LABS: BASO % 0.2 %; BASO ABS # 0.01 K/uL (0-0.2); EOS % 4.2 %; EOS ABS # 0.24 K/uL (0-0.5); IG# 0.03 K/uL (0.00-0.02); LYMPH % 28.4 %; LYMPH ABS # 1.64 K/uL (1.2-3.4); MONO % 9.4 %; MONO ABS # 0.54 K/uL (0.11-0.59); NEUT % 57.3 %; NEUT ABS # 3.31 K/uL (1.4-6.5)
== END ==
LOC: C.LABCC 07:46
PROVIDERS: ATTEND Internal Medicine
DX: I48.91 Unspecified atrial fibrillation (principal); I26.99 Other pulmonary embolism without acute cor pulmonale; S73.006A Unspecified dislocation of unspecified hip, initial encounter; I82.409 Acute embolism and thrombosis of unspecified deep veins of unspecified lower extremity; X58.XXXA Exposure to other specified factors, initial encounter

== ENCOUNTER → 2017-10-28 | Outpatient (CLI) | payer OTHER ==
[~2017-10-28] MED LIST changes: -CMD5 PO; -SENNTAB23 PO
[2017-10-28 09:03] LABS: INR 2.4 (0.9-1.1)
== END ==
LOC: C.LABCC 08:34
PROVIDERS: ATTEND Internal Medicine
DX: I48.91 Unspecified atrial fibrillation (principal)

== ENCOUNTER → 2017-12-13 | Outpatient (CLI) | payer OTHER ==
[~2017-12-13] MED LIST changes: +ASPI81TA28 PO; -DLCS PR; +ERTA1INJ IV; -FLAX10007 PO; -GLUCTAB7 PO; -MOMLX PO; -MRLP17X PO; -OMEP20CA9 PO; +PANT1TAB3 PO; +PANT40TA PO; -SENN8.6T7 PO; -SODIENE6 PR
[2017-12-13 17:09] LABS: HEMATOCRIT 31.8 % (37-47); HEMOGLOBIN 9.7 g/dL (12.0-16.0); MEAN CELL VOLUME 85.3 fL (80-100); MEAN CORPUSCULAR HGB CONC 30.5 g/dl (32-36); MEAN PLATELET VOLUME 9.2 fL (7.4-10.4); PLATELET COUNT 492 K/uL (130-400); RED CELL DISTRIBUTION WIDTH SD 53.1 fL (36.4-46.3); WHITE BLOOD COUNT 7.32 K/uL (4.8-10.8)
[2017-12-13 17:25] LABS: ALBUMIN 2.7 gm/dl (3.4-5.0); ALKALINE PHOSPHATASE 217 U/L (45-117); ALT/SGPT 14 U/L (12-78); AST/SGOT 14 U/L (15-37); BLOOD UREA NITROGEN 7 mg/dl (7-18); CALCIUM 8.8 mg/dl (8.5-10.1); CARBON DIOXIDE 25 mmol/L (21-32); CREATININE 0.77 mg/dl (0.60-1.20); GLUCOSE 81 mg/dl (70-99); POTASSIUM 4.1 mmol/L (3.5-5.1); SODIUM 140 mmol/L (136-145); TOTAL PROTEIN 6.7 gm/dl (6.4-8.2)
== END | disposition home or self-care (01) ==
LOC: C.LABSPEC 14:48
PROVIDERS: ATTEND Internal Medicine Infectious Disease
DX: M96.842 Postprocedural seroma of a musculoskeletal structure following a musculoskeletal system procedure (principal)

== ENCOUNTER 2018-01-07 12:15 | Inpatient (IN) | payer OTHER ==
[~2018-01-07] VITALS: Ht 167.6 cm; Wt 85.0 kg
[~2018-01-07 12:15] MED LIST changes: -ASPI81TA28 PO; -PANT40TA PO
[2018-01-07] MEDS ORDERED: SODIUM CHLORIDE 0.9% 1000ML 1,000 ML IV STA (12:41)
[2018-01-07] MEDS ORDERED: OPTIRAY 320 IV PRN (12:45)
[2018-01-07] MEDS ORDERED: ASPI81TA28 PO (12:57)
[2018-01-07] MEDS ORDERED: PANT40TA PO (12:57)
--- NOTE | 2018-01-07 13:00 | DIAGNOSTIC IMAGING REPORT ---
CHEST ONE VIEW PORTABLE CLINICAL HISTORY: fever cough COMPARISON STUDY: 10/31/2017 FINDINGS: The bones soft tissues and hemidiaphragms are normal. The cardiomediastinal silhouette is normal. The lungs are clear. The pulmonary vasculature is normal. IMPRESSION: Negative chest. The above report was generated using voice recognition software. It may contain grammatical, syntax or spelling errors. Electronically signed by: Javier Erickson M.D. 01/07/2018 12:58 PM Dictated Date/Time: 01/07/2018 12:58 PM
[2018-01-07 14:00] LABS: BASO % 0.1 %; BASO ABS # 0.01 K/uL (0-0.2); EOS % 0.4 %; EOS ABS # 0.05 K/uL (0-0.5); HEMATOCRIT 32.5 % (37-47); HEMOGLOBIN 10.1 g/dL (12.0-16.0); IG# 0.05 K/uL (0.00-0.02); LYMPH ABS # 1.82 K/uL (1.2-3.4); MEAN CELL VOLUME 79.7 fL (80-100); MEAN CORPUSCULAR HEMOGLOBIN 24.8 pg (25-34); MEAN CORPUSCULAR HGB CONC 31.1 g/dl (32-36); MEAN PLATELET VOLUME 8.9 fL (7.4-10.4); MONO % 8.8 %; NEUT % 74.3 %; NEUT ABS # 8.46 K/uL (1.4-6.5); PLATELET COUNT 557 K/uL (130-400); RED CELL DISTRIBUTION WIDTH CV 16.9 % (11.5-14.5); RED CELL DISTRIBUTION WIDTH SD 49.3 fL (36.4-46.3); WHITE BLOOD COUNT 11.39 K/uL (4.8-10.8)
[2018-01-07] MEDS ORDERED: DILTIAZEM BOLUS / DRIP IV STA ×2 (14:09→16:39)
[2018-01-07] MEDS ORDERED: DILTIAZEM HCL 5 MG/ML 5 ML VIAL BOLUS/OMNI IV SCH (14:15)
[2018-01-07] MEDS ORDERED: DILTIAZEM HCL INJ 125 MG in DEXTROSE 5% 100ML IV PRN ×2 (14:15→17:00)
[2018-01-07 14:21] LABS: INR 7.4 (0.9-1.1)
[2018-01-07 14:22] LABS: ALBUMIN 2.7 gm/dl (3.4-5.0); ALKALINE PHOSPHATASE 187 U/L (45-117); ALT/SGPT 13 U/L (12-78); AST/SGOT 12 U/L (15-37); BLOOD UREA NITROGEN 10 mg/dl (7-18); CALCIUM 9.6 mg/dl (8.5-10.1); CARBON DIOXIDE 25 mmol/L (21-32); CKMB < 1.0 ng/ml (0.5-3.6); GLUCOSE 100 mg/dl (70-99); POTASSIUM 3.6 mmol/L (3.5-5.1); SODIUM 135 mmol/L (136-145); TOTAL PROTEIN 7.4 gm/dl (6.4-8.2)
[2018-01-07 14:27] LABS: ISTAT CREATININE 0.8 mg/dl (0.6-1.3); ISTAT IONIZED CALCIUM 1.11 mmol/l (1.12-1.32); ISTAT POTASSIUM 3.7 mEq/L (3.3-5.0)
--- NOTE | 2018-01-07 14:54 | DIAGNOSTIC IMAGING REPORT ---
R HIP-LOWER EXTREMITY WITH CLINICAL HISTORY: previous infection with fevers TECHNIQUE: Transaxial acquisition with multi axial reformatted images COMPARISON STUDY: Ultrasound 11/10/2017. CT 11/10/2017. FINDINGS: Subcutaneous complex fluid pocket with a well-circumscribed right lateral to the right hip and proximal right femur. This measures 7 x 3.5 x 13 cm. Diagnostic considerations include hematoma versus abscess. Medially lateral to the patient's longstem right hip prosthetic is a deeper complex fluid pocket measuring 3.5 x 4.0 cm. This is immediately lateral to the mid femoral prosthetic. Metallic artifact from the patient's prosthetic appears detail. IMPRESSION: 1. 2 collections lateral to the right hip prosthetic as described. 2. The largest measures 7 x 3.5 x 13 cm and is within the subcutaneous fat. 3. The deeper collection measures 3.5 x 4.0 cm and is immediately lateral to the longstem femoral prosthetic. 4. Diagnostic considerations at both sites include abscess versus hematoma. The above report was generated using voice recognition software. It may contain grammatical, syntax or spelling errors. Electronically signed by: Javier Erickson M.D. 01/07/2018 2:53 PM Dictated Date/Time: 01/07/2018 2:47 PM
[2018-01-07] MEDS ORDERED: HYDROmorphone INJ 0.5 MG/0.5 ML SYR IV STA (15:31)
[2018-01-07] MEDS ORDERED: ACETAMINOPHEN 325 MG TAB PO PRN (16:45)
[2018-01-07] MEDS ORDERED: ONDANSETRON INJ 2 MG/ML 2 ML VIAL IV PRN ×2 (16:45→18:00)
--- NOTE | 2018-01-07 16:51 | History and Physical ---
History & Physical Date & Time of Service: Jan 07, 2018 at 16:51 Chief Complaint: Infection In R Hip Incision Primary Care Physician: Radha Mirza D.O. History of Present Illness Source: patient, clinic records, hospital records Patient is a 77 yo F with PMH paroxysmal atrial fibrillation (on Coumadin), R hip ORIF in September complicated by dislocation and infectious seroma s/p washout, recent bilateral DVT and PE, HTN, DM II (diet controlled) and other medical problems listed below who presents with intermittent fever and worsening hip pain 2 weeks. Patient has had multiple complications since initial right hip surgery in September, including a hospitalization in early October for dislocation of prosthesis as well as A. fib with RVR, bilateral DVTs and PE and cor pulmonale. Was discharged on Coumadin and returned to [facility] rehab. Was seen by Dr. Bonilla later in October and was direct admitted for washout of infected surgical site seroma of right hip. Blood cultures grew Corynebacterium and Enterobacter and patient was treated with ertapenem by midline. Was discharged home at the beginning of November with home health and antibiotics by [facility], which were completed on December 30. Patient states that she has been experiencing intermittent fever and chills for the past two weeks, with most recent fever of 100.3F yesterday. Has also been experiencing worsening pressure and pain in her right hip with any type of ambulation or when turning onto her right side. This morning, patient was ambulating by walker to bathroom she noticed a small amount of yellow drainage from surgical wound. Endorses fatigue, generalized weakness and right lower extremity swelling (unchanged since September surgery). Denies bloody output from surgical site or numbness/paresthesias of RLE. When evaluated in the ED, patient was found to be in A. fib with RVR with a heart rate ~122. Has experienced this on previous admissions and is always asymptomatic. Denies any lightheadedness, visual changes, palpitations or chest pain. States that she has been taking her beta-lia normally except for missing today's dose. Has been taking Coumadin regularly. INR is supratherapeutic at 7.4. Denies any blood present in urine or stool. Past Medical/Surgical History Medical Problems: (1) Atrial fibrillation Permanent Comment: on coumadin Status: Chronic (2) Carotid arterial disease Status: Chronic (3) Cerebrovascular disease Permanent Comment: s/p CVA Status: Chronic (4) Closed right hip fracture Permanent Comment: Status: Resolved (5) Diabetes mellitus, type 2 Status: Chronic (6) Dyslipidemia Status: Chronic (7) Failed total hip arthroplasty with dislocation Status: Resolved (8) Femur fracture, left Status: Resolved (9) GERD (gastroesophageal reflux disease) Status: Chronic (10) Hypertension Nos Status: Chronic (11) Osteoarthritis Status: Chronic (12) Post op infection Permanent Comment: infected seroma following R hip ORIF Status: Resolved Surgical Problems: (1) History of total adrenalectomy Permanent Comment: 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, "low grade malignancy" Status: Resolved (2) Knee Joint Replacement Status Status: Resolved (3) Presence of both artificial hip joints Status: Resolved (4) Status post carotid endarterectomy Status: Resolved (5) Status post ORIF right hip Permanent Comment: right periprosthetic hip fracture, ORIF 09/21/17 Status: Resolved Family History FH: colon cancer FH: lung cancer Stroke Social History Smoking Status: Never Smoker Drug Use: none Marital Status: Housing status: lives with significant other Occupational Status: retired Immunizations History of Influenza Vaccine: Yes Influenza Vaccine Date: Apr 18, 2012 History of Tetanus Vaccine?: Yes History of Pneumococcal: Yes History of Hepatitis B Vaccine: No Allergies Coded Allergies: Phytonadione (Verified Allergy, Unknown, IV FORMULATION - SOB, HTN, FLUSHING, 01/07/18) Morphine (Verified Adverse Reaction, Mild, N/V, 01/07/18) Had morphine and zofran and did not get sick Propoxyphene (Verified Adverse Reaction, Mild, N/V, 01/07/18) Home Medications Scheduled Aspirin (Aspirin Ec), 81 MG PO DAILY Docusate Sodium (Docusate Sodium), 100 MG PO DAILY Metoprolol Tartrate (Lopressor), 50 MG PO BID Pantoprazole (Protonix), 40 MG PO DAILY Warfarin Sod (Jantoven), 5 MG PO DAILY Scheduled PRN Acetaminophen (Mapap), 650 MG PO Q6H PRN for For mild pain (pain scale 1-3) Review of Systems Ten systems reviewed and negative except as noted in the HPI. Physical Exam Vital Signs Date Time Temp Pulse Resp B/P (MAP) Pulse Ox O2 Delivery O2 Flow Rate FiO2 01/07/18 16:31 145/69 01/07/18 16:31 106 01/07/18 16:21 110 21 89 01/07/18 16:16 164/121 01/07/18 16:06 111 21 97 01/07/18 16:01 173/105 01/07/18 16:00 109 18 93 01/07/18 15:46 150/75 01/07/18 15:45 107 10 96 01/07/18 15:31 152/76 01/07/18 15:30 105 11 97 01/07/18 15:16 105 15 124/89 97 Room Air 01/07/18 15:16 124/89 01/07/18 15:15 121 26 97 01/07/18 15:12 129/91 01/07/18 15:00 114 15 01/07/18 14:55 102 16 153/91 95 Room Air 01/07/18 14:54 153/91 01/07/18 14:20 114 01/07/18 14:15 111 13 01/07/18 14:09 121 16 161/114 01/07/18 14:07 161/114 01/07/18 12:16 36.6 122 20 144/78 100 Room Air General Appearance: WD/WN, + mild distress (anxious ) Head: normocephalic, atraumatic Eyes: normal inspection, PERRL, sclerae normal ENT: normal ENT inspection, hearing grossly normal, pharynx normal (moist mucous membranes ) Neck: supple, thyroid normal, trachea midline Respiratory/Chest: chest non-tender, lungs clear, normal breath sounds, no respiratory distress, no accessory muscle use Cardiovascular: no edema, + tachycardia Abdomen/GI: non tender, soft, no organomegaly Extremities/Musculoskelatal: normal inspection, no calf tenderness, normal capillary refill, + swelling (RLE with non-pitting edema ), + pertinent finding (R lateral thigh incision with small amount of light yellow drainage. Mild tenderness to palpation.) Neurologic/Psych: newswriter II-XII nml as tested, no motor/sensory deficits, alert, oriented x 3 Skin: normal color, warm/dry, no rash Diagnostics Laboratory Results Results Past 24 Hours Test 01/07/18 13:45 01/07/18 13:56 01/07/18 14:15 Range/Units White Blood Count 11.39 4.8-10.8 K/uL Red Blood Count 4.08 4.2-5.4 M/uL Hemoglobin 10.1 12.0-16.0 g/dL Hematocrit 32.5 37-47 % Mean Corpuscular Volume 79.7 80-100 fL Mean Corpuscular Hemoglobin 24.8 25-34 pg Mean Corpuscular Hemoglobin Concent 31.1 32-36 g/dl Platelet Count 557 130-400 K/uL Mean Platelet Volume 8.9 7.4-10.4 fL Neutrophils (%) (Auto) 74.3 % Lymphocytes (%) (Auto) 16.0 % Monocytes (%) (Auto) 8.8 % Eosinophils (%) (Auto) 0.4 % Basophils (%) (Auto) 0.1 % Neutrophils # (Auto) 8.46 1.4-6.5 K/uL Lymphocytes # (Auto) 1.82 1.2-3.4 K/uL Monocytes # (Auto) 1.00 0.11-0.59 K/uL Eosinophils # (Auto) 0.05 0-0.5 K/uL Basophils # (Auto) 0.01 0-0.2 K/uL RDW Standard Deviation 49.3 36.4-46.3 fL RDW Coefficient of Variation 16.9 11.5-14.5 % Immature Granulocyte % (Auto) 0.4 % Immature Granulocyte # (Auto) 0.05 0.00-0.02 K/uL Prothrombin Time 75.0 9.0-12.0 SECONDS Prothromb Time International Ratio 7.4 0.9-1.1 Sodium Level 135 136-145 mmol/L Potassium Level 3.6 3.5-5.1 mmol/L Chloride Level 103 98-107 mmol/L Carbon Dioxide Level 25 21-32 mmol/L Anion Gap 8.0 16.0 16-25 mmol/L Blood Urea Nitrogen 10 7-18 mg/dl Creatinine 0.80 0.60-1.20 mg/dl Estimated GFR () 81.3 Estimated GFR (Non- 70.1 BUN/Creatinine Ratio 12.0 10-20 Random Glucose 100 70-99 mg/dl Calcium Level 9.6 8.5-10.1 mg/dl Magnesium Level 2.1 1.8-2.4 mg/dl Total Bilirubin 0.4 0.2-1 mg/dl Direct Bilirubin 0.2 0-0.2 mg/dl Aspartate Amino Transf (AST/SGOT) 12 15-37 U/L Alanine Aminotransferase (ALT/SGPT) 13 12-78 U/L Alkaline Phosphatase 187 45-117 U/L Total Creatine Kinase 14 26-192 U/L Creatine Kinase MB < 1.0 0.5-3.6 ng/ml Creatine Kinase MB Ratio 0-3.0 Troponin I < 0.015 0-0.045 ng/ml Total Protein 7.4 6.4-8.2 gm/dl Albumin 2.7 3.4-5.0 gm/dl Bedside Lactic Acid Venous 1.21 0.90-1.70 mmol/L Bedside Hemoglobin 8.2 12.0-16.0 g/dl Bedside Hematocrit 24 37-47 % Bedside Sodium 138 135-144 mEq/L Bedside Potassium 3.7 3.3-5.0 mEq/L Bedside Chloride 103 101-112 mEq/L Bedside Total CO2 24 24-31 mEq/l Bedside Blood Urea Nitrogen 8 7-18 mg/dl Bedside Creatinine 0.8 0.6-1.3 mg/dl Bedside Glucose (other) 104 70-99 mg/dl Bedside Ionized Calcium (Chris) 1.11 1.12-1.32 mmol/l Microbiology Results 01/07/18 Blood Culture, Received Pending 01/07/18 Blood Culture, Received Pending Diagnostic Radiology CXR: IMPRESSION: Negative chest. Hip CT: IMPRESSION: 1. 2 collections lateral to the right hip prosthetic as described. 2. The largest measures 7 x 3.5 x 13 cm and is within the subcutaneous fat. 3. The deeper collection measures 3.5 x 4.0 cm and is immediately lateral to the longstem femoral prosthetic. 4. Diagnostic considerations at both sites include abscess versus hematoma. EKG Atrial fibrillation with rapid ventricular response at 116. Septal infarct , age undetermined Impression Assessment and Plan Patient is a 77 yo F with PMH paroxysmal atrial fibrillation (on Coumadin), R hip ORIF in September complicated by dislocation and infectious seroma s/p washout, recent bilateral DVT and PE, HTN, DM II (diet controlled) and other medical problems listed below who presents with intermittent fever and worsening hip pain 2 weeks. Post-op R hip abscess vs. hematoma -CT R hip with 2 collections lateral to the right hip prosthetic -Complicated post-op course following R hip ORIF following fracture in September 2017 -Recently completed IV ertapenem by midline on 12/30/17 for infected surgical site seroma -Grew corynebacterium and Enterobacter previously -Fever, chills, increased surgical site pain -Leukocytosis of 11.39. Lactic acid WNL -Consulted ID -Start vanc and zosyn empirically -Follow blood cultures -Consulted ortho -Recommend IV abx for now -Possible washout vs. hardware removal later this week Supratherapeutic INR -INR of 7.4 -Given 2.5mg IV Vit K (careful observation in setting due to previous reaction) -Hold coumadin -Monitor A Fib with RVR -H/o paroxysmal A fib in setting of infection -HR ~120s initially -Given cardizem bolus and drip in ED, HR decreased to ~105 -Continue cardizem drip, resume home dose lopressor -Has been anticoagulated on coumadin-- INR of 7.4 -Hold coumadin and trend INR -Monitor on telemetry -Cardio consulted Recent bilateral DVT and PE -Post operatively -Has been on coumadin -Hold in setting of supratherapeutic INR -Oxygen saturation normal on room air, no SOB HTN -Mildly hypertensive in setting of pain, anxiety -On diltiazem drip. Continue lisinopril, metoprolol DM II (diet controlled) -A1c of 5.3 on 10/10/17 -Monitor BSG -Diabetic diet Anemia -Has required transfusion of prbcs on recent admission -Hgb stable at 10.3 now (above baseline) -Monitor Hgb & hct DVT Ppx: Holding coumadin in setting of supratherapeutic INR Code status: FULL per discussion of patient PCP: Hermes Dispo: Admit to telemetry. Discharge planning ordered. Patient seen in collaboration with Dr. Hsu. Please see addendum. Dr. Hsu Attending Addendum: I have seen and assessed the patient and agree with the assessment and plan as above with WALLACE Banks and would like to comment that the patient has IVC filter for recent DVT/PE Comes in to hospital with atrial fibrillation with RVR with supratherapeutic INR over 7. Coumadin held and IV vitamin K 2.5 mg given On diltiazem drip and resumption of home dose beta lia for heart rate Patient empirically started on IV Zosyn and Vancomycin in case of infection from fluid collection of right hip Orthopedics may do open incision and drainage by tomorrow if INR is lowered sufficiently. Trend CBC.get type and screen. NPO after midnight for possible procedure Physical Exam General: no acute distress Lungs: clear to auscultation Heart: irregular rhythm, tachycardia improving Abdomen: soft, nontender, bowel sounds present Extremities: right thigh warmer than left thigh, no obvious oozing of fluid from right thigh Resuscitation Status VTE Prophylaxis Will order VTE Prophylaxis: Yes
[2018-01-07 16:59] VITALS: O2SAT 92
[2018-01-07] MEDS ORDERED: PIPERACILL/TAZOBAC CONSULT ACTIVE PRN (17:03)
[2018-01-07] MEDS ORDERED: VANCOMYCIN CONSULT ACTIVE PRN (17:15)
[2018-01-07] MEDS ORDERED: PATIENT'S HEIGHT AND/OR WEIGHT NEEDED SCH (17:45)
[2018-01-07] MEDS ORDERED: VANCOMYCIN IV 2,500 MG in SODIUM CHLORIDE 0.9% 500ML 500 ML IV ONE (17:45)
[2018-01-07] MEDS ORDERED: PIPERACILL/TAZOBAC IV 3.375 GM in D5W 100 ML IV ONE (17:45)
[2018-01-07] MEDS ORDERED: METOPROLOL TARTRATE 50 MG TAB PO ONE (18:00)
[2018-01-07] MEDS ORDERED: PHYTONADIONE INJ 2.5 MG in SODIUM CHLORIDE 0.9% 50ML 50 ML IV ONE (18:00)
[2018-01-07 18:18] VITALS: BP 146/82; PULSE 93; TEMP 36.7; Ht 167.6 cm; Wt 85.0 kg
[2018-01-07 19:06] VITALS: BP 145/72; PULSE 105; TEMP 36.6; O2SAT 98
--- NOTE | 2018-01-07 19:14 | EMERGENCY ROOM VISIT NOTE ---
History Report prepared by Parth: Hermila Wills Under the Supervision of: Dr. Mauro Kauffman D.O. First contact with patient: 12:35 Chief Complaint: HIP PAIN Stated Complaint: INFECTION IN R HIP INCISION History of Present Illness The patient is a 77 year old female who presents to the Emergency Room with complaints of right hip pain beginning this morning. The patient states that a fluid ran down her right leg when she got up to go to the bathroom this morning. She reports that movement exacerbates her hip pain. The patient states that she [place] [facility] [place] and that her hip has been flushed out twice since her surgery. She states that she has also been on antibiotics. The patient states that over the last 2-3 weeks she has had constant fevers. She reports that over the last week she has been febrile at 101 and 102. She reports that 102 is the highest fever that she has had. The patient reports a history of atrial fibrillation and states that she takes Warfarin. Source of History: patient Onset: this morning Position: other (right hip) Quality: other (pain) Modifying Factors (Worsening): movement Associated Symptoms: + fevers Review of Systems See HPI for pertinent positives & negatives. A total of 10 systems reviewed and were otherwise negative. 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 (8) Femur fracture, left (9) GERD (gastroesophageal reflux disease) (10) Hypertension Nos (11) Osteoarthritis (12) Post op infection Surgical Problems: (1) History of total adrenalectomy (2) Knee Joint Replacement Status (3) Presence of both artificial hip joints (4) Status post carotid endarterectomy (5) Status post ORIF right hip Family History FH: colon cancer FH: lung cancer Stroke Social History Smoking Status: Never Smoker Alcohol Use: occasionally Drug Use: none Marital Status: Housing Status: lives with significant other Occupation Status: retired Current/Historical Medications Scheduled Aspirin (Aspirin Ec), 81 MG PO DAILY Docusate Sodium (Docusate Sodium), 100 MG PO DAILY Metoprolol Tartrate (Lopressor), 50 MG PO BID Pantoprazole (Protonix), 40 MG PO DAILY Warfarin Sod (Jantoven), 5 MG PO DAILY Scheduled PRN Acetaminophen (Mapap), 650 MG PO Q6H PRN for For mild pain (pain scale 1-3) Allergies Coded Allergies: Phytonadione (Verified Allergy, Unknown, IV FORMULATION - SOB, HTN, FLUSHING, 01/07/18) Morphine (Verified Adverse Reaction, Mild, N/V, 01/07/18) Had morphine and zofran and did not get sick Propoxyphene (Verified Adverse Reaction, Mild, N/V, 01/07/18) Physical Exam Vital Signs Date Time Temp Pulse Resp B/P (MAP) Pulse Ox O2 Delivery O2 Flow Rate FiO2 01/07/18 16:21 110 21 89 01/07/18 16:16 164/121 01/07/18 16:06 111 21 97 01/07/18 16:01 173/105 01/07/18 16:00 109 18 93 01/07/18 15:46 150/75 01/07/18 15:45 107 10 96 01/07/18 15:31 152/76 01/07/18 15:30 105 11 97 01/07/18 15:16 105 15 124/89 97 Room Air 01/07/18 15:16 124/89 01/07/18 15:15 121 26 97 01/07/18 15:12 129/91 01/07/18 15:00 114 15 01/07/18 14:55 102 16 153/91 95 Room Air 01/07/18 14:54 153/91 01/07/18 14:20 114 01/07/18 14:15 111 13 01/07/18 14:09 121 16 161/114 01/07/18 14:07 161/114 01/07/18 12:16 36.6 122 20 144/78 100 Room Air Physical Exam GENERAL: Laying in bed, alert, disheveled, chronically ill-appearing, well nourished, minimal distress, non-toxic EYE EXAM: normal conjunctiva. PERRL and EOM's grossly intact OROPHARYNX: no exudate, no erythema, lips, buccal mucosa, and tongue normal and mucous membranes are moist NECK: supple, no nuchal rigidity, no adenopathy, non-tender LUNGS: Clear to auscultation. Normal chest wall mechanics HEART: tachycardic and irregularly irregular ABDOMEN: abdomen soft, non-tender, normo-active bowel sounds, no masses, no rebound or guarding. BACK: Back is symmetrical on inspection and there is no deformity, no midline tenderness, no CVA tenderness. SKIN: no rashes and no bruising UPPER EXTREMITIES: upper extremities are grossly normal. LOWER EXTREMITIES: No pitting edema. Right hip has a lateral incision that is clean, dry, and intact. Mild clear discharge from the inferior aspect. Moderate pain with range of motion of the right hip. Calves are equal bilaterally. NEURO EXAM: Normal sensorium, cranial nerves II-XII grossly intact, normal speech, no gross weakness of arms. Gross sensation intact. Medical Decision & Procedures ER Provider Diagnostic Interpretation: Radiology results as stated below per my review and the radiologist's interpretation: CHEST ONE VIEW PORTABLE CLINICAL HISTORY: fever cough COMPARISON STUDY: 10/31/2017 FINDINGS: The bones soft tissues and hemidiaphragms are normal. The cardiomediastinal silhouette is normal. The lungs are clear. The pulmonary vasculature is normal. IMPRESSION: Negative chest. The above report was generated using voice recognition software. It may contain grammatical, syntax or spelling errors. Electronically signed by: Javier Erickson M.D. 01/07/2018 12:58 PM Dictated Date/Time: 01/07/2018 12:58 PM R HIP-LOWER EXTREMITY WITH CLINICAL HISTORY: previous infection with fevers TECHNIQUE: Transaxial acquisition with multi axial reformatted images COMPARISON STUDY: Ultrasound 11/10/2017. CT 11/10/2017. FINDINGS: Subcutaneous complex fluid pocket with a well-circumscribed right lateral to the right hip and proximal right femur. This measures 7 x 3.5 x 13 cm. Diagnostic considerations include hematoma versus abscess. Medially lateral to the patient's longstem right hip prosthetic is a deeper complex fluid pocket measuring 3.5 x 4.0 cm. This is immediately lateral to the mid femoral prosthetic. Metallic artifact from the patient's prosthetic appears detail. IMPRESSION: 1. 2 collections lateral to the right hip prosthetic as described. 2. The largest measures 7 x 3.5 x 13 cm and is within the subcutaneous fat. 3. The deeper collection measures 3.5 x 4.0 cm and is immediately lateral to the longstem femoral prosthetic. 4. Diagnostic considerations at both sites include abscess versus hematoma. The above report was generated using voice recognition software. It may contain grammatical, syntax or spelling errors. Electronically signed by: Javier Erickson M.D. 01/07/2018 2:53 PM Dictated Date/Time: 01/07/2018 2:47 PM Laboratory Results 01/07/18 13:45 Red Blood Count 4.08, Mean Corpuscular Volume 79.7, Mean Corpuscular Hemoglobin 24.8, Mean Corpuscular Hemoglobin Concent 31.1, Mean Platelet Volume 8.9, Neutrophils (%) (Auto) 74.3, Lymphocytes (%) (Auto) 16.0, Monocytes (%) (Auto) 8.8, Eosinophils (%) (Auto) 0.4, Basophils (%) (Auto) 0.1, Neutrophils # (Auto) 8.46, Lymphocytes # (Auto) 1.82, Monocytes # (Auto) 1.00, Eosinophils # (Auto) 0.05, Basophils # (Auto) 0.01 01/07/18 13:45 Test 01/07/18 13:45 01/07/18 13:56 01/07/18 14:15 White Blood Count 11.39 K/uL (4.8-10.8) Red Blood Count 4.08 M/uL (4.2-5.4) Hemoglobin 10.1 g/dL (12.0-16.0) Hematocrit 32.5 % (37-47) Mean Corpuscular Volume 79.7 fL (80-100) Mean Corpuscular Hemoglobin 24.8 pg (25-34) Mean Corpuscular Hemoglobin Concent 31.1 g/dl (32-36) Platelet Count 557 K/uL (130-400) Mean Platelet Volume 8.9 fL (7.4-10.4) Neutrophils (%) (Auto) 74.3 % Lymphocytes (%) (Auto) 16.0 % Monocytes (%) (Auto) 8.8 % Eosinophils (%) (Auto) 0.4 % Basophils (%) (Auto) 0.1 % Neutrophils # (Auto) 8.46 K/uL (1.4-6.5) Lymphocytes # (Auto) 1.82 K/uL (1.2-3.4) Monocytes # (Auto) 1.00 K/uL (0.11-0.59) Eosinophils # (Auto) 0.05 K/uL (0-0.5) Basophils # (Auto) 0.01 K/uL (0-0.2) RDW Standard Deviation 49.3 fL (36.4-46.3) RDW Coefficient of Variation 16.9 % (11.5-14.5) Immature Granulocyte % (Auto) 0.4 % Immature Granulocyte # (Auto) 0.05 K/uL (0.00-0.02) Prothrombin Time 75.0 SECONDS (9.0-12.0) Prothromb Time International Ratio 7.4 (0.9-1.1) Estimated GFR () 81.3 Estimated GFR (Non- 70.1 BUN/Creatinine Ratio 12.0 (10-20) Calcium Level 9.6 mg/dl (8.5-10.1) Magnesium Level 2.1 mg/dl (1.8-2.4) Total Bilirubin 0.4 mg/dl (0.2-1) Direct Bilirubin 0.2 mg/dl (0-0.2) Aspartate Amino Transf (AST/SGOT) 12 U/L (15-37) Alanine Aminotransferase (ALT/SGPT) 13 U/L (12-78) Alkaline Phosphatase 187 U/L (45-117) Total Creatine Kinase 14 U/L (26-192) Creatine Kinase MB < 1.0 ng/ml (0.5-3.6) Creatine Kinase MB Ratio (0-3.0) Troponin I < 0.015 ng/ml (0-0.045) Total Protein 7.4 gm/dl (6.4-8.2) Albumin 2.7 gm/dl (3.4-5.0) Bedside Lactic Acid Venous 1.21 mmol/L (0.90-1.70) Bedside Hemoglobin 8.2 g/dl (12.0-16.0) Bedside Hematocrit 24 % (37-47) Bedside Sodium 138 mEq/L (135-144) Bedside Potassium 3.7 mEq/L (3.3-5.0) Bedside Chloride 103 mEq/L (101-112) Bedside Total CO2 24 mEq/l (24-31) Anion Gap 16.0 mmol/L (16-25) Bedside Blood Urea Nitrogen 8 mg/dl (7-18) Bedside Creatinine 0.8 mg/dl (0.6-1.3) Bedside Glucose (other) 104 mg/dl (70-99) Bedside Ionized Calcium (Chris) 1.11 mmol/l (1.12-1.32) Laboratory results per my review. Medications Administered Medications (Trade) Dose Ordered Sig/Beatriz Route Start Time Stop Time Status Last Admin Dose Admin Sodium Chloride 1,000 ml @ 999 mls/hr Q1H1M STAT IV 01/07/18 12:41 01/07/18 13:41 DC 01/07/18 15:15 999 MLS/HR Diltiazem HCl (Cardizem Inj) 10 mg TODAY@1415 IV 01/07/18 14:15 01/07/18 14:16 DC 01/07/18 15:13 10 MG Diltiazem HCl 125 mg/Dextrose 125 ml @ 0 mls/hr Q0M PRN IV 01/07/18 14:15 01/07/18 17:00 DC 01/07/18 15:12 5 MLS/HR Hydromorphone HCl (Dilaudid Inj) 0.5 mg NOW STAT IV 01/07/18 15:31 01/07/18 15:32 DC 01/07/18 15:51 0.5 MG ECG Per My Interpretation Indication: other (afib with RVR) Rate (beats per minute): 116 Rhythm: atrial fibrillation (with RVR) Findings: Q waves (Septal) ED Course ED COURSE: Vital signs were reviewed and showed tachycardia The patients medical record was reviewed The above diagnostic studies were performed and reviewed. ED treatments and interventions as stated above. 1236: The patient was evaluated in room B4B. A complete history and physical examination was performed. 1241: Ordered Sodium Chloride 1000 ml @ 999 mls/hr IV. 1330: The patient requested the nurse to place her on a monitor and also requested that an ECG be done. 1415: Ordered Diltiazem HCl 125 mg/Dextrose 125 ml @ 0 mls/hr Protocol IV, Cardizem HCl 10 mg IV. 1531: Ordered Dilaudid Inj 0.5 mg IV. 1533: I updated the patient. 1537: Upon reevaluation, the patient is resting. I discussed my findings with the patient and she understands and agrees with the treatment plan. The patient will further be evaluated by Ria Banks PA-C. 1605: I reviewed the patient's case with Dr. Jean Baptiste who said that the patient will likely need a wash out and to hold off on antibiotics. He also said to admit the patient to medicine. Medical Decision Differential diagnosis includes etiologies such as sepsis, UTI, pneumonia, metabolic, electrolyte abnormalities, cardiac sources, intracerebral event, toxicologic, neurologic, as well as others were entertained. Patient is a 77-year-old female with extensive history of right hip infection. She notes she recently stopped antibiotics and has been having fevers over the past 2 weeks. She has a yesterday she had a fever of 102. Upon presentation she is found to be in A. fib with RVR. Points of severe right hip pain. There is mild clear discharge/drainage on palpation. CT of the hip shows 2 large fluid collections. Discussed with orthopedics. They do note that she most likely needs a washout as she has had 2 before in the past. Patient was placed on a Cardizem drip and given a bolus. Heart rate trended down. INR was supratherapeutic at 7. Will not reverse at this time. Updated internal medicine and patient. Patient was admitted for further workup. Will hold on antibiotics per orthopedics. Medication Reconcilliation Current Medication List: was personally reviewed by me Blood Pressure Screening Patient's blood pressure: Normal blood pressure Consults Time Called: 1510 Consulting Physician: Ria Brunson Returned Call: [phone] I reviewed the patient's case with Ria Banks PA-C. She will evaluate the patient for further management. Additional Consults: Time Called: 1540 Consulted Physician: Dr. Jean Baptiste- [facility] [place] Returned Call: [phone] Additional Comments: I reviewed the patient's case with Dr. Jean Baptiste who said that the patient will likely need a wash out and to hold off on antibiotics. He also said to admit the patient to medicine. Impression Primary Impression: Atrial fibrillation with RVR Additional Impressions: Post op infection Supratherapeutic INR Critical Care I have personally spent 35 minutes of critical care time in the direct management of this patient. This includes bedside care, interpretation of diagnostic studies, and testing, discussion with consultants, patient, and family members, and other required patient management activities. This 35 minutes is in excess of all separately billable procedures. Scribe Attestation The scribe's documentation has been prepared under my direction and personally reviewed by me in its entirety. I confirm that the note above accurately reflects all work, treatment, procedures, and medical decision making performed by me. Departure Information Dispostion Being Evaluated By Hospitalist Referrals Radha Mirza D.O. (PCP) Patient Instructions [facility] Problem Qualifiers
--- NOTE | 2018-01-07 19:54 | Pharmacy Progress Note ---
Pharmacy Abx Initial Consult Date of Service Jan 07, 2018. Pharmacy Dosing Scope Date of Consult: 01/07/18 Consultation requested by: Ria Banks PA-C Pharmacy is consulted to initiate vancomycin and Zosyn IV dosing therapy, order appropriate labs and adjust drug dose/frequency. Subjective The patient is a 77 year old female admitted on Jan 07, 2018 at 16:23. Objective Height (Feet): 5 Height (Inches): 6.00 Weight (Kilograms): 84.400 Vital Signs (Past 12Hrs) Vital Signs Past 12 Hours Date Time Temp Pulse Resp B/P (MAP) Pulse Ox O2 Delivery O2 Flow Rate FiO2 01/07/18 19:06 36.6 105 18 145/72 (96) 98 01/07/18 18:18 36.7 93 18 146/82 Room Air 01/07/18 16:59 101 18 92 Room Air 01/07/18 16:55 36.6 106 21 145/69 95 01/07/18 16:31 145/69 01/07/18 16:31 106 01/07/18 16:21 110 21 89 01/07/18 16:16 164/121 01/07/18 16:06 111 21 97 01/07/18 16:01 173/105 01/07/18 16:00 109 18 93 01/07/18 15:46 150/75 01/07/18 15:45 107 10 96 01/07/18 15:31 152/76 01/07/18 15:30 105 11 97 01/07/18 15:16 105 15 124/89 97 Room Air 01/07/18 15:16 124/89 01/07/18 15:15 121 26 97 01/07/18 15:12 129/91 01/07/18 15:00 114 15 01/07/18 14:55 102 16 153/91 95 Room Air 01/07/18 14:54 153/91 01/07/18 14:20 114 01/07/18 14:15 111 13 01/07/18 14:09 121 16 161/114 01/07/18 14:07 161/114 01/07/18 12:16 36.6 122 20 144/78 100 Room Air Lab Results (24Hrs) Laboratory Tests (24 Hours) Test 01/07/18 13:45 White Blood Count 11.39 K/uL (4.8-10.8) H Red Blood Count 4.08 M/uL (4.2-5.4) L Hemoglobin 10.1 g/dL (12.0-16.0) L Hematocrit 32.5 % (37-47) L Mean Corpuscular Volume 79.7 fL (80-100) L Mean Corpuscular Hemoglobin 24.8 pg (25-34) L Mean Corpuscular Hemoglobin Concent 31.1 g/dl (32-36) L Platelet Count 557 K/uL (130-400) H Mean Platelet Volume 8.9 fL (7.4-10.4) Neutrophils (%) (Auto) 74.3 % Lymphocytes (%) (Auto) 16.0 % Monocytes (%) (Auto) 8.8 % Eosinophils (%) (Auto) 0.4 % Basophils (%) (Auto) 0.1 % Neutrophils # (Auto) 8.46 K/uL (1.4-6.5) H Lymphocytes # (Auto) 1.82 K/uL (1.2-3.4) Monocytes # (Auto) 1.00 K/uL (0.11-0.59) H Eosinophils # (Auto) 0.05 K/uL (0-0.5) Basophils # (Auto) 0.01 K/uL (0-0.2) Total Creatine Kinase 14 U/L (26-192) L Micro Results Date/Time Source Procedure Growth Status 01/07/18 13:45 Blood Blood Culture Pending Received 01/07/18 13:30 Blood Blood Culture Pending Received Risk Factors for Resistance * 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 She has had two subsequent washouts; patient was on Invanz for Enterobacter infection. Admitted with recurrent infection. Plan vancomycin/Zosyn for treatment of joint infection Vancomycin IV * Loading dose: 2500 mg (29.7 mg/kg) * Maintenance dose: 1250 mg IV (15 mg/kg) every 12 hours (population pharmacokinetics suggest half-life of 10.3 hr with elimination constant of 0.067 hr-1) * Goal trough level for bone infection : 15 to 20 mcg/mL * Trough ordered for 01/09/18 prior to 0600 dose Piperacillin/tazobactam * 3.375 g bolus administered over 30 minutes, then 3.375 g IV extended infusion every 8 hours for CrCl greater than 20 mL/min Pharmacy will continue to follow and will adjust dose/frequency as necessary. Thank you.
--- NOTE | 2018-01-07 20:36 | DIAGNOSTIC IMAGING REPORT ---
R HIP UNILATERAL 2 VIEWS HISTORY: 77 years-old Female right hip fracture, fluid collections follow-up study in a patient with history of prior right hip fracture COMPARISON: Right hip radiographs 11/11/2017, CT of the right hip 01/07/2018 TECHNIQUE: 2 views of the right hip FINDINGS: Postoperative changes with right hip total joint arthroplasty with elongated femoral stem. There are 4 cerclage wires about the proximal femoral diaphysis redemonstrated. Heterotopic ossifications about the proximal right femur. No evidence of hardware complication or malalignment. No acute fracture or dislocation. Demineralized appearance of the bones. There is soft tissue swelling about the lateral hip and thigh. Contrast is noted within the urinary bladder lumen. IMPRESSION: 1. Right hip total joint arthroplasty with satisfactory alignment. 2. No acute fracture or dislocation. 3. Moderate soft tissue swelling about the proximal thigh and lateral to the right hip likely correlates with previously described fluid collections with associated adjacent heterotopic ossifications. The above report was generated using voice recognition software. It may contain grammatical, syntax or spelling errors. Electronically signed by: Randall Adorno M.D. 01/07/2018 8:35 PM Dictated Date/Time: 01/07/2018 8:32 PM
[2018-01-07] MEDS ORDERED: TRAMADOL HCL 50 MG TAB PO PRN (22:15)
[2018-01-07] MEDS ORDERED: HYDROmorphone INJ 0.5 MG/0.5 ML SYR IV PRN (22:15)
[2018-01-07 23:15] LABS: HEMATOCRIT 31.2 % (37-47); HEMOGLOBIN 9.6 g/dL (12.0-16.0)
[2018-01-08] VITALS (8 sets, daily range): BP systolic 102–148; BP diastolic 57–84; PULSE 70–100; TEMP 36.4–37.5; O2SAT 92–100
[2018-01-08] MEDS: PIPERACILL/TAZOBAC IV 3.375 GM in D5W 100 ML IV SCH ×3 (01:55→18:12)
[2018-01-08] MEDS: VANCOMYCIN IV 1,250 MG in SODIUM CHLORIDE 0.9% 250ML 250 ML IV SCH ×2 (05:47→18:11)
[2018-01-08 07:07] LABS: BASO % 0.4 %; BASO ABS # 0.03 K/uL (0-0.2); EOS % 1.6 %; EOS ABS # 0.13 K/uL (0-0.5); HEMATOCRIT 29.4 % (37-47); IG# 0.06 K/uL (0.00-0.02); LYMPH ABS # 1.44 K/uL (1.2-3.4); MEAN CELL VOLUME 80.1 fL (80-100); MEAN CORPUSCULAR HEMOGLOBIN 24.5 pg (25-34); MEAN CORPUSCULAR HGB CONC 30.6 g/dl (32-36); MEAN PLATELET VOLUME 8.4 fL (7.4-10.4); MONO % 11.5 %; MONO ABS # 0.92 K/uL (0.11-0.59); NEUT % 67.8 %; NEUT ABS # 5.44 K/uL (1.4-6.5); PLATELET COUNT 455 K/uL (130-400); RED CELL DISTRIBUTION WIDTH SD 50.2 fL (36.4-46.3); WHITE BLOOD COUNT 8.02 K/uL (4.8-10.8)
[2018-01-08 07:24] LABS: INR 2.4 (0.9-1.1)
[2018-01-08 08:04] LABS: CREATININE 0.81 mg/dl (0.60-1.20); POTASSIUM 3.7 mmol/L (3.5-5.1); TOTAL PROTEIN 5.8 gm/dl (6.4-8.2)
[2018-01-08] MEDS ORDERED: METOPROLOL TARTRATE 50 MG TAB PO SCH (09:00)
--- NOTE | 2018-01-08 11:03 | Medical Consult ---
Consultation Date of Consultation: Jan 08, 2018. Attending Physician: Tootie Sen M.D. Reason for Consultation: Right hip infection History of Present Illness 77-year-old female well-known to the infectious disease service, status post right hip fracture in September, complicated first by seroma, then subsequent infection with corynebacterium and Enterobacter treated with ertapenem, transition to oral antibiotics but developed fever, chills, drainage from the wound. Significant amount of drainage last 24 hours. Has felt feverish with chills. CT scan in the emergency department reveals a large superficial collection consistent with seroma, and a deeper collection around the femoral prosthesis. Patient currently on vancomycin and Zosyn. 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 (8) Femur fracture, left (9) GERD (gastroesophageal reflux disease) (10) Hypertension Nos (11) Osteoarthritis (12) Post op infection Surgical Problems: (1) History of total adrenalectomy (2) Knee Joint Replacement Status (3) Presence of both artificial hip joints (4) Status post carotid endarterectomy (5) Status post ORIF right hip Family History FH: colon cancer FH: lung cancer Stroke Social History Smoking Status: Never Smoker Drug Use: none Marital Status: Housing Status: lives with significant other Occupation Status: retired Allergies Coded Allergies: Phytonadione (Verified Allergy, Unknown, IV FORMULATION - SOB, HTN, FLUSHING, 01/07/18) Morphine (Verified Adverse Reaction, Mild, N/V, 01/07/18) Had morphine and zofran and did not get sick Propoxyphene (Verified Adverse Reaction, Mild, N/V, 01/07/18) Current Inpatient Medications Current Inpatient Medications Medications (Trade) Dose Ordered Sig/Beatriz Route Start Time Stop Time Status Last Admin Dose Admin Ioversol (Optiray 320) 100 ml UD PRN IV 01/07/18 12:45 01/11/18 12:44 Acetaminophen (Tylenol Tab) 650 mg Q4H PRN PO 01/07/18 16:45 02/06/18 16:44 Ondansetron HCl (Zofran Inj) 4 mg Q6H PRN IV 01/07/18 16:45 02/06/18 16:44 Diltiazem HCl 125 mg/Dextrose 125 ml @ 0 mls/hr Q0M PRN IV 01/07/18 17:00 02/06/18 16:59 01/08/18 04:25 5 MLS/HR Miscellaneous Information (Consult) 1 ea UD PRN N/A 01/07/18 17:03 02/06/18 17:02 Vancomycin HCl (Consult) 1 ea UD PRN N/A 01/07/18 17:15 02/06/18 17:14 Metoprolol Tartrate (Lopressor Tab) 50 mg BID PO 01/08/18 09:00 02/07/18 08:59 01/08/18 08:27 50 MG Vancomycin HCl 1250 mg/Sodium Chloride 275 ml @ 125 mls/hr Q12H IV 01/08/18 06:00 02/19/18 05:59 01/08/18 05:47 125 MLS/HR Piperacillin Sod/ Tazobactam Sod 3.375 gm/Dextrose 115 ml @ 28.75 mls/ hr Q8H IV 01/08/18 02:00 02/19/18 01:59 01/08/18 09:58 28.75 MLS/HR Tramadol HCl (Ultram Tab) not relieved by tylenol @ Q6H PRN PO 01/07/18 22:15 02/06/18 22:14 Hydromorphone HCl (Dilaudid Inj) 0.5 mg Q3H PRN IV 01/07/18 22:15 01/21/18 22:14 01/07/18 22:20 0.5 MG Review of Systems All systems were reviewed and are negative except as per HPI Physical Exam Date Time Temp Pulse Resp B/P (MAP) Pulse Ox O2 Delivery O2 Flow Rate FiO2 01/08/18 08:00 Room Air 01/08/18 07:19 36.4 81 19 113/68 (83) 98 Room Air 01/08/18 03:00 36.8 86 18 105/57 (73) 93 Room Air 01/08/18 00:05 37.5 100 18 102/63 (76) 92 Room Air 01/07/18 23:59 Room Air 01/07/18 19:06 36.6 105 18 145/72 (96) 98 01/07/18 18:18 36.7 93 18 146/82 Room Air 01/07/18 16:59 101 18 92 Room Air 01/07/18 16:55 36.6 106 21 145/69 95 01/07/18 16:31 145/69 01/07/18 16:31 106 01/07/18 16:21 110 21 89 01/07/18 16:16 164/121 01/07/18 16:06 111 21 97 01/07/18 16:01 173/105 01/07/18 16:00 109 18 93 01/07/18 15:46 150/75 01/07/18 15:45 107 10 96 01/07/18 15:31 152/76 01/07/18 15:30 105 11 97 01/07/18 15:16 105 15 124/89 97 Room Air 01/07/18 15:16 124/89 01/07/18 15:15 121 26 97 01/07/18 15:12 129/91 01/07/18 15:00 114 15 01/07/18 14:55 102 16 153/91 95 Room Air 01/07/18 14:54 153/91 01/07/18 14:20 114 01/07/18 14:15 111 13 01/07/18 14:09 121 16 161/114 01/07/18 14:07 161/114 01/07/18 12:16 36.6 122 20 144/78 100 Room Air General Appearance: WD/WN, no apparent distress Head: normocephalic, atraumatic Eyes: normal inspection, EOMI, sclerae normal ENT: normal ENT inspection, pharynx normal Neck: supple, no adenopathy, thyroid normal, trachea midline Respiratory/Chest: chest non-tender, lungs clear, normal breath sounds, no respiratory distress Cardiovascular: no gallop, no murmur, + irregularly irregular Abdomen/GI: normal bowel sounds, non tender, soft, no organomegaly Back: normal inspection, no CVA tenderness Extremities/Musculoskelatal: no calf tenderness, normal capillary refill, non- tender Neurologic/Psych: alert, oriented x 3 Skin: normal color, warm/dry, no rash, + pertinent finding (No drainage at present from right hip wound) Lymphatic: no adenopathy Laboratory Results Date/Time Source Procedure Growth Status 01/07/18 13:45 Blood Blood Culture Pending Received 01/07/18 13:30 Blood Blood Culture Pending Received Last 24 Hours Test 01/07/18 13:45 01/07/18 13:56 01/07/18 14:15 01/07/18 22:56 White Blood Count 11.39 K/uL Red Blood Count 4.08 M/uL Hemoglobin 10.1 g/dL 9.6 g/dL Hematocrit 32.5 % 31.2 % Mean Corpuscular Volume 79.7 fL Mean Corpuscular Hemoglobin 24.8 pg Mean Corpuscular Hemoglobin Concent 31.1 g/dl Platelet Count 557 K/uL Mean Platelet Volume 8.9 fL Neutrophils (%) (Auto) 74.3 % Lymphocytes (%) (Auto) 16.0 % Monocytes (%) (Auto) 8.8 % Eosinophils (%) (Auto) 0.4 % Basophils (%) (Auto) 0.1 % Neutrophils # (Auto) 8.46 K/uL Lymphocytes # (Auto) 1.82 K/uL Monocytes # (Auto) 1.00 K/uL Eosinophils # (Auto) 0.05 K/uL Basophils # (Auto) 0.01 K/uL RDW Standard Deviation 49.3 fL RDW Coefficient of Variation 16.9 % Immature Granulocyte % (Auto) 0.4 % Immature Granulocyte # (Auto) 0.05 K/uL Prothrombin Time 75.0 SECONDS Prothromb Time International Ratio 7.4 Sodium Level 135 mmol/L Potassium Level 3.6 mmol/L Chloride Level 103 mmol/L Carbon Dioxide Level 25 mmol/L Anion Gap 8.0 mmol/L 16.0 mmol/L Blood Urea Nitrogen 10 mg/dl Creatinine 0.80 mg/dl Estimated GFR () 81.3 Estimated GFR (Non- 70.1 BUN/Creatinine Ratio 12.0 Random Glucose 100 mg/dl Calcium Level 9.6 mg/dl Magnesium Level 2.1 mg/dl Total Bilirubin 0.4 mg/dl Direct Bilirubin 0.2 mg/dl Aspartate Amino Transf (AST/SGOT) 12 U/L Alanine Aminotransferase (ALT/SGPT) 13 U/L Alkaline Phosphatase 187 U/L Total Creatine Kinase 14 U/L Creatine Kinase MB < 1.0 ng/ml Creatine Kinase MB Ratio Troponin I < 0.015 ng/ml Total Protein 7.4 gm/dl Albumin 2.7 gm/dl Bedside Lactic Acid Venous 1.21 mmol/L Bedside Hemoglobin 8.2 g/dl Bedside Hematocrit 24 % Bedside Sodium 138 mEq/L Bedside Potassium 3.7 mEq/L Bedside Chloride 103 mEq/L Bedside Total CO2 24 mEq/l Bedside Blood Urea Nitrogen 8 mg/dl Bedside Creatinine 0.8 mg/dl Bedside Glucose (other) 104 mg/dl Bedside Ionized Calcium (Chris) 1.11 mmol/l Test 01/08/18 06:55 White Blood Count 8.02 K/uL Red Blood Count 3.67 M/uL Hemoglobin 9.0 g/dL Hematocrit 29.4 % Mean Corpuscular Volume 80.1 fL Mean Corpuscular Hemoglobin 24.5 pg Mean Corpuscular Hemoglobin Concent 30.6 g/dl Platelet Count 455 K/uL Mean Platelet Volume 8.4 fL Neutrophils (%) (Auto) 67.8 % Lymphocytes (%) (Auto) 18.0 % Monocytes (%) (Auto) 11.5 % Eosinophils (%) (Auto) 1.6 % Basophils (%) (Auto) 0.4 % Neutrophils # (Auto) 5.44 K/uL Lymphocytes # (Auto) 1.44 K/uL Monocytes # (Auto) 0.92 K/uL Eosinophils # (Auto) 0.13 K/uL Basophils # (Auto) 0.03 K/uL RDW Standard Deviation 50.2 fL RDW Coefficient of Variation 17.0 % Immature Granulocyte % (Auto) 0.7 % Immature Granulocyte # (Auto) 0.06 K/uL Prothrombin Time 24.7 SECONDS Prothromb Time International Ratio 2.4 Sodium Level 139 mmol/L Potassium Level 3.7 mmol/L Chloride Level 107 mmol/L Carbon Dioxide Level 26 mmol/L Anion Gap 6.0 mmol/L Blood Urea Nitrogen 9 mg/dl Creatinine 0.81 mg/dl Est Creatinine Clear Calc Drug Dose 61.6 ml/min Estimated GFR () 80.1 Estimated GFR (Non- 69.1 BUN/Creatinine Ratio 10.6 Random Glucose 118 mg/dl Calcium Level 9.0 mg/dl Total Bilirubin 0.5 mg/dl Aspartate Amino Transf (AST/SGOT) 13 U/L Alanine Aminotransferase (ALT/SGPT) 11 U/L Alkaline Phosphatase 146 U/L Total Protein 5.8 gm/dl Albumin 2.0 gm/dl Globulin 3.8 gm/dl Albumin/Globulin Ratio 0.5 Patient Name: MAUDE ONEAL Unit Number: [id number] Dictated: 01/07/[id number] Transcribed: 01/07/181446 MS Printed Date/Time: [~ rep prt dt]/[~ rep prt tm] [~ rep ct labl] - [~ rep ct ivnm] [facility] Radiology Department [place], [place] [id number] Dictated: 01/07/181446 Transcribed: 01/07/181446 MS Printed Date/Time: [~ rep prt dt]/[~ rep prt tm] [~ rep ct labl] - [~ rep ct ivnm] R HIP-LOWER EXTREMITY WITH CLINICAL HISTORY: previous infection with fevers TECHNIQUE: Transaxial acquisition with multi axial reformatted images COMPARISON STUDY: Ultrasound 11/10/2017. CT 11/10/2017. FINDINGS: Subcutaneous complex fluid pocket with a well-circumscribed right lateral to the right hip and proximal right femur. This measures 7 x 3.5 x 13 cm. Diagnostic considerations include hematoma versus abscess. Medially lateral to the patient's longstem right hip prosthetic is a deeper complex fluid pocket measuring 3.5 x 4.0 cm. This is immediately lateral to the mid femoral prosthetic. Metallic artifact from the patient's prosthetic appears detail. IMPRESSION: 1. 2 collections lateral to the right hip prosthetic as described. 2. The largest measures 7 x 3.5 x 13 cm and is within the subcutaneous fat. 3. The deeper collection measures 3.5 x 4.0 cm and is immediately lateral to the longstem femoral prosthetic. 4. Diagnostic considerations at both sites include abscess versus hematoma. The above report was generated using voice recognition software. It may contain grammatical, syntax or spelling errors. Electronically signed by: Javier Erickson M.D. 01/07/2018 2:53 PM Dictated Date/Time: 01/07/2018 2:47 PM The status of this report is Signed. Draft = Not yet reviewed or approved by Radiologist. Signed = Reviewed and approved by Radiologist. <AttendingPhy></AttendingPhy> <FamilyPhy>Radha Mirza D.O.</FamilyPhy> < PrimaryPhy>Radha Mirza D.O.</PrimaryPhy> <UnitNumber>[id number]</UnitNumber > <VisitNumber>[id number]</VisitNumber> <PatientName>MAUDE ONEAL</ PatientName> <DateOfBirth>1940</DateOfBirth> <Location>[facility]</Location> < ServiceDate>01/07/18</ServiceDate> <MNE>ESINDI</MNE> <OrderingPhy>Mauro Kauffman DO</OrderingPhy> <OrderingPhyMNE>f rep ord dr rapp</OrderingPhyMNE> < DictatingPhyMNE>f rep dict dr rapp</DictatingPhyMNE> <CCListMNE>f rep ct mne</ CCListMNE> <AdmittingPhyMNE>f pt admit dr rapp</AdmittingPhyMNE> <AttendingPhyMNE >f pt attend dr rapp</AttendingPhyMNE> <ConsultingPhyMNE>f pt consult dr rapp</ConsultingPhyMNE> <FamilyPhyMNE>f pt fam dr rapp</FamilyPhyMNE> <OtherPhyMNE>f pt other dr rapp</OtherPhyMNE> < PrimaryPhyMNE>f pt prim care dr rapp</PrimaryPhyMNE> <ReferringPhyMNE>f pt referring dr rapp</ReferringPhyMNE> Assessment & Plan Patient with recurrent collections following complicated hip surgery with subsequent reoperations, with previous cultures growing Enterobacter and corynebacterium. Zosyn and vancomycin appropriate for now pending further culture results. Will discuss with orthopedic surgery further intervention. Will follow.
--- NOTE | 2018-01-08 12:58 | Cardiology Consultation ---
Cardiology Consultation Date of Consultation: Jan 08, 2018 History of Present Illness Lindsay Overton is a 77-year-old female seen in cardiology consultation per the request of Ria Banks PA-C for the evaluation of atrial fibrillation and preoperative risk stratification. The patient had previously been seen by the undersigned cardiology consultation on 10/31/17. She has a complex recent orthopedic, infectious, and cardiac history. In September 2017 she had a right periprosthetic hip fracture and subsequently revision of a right total hip arthroplasty performed on 09/21/2017. On 10/09/17 she had recurrent hip pain and was found to have a dislocation of the right total hip. Due to her history of chronic atrial fibrillation she was seen in preoperative evaluation by Dr. Myrick of our practice and underwent closed hip reduction on 10/10/17. Cardiology followed her at that time due to her history of atrial fibrillation with mildly elevated ventricular rates. Anticoagulation was reinitiated post procedure she required transfusion of 2 units of packed red blood cells. On 10/24/17 she was found to have acute bilateral pulmonary embolism on CT and bilateral DVT. She was overlapped with heparin and Coumadin. An echocardiogram performed at that time revealed right ventricular chamber enlargement with RV strain pattern. When I had seen her on 10/31/17 she had presented with recurrent right hip seroma /hematoma with concerns for infection as well. She underwent inferior vena cava filter placement on 11/05/17, and also underwent operative drainage of the periprosthesis fluid collection and antibiotic irrigation. Her echocardiogram during admission was stable with resolution of the RV strain pattern, and she tolerated the operative procedures relatively well from a cardiac perspective. She presents his hospital stay with ongoing right hip discomfort, thigh swelling , and on and off again fevers. In the emergency room yesterday she was found to have atrial fibrillation with mildly elevated ventricular rates which have improved on diltiazem infusion. She was found to have a coagulopathy as well for which she received IV vitamin K and her INR has improved. Currently on the telemetry unit she is comfortable lying in bed accompanied by her . 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 prior carotid endarterectomy 2. bilateral hip replacements with additional surgery as noted above, 3. bladder prolapse repair 4. right adrenalectomy. 5. Right hip incision, irrigation and debridement, revision of surgical scar, fluid drainage, 11/03/79 6. Inferior vena cava filter placement 11/05/17 7. Irrigation debridement of right total hip head and liner exchange, 11/05/17 8. EGD 11/12/17, normal, no source of bleeding PAST MEDICAL HISTORY: As above with the following additions- 1. hypertension 2. atherosclerotic carotid disease status post right carotid endarterectomy 3. history of remote occipital stroke in 2009. FAMILY HISTORY: Positive for heart disease. SOCIAL HISTORY: The patient is a nonsmoker. She has recently been in a NH for rehab / care, has been on non weight bearing status. Review Of Systems 10 point review of systems was reviewed and is negative with the exception of that above Allergies Coded Allergies: Phytonadione (Verified Allergy, Unknown, IV FORMULATION - SOB, HTN, FLUSHING, 01/07/18) Morphine (Verified Adverse Reaction, Mild, N/V, 01/07/18) Had morphine and zofran and did not get sick Propoxyphene (Verified Adverse Reaction, Mild, N/V, 01/07/18) Medications Reported Home Medications Medications Dose Route/Sig Max Daily Dose Days Date Category Aspirin Ec (Aspirin) 81 Mg Tab 81 Mg PO DAILY 01/07/18 Reported Protonix (Pantoprazole Sodium) 40 Mg Tab 40 Mg PO DAILY 01/07/18 Reported Jantoven (Warfarin Sodium) 5 Mg Tab 5 Mg PO DAILY 12/06/17 Reported Lopressor (Metoprolol Tartrate) 50 Mg Tab 50 Mg PO BID 30 11/15/17 Rx Docusate Sodium 100 Mg Cap 100 Mg PO DAILY 10/23/17 Reported Mapap (Acetaminophen) 325 Mg Tab 650 Mg PO Q6H PRN 09/24/17 Rx Physical Exam Vital Signs (Last 8hrs): Last 8 Hrs Date Time Temp Pulse Resp B/P (MAP) Pulse Ox O2 Delivery O2 Flow Rate FiO2 01/08/18 11:21 36.5 70 20 115/76 (89) 97 Room Air 01/08/18 08:00 Room Air 01/08/18 07:19 36.4 81 19 113/68 (83) 98 Room Air General Appearance: Critically ill in appear Head: Normocephalic Atraumatic. Eyes: PERRLA, EOMI, conjunctiva and sclera clear Neck: Supple. No carotid bruits noted. No JVD. No HJD. Respiratory: Breath sounds clear to auscultation bilaterally. No w/r/r. Cardiovascular: Regular rhythm, no murmurs Abdomen: Normal bowel sounds, soft nontender. no abdominal bruits. Extremities: Right thigh, right lateral hip swelling well-healed lateral surgical incision Neuro: No focal deficits. Psychiatric: Normal affect. Data Last Resulted 01/08/18 06:55 Red Blood Count 3.67, Mean Corpuscular Volume 80.1, Mean Corpuscular Hemoglobin 24.5, Mean Corpuscular Hemoglobin Concent 30.6, Mean Platelet Volume 8.4, Neutrophils (%) (Auto) 67.8, Lymphocytes (%) (Auto) 18.0, Monocytes (%) (Auto) 11.5, Eosinophils (%) (Auto) 1.6, Basophils (%) (Auto) 0.4, Neutrophils # (Auto ) 5.44, Lymphocytes # (Auto) 1.44, Monocytes # (Auto) 0.92, Eosinophils # (Auto ) 0.13, Basophils # (Auto) 0.03 Last Resulted 01/08/18 06:55 Past 24 Hours Test 01/07/18 13:45 01/08/18 06:55 Range/Units Creatine Kinase MB < 1.0 0.5-3.6 ng/ml Creatine Kinase MB Ratio 0-3.0 Prothromb Time International Ratio 7.4 *H 2.4 H 0.9-1.1 Prothrombin Time 75.0 H 24.7 H 9.0-12.0 SECONDS Total Creatine Kinase 14 L 26-192 U/L Troponin I < 0.015 0-0.045 ng/ml EKG as outlined above, atrial fibrillation mildly elevated ventricular rate, compared to the prior hospital stay in October, the previously noted septal T-wave changes have resolved CT of the right lower extremity performed this admission Summary of radiology report 2 collections lateral to the right hip prosthesis the largest of which measures 7 cm x 3.5 cm x 13 cm and is within the subcutaneous fat A separate deeper collection measures 3.5 cm x 4 cm and is immediately lateral to the longstem femoral prosthesis Diagnostic considerations at both sites include abscess versus hematoma Assessment & Plan Impression: 77-year-old female 1. Atrial fibrillation mildly elevated ventricular rate in the setting of underlying infection, rate improved, 2. Periprosthetic hematoma/abscess 3. History of postoperative DVT, massive pulmonary embolism, Oct, 2017 Discussion/recommendations: Unfortunately, the patient has had complications with her prosthetic hip including initial prosthetic dysfunction, thrombotic complications of post procedure DVT PE, and subsequent hemorrhagic complications with bleeding around her surgical site that has contributed to her infectious issues. The patient tells me hip revision is planned as per her prior discussion with orthopedics. At present, we will plan to wean her diltiazem infusion. Increase her patient dose of metoprolol tartrate 50 mg twice daily to 50 mg 3 times daily. We will hold her anticoagulation for now, plan on low-dose heparin bridge when INR is less than 2. The patient was tentatively supposed to follow-up with vascular surgery for retrieval of her inferior vena cava filter, I think that in light of repeat orthopedic surgery consideration, we should keep the inferior vena cava filter in place for now. The patient is on vancomycin and Zosyn. This of course contributes a lot of IV fluid and she is potentially prone for volume overload as we need to be judicious about her intake and output try to keep her fluid intake and output at least even to prevent volume overload.
[2018-01-08] MEDS: METOPROLOL TARTRATE 50 MG TAB PO SCH ×2 (14:14→20:17)
--- NOTE | 2018-01-08 15:13 | Progress Note ---
Medicine Progress Note Date & Time of Visit: Jan 08, 2018 at 14:42. Subjective Pt was seen and examined Sitting in bed comfortable getting ready to eat lunch Pt said that she does not have any tenderness in his her right hip at present Denies any fever, palpitation, dizziness and SOB Objective Last 8 Hrs Date Time Temp Pulse Resp B/P (MAP) Pulse Ox O2 Delivery O2 Flow Rate FiO2 01/08/18 14:12 36.4 73 16 112/66 (81) Room Air 01/08/18 11:21 36.5 70 20 115/76 (89) 97 Room Air 01/08/18 08:00 Room Air 01/08/18 07:19 36.4 81 19 113/68 (83) 98 Room Air Physical Exam: General- No acute distress Head- atraumatic Eyes- PERRL, EOMI ENT- oropharynx clear Neck- supple, no JVD Lungs- No Wheezing Heart- irregular rhythm Abdomen- normal bowel sounds, soft Extremities- no calf tenderness +edema Neuro- alert, oriented x 3; PERRL, EOMI; no facial palsy; Laboratory Results: Last 24 Hours Test 01/07/18 22:56 01/08/18 05:30 01/08/18 06:55 01/08/18 11:57 Hemoglobin 9.6 g/dL 9.0 g/dL Hematocrit 31.2 % 29.4 % Urine Color YELLOW Urine Appearance CLEAR Urine pH 6.0 Urine Specific Draper > 1.045 Urine Protein TRACE Urine Glucose (UA) NEG Urine Ketones TRACE Urine Occult Blood NEG Urine Nitrite NEG Urine Bilirubin NEG Urine Urobilinogen NEG Urine Leukocyte Esterase TRACE Urine WBC (Auto) 10-30 /hpf Urine RBC (Auto) 5-10 /hpf Urine Hyaline Casts (Auto) 1-5 /lpf Urine Epithelial Cells (Auto) >30 /lpf Urine Bacteria (Auto) NEG White Blood Count 8.02 K/uL Red Blood Count 3.67 M/uL Mean Corpuscular Volume 80.1 fL Mean Corpuscular Hemoglobin 24.5 pg Mean Corpuscular Hemoglobin Concent 30.6 g/dl Platelet Count 455 K/uL Mean Platelet Volume 8.4 fL Neutrophils (%) (Auto) 67.8 % Lymphocytes (%) (Auto) 18.0 % Monocytes (%) (Auto) 11.5 % Eosinophils (%) (Auto) 1.6 % Basophils (%) (Auto) 0.4 % Neutrophils # (Auto) 5.44 K/uL Lymphocytes # (Auto) 1.44 K/uL Monocytes # (Auto) 0.92 K/uL Eosinophils # (Auto) 0.13 K/uL Basophils # (Auto) 0.03 K/uL RDW Standard Deviation 50.2 fL RDW Coefficient of Variation 17.0 % Immature Granulocyte % (Auto) 0.7 % Immature Granulocyte # (Auto) 0.06 K/uL Prothrombin Time 24.7 SECONDS Prothromb Time International Ratio 2.4 Sodium Level 139 mmol/L Potassium Level 3.7 mmol/L Chloride Level 107 mmol/L Carbon Dioxide Level 26 mmol/L Anion Gap 6.0 mmol/L Blood Urea Nitrogen 9 mg/dl Creatinine 0.81 mg/dl Est Creatinine Clear Calc Drug Dose 61.6 ml/min Estimated GFR () 80.1 Estimated GFR (Non- 69.1 BUN/Creatinine Ratio 10.6 Random Glucose 118 mg/dl Calcium Level 9.0 mg/dl Total Bilirubin 0.5 mg/dl Aspartate Amino Transf (AST/SGOT) 13 U/L Alanine Aminotransferase (ALT/SGPT) 11 U/L Alkaline Phosphatase 146 U/L Total Protein 5.8 gm/dl Albumin 2.0 gm/dl Globulin 3.8 gm/dl Albumin/Globulin Ratio 0.5 Bedside Glucose 119 mg/dl Date/Time Source Procedure Growth Status 01/08/18 05:30 Urine , Clean Catch Urine Culture Pending Received Assessment & Plan Post-op R hip abscess vs. hematoma Multiples right hip surgery with complicated post op course Present with fever and chills and yellowish drainage of right hip area on admission CT right hip showed 2 collections lateral to the right hip prosthetic Previous wound cx grew corynebacterium and Enterobacter Recently completed IV ertapenem on 12/30/17 for infected surgical site seroma Elevated WBC that trending down Started on Vanco and Zosyn IV IV on board recommended to continue IV abx Ortho on board Consider possible to transfer to a tertiary facility if pt requires additional procedure Supratherapeutic INR INR on admission 7.4 Received 2.5mg IV Vit K Continue Holding Coumadin INR today 2.4 Monitor INR A Fib with RVR HR ~120s initially HR has been in the 80's on monitor IV cardizem drip was d/c Starting on metoprolol PO Cardiology recommended to start on heparin drip once INR below 2 INR 2.4 Recent bilateral DVT and PE INR supratherapeutic on admission Stable HTN Continue lisinopril, metoprolol Stable DM II diet controlled A1c of 5.3 on 10/10/17 Monitor BSG Anemia Hg 9 today Monitor CBC DVT Ppx INR 2.4 today Continue holding coumadin Code status FULL CODE Current Inpatient Medications: Current Inpatient Medications Medications (Trade) Dose Ordered Sig/Beatriz Route Start Time Stop Time Status Last Admin Dose Admin Ioversol (Optiray 320) 100 ml UD PRN IV 01/07/18 12:45 01/11/18 12:44 Acetaminophen (Tylenol Tab) 650 mg Q4H PRN PO 01/07/18 16:45 02/06/18 16:44 Ondansetron HCl (Zofran Inj) 4 mg Q6H PRN IV 01/07/18 16:45 02/06/18 16:44 Diltiazem HCl 125 mg/Dextrose 125 ml @ 0 mls/hr Q0M PRN IV 01/07/18 17:00 02/06/18 16:59 01/08/18 04:25 5 MLS/HR Miscellaneous Information (Consult) 1 ea UD PRN N/A 01/07/18 17:03 02/06/18 17:02 Vancomycin HCl (Consult) 1 ea UD PRN N/A 01/07/18 17:15 02/06/18 17:14 Vancomycin HCl 1250 mg/Sodium Chloride 275 ml @ 125 mls/hr Q12H IV 01/08/18 06:00 02/19/18 05:59 01/08/18 05:47 125 MLS/HR Piperacillin Sod/ Tazobactam Sod 3.375 gm/Dextrose 115 ml @ 28.75 mls/ hr Q8H IV 01/08/18 02:00 02/19/18 01:59 01/08/18 09:58 28.75 MLS/HR Tramadol HCl (Ultram Tab) not relieved by tylenol @ Q6H PRN PO 01/07/18 22:15 02/06/18 22:14 Hydromorphone HCl (Dilaudid Inj) 0.5 mg Q3H PRN IV 01/07/18 22:15 01/21/18 22:14 01/07/18 22:20 0.5 MG Metoprolol Tartrate (Lopressor Tab) 50 mg TID PO 01/08/18 14:00 02/07/18 13:59 01/08/18 14:14 50 MG
--- NOTE | 2018-01-08 20:01 | ORTHOPEDIC CONSULTATION REPORT ---
REASON FOR CONSULT: Chronic infection right NIDA. HISTORY OF PRESENT ILLNESS: The patient is a 77-year-old white female known to our practice who was admitted last night with atrial fibrillation and RVR and also complaints of fever and chronic right hip infection. She had been having intermittent fevers off and on and had been on chronic suppression through Dr. Elkins's office. She states that she began having increased right hip and thigh pain that was worsening over the last few weeks. Her history includes having a right total hip arthroplasty done in 2002, which lasted her a good while until she fell and fractured her right femur and was periprosthetic in September. At that time Dr. Bonilla did a revision NIDA surgery for the patient and was discharged. She subsequently had a hip dislocation early October, which was reduced; however, then had multiple problems with bilateral DVT and pulmonary embolus and then was readmitted in end of October with a hip infection. This was then debrided, washed out and a femoral head and acetabular liner was changed after irrigation and debridement and then was placed on six weeks of antibiotics. At that time, the patient was then put on suppression. Dr. Elkins's office then removed her from her suppression feeling that her intermittent fevers might be drug related; however, the patient states that over the last couple of days she began having constant increased pain in the right thigh and then noticed at one point when she was walking down a hallway, she felt some dampness along the side of her thigh and looked down and she had some drainage from a small pinhole at the thigh where most of her pain was at. The who was present during the interview states that he would be able to press on the thigh and more yellow serous drainage came from that area. Since that time, the small pinhole area has closed over and she has had no more drainage. He said the drained amount was copious, but was not thick in nature. She came to the Emergency Room and was found to be in atrial fibrillation with RVR and a heart rate of 122. She is also found to have a supratherapeutic INR of 7.4. She was thusly admitted under Medicine Service and we have been consulted to see her for her chronic right hip infection. PAST MEDICAL HISTORY: Atrial fibrillation, carotid arterial disease, cerebrovascular disease, hypertension, diabetes mellitus type 2, diet controlled, history of bilateral DVT and pulmonary embolus, dyslipidemia, osteoarthritis. PAST SURGICAL HISTORY: Total adrenalectomy of the right adrenal gland in 2001, total knee arthroplasty in the past. She has had left and right total hip arthroplasties with the above noted history of the right with chronic infection. Carotid endarterectomy. FAMILY HISTORY: Colon carcinoma and lung carcinoma. SOCIAL HISTORY: The patient is nonsmoker, does not drink alcohol and is . MEDICATIONS: Aspirin 81 mg p.o. daily, Colace 100 mg p.o. daily, metoprolol 50 mg p.o. b.i.d., pantoprazole 40 mg p.o. daily, warfarin 5 mg p.o. daily, acetaminophen 650 mg p.o. q. 6 hours. p.r.n. for mild pain. ALLERGIES: PHYTONADIONE/VITAMIN K IV FORMULATION; MORPHINE, MILD NAUSEA AND VOMITING; PROPOXYPHENE, MILD NAUSEA AND VOMITING. REVIEW OF SYSTEMS: As per admitting history and physical. PHYSICAL EXAM: GENERAL: The patient is a well-developed, well-nourished white female who is currently alert and oriented x3 and in no acute distress, pleasant, cooperative. EXTREMITIES: On examination of her right lower extremity, she has a well-healed large scar from the top of her right hip down the thigh. There is no obvious drainage noted at this time, but there is one area probably mid incision that is a little bit more red than the rest of the incision area and I can feel a small scab over an area where may have been the pin hole where she had drainage. I can push on the thigh without causing her [id number] pain. She states that she does have some discomfort there. She is nontender at the right knee and ankle and is moving her ankle and toes quite well with range of motion. Gentle range of motion is done of the hip at this time and is essentially nontender during range of motion as well as is the knee. She has most of her discomfort in the mid thigh region. Sensation is intact. On palpation of dorsum of her foot, I cannot appreciate a dorsalis pedis pulse. She has no complaints of left lower extremity at this time and/or the bilateral upper extremities. X-RAY REVIEW: The patient had a regular hip film done, which shows the NIDA in place in satisfactory alignment with some heterotopic ossification and some previously described fluid collections. CT scan of the same area shows two collections lateral to the right hip prosthetic as described, the largest being 7.7 x 3 x 13 and is within the subcutaneous fat and a deeper collection that measured 3.5 x 4 cm and is medially lateral to the long stem femoral prosthetic. ASSESSMENT: Chronic infection, right total hip arthroplasty. PLAN: I discussed with the patient about possible treatment. Dr. Bonilla has spoken to her and stated that if this was infected again that she would have to have the hardware removed and either do an articulated-type spacer with antibiotic cement and/or possible Girdlestone procedure versus revision NIDA after long-term IV antibiotics. The patient states that she knows that another washout will not probably take care of this problem and that she would like to proceed in the direction of healing this problem. Dr. Jose at this point feels that with her comorbidities and recent PEs and DVTs and with the extent of surgery that she would need for this type of a revision if done would be extensive and be best done at a tertiary care facility. I spoke to Dr. Yu from Orthopedics down in [facility] at [place] and plans were possibly to transfer her down to Medicine Service and they would see her once they have her arrive at the hospital and begin working on plans for taking care of her problem. Another way he suggested was possibly if she was stable to have her seen in an outpatient setting and take care of that way while she is continued on IV antibiotics. I will discuss this with Dr. Sen and make arrangements for either. We will possibly order CT-guided aspiration of both fluid collections to ascertain what organism possibly could be growing in there. She has been off her suppression recently for approximately a week and was just recently started on antibiotics and I will further discuss this with Dr. Sen as well. [facility]
[2018-01-09] MEDS: PIPERACILL/TAZOBAC IV 3.375 GM in D5W 100 ML IV SCH ×3 (02:23→17:15)
[2018-01-09 03:32] VITALS: BP 124/84; PULSE 92; TEMP 36.6; O2SAT 96
[2018-01-09] MEDS ORDERED: VANCOMYCIN TROUGH ONE (05:30)
[2018-01-09 05:32] LABS: HEMATOCRIT 28.6 % (37-47); HEMOGLOBIN 8.8 g/dL (12.0-16.0); MEAN CORPUSCULAR HEMOGLOBIN 24.3 pg (25-34); MEAN CORPUSCULAR HGB CONC 30.8 g/dl (32-36); MEAN PLATELET VOLUME 8.3 fL (7.4-10.4); PLATELET COUNT 496 K/uL (130-400); RED CELL DISTRIBUTION WIDTH SD 49.6 fL (36.4-46.3); WHITE BLOOD COUNT 7.73 K/uL (4.8-10.8)
[2018-01-09 05:41] LABS: INR 1.4 (0.9-1.1)
[2018-01-09 06:03] LABS: CALCIUM 8.5 mg/dl (8.5-10.1); CREATININE 0.73 mg/dl (0.60-1.20); POTASSIUM 3.5 mmol/L (3.5-5.1)
[2018-01-09] MEDS: VANCOMYCIN IV 1,250 MG in SODIUM CHLORIDE 0.9% 250ML 250 ML IV SCH (06:04)
[2018-01-09 07:11] VITALS: BP 159/96; PULSE 97; TEMP 36.7; O2SAT 96
[2018-01-09] MEDS: METOPROLOL TARTRATE 50 MG TAB PO SCH ×2 (08:03→16:48)
[2018-01-09] MEDS ORDERED: HEPARIN 25,000 UNIT/500ML D5W 500 ML IV SCH (10:45)
[2018-01-09 11:05] VITALS: BP 117/74; PULSE 79; TEMP 36.7; O2SAT 98
--- NOTE | 2018-01-09 11:32 | Progress Note ---
Medicine Progress Note Date & Time of Visit: Jan 09, 2018 at 11:05. Subjective Pt was seen and examined Lying in bed with no distress with and daughter at bedside Pt said that she feels fine Pt said that she does not have any pain in the right now She said that whenever she stands or walks on the right hip, there is a yellowish drainage from it Discussed with patient about the possibility to transfer to [place] Ortho recommended to transfer to a tertiary center due to her commodities and the extent of surgery that she would need for this type of a revision Pt said that she needs the right hip to be treated and agreed to transfer to [place] for evaluation of the right hip Denies any chest pain, palpitation, dizziness, fever and SOB Objective Last 8 Hrs Date Time Temp Pulse Resp B/P (MAP) Pulse Ox O2 Delivery O2 Flow Rate FiO2 01/09/18 07:11 36.7 97 20 159/96 (117) 96 Room Air 01/09/18 03:32 36.6 92 19 124/84 (97) 96 Room Air Physical Exam: General- No acute distress Head- atraumatic Eyes- PERRL, EOMI ENT- oropharynx clear Neck- supple, no JVD Lungs- No Wheezing Heart- irregular rhythm Abdomen- normal bowel sounds, soft Extremities- no calf tenderness +R LE edema, dressing in the Right hip Neuro- alert, oriented x 3; PERRL, EOMI; no facial palsy; Laboratory Results: Last 24 Hours Test 01/08/18 11:57 01/09/18 05:12 Bedside Glucose 119 mg/dl White Blood Count 7.73 K/uL Red Blood Count 3.62 M/uL Hemoglobin 8.8 g/dL Hematocrit 28.6 % Mean Corpuscular Volume 79.0 fL Mean Corpuscular Hemoglobin 24.3 pg Mean Corpuscular Hemoglobin Concent 30.8 g/dl RDW Standard Deviation 49.6 fL RDW Coefficient of Variation 17.0 % Platelet Count 496 K/uL Mean Platelet Volume 8.3 fL Prothrombin Time 14.7 SECONDS Prothromb Time International Ratio 1.4 Sodium Level 139 mmol/L Potassium Level 3.5 mmol/L Chloride Level 108 mmol/L Carbon Dioxide Level 24 mmol/L Anion Gap 7.0 mmol/L Blood Urea Nitrogen 7 mg/dl Creatinine 0.73 mg/dl Est Creatinine Clear Calc Drug Dose 68.4 ml/min Estimated GFR () 90.8 Estimated GFR (Non- 78.3 BUN/Creatinine Ratio 9.8 Random Glucose 106 mg/dl Calcium Level 8.5 mg/dl Vancomycin Level Trough 18.0 mcg/ml Assessment & Plan Post-op R hip abscess vs. hematoma Multiples right hip surgery with complicated post op course Present with fever and chills and yellowish drainage of right hip area on admission CT right hip showed 2 collections lateral to the right hip prosthetic Previous wound cx grew corynebacterium and Enterobacter Recently completed IV ertapenem on 12/30/17 for infected surgical site seroma Elevated WBC that trending down Started on Vanco and Zosyn IV IV on board recommended to continue IV abx Ortho on board Consider possible to transfer to a tertiary facility if pt requires additional procedure 01/09 Case discussed with Ortho recommended to transfer to a tertiary care center due to the extent of the surgery and commodities Dr. Jose discussed the case ortho at [facility] Dr. Yu and agreed to evaluate patient once transfers under medicine service Pt agreed to transfer to [place] for evaluation Cancelled CT-guided aspiration of both fluid collections seen on CT scan due to patient is being transferred and will start on heparin drip for his recent PE/ DVT and Afib Continue IV Vanco and Zosyn for now Afebrile and WBC normal Case discussed with [facility] Hospitalist Dr. Allen who accepted the patient. Supratherapeutic INR INR on admission 7.4 Received 2.5mg IV Vit K Continue Holding Coumadin INR today 1.4 Monitor INR A Fib with RVR HR ~120s initially HR has been in the 80's on monitor IV cardizem drip was d/c Continue metoprolol PO Cardiology recommended to start on heparin drip once INR below 2 INR 1.4 Case discussed with Cardiology and agreed to start on heparin drip Recent bilateral DVT and PE INR 7.4 on admission INR today 1.4 Starting on heparin drip HTN Continue lisinopril, metoprolol Stable DM II diet controlled A1c of 5.3 on 10/10/17 Monitor BSG Anemia Hg 8.8 today Monitor CBC DVT Ppx INR 1.4 today Continue holding coumadin Starting on heparin drip Code status FULL CODE Disposition Will transfer to [place] today Accepted hospitalist physician Dr. Allen Will need to consult Ortho Dr. Yu at [facility] Current Inpatient Medications: Current Inpatient Medications Medications (Trade) Dose Ordered Sig/Beatriz Route Start Time Stop Time Status Last Admin Dose Admin Ioversol (Optiray 320) 100 ml UD PRN IV 01/07/18 12:45 01/11/18 12:44 Acetaminophen (Tylenol Tab) 650 mg Q4H PRN PO 01/07/18 16:45 02/06/18 16:44 Ondansetron HCl (Zofran Inj) 4 mg Q6H PRN IV 01/07/18 16:45 02/06/18 16:44 Diltiazem HCl 125 mg/Dextrose 125 ml @ 0 mls/hr Q0M PRN IV 01/07/18 17:00 02/06/18 16:59 01/08/18 04:25 5 MLS/HR Miscellaneous Information (Consult) 1 ea UD PRN N/A 01/07/18 17:03 02/06/18 17:02 Vancomycin HCl (Consult) 1 ea UD PRN N/A 01/07/18 17:15 02/06/18 17:14 Vancomycin HCl 1250 mg/Sodium Chloride 275 ml @ 125 mls/hr Q12H IV 01/08/18 06:00 02/19/18 05:59 01/09/18 06:04 125 MLS/HR Piperacillin Sod/ Tazobactam Sod 3.375 gm/Dextrose 115 ml @ 28.75 mls/ hr Q8H IV 01/08/18 02:00 02/19/18 01:59 01/09/18 09:55 28.75 MLS/HR Tramadol HCl (Ultram Tab) not relieved by tylenol @ Q6H PRN PO 01/07/18 22:15 02/06/18 22:14 Hydromorphone HCl (Dilaudid Inj) 0.5 mg Q3H PRN IV 01/07/18 22:15 01/21/18 22:14 01/07/18 22:20 0.5 MG Metoprolol Tartrate (Lopressor Tab) 50 mg TID PO 01/08/18 14:00 02/07/18 13:59 01/09/18 08:03 50 MG Heparin Sodium/ Dextrose 500 ml @ 25 mls/hr Q20H IV 01/09/18 10:45 02/08/18 10:44 01/09/18 10:56 25 MLS/HR
--- NOTE | 2018-01-09 11:35 | Discharge Instructions ---
Discharge Instructions Date of Service Jan 09, 2018. Admission Reason for Admission: Atrial Fibrillation With Rvr Discharge Discharge Diagnosis / Problem: Chronic infection of R total hip arthroplasty/ Afib with RVR/Recent PE/DVT Discharge Goals Goal(s): Decrease discomfort, Improve function, Improve disease control Activity Recommendations Activity Limitations: resume your previous activity (as tolerated) . Instructions / Follow-Up Instructions / Follow-Up Transferring to [place] Accepted hospitalist physician Dr. Allen Please consult Ortho Dr. Yu at [facility] Continue IV heparin drip en route Current Hospital Diet Patient's current hospital diet: AHA Diet (Heart Healthy), Diabetes Type 2 Diet Discharge Diet Recommended Diet: AHA Diet (Heart Healthy), Diabetes Type 2 Diet Pending Studies Studies pending at discharge: no Laboratory Results Hemoglobin A1c Test 10/10/17 03:53 Range/Units Estimated Average Glucose 105 mg/dl Hemoglobin A1c 5.3 4.5-5.6 % Medical Emergencies . Who to Call and When: Medical Emergencies: If at any time you feel your situation is an emergency, please call 911 immediately. . Non-Emergent Contact Non-Emergency issues call your: Primary Care Provider Call Non-Emergent contact if: you have any medication questions . . "Provider Documentation" section prepared by Tootie Sen. .
--- NOTE | 2018-01-09 11:44 | Discharge Summary ---
Discharge Summary Date of Service Jan 09, 2018. Discharge Summary Admission Date: Jan 07, 2018 at 16:23 Discharge Disposition: Acute care facility Principal Diagnosis: Chronic infection of right hip arthroplasty Secondary Diagnoses/Problems: PE/DVT with IVC filter Afib with RVR DM type 2 HTN Procedures: R HIP-LOWER EXTREMITY WITH CLINICAL HISTORY: previous infection with fevers TECHNIQUE: Transaxial acquisition with multi axial reformatted images COMPARISON STUDY: Ultrasound 11/10/2017. CT 11/10/2017. FINDINGS: Subcutaneous complex fluid pocket with a well-circumscribed right lateral to the right hip and proximal right femur. This measures 7 x 3.5 x 13 cm. Diagnostic considerations include hematoma versus abscess. Medially lateral to the patient's longstem right hip prosthetic is a deeper complex fluid pocket measuring 3.5 x 4.0 cm. This is immediately lateral to the mid femoral prosthetic. Metallic artifact from the patient's prosthetic appears detail. IMPRESSION: 1. 2 collections lateral to the right hip prosthetic as described. 2. The largest measures 7 x 3.5 x 13 cm and is within the subcutaneous fat. 3. The deeper collection measures 3.5 x 4.0 cm and is immediately lateral to the longstem femoral prosthetic. 4. Diagnostic considerations at both sites include abscess versus hematoma. The above report was generated using voice recognition software. It may contain grammatical, syntax or spelling errors. Electronically signed by: Javier Erickson M.D. 01/07/2018 2:53 PM Dictated Date/Time: 01/07/2018 2:47 PM CHEST ONE VIEW PORTABLE CLINICAL HISTORY: fever cough COMPARISON STUDY: 10/31/2017 FINDINGS: The bones soft tissues and hemidiaphragms are normal. The cardiomediastinal silhouette is normal. The lungs are clear. The pulmonary vasculature is normal. IMPRESSION: Negative chest. The above report was generated using voice recognition software. It may contain grammatical, syntax or spelling errors. Electronically signed by: Javier Erickson M.D. 01/07/2018 12:58 PM Dictated Date/Time: 01/07/2018 12:58 PM R HIP UNILATERAL 2 VIEWS HISTORY: 77 years-old Female right hip fracture, fluid collections follow-up study in a patient with history of prior right hip fracture COMPARISON: Right hip radiographs 11/11/2017, CT of the right hip 01/07/2018 TECHNIQUE: 2 views of the right hip FINDINGS: Postoperative changes with right hip total joint arthroplasty with elongated femoral stem. There are 4 cerclage wires about the proximal femoral diaphysis redemonstrated. Heterotopic ossifications about the proximal right femur. No evidence of hardware complication or malalignment. No acute fracture or dislocation. Demineralized appearance of the bones. There is soft tissue swelling about the lateral hip and thigh. Contrast is noted within the urinary bladder lumen. IMPRESSION: 1. Right hip total joint arthroplasty with satisfactory alignment. 2. No acute fracture or dislocation. 3. Moderate soft tissue swelling about the proximal thigh and lateral to the right hip likely correlates with previously described fluid collections with associated adjacent heterotopic ossifications. The above report was generated using voice recognition software. It may contain grammatical, syntax or spelling errors. Electronically signed by: Randall Adorno M.D. 01/07/2018 8:35 PM Dictated Date/Time: 01/07/2018 8:32 PM Admission Information HPI (per Admitting provider): Patient is a 77 yo F with PMH paroxysmal atrial fibrillation (on Coumadin), R hip ORIF in September complicated by dislocation and infectious seroma s/p washout, recent bilateral DVT and PE, HTN, DM II (diet controlled) and other medical problems listed below who presents with intermittent fever and worsening hip pain 2 weeks. Patient has had multiple complications since initial right hip surgery in September, including a hospitalization in early October for dislocation of prosthesis as well as A. fib with RVR, bilateral DVTs and PE and cor pulmonale. Was discharged on Coumadin and returned to [facility] rehab. Was seen by Dr. Bonilla later in October and was direct admitted for washout of infected surgical site seroma of right hip. Blood cultures grew Corynebacterium and Enterobacter and patient was treated with ertapenem by [facility]. Was discharged home at the beginning of November with home health and antibiotics by [facility], which were completed on December 30. Patient states that she has been experiencing intermittent fever and chills for the past two weeks, with most recent fever of 100.3F yesterday. Has also been experiencing worsening pressure and pain in her right hip with any type of ambulation or when turning onto her right side. This morning, patient was ambulating by walker to bathroom she noticed a small amount of yellow drainage from surgical wound. Endorses fatigue, generalized weakness and right lower extremity swelling (unchanged since September surgery). Denies bloody output from surgical site or numbness/paresthesias of RLE. When evaluated in the ED, patient was found to be in A. fib with RVR with a heart rate ~122. Has experienced this on previous admissions and is always asymptomatic. Denies any lightheadedness, visual changes, palpitations or chest pain. States that she has been taking her beta-lia normally except for missing today's dose. Has been taking Coumadin regularly. INR is supratherapeutic at 7.4. Denies any blood present in urine or stool. Physical Exam (per Admitting): General Appearance: WD/WN, + mild distress (anxious ) Head: normocephalic, atraumatic Eyes: normal inspection, PERRL, sclerae normal ENT: normal ENT inspection, hearing grossly normal, pharynx normal (moist mucous membranes ) Neck: supple, thyroid normal, trachea midline Respiratory/Chest: chest non-tender, lungs clear, normal breath sounds, no respiratory distress, no accessory muscle use Cardiovascular: no edema, + tachycardia Abdomen/GI: non tender, soft, no organomegaly Extremities/Musculoskelatal: normal inspection, no calf tenderness, normal capillary refill, + swelling (RLE with non-pitting edema ), + pertinent finding (R lateral thigh incision with small amount of light yellow drainage. Mild tenderness to palpation.) Neurologic/Psych: director heart II-XII nml as tested, no motor/sensory deficits, alert , oriented x 3 Skin: normal color, warm/dry, no rash Hospital Course Chronic infection of right hip arthroplasty Multiples right hip surgery with complicated post op course Present with fever and chills and yellowish drainage of right hip area on admission CT right hip showed 2 collections lateral to the right hip prosthetic Previous wound cx grew corynebacterium and Enterobacter Recently completed IV ertapenem on 12/30/17 for infected surgical site seroma Elevated WBC that trending down Started on Vanco and Zosyn IV IV on board recommended to continue IV abx Ortho on board Consider possible to transfer to a tertiary facility if pt requires additional procedure 01/09 Case discussed with Ortho recommended to transfer to a tertiary care center due to the extent of the surgery and commodities Dr. Jose discussed the case ortho at [facility] Dr. Yu and agreed to evaluate patient once transfers under medicine service Pt agreed to transfer to [place] for evaluation Cancelled CT-guided aspiration of both fluid collections seen on CT scan due to patient is being transferred and will start on heparin drip for his recent PE/ DVT and Afib Continue IV Vanco and Zosyn for now Afebrile and WBC normal Case discussed with [facility] [address] Hospitalist [address] Allen who accepted the patient. Supratherapeutic INR INR on admission 7.4 Received 2.5mg IV Vit K Continue Holding Coumadin INR today 1.4 Monitor INR A Fib with RVR HR ~120s initially HR has been in the 80's on monitor IV cardizem drip was d/c Continue metoprolol PO Cardiology recommended to start on heparin drip once INR below 2 INR 1.4 Case discussed with Cardiology and agreed to start on heparin drip Recent bilateral DVT and PE INR 7.4 on admission INR today 1.4 Starting on heparin drip HTN Continue lisinopril, metoprolol Stable DM II diet controlled A1c of 5.3 on 10/10/17 Monitor BSG Anemia Hg 8.8 today Monitor CBC DVT Ppx INR 1.4 today Continue holding coumadin Starting on heparin drip Code status FULL CODE Disposition Will transfer to [place] today Accepted hospitalist physician Dr. Allen Will need to consult Edgar Yu at [facility] Total time spent on discharge = 45 minutes This includes examination of the patient, discharge planning, medication reconciliation, and communication with other providers. Discharge Instructions Discharge Instructions Date of Service Jan 09, 2018. Admission Reason for Admission: Atrial Fibrillation With Rvr Discharge Discharge Diagnosis / Problem: Chronic infection of R total hip arthroplasty/ Afib with RVR/Recent PE/DVT Discharge Goals Goal(s): Decrease discomfort, Improve function, Improve disease control Activity Recommendations Activity Limitations: resume your previous activity (as tolerated) . Instructions / Follow-Up Instructions / Follow-Up Transferring to [place] Accepted hospitalist physician Dr. Allen Please consult Edgar Yu at [facility] Continue IV heparin drip en route Current Hospital Diet Patient's current hospital diet: AHA Diet (Heart Healthy), Diabetes Type 2 Diet Discharge Diet Recommended Diet: AHA Diet (Heart Healthy), Diabetes Type 2 Diet Pending Studies Studies pending at discharge: no Laboratory Results Hemoglobin A1c Test 10/10/17 03:53 Range/Units Estimated Average Glucose 105 mg/dl Hemoglobin A1c 5.3 4.5-5.6 % Medical Emergencies . Who to Call and When: Medical Emergencies: If at any time you feel your situation is an emergency, please call 911 immediately. . Non-Emergent Contact Non-Emergency issues call your: Primary Care Provider Call Non-Emergent contact if: you have any medication questions . . "Provider Documentation" section prepared by Tootie Sen. .
[2018-01-09 15:08] VITALS: BP 148/76; PULSE 98; TEMP 36.9; O2SAT 95
--- NOTE | 2018-01-09 15:56 | Pharmacy Progress Note ---
Pharmacy Abx Dose Short Note Date of Service Jan 09, 2018. Assessment & Plan Item Value Date Time Vancomycin Level Trough 18.0 mcg/ml 01/09/18 0512 Assessment 77 year old female receiving Vancomycin and Zosyn for treatment of recurrent hip infection Day # 3 of antimicrobial therapy. Plan Vancomycin * Trough level of 18.0 mcg/mL is therapeutic, but this level was drawn prior to steady state and may be supratherapeutic if the dose of 1250mg Q12 is continued * Change to 1250 mg IV every 14 hours * Goal trough level for hip infection : 15 to 20 mcg/mL * Patient is suspected to be discharged soon, so will order a trough if antibiotic treatment continues over the next couple of days. Pharmacy will continue to follow and will adjust dose/frequency as necessary. Thank you.
[2018-01-09 17:29] LABS: PTT PATIENT 33.8 SECONDS (21.0-31.0)
[2018-01-09] MEDS ORDERED: HEPARIN IV BOLUS 6,000 UNIT in SYRINGE 0 ML IV ONE (18:15)
[2018-01-09 19:12] VITALS: BP 136/54; PULSE 94; TEMP 36.6; O2SAT 95
--- NOTE | 2018-01-09 19:44 | Infectious Disease Progress Nt ---
Progress Note Date of Service Jan 09, 2018. Subjective Pt evaluation today including: conversation w/ patient, conversation w/ family , physical exam, chart review, lab review, review of studies, conversation w/ oncology consultant, review of inpatient medication list Patient for transfer to [facility]. No new complaints. Remains afebrile. Tolerating antibiotics. All Other Systems: Reviewed and Negative Medications Current Inpatient Medications Medications (Trade) Dose Ordered Sig/Beatriz Route Start Time Stop Time Status Last Admin Dose Admin Ioversol (Optiray 320) 100 ml UD PRN IV 01/07/18 12:45 01/11/18 12:44 Acetaminophen (Tylenol Tab) 650 mg Q4H PRN PO 01/07/18 16:45 02/06/18 16:44 Ondansetron HCl (Zofran Inj) 4 mg Q6H PRN IV 01/07/18 16:45 02/06/18 16:44 Diltiazem HCl 125 mg/Dextrose 125 ml @ 0 mls/hr Q0M PRN IV 01/07/18 17:00 02/06/18 16:59 01/08/18 04:25 5 MLS/HR Miscellaneous Information (Consult) 1 ea UD PRN N/A 01/07/18 17:03 02/06/18 17:02 Vancomycin HCl (Consult) 1 ea UD PRN N/A 01/07/18 17:15 02/06/18 17:14 Piperacillin Sod/ Tazobactam Sod 3.375 gm/Dextrose 115 ml @ 28.75 mls/ hr Q8H IV 01/08/18 02:00 02/19/18 01:59 01/09/18 17:15 28.75 MLS/HR Tramadol HCl (Ultram Tab) not relieved by tylenol @ Q6H PRN PO 01/07/18 22:15 02/06/18 22:14 Hydromorphone HCl (Dilaudid Inj) 0.5 mg Q3H PRN IV 01/07/18 22:15 01/21/18 22:14 01/07/18 22:20 0.5 MG Metoprolol Tartrate (Lopressor Tab) 50 mg TID PO 01/08/18 14:00 02/07/18 13:59 01/09/18 16:48 50 MG Heparin Sodium/ Dextrose 500 ml @ 31 mls/hr Q16H8M IV 01/09/18 10:45 02/08/18 10:44 01/09/18 10:56 25 MLS/HR Vancomycin HCl 1250 mg/Sodium Chloride 275 ml @ 125 mls/hr Q14H IV 01/09/18 20:00 02/19/18 05:59 Objective Vital Signs Date Time Temp Pulse Resp B/P (MAP) Pulse Ox O2 Delivery O2 Flow Rate FiO2 01/09/18 19:12 36.6 94 20 136/54 (81) 95 Room Air 01/09/18 16:11 Room Air 01/09/18 15:08 36.9 98 18 148/76 (100) 95 Room Air 01/09/18 12:36 Room Air 01/09/18 11:05 36.7 79 20 117/74 (88) 98 01/09/18 07:11 36.7 97 20 159/96 (117) 96 Room Air 01/09/18 03:32 36.6 92 19 124/84 (97) 96 Room Air 01/08/18 23:57 36.8 84 19 148/75 (99) 97 Room Air 01/08/18 23:30 Room Air 01/08/18 20:00 Room Air Physical Exam General Appearance: WD/WN, no apparent distress Eyes: normal inspection, EOMI, sclerae normal ENT: normal ENT inspection, hearing grossly normal, pharynx normal Neck: supple, no adenopathy, thyroid normal, trachea midline Respiratory/Chest: chest non-tender, lungs clear, normal breath sounds, no respiratory distress Cardiovascular: regular rate, rhythm, no gallop, no murmur Abdomen: normal bowel sounds, non tender, soft, no organomegaly Extremities: non-tender, no calf tenderness Neurologic/Psychiatric: alert, normal mood/affect, oriented x 3 Skin: normal color, warm/dry, no rash Lymphatic: no adenopathy Laboratory Results --------- RUN DATE: 01/09/18 [facility] PAGE 1 RUN TIME: 727 Specimen Inquiry PATIENT: MAUDE ONEAL LOC: [facility] U # : [id number] AGE/SX: 77/F ROOM: [facility] REG : 01/07/[address]: Tootie Sen M.D. : 1940 BED: 1 DIS : STATUS: ADM IN TLOC: SPEC #: [id number] ANURADHA: 01/07/18-1344 STATUS: RES REQ #: [id number] RECD: 01/07/18-[address]: Mauro Kauffman DO SOURCE: BLOOD ENTR: 01/07/18-[address] [facility] [address]: Radha Mirza DMarv [facility]: ORDERED: BLOOD CULTURE Procedure Result Verified Site BLD CULT Preliminary 01/09/18 NO GROWTH TO DATE. Last 24 Hours Test 01/09/18 05:12 01/09/18 16:59 White Blood Count 7.73 K/uL Red Blood Count 3.62 M/uL Hemoglobin 8.8 g/dL Hematocrit 28.6 % Mean Corpuscular Volume 79.0 fL Mean Corpuscular Hemoglobin 24.3 pg Mean Corpuscular Hemoglobin Concent 30.8 g/dl RDW Standard Deviation 49.6 fL RDW Coefficient of Variation 17.0 % Platelet Count 496 K/uL Mean Platelet Volume 8.3 fL Prothrombin Time 14.7 SECONDS Prothromb Time International Ratio 1.4 Sodium Level 139 mmol/L Potassium Level 3.5 mmol/L Chloride Level 108 mmol/L Carbon Dioxide Level 24 mmol/L Anion Gap 7.0 mmol/L Blood Urea Nitrogen 7 mg/dl Creatinine 0.73 mg/dl Est Creatinine Clear Calc Drug Dose 68.4 ml/min Estimated GFR () 90.8 Estimated GFR (Non- 78.3 BUN/Creatinine Ratio 9.8 Random Glucose 106 mg/dl Calcium Level 8.5 mg/dl Vancomycin Level Trough 18.0 mcg/ml Activated Partial Thromboplast Time 33.8 SECONDS Partial Thromboplastin Ratio 1.3 Assessment and Plan Patient with recurrent collections following complicated hip surgery with subsequent need for repeat surgeries., with previous cultures growing Enterobacter and corynebacterium. Patient be transferred to tertiary care center for further management.
[2018-01-09] MEDS ORDERED: VANCOMYCIN IV 1,250 MG in SODIUM CHLORIDE 0.9% 250ML 250 ML IV SCH (20:00)
== END 2018-01-09 19:45 | disposition short-term general hospital (02) | DRG 561 ==
LOC: C.EDB 12:16 → C.2T 16:23 → ENRESERV 16:33 → C.2T 01-08 23:15
PROVIDERS: ADMIT Hospitalist; ATTEND Internal Medicine
DX: T84.51XA Infection and inflammatory reaction due to internal right hip prosthesis, initial encounter (principal); I48.2 Chronic atrial fibrillation; E11.9 Type 2 diabetes mellitus without complications; E78.5 Hyperlipidemia, unspecified; K21.9 Gastro-esophageal reflux disease without esophagitis; I10 Essential (primary) hypertension; D64.9 Anemia, unspecified; Z79.01 Long term (current) use of anticoagulants; Z79.82 Long term (current) use of aspirin; Z79.899 Other long term (current) drug therapy; Z96.641 Presence of right artificial hip joint; Y79.1 Therapeutic (nonsurgical) and rehabilitative orthopedic devices associated with adverse incidents; Y83.1 Surgical operation with implant of artificial internal device as the cause of abnormal reaction of the patient, or of later complication, without mention of misadventure at the time of the procedure

== ENCOUNTER 2018-01-24 14:59 | Emergency (ER) | payer OTHER ==
[~2018-01-24 14:59] MED LIST changes: -ASPI-428 PO; +ASPI81TA28 PO; -ERTA1INJ IV; -FRRS300 PO; -LISI10TA PO; -MULT-506 PO; -PANT1TAB3 PO; +PANT40TA PO
[2018-01-24 15:03] VITALS: TEMP 36.5
[2018-01-24] MEDS ORDERED: ACETAMINOPHEN 325 MG TAB PO STA (15:23)
--- NOTE | 2018-01-24 15:26 | EMERGENCY ROOM VISIT NOTE ---
History First contact with patient: 15:07 (Xenia Gomes PA-C) First contact with patient: 15:07 (Rio Batista M.D.) Chief Complaint: PICC LINE CLOTTED Stated Complaint: PICC LINE PLUGGED History of Present Illness The patient is a 77 year old female who presents to the Emergency Room with complaints of her PICC line not working appropriately. The patient had her PICC placed 2 days ago. She is receiving antibiotics daily through the PICC line for a right hip infection. She reports that the PICC worked fine yesterday. When the healthcare worker tried to give her medications today, he had difficulty pushing the medication. He also could not withdraw blood. She denies any significant pain at the site or in her chest. No fever or chills. (Xenia Gomes PA-C) Review of Systems 6 system review negative. Please see pertinent positives in the history of present illness section. 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 (8) Femur fracture, left (9) GERD (gastroesophageal reflux disease) (10) Hypertension Nos (11) Osteoarthritis (12) Post op infection Surgical Problems: (1) History of total adrenalectomy (2) Knee Joint Replacement Status (3) Presence of both artificial hip joints (4) Status post carotid endarterectomy (5) Status post ORIF right hip (Rio Batista M.D.) Family History FH: colon cancer FH: lung cancer Stroke (Xenia Gomes PA-C) FH: colon cancer FH: lung cancer Stroke (Rio Batista M.D.) Social History Smoking Status: Never Smoker Alcohol Use: occasionally Drug Use: none Marital Status: Housing Status: lives with significant other Occupation Status: retired (Xenia Gomes PA-C) Current/Historical Medications Scheduled Aspirin (Aspirin Ec), 81 MG PO DAILY Docusate Sodium (Docusate Sodium), 100 MG PO DAILY Metoprolol Tartrate (Lopressor), 50 MG PO BID Pantoprazole (Protonix), 40 MG PO DAILY Warfarin Sod (Jantoven), 5 MG PO DAILY Scheduled PRN Acetaminophen (Mapap), 650 MG PO Q6H PRN for For mild pain (pain scale 1-3) Physical Exam Vital Signs Date Time Temp Pulse Resp B/P (MAP) Pulse Ox O2 Delivery O2 Flow Rate FiO2 01/24/18 18:20 85 18 122/60 94 Room Air 01/24/18 15:03 36.5 85 18 123/70 93 Room Air (Rio Batista M.D.) Physical Exam VITALS: Vitals are noted on the nurse's note and reviewed by myself. Vital signs stable. GENERAL: 77-year-old female, in no acute distress, nondiaphoretic, well- developed well-nourished. SKIN: The skin was without rashes, erythema, edema, or bruising. HEAD: Normocephalic atraumatic. NECK: Supple without nuchal rigidity. No JVD. HEART: Regular rate and rhythm without murmurs gallops or rubs. LUNGS: Clear to auscultation bilaterally without wheezes, rales or rhonchi. No accessory muscle use. MUSCULOSKELETAL: Right upper extremity: There is a PICC line placed in the mid medial aspect of the right upper extremity. There is no surrounding erythema or edema noted. NEURO: Patient was alert and oriented to person place and time. No focal neurological deficits. (Xenia Gomes PA-C) Medical Decision & Procedures ER Provider Diagnostic Interpretation: Chest x-ray IMPRESSION: 1. Right upper extremity PICC terminates in the mid SVC. However, there is an apparent discontinuity or kink at the level of the axillary vein. The report will be called/faxed according to standard departmental protocol. Electronically signed by: Hipolito Sher M.D. 01/24/2018 3:39 PM Dictated Date/Time: 01/24/2018 3:37 PM The status of this report is Signed. Draft = Not yet reviewed or approved by Radiologist. Signed = Reviewed and approved by Radiologist. <AttendingPhy></AttendingPhy> <FamilyPhy>Radha Mirza D.O.</FamilyPhy> < PrimaryPhy>Radha Mirza D.O.</PrimaryPhy> <UnitNumber>[id number]</UnitNumber > <VisitNumber>[id number]</VisitNumber> <PatientName>MAUDE ONEAL</ PatientName> <DateOfBirth>1940</DateOfBirth> <Location>[facility]</Location> < ServiceDate>01/24/18</ServiceDate> <MNE>ESINDI</MNE> <OrderingPhy>Xenia Gomes PA-C</OrderingPhy> <OrderingPhyMNE>f rep ord dr rapp</OrderingPhyMNE> < DictatingPhyMNE>f rep dict dr rapp</DictatingPhyMNE> <CCListMNE>f rep ct mne</ CCListMNE> <AdmittingPhyMNE>f pt admit dr rapp</AdmittingPhyMNE> <AttendingPhyMNE >f pt attend dr rapp</AttendingPhyMNE> <ConsultingPhyMNE>f pt consult dr rapp</ConsultingPhyMNE> <FamilyPhyMNE>f pt fam dr rapp</FamilyPhyMNE> <OtherPhyMNE>f pt other dr rapp</OtherPhyMNE> < PrimaryPhyMNE>f pt prim care dr rapp</PrimaryPhyMNE> <ReferringPhyMNE>f pt referring dr rapp</ReferringPhyMNE> (Xenia Gomes PA-C) Medications Administered Medications (Trade) Dose Ordered Sig/Beatriz Route Start Time Stop Time Status Last Admin Dose Admin Acetaminophen (Tylenol Tab) 650 mg NOW STAT PO 01/24/18 15:23 01/24/18 15:24 DC 01/24/18 15:30 650 MG Alteplase, Recombinant (Activase Cathflo) 2 mg ONE ONCE IV 01/24/18 16:00 01/24/18 16:01 DC 01/24/18 15:59 2 MG (Rio Batista M.D.) ED Course The patient was seen and examined A chest x-ray was performed and reviewed IV team was paged IV team evaluated the patient. They were able to pull back her PICC line 1 cm. The PICC line then flushed very easily. It gave good blood return. The patient was also seen and examined by my supervising physician who is in agreement with my plan Discharge instructions were reviewed, and she was discharged in good condition (Xenia Gomes PA-C) Medical Decision Differential diagnosis: Clotted PICC line, infection, misplacement This patient is a 77-year-old female presents to the emergency department with problems with her PICC line. An x-ray was performed. There is questionable kink in the PICC line. IV team was consulted. They were able to pull back the PICC line 1 cm. They then were easily able to flush the line. There is good blood return. The patient will continue her antibiotics as prescribed and follow-up with her doctors in [place]. She will return to the ED with any concerning symptoms This chart was completed in part utilizing [employer] Voice Recognition software. Attempts were made to minimize the grammatical errors, random word insertions, pronoun errors and incomplete sentences. Any formal questions or concerns about the content, text or information contained within the body of this dictation should be directly addressed to the provider for clarification. (Xenia Gomes PA-C) The patient was seen and examined by myself in conjunction with the advanced care provider. I agree with the history, physical and findings as documented. PICC line now functional after adjustment by IV team to resolve kink. Patient scheduled for 6 weeks of abx via this line. Please see the note for disposition and details. (Rio Batista M.D.) Medication Reconcilliation Current Medication List: was personally reviewed by me (Xenia Gomes PA-C) Blood Pressure Screening Patient's blood pressure: Normal blood pressure (Xenia Gomes PA-C) Impression Primary Impression: Occluded PICC line Departure Information Dispostion Home / Self-Care Condition GOOD Referrals Radha Mirza D.O. (PCP) Patient Instructions My [facility] Additional Instructions You have been evaluated in the emergency department for problems with your PICC line. The PICC line was pulled back 1 cm. After it was pulled back 1 cm, it flushed very easily. There was also good blood return. Please inform your physicians in [place] of this. Please do not hesitate to return to the emergency department with any new or concerning symptoms It was a pleasure participating in your care today Problem Qualifiers Primary Impression: Occluded PICC line Encounter type: initial encounter Qualified Codes: T82.898A - Other specified complication of vascular prosthetic devices, implants and grafts, initial encounter
--- NOTE | 2018-01-24 15:41 | DIAGNOSTIC IMAGING REPORT ---
CHEST ONE VIEW PORTABLE CLINICAL HISTORY: 77 years-old Female presenting with check picc placement. TECHNIQUE: Portable upright AP view of the chest was obtained. COMPARISON: 01/07/2018. FINDINGS: Right upper extremity PICC terminates in the mid SVC. However, there is an apparent discontinuity or kink at the level of the axillary vein. Atherosclerosis of the aortic arch. Cardiac silhouette normal in size. Lungs and pleural spaces clear. Degenerative changes of the thoracic spine. Degenerative changes of the glenohumeral joints bilaterally. Upper abdomen normal. IMPRESSION: 1. Right upper extremity PICC terminates in the mid SVC. However, there is an apparent discontinuity or kink at the level of the axillary vein. The report will be called/faxed according to standard departmental protocol. Electronically signed by: Hipolito Sher M.D. 01/24/2018 3:39 PM Dictated Date/Time: 01/24/2018 3:37 PM
[2018-01-24] MEDS ORDERED: ALTEPLASE, RECOMBINANT 1 MG/ML 2 ML VIAL IV ONE (16:00)
[2018-01-24 18:20] VITALS: BP 122/60; PULSE 85; O2SAT 94
== END 2018-01-24 18:25 | disposition home or self-care (01) ==
LOC: C.EDB 15:01 → C.EDD 18:25
DX: T82.898A Other specified complication of vascular prosthetic devices, implants and grafts, initial encounter (principal); Y84.9 Medical procedure, unspecified as the cause of abnormal reaction of the patient, or of later complication, without mention of misadventure at the time of the procedure; I48.91 Unspecified atrial fibrillation; I25.10 Atherosclerotic heart disease of native coronary artery without angina pectoris; E11.9 Type 2 diabetes mellitus without complications; E78.5 Hyperlipidemia, unspecified; K21.9 Gastro-esophageal reflux disease without esophagitis; I10 Essential (primary) hypertension; M19.90 Unspecified osteoarthritis, unspecified site; Z79.82 Long term (current) use of aspirin; Z79.01 Long term (current) use of anticoagulants; Z79.899 Other long term (current) drug therapy

== ENCOUNTER 2022-06-29 06:35 | Inpatient (IN) ==
[2022-06-29] MEDS ORDERED: ACETAMINOPHEN 1,000 MG/100 ML VIAL IV STA (07:33)
[2022-06-29 08:13] LABS: Basophils # (auto) 0.01 K/uL (0-0.2); Basophils % (auto) 0.1 %; Eosinophils # (auto) 0.04 K/uL (0-0.50); Eosinophils % (auto) 0.5 %; Hematocrit (blood only) 42.1 % (34.1-44.9); Hemoglobin 13.9 g/dl (12.0-16.0); Immature Granulocytes # (auto) 0.04 K/uL (0.00-0.02); Immature Granulocytes % (auto) 0.5 %; Lymphocytes # (auto) 0.86 K/uL (1.2-3.4); Lymphocytes % (auto) 11.8 %; Mean Corpuscular Volume 90.7 fL (80.0-100.0); Monocytes # (auto) 0.66 K/uL (0.24-0.82); Monocytes % (auto) 9.1 %; Neutrophils # (auto) 5.67 K/uL (1.4-6.5); Platelet Count 306 K/uL (130-400); RDW Standard Deviation 49.4 fL (36.4-46.3); Red Blood Count 4.64 M/uL (3.93-5.22); White Blood Count 7.28 K/ul (4.8-10.8)
[2022-06-29 08:34] LABS: Prothrombin Time > 90.0 Seconds (9.0-12.0)
[2022-06-29 09:06] LABS: INR > 9.6 (0.9-1.1)
--- NOTE | 2022-06-29 09:17 | Magnetic Resonance Report ---
MR lumbar spine wo con CLINICAL HISTORY: Intractable back pain (L radiculitis) TECHNIQUE: Multiplanar sequences through the lumbar spine were obtained, without intravenous contrast . Comparison: Comparison is made to CT lumbar spine 06/26/2022 FINDINGS: The alignment is anatomical. L1-L2: No significant abnormality. L2-L3: There is a broad-based posterior disc bulge with mild canal stenosis, AP diameter 10 mm, and m oderate right and mild left neuroforaminal stenosis. L3-L4: There is a broad-based posterior disc bulge resulting in moderate right and mild left neurofor aminal stenosis. L4-L5: There is facet arthropathy and posterior disc bulge resulting in severe left and moderate righ t neuroforaminal stenosis. L5-S1: There is mild to moderate bilateral neural foraminal stenosis. The spinal ligaments are intact, without evidence of disruption or abnormal signal intensity. The spi nal cord is normal in signal intensity and there is no evidence of cord contusion. There is no eviden ce of an extradural, intradural, extramedullary or intramedullary lesion. Visualized soft tissues are normal. Nonspecific STIR signal is in the S2 vertebral body. IMPRESSION: 1. STIR signal in the S2 vertebral body may represent contusion from prior fall. 2. Multilevel degenerative changes with up to severe left and moderate right foraminal stenosis. The re is up to mild canal stenosis. ACT 112: Negative or not required by law. Electronically signed by: Herb Cristobal M.D. 06/29/2022 9:15 AM
[2022-06-29 09:26] LABS: Albumin Globulin Ratio 1.4 (0.9-2); Albumin Level 3.7 gm/dl (3.4-5.0); BUN Creatinine Ratio 22.7 (10-20); Bilirubin,Total 0.7 mg/dl (0.2-1.0); Calcium 9.4 mg/dl (8.5-10.1); Creatinine Clr Calc Pharmacy 49.7 ml/min; Est GFR (African American) 69.9 ml/min; Est GFR (Non-African American) 60.3 ml/min; Globulin 2.7 gm/dl (2.5-4.0); Potassium 4.5 mmol/L (3.5-5.1); Total Protein 6.4 gm/dl (6.0-8.3)
[2022-06-29] MEDS ORDERED: PHYTONADIONE 5 MG TAB PO STA ×2 (09:59→11:59)
[2022-06-29] MEDS ORDERED: ONDANSETRON INJ 2 MG/ML 2 ML VIAL IV PRN (10:18)
[2022-06-29] MEDS ORDERED: POLYETHYLENE (MIRALAX) 17 GM PACK PO PRN (10:18)
[2022-06-29] MEDS ORDERED: ALUMINUM/MAGNESIUM SUSP 30 ML UDC PO PRN (10:18)
[2022-06-29] MEDS ORDERED: MAGNESIUM HYDROXIDE SUSP 30 ML UDC PO PRN (10:18)
--- NOTE | 2022-06-29 10:28 | History & Physical Report ---
Date of Service June 29, 2022 Assessment & Plan (1) Supratherapeutic INR: (2) Atrial fibrillation: (3) Dyslipidemia: (4) Osteoarthritis: (5) Back pain: Plan 82 y/o with supraytherapeutic INR; adverse reaction (SOB) to IV vitamin K; administer p.o. Back pain; s/p fall a few weeks ago; degenerative changes. Trial of conservative tx measures including: IV Tylenol, gabapentin, lidocaine patch. If no improvement consider pain management consultation. Supratherapeutic INR: Atrial fibrillation: -INR greater than 9.5; hold Coumadin -Patient with possible adverse reaction to IV vitamin K; administer p.o.; received vitamin K PO 5 mg x 2 -Discussed with Dr. Talley and pharmacy for further recommendations re: dosing/treatment. -Avoid premedicated or IV vitamin K as no life-threatening bleeding noted -Recheck INR in a.m. -INR on 06/13 was 3.9 without follow-up -Recent fall x2 on June 11June 13. Did not hit head -Outpatient follow-up to discuss risk versus benefit of continuation of anticoagulation Back pain: Osteoarthritis -After recent falls imaging performed and negative for fracture -Lumbar MRI today with degenerative changes and the followin. STIR signal in the S2 vertebral body may represent contusion from prior fall. 2. Multilevel degenerative changes with up to severe left and moderate right foraminal stenosis. There is up to mild canal stenosis. -Trial conservative treatment: scheduled IV Tylenol -Trial PO gabapentin low dose -Trial lidocaine patch -If no improvement consider pain management consultation. -PT OT while here Dyslipidemia: Controlled by diet: 03/31 lipid panel: TG 97, LDL 132, HDL 67 Depression: -On Lexapro; continue Disposition: PCP: Dr. Mirza Code Status: Full Code VTE prophylaxis: Supratherapeutic INR; teds for now A total of 86 minutes was spent with greater than 50% of that time personally reviewing all current laboratory work and diagnostic imaging studies obtained in the ED. Additionally, I was able to review the patients past medication reconciliation and history with direct visualization in the patients chart. Included in the time above, a portion of that time was spent assessing the patient while discussing and collaborating with specialists, if necessary, and making medical decisions regarding orders to be placed. All of the aforementioned completed while collaborating with Dr. Valente for a full treatment plan. Please see his addendum for further details. History of Present Illness Chief Complaint: back pain Primary Care Provider: Radha Mirza DO Ms. Kamara is an 82-year-old female that presented to the [facility] ED today with back pain. She lives alone and at the beginning of June had 2 falls which she describes the first to be mechanical on June 11 and the second to be unwitnessed and more syncopal in nature with a brief period of LOC which she feels was a few minutes. She was seen as outpatient and placed on a Zio patch which has not been returned. An ECHO was also planned for July 26. With her falls she had bruising and back pain that has not resolved despite Voltaren gel prescription and as needed Tylenol. She is hesitant to trial opioids. Numerous imaging of her back and hips have been obtained over the past few weeks and negative for fracture. Lumbar MRI obtained today with results indicating an S2 vertebral body contusion from prior fall and multilevel degenerative changes. Incidentally in the ED, INR found to be supratherapeutic greater than 9.5. Takes Coumadin for chronic atrial fibrillation. Some lower limb bruising from previous falls and conjunctival hemorrhage bilaterally not affecting vision. She did take her Coumadin this morning. Her daughter Lisa accompanied her to the ED and was assisting with history. As mentioned patient lives in the bottom floor of her two-story home where all of her needs can be accessed on 1 floor. She does use a 4 wheeled walker at home and [facility] has just started coming to the house with PT starting next week. She is relatively independent at baseline with her ADLs requiring some assistance from her daughter with showers. Family provides food and Meals on Wheels has been started. 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 Patient lying in her hospital bed AAOx4 and able to have a meaningful conversation. Patient reports that she feels fine outside of her back pain. Patient reports having some numbness and tingling down her left leg depending on her position. Patient denies loss of bowel or bladder control, headache, visual changes, chest pain, palpitations, abdominal pain, appetite changes, additional recent falls or trauma. Conservative management including scheduled Tylenol, trial gabapentin and lidocaine patch. If no improvement, consider pain management consultation. I was able to talk with Dr. Talley from the anticoagulation clinic who advised to administer an additional dose of vitamin K for total of 10 mg. Patient reports hypersensitivity to IV vitamin K in the past however there is no IV vitamin K administration [facility]. She has been reversed in the past with 2.5 mg and 5 mg in 2018 for supratherapeutic INR. For now since no life-threatening bleeding continue with p.o. dosing as necessary after rechecking INR in a.m.. From a risk versus benefit perspective of continuation of anticoagulation conversation would be best suited as outpatient by her PCP or medical assistant prn involved. Patient will be admitted for further evaluation and management. Please see A/P for further details. Allergies Allergy/AdvReac Type Severity Reaction Status Date / Time phytonadione (vitamin K1) Allergy Unknown IV Verified 06/24/19 10:17 FORMULATION - SOB, HTN, FLUSHING morphine AdvReac Mild N/V Verified 06/24/19 10:17 propoxyphene AdvReac Mild N/V Verified 06/24/19 10:17 Home Medications Medication Instructions Recorded Confirmed Type acetaminophen 325 mg tablet 650 mg PO DIRECTED PRN Pain 06/24/19 06/29/22 History (Tylenol) docusate sodium 100 mg capsule 0 mg PO BID PRN Constipation 06/24/19 06/29/22 History (Stool Softener) warfarin 5 mg tablet 0 mg PO DIRECTED 06/24/19 06/29/22 History diltiazem HCl 120 mg capsule,24 120 mg PO DAILY 06/29/22 06/29/22 History hr,extended release (Tiadylt ER) escitalopram oxalate 10 mg tablet 10 mg PO DAILY 06/29/22 06/29/22 History (Lexapro) multivitamin 1 PO DAILY 06/29/22 History Past Med/Surg History Medical History Atrial fibrillation "on coumadin" Carotid arterial disease Cerebrovascular disease "s/p CVA" Diabetes mellitus, type 2 Dyslipidemia Failed total hip arthroplasty with dislocation GERD (gastroesophageal reflux disease) Infection of right prosthetic hip joint Osteoarthritis Post op infection "infected seroma following R hip ORIF" On 01/07/18 18:42 Ria Banks wrote "infected hematoma following R hip ORIF" Supratherapeutic INR Surgical History History of bilateral total hip arthroplasty Social History Smoking Status: Never smoker Preferred Language: Sami marital status: Current Living Situation: Spouse current occupational status: retired Feels Safe at Home: Yes Review of Systems Review of Systems: Neuro: (-) Falls, trauma, slurred speech HEENT: (-) GR, dizziness, dysphagia, visual or auditory changes. CV: (-) CP, palpitations, swelling Resp: (-) SOB GI: (-) appetite changes, N/V/D, bowel changes : (-) urinary changes Skin: (-) rashes Psych: (-) anxiety, depression Physical Exam Physical Exam: Neuro: AAOx4, PERRLA, no aphagia, memory changes, CNII-XII grossly intact HEENT: head normocephalic, moist mucus membranes. Conjunctival hemorrhages bilaterally. PERRLA CV: S1/S2, (-) M/G/R, (-) edema, cap refill < 3 seconds Resp: Lungs CTA in all sung. On RA GI: Abdomen S/NT/ND, Ax4 bowel sounds, (-) CVA tenderness Musculoskeletal: 5/5 B/L UE strength, 5/5 B/L LE strength. No gait disturbance Skin: (-) rashes , (-) erythema.(+) ecchymosis right greater than left lower extremity abbott Psych: euthymic mood Results & Data Results & Data ([facility]) Vital Signs (Past 12 Hours) Vital Signs Temp Pulse Pulse Resp BP BP Pulse Ox 06/29/22 06:44 36.9 C 75 20 130/84 98 06/29/22 06:44 36.9 C 75 16 130/84 98 O2 Del Method 06/29/22 06:44 Room Air 06/29/22 06:44 Room Air Laboratory Results Short CBC 06/29/22 Range/Units 07:55 WBC 7.28 (4.8-10.8) K/ul Hgb 13.9 (12.0-16.0) g/dl Hct 42.1 (34.1-44.9) % Plt Count 306 (130-400) K/uL BMP 06/29/22 07:55 Sodium 141 Potassium 4.5 Chloride 109 H Carbon Dioxide 28 BUN 20 Creatinine 0.88 Glucose 105 H Calcium 9.4 Liver Function 06/29/22 Range/Units 07:55 Total Bilirubin 0.7 (0.2-1.0) mg/dl AST 16 (13-39) U/L ALT 15 (7-52) U/L Alkaline Phosphatase 180 H (34-104) U/L Albumin 3.7 (3.4-5.0) gm/dl Diagnostic Findings Lumbar Spine MRI 06/29/22 07:33 MR lumbar spine wo con CLINICAL HISTORY: Intractable back pain (L radiculitis) TECHNIQUE: Multiplanar sequences through the lumbar spine were obtained, without intravenous contrast. Comparison: Comparison is made to CT lumbar spine 06/26/2022 FINDINGS: The alignment is anatomical. L1-L2: No significant abnormality. L2-L3: There is a broad-based posterior disc bulge with mild canal stenosis, AP diameter 10 mm, and moderate right and mild left neuroforaminal stenosis. L3-L4: There is a broad-based posterior disc bulge resulting in moderate right and mild left neuroforaminal stenosis. L4-L5: There is facet arthropathy and posterior disc bulge resulting in severe left and moderate right neuroforaminal stenosis. L5-S1: There is mild to moderate bilateral neural foraminal stenosis. The spinal ligaments are intact, without evidence of disruption or abnormal signal intensity. The spinal cord is normal in signal intensity and there is no evidence of cord contusion. There is no evidence of an extradural, intradural, extramedullary or intramedullary lesion. Visualized soft tissues are normal. Nonspecific STIR signal is in the S2 vertebral body. IMPRESSION: 1. STIR signal in the S2 vertebral body may represent contusion from prior fall. 2. Multilevel degenerative changes with up to severe left and moderate right foraminal stenosis. There is up to mild canal stenosis. ACT 112: Negative or not required by law. Electronically signed by: Herb Cristobal M.D. 06/29/2022 9:15 AM Code Status & VTE Plan Code Status Full Code in the event of cardiac or respiratory arrest VTE Prophylaxis Plan VTE Prophylaxis will be ordered: Yes Supervising Physician Co-Signing Physician Notes Patient seen and examined independently. Agree with full documentation by Jamee FRANCOIS. Patient presents with repeated fall with lower back pain. MRI lumbar spine did not show any fracture. Has STIR signal in the S2 vertebral body may represent contusion from prior fall. She is found to have supratherapeutic INR of 9.5 Dr. Talley from anticoagulation clinic recommends vitamin K oral and repeat INR tomorrow AM. PT OT evaluation and pain control with lidocaine patch and Tylenol. Will obtain CT head without contrast given the history of fall and supratherapeutic INR
[2022-06-29] MEDS: GABAPENTIN 100 MG CAP PO SCH (10:34)
[2022-06-29] MEDS: LIDOCAINE 5% 1 PATCH TD SCH (10:34)
[2022-06-29] MEDS ORDERED: DOCUSATE SODIUM 100 MG CAP PO PRN (11:17)
--- NOTE | 2022-06-29 11:21 | Emergency Department Note ---
ED Provider Note History of Present Illness Chief Complaint: Back Injury/Pain Time Seen by Provider: 06/29/22 07:20 Pleasant 82-year-old female who presents to the emergency department with her daughter for evaluation of persistent and unmanageable lower back pain. The patient reports that she has had several falls over the past month. She was seen in the emergency department on 06/16/2022 for evaluation from one of her falls. The patient reports that she has had increasing back pain since that time. She was seen by her PCP, and provided a prescription for Voltaren gel. The patient reports that she cannot tolerate stronger pain medications. The patient is on Coumadin for history of atrial fibrillation. She cannot take ibuprofen, but admits that she took 2 full-size aspirins yesterday. This was revealed to me by the patient's daughter near the end of her work-up. The patient has not taken Tylenol on a regular basis for her pain. The patient denies any falls since her last visit on the . The patient reports mild pain radiating into her left buttock. Although she denies any current pain in the left lower extremity, she reports occasional sharp pains in the leg as well. She denies any abdominal pain, chest pain, shortness of breath or upper abdominal pain. The patient reports that her last Coumadin check was approximately 2 weeks ago. She reports that her INR levels have been rather sporadic. The daughter reports that she was drinking Boost, and the Coumadin clinic recommended that she stop drinking that because it has vitamin K in it. The patient does have a walker at home that she uses to help with ambulation. She does admit to sitting a lot throughout the day. She currently rates her di scomfort a 6 out of 10. Home Medications Medication Instructions Recorded Confirmed Type acetaminophen 325 mg tablet 650 mg PO DIRECTED PRN Pain 06/24/19 06/29/22 History (Tylenol) docusate sodium 100 mg capsule 0 mg PO BID PRN Constipation 06/24/19 06/29/22 History (Stool Softener) warfarin 5 mg tablet 0 mg PO DIRECTED 06/24/19 06/29/22 History diltiazem HCl 120 mg capsule,24 120 mg PO DAILY 06/29/22 06/29/22 History hr,extended release (Tiadylt ER) escitalopram oxalate 10 mg tablet 10 mg PO DAILY 06/29/22 06/29/22 History (Lexapro) multivitamin 1 PO DAILY 06/29/22 History Allergies Allergy/AdvReac Type Severity Reaction Status Date / Time phytonadione (vitamin K1) Allergy Unknown IV Verified 06/24/19 10:17 FORMULATION - SOB, HTN, FLUSHING morphine AdvReac Mild N/V Verified 06/24/19 10:17 propoxyphene AdvReac Mild N/V Verified 06/24/19 10:17 Past Med/Surg History Medical History Atrial fibrillation "on coumadin" Carotid arterial disease Cerebrovascular disease "s/p CVA" Diabetes mellitus, type 2 Dyslipidemia Failed total hip arthroplasty with dislocation GERD (gastroesophageal reflux disease) Infection of right prosthetic hip joint Osteoarthritis Post op infection "infected seroma following R hip ORIF" On 01/07/18 18:42 Ria Banks wrote "infected hematoma following R hip ORIF" Supratherapeutic INR Surgical History History of bilateral total hip arthroplasty Social History Smoking Status: Never smoker Preferred Language: Italian marital status: Current Living Situation: Spouse current occupational status: retired Feels Safe at Home: Yes Physical Exam Vital Signs Vital Signs - 24 hr 06/29/22 06:44 06/29/22 06:44 06/29/22 10:00 Temperature 36.9 C 36.9 C Temperature Source Temporal Artery Scan Oral Pulse Rate 75 Pulse Rate [Finger] 75 64 Pulse Rate from SpO2 Sensor Pulse Rhythm [Finger] Regular Pulse Strength [Finger] Normal Respiratory Rate 16 20 18 Respiratory Effort / Characteristics Non-Labored Spontaneous Non-Labored Spontaneous Non-Labored Respiratory Depth Normal Normal Normal Respiratory Pattern Regular Blood Pressure 130/84 Blood Pressure [Left Arm] 130/84 135/86 Blood Pressure Mean 99 Blood Pressure Mean [Left Arm] 99 102 Blood Pressure Position [Left Arm] Lying Pulse Oximetry 98 98 96 Oxygen Delivery Method Room Air Room Air Room Air Sepsis Recent Fever Within 48 Hours No Sepsis New/Unexplained Change in Mental Status N/A Sepsis Action Taken by Nursing No Action Required 06/29/22 06:40 06/29/22 07:00 06/29/22 07:30 Temperature Temperature Source Pulse Rate 80 77 79 Pulse Rate [Finger] Pulse Rate from SpO2 Sensor 83 76 78 Pulse Rhythm [Finger] Pulse Strength [Finger] Respiratory Rate 18 13 25 H Respiratory Effort / Characteristics Respiratory Depth Respiratory Pattern Blood Pressure Blood Pressure [Left Arm] Blood Pressure Mean Blood Pressure Mean [Left Arm] Blood Pressure Position [Left Arm] Pulse Oximetry 99 97 94 Oxygen Delivery Method Sepsis Recent Fever Within 48 Hours Sepsis New/Unexplained Change in Mental Status Sepsis Action Taken by Nursing 06/29/22 08:00 Temperature Temperature Source Pulse Rate 82 Pulse Rate [Finger] Pulse Rate from SpO2 Sensor 84 Pulse Rhythm [Finger] Pulse Strength [Finger] Respiratory Rate 17 Respiratory Effort / Characteristics Respiratory Depth Respiratory Pattern Blood Pressure Blood Pressure [Left Arm] Blood Pressure Mean Blood Pressure Mean [Left Arm] Blood Pressure Position [Left Arm] Pulse Oximetry 97 Oxygen Delivery Method Sepsis Recent Fever Within 48 Hours Sepsis New/Unexplained Change in Mental Status Sepsis Action Taken by Nursing CONSTITUTIONAL: Healthy and well nourished. Alert and oriented X 3. GCS 15. Patient appears in mild to moderate discomfort. HEENT: Normocephalic, atraumatic. Pupils equal, round and reactive. Patient has bilateral subconjunctival hemorrhages. No periorbital edema or ecchymosis. No tenderness to palpation of the facial bones. No epistaxis. Oropharyngeal exam does not show any postnasal bleed or other oral lesions/gingival bleeding. NECK: Limited range of motion without any significant discomfort. LYMPHATICS: No cervical chain adenopathy. RESPIRATORY: Clear to auscultation bilaterally with no wheezing, crackles, rhonchi or stridor. CARDIOVASCULAR: Regular rate and rhythm with no murmurs, rubs or gallops. GASTROINTESTINAL: Bowel sounds present in all quadrants. Abdomen is soft and nontender to palpation. MUSCULOSKELETAL: Examination shows generalized tenderness to palpation through the lower lumbar spine and left SI joint. Negative logroll. Positive straight leg raise. Pedal pulses are intact. INTEGUMENTARY: No rash or other significant dermatologic conditions noted. HEMATOLOGIC: No ecchymosis or petechiae. PSYCHIATRIC: Positive affect. NEUROLOGIC: Cranial nerves II-XII grossly intact. No focal neurologic deficits noted. Course Course Patient history and physical exam were performed. Nurses notes were reviewed. Vital signs were reviewed and were normal. Given the patient's subconjunctival hemorrhage, I was concerned for possible supratherapeutic INR level. I did recommend checking some labs as well; the patient was in agreement. IV access was established, and labs were drawn. The patient was administered IV Tylenol, refusing any stronger analgesics. Review of labs shows a relatively normal CBC with a hemoglobin of 13.9. Coag studies shows an INR greater than 9.6. CMP was also grossly normal other than a mildly elevated random glucose of 105. Alkaline phosphatase is elevated at 180, otherwise with normal LFTs. Given the patient's ongoing symptoms, and concern for possible herniated disc or other soft tissue injuries from her previous falls, noncontrast MRI of the lumbar spine was ordered and performed, and did not show any emergent compressive neuropathies or obvious fractures. Degenerative changes are noted. Findings were discussed with the patient and daughter, as well as Dr. Barroso, ED attending physician, who helped to formulate plan of care. The case was also discussed with our ED pharmacist. It is noted that the patient has an adverse reaction to IV vitamin K, causing shortness of breath, hypertension and flushing. We discussed the possibility of oral vitamin K, however her INR would need to be rechecked again in approximately 24 hours. I also discussed other possibilities for pain management, including Lidoderm patches, gabapentin and other stronger pain medications for pain control. The daughter did voice concern for being a fall risk with her current pain, which is certainly concerning as well. Given all of the above factors, I did call and speak with the [facility] hospitalist service, who was in agreement with an observation status for vitamin K administration/observation, as well as possibly discussing pain management consultation. The patient was in agreement with this plan as well. The patient was administered gabapentin 100 mg and vitamin K 5 mg. A Lidoderm patch was also applied to the back. COVID-19 test was negative. See hospitalist records for further treatment and final disposition. The patient refused any stronger analgesics while under my care. Administered Medications Gabapentin (Gabapentin 100 Mg Cap) 100 mg PO [facility] Stop: 07/29/22 09:59 Last Admin: 06/29/22 10:34 Dose: 100 mg Documented By: PRASANNA Lidocaine (Lidocaine 5% 1 Patch) 1 [facility] [place] [facility] Stop: 07/29/22 10:14 Last Admin: 06/29/22 10:34 Dose: 1 patch Documented By: AP Discontinued Medications Acetaminophen (Ofirmev) 1,000 mg in 100 mls @ 400 mls/hr IV NOW STA Stop: 06/29/22 07:47 Last Infusion: 06/29/22 08:42 Dose: 0 mls/hr Documented By: Admin: 06/29/22 07:59 Dose: 400 mls/hr Documented By: PRASANNA Phytonadione (Phytonadione 5 Mg Tab) 5 mg PO NOW STA Stop: 06/29/22 10:00 Last Admin: 06/29/22 10:34 Dose: 5 mg Documented By: PRASANNA Phytonadione (Phytonadione 5 Mg Tab) 5 mg PO NOW STA Stop: 06/29/22 12:00 Last Admin: 06/29/22 12:53 Dose: 5 mg Documented By: [id number] Medical Decision Making Medical Records Attestation: I reviewed the patient's medical records. Home Medications was personally reviewed by me Laboratory Data Attestation: I reviewed the patient's lab results. 06/29/22 07:55 06/29/22 07:55 Lab Results 06/29/22 06/29/22 06/29/22 Range/Units 07:55 07:55 07:55 WBC 7.28 (4.8-10.8) K/ul RBC 4.64 (3.93-5.22) M/uL Hgb 13.9 (12.0-16.0) g/dl Hct 42.1 (34.1-44.9) % MCV 90.7 (80.0-100.0) fL MCH 30.0 (25.0-34.0) pg MCHC 33.0 (32.0-36.0) g/dL RDW Std Deviation 49.4 H (36.4-46.3) fL RDW Coeff of Mark 15.0 H (11.5-14.5) % Plt Count 306 (130-400) K/uL MPV 9.0 L (9.4-12.3) fL Immature Gran % (Auto) 0.5 % Neut % (Auto) 78.0 % Lymph % (Auto) 11.8 % Mercer % (Auto) 9.1 % Eos % (Auto) 0.5 % Baso % (Auto) 0.1 % Neut # (Auto) 5.67 (1.4-6.5) K/uL Lymph # (Auto) 0.86 L (1.2-3.4) K/uL Mercer # (Auto) 0.66 (0.24-0.82) K/uL Eos # (Auto) 0.04 (0-0.50) K/uL Baso # (Auto) 0.01 (0-0.2) K/uL Immature Gran # (Auto) 0.04 H (0.00-0.02) K/uL PT > 90.0 H (9.0-12.0) Seconds INR > 9.6 H* (0.9-1.1) Sodium 141 (136-145) mmol/L Potassium 4.5 (3.5-5.1) mmol/L Chloride 109 H (98-107) mmol/L Carbon Dioxide 28 (21-32) mmol/L Anion Gap 4 (3-11) BUN 20 (6-23) mg/dl Creatinine 0.88 (0.6-1.2) mg/dl Est Cr Clr Drug Dosing 49.7 ml/min Est GFR ( Amer) 69.9 ml/min Est GFR (Non-Af Amer) 60.3 ml/min BUN/Creatinine Ratio 22.7 H (10-20) Glucose 105 H (70-99(Fasting)) mg/dl Calcium 9.4 (8.5-10.1) mg/dl Total Bilirubin 0.7 (0.2-1.0) mg/dl AST 16 (13-39) U/L ALT 15 (7-52) U/L Alkaline Phosphatase 180 H (34-104) U/L Total Protein 6.4 (6.0-8.3) gm/dl Albumin 3.7 (3.4-5.0) gm/dl Globulin 2.7 (2.5-4.0) gm/dl Albumin/Globulin Ratio 1.4 (0.9-2) Imaging Data Attestation: I personally reviewed and interpreted this imaging study as follows: My Impression: My interpretation of a noncontrast MRI of the lumbar spine shows degenerative changes without obvious fractures or severe stenosis. Radiologist's Impression: Lumbar Spine MRI 06/29/22 07:33 MR lumbar spine wo con CLINICAL HISTORY: Intractable back pain (L radiculitis) TECHNIQUE: Multiplanar sequences through the lumbar spine were obtained, without intravenous contrast. Comparison: Comparison is made to CT lumbar spine 06/26/2022 FINDINGS: The alignment is anatomical. L1-L2: No significant abnormality. L2-L3: There is a broad-based posterior disc bulge with mild canal stenosis, AP diameter 10 mm, and moderate right and mild left neuroforaminal stenosis. L3-L4: There is a broad-based posterior disc bulge resulting in moderate right and mild left neuroforaminal stenosis. L4-L5: There is facet arthropathy and posterior disc bulge resulting in severe left and moderate right neuroforaminal stenosis. L5-S1: There is mild to moderate bilateral neural foraminal stenosis. The spinal ligaments are intact, without evidence of disruption or abnormal signal intensity. The spinal cord is normal in signal intensity and there is no evidence of cord contusion. There is no evidence of an extradural, intradural, extramedullary or intramedullary lesion. Visualized soft tissues are normal. Nonspecific STIR signal is in the S2 vertebral body. IMPRESSION: 1. STIR signal in the S2 vertebral body may represent contusion from prior fall. 2. Multilevel degenerative changes with up to severe left and moderate right foraminal stenosis. There is up to mild canal stenosis. ACT 112: Negative or not required by law. Electronically signed by: Herb Cristobal M.D. 06/29/2022 9:15 AM MDM Narrative See ED course for further details of this visit. The patient essentially presented to the emergency department with intractable lumbar back pain. She is definite risk for falls because of most recent falls. She is also at high risk because she is currently on Coumadin, and is currently in a supratherapeutic INR state. The patient does have bilateral subconjunctival hemorrhages. No other concerning bleeds are are felt likely. The patient denies any headache, chest pain, shortness of breath or abdominal pain. The patient will require reversal of her INR, but unfortunately cannot tolerate IV vitamin K. It was felt that a trial of oral vitamin K was warranted. Patient also cannot tolerate pain medications, so additional trials of Lidoderm patches, gabapentin or low-dose opioids may be considered. Given her intractable pain and other issues on today's visit, I do feel that the patient warrants observation. Impression Intractable neuropathic pain of lumbosacral origin, Supratherapeutic INR, Conjunctival hemorrhage, bilateral Discharge Plan Visit Data Chief Complaint: Back Injury/Pain ED Provider: Maki Barroso ED Midlevel Provider: Terrance Leon Discharge Problem: Intractable neuropathic pain of lumbosacral origin, Supratherapeutic INR, Conjunctival hemorrhage, bilateral Discharge Instructions Interventions: ED Discharge Assessment Last Done: 06/29/22 13:54
[2022-06-29] MEDS: ACETAMINOPHEN 325 MG TAB PO SCH ×2 (16:03→21:47)
[2022-06-29 16:12] LABS: Appearance Urine Cloudy (Clear); Bacteria Urine Automated Negative (Negative); Bilirubin Urine Negative (Negative); Blood Urine Negative (Negative); Color Urine Dark Yellow; Epithelial Cell Urine Auto >30 /lpf (0-5); Glucose Urine UA Negative (Negative); Ketones Urine Trace (Negative); Leukocyte Esterase Urine 1+ (Negative); Nitrite Urine Negative (Negative); Protein Urine Trace (Negative); Specific Gravity Urine 1.029 (1.000-1.030); Urobilinogen Urine Negative (Negative); WBC Urine Automated >30 /hpf (0-5)
[2022-06-29 16:33] LABS: Cast Urine Automated 0 /lpf (0-5)
--- NOTE | 2022-06-29 20:21 | CT Scan Report ---
CT head/brain wo con CLINICAL HISTORY: 82 years-old Female with Recent Fall. Supratheraeutic INR. Acute head injury statu s post fall TECHNIQUE: Multiple axial CT images of the head were obtained without contrast. A dose lowering tech nique was utilized adhering to the principles of ALARA. CT DOSE: 850.93 mGy.cm COMPARISON: June 16, 2022 FINDINGS: No acute intracranial hemorrhage, midline shift, intracranial mass, hydrocephalus, territorial ischem ia or abnormal extra-axial collection. Age-related involutional changes. White matter hypodensities s uggestive of chronic microvascular ischemic disease. Chronic right occipital infarct. The calvarium i s intact. Hyperostosis frontalis interna. Prior bilateral lens repair. The paranasal sinuses, mastoid air cells, and middle ear cavities are clear. IMPRESSION: No acute intracranial abnormality or calvarial fracture. ACT 112: Negative or not required by law. The above report was generated using voice recognition software. It may contain grammatical, syntax o r spelling errors. Electronically signed by: Medhat Adorno M.D. 06/29/2022 8:20 PM
[2022-06-30] MEDS: ACETAMINOPHEN 325 MG TAB PO SCH ×4 (04:14→21:36)
[2022-06-30 08:04] LABS: Hematocrit (blood only) 40.6 % (34.1-44.9); Hemoglobin 13.3 g/dl (12.0-16.0); Mean Corpuscular Hemoglobin 29.4 pg (25.0-34.0); Mean Corpuscular Hgb Conc 32.8 g/dL (32.0-36.0); Mean Corpuscular Volume 89.6 fL (80.0-100.0); Mean Platelet Volume 8.9 fL (9.4-12.3); Platelet Count 288 K/uL (130-400); RDW Coefficient of Variation 15.1 % (11.5-14.5); RDW Standard Deviation 49.2 fL (36.4-46.3); Red Blood Count 4.53 M/uL (3.93-5.22); White Blood Count 7.55 K/ul (4.8-10.8)
[2022-06-30 08:16] LABS: INR 3.3 (0.9-1.1); Prothrombin Time 33.2 Seconds (9.0-12.0)
[2022-06-30] MEDS: ESCITALOPRAM OXALATE 10 MG TAB PO SCH (08:25)
[2022-06-30] MEDS: GABAPENTIN 100 MG CAP PO SCH (08:25)
[2022-06-30] MEDS: dilTIAZem HCL 120 MG CAPCR PO SCH (08:25)
[2022-06-30 09:11] LABS: Calcium 9.4 mg/dl (8.5-10.1); Potassium 5.1 mmol/L (3.5-5.1)
[2022-06-30 09:17] LABS: BUN Creatinine Ratio 33.3 (10-20); Creatinine Clr Calc Pharmacy 43.5 ml/min; Est GFR (African American) 60.6 ml/min; Est GFR (Non-African American) 52.3 ml/min
[2022-06-30] MEDS: LIDOCAINE 5% 1 PATCH TD SCH (09:29)
--- NOTE | 2022-06-30 11:32 | Hospitalist Progress Note ---
Date of Service June 30, 2022 Assessment & Plan (1) Supratherapeutic INR: (2) Atrial fibrillation: (3) Dyslipidemia: (4) Osteoarthritis: (5) Back pain: Plan 82 y/o with supraytherapeutic INR; adverse reaction (SOB) to IV vitamin K; administer p.o. Back pain; s/p fall a few weeks ago; degenerative changes. Trial of conservative tx measures including: IV Tylenol, gabapentin, lidocaine patch. She was also found to have supratherapeutic INR Supratherapeutic INR status post 10 mg of oral vitamin K Permanent atrial fibrillation: History of atrial fibrillation on warfarin for several years. She stop drinking boost which contains vitamin K and had continued previous dose of warfarin which likely contributed to the supratherapeutic INR -Discussed with Dr. Talley and pharmacy for further recommendations; recommended oral vitamin K 10 mg -Avoid premedicated or IV vitamin K as no life-threatening bleeding noted -CT headno evidence of hemorrhage INR down to 3.3 today. Echocardiogram shows EF of 60 to 65%; left atrium and right atrium severely dilated. Plan; Continue to monitor for any signs or symptoms of bleeding given the supratherapeutic INR. - Continue to hold warfarin; obtain PT/INR tomorrow AM. Discussed with her daughter over the phone regarding alternatives including DOAC's. We will set up PCP follow-up and discharge to have further discussion. Her INR has to be less than 2 to initiate any DOAC's. -Continue on her home dose of Cardizem. Back pain: Osteoarthritis -After recent falls imaging performed and negative for fracture -Lumbar MRI today with degenerative changes and the followin. STIR signal in the S2 vertebral body may represent contusion from prior fall. 2. Multilevel degenerative changes with up to severe left and moderate right foraminal stenosis. There is up to mild canal stenosis. -Trial conservative treatment: scheduled IV Tylenol -Trial PO gabapentin low dose -Trial lidocaine patch Patient has home PT OT set up to be coming next week as per daughter. Dyslipidemia: Controlled by diet: 03/31 lipid panel: TG 97, LDL 132, HDL 67 Depression: -On Lexapro; continue Disposition: PCP: Dr. Mirza Code Status: Full Code VTE prophylaxis: Supratherapeutic INR; teds for now Admission and Anticipated Discharge Date Admission Date: June 29, 2022 Subjective Patient seen and examined at bedside. She is comfortably sitting up on the bed; not in distress. No complaint of dizziness, blurring of vision, chest pain, shortness of breath or abdominal pain. Has bruise around her IV site on left arm. Soft conjunctival hemorrhage present bilaterally. Review of Systems Review of Systems: All systems reviewed & are unremarkable except as noted in Subjective Physical Exam Physical Exam: Constitutional: WD/WN, vitals as above, NAD, sitting up in bed, pleasant, conversing easily Head: Normocephalic, Atraumatic Eyes: Bilateral subconjunctival hemorrhages present Respiratory: normal respiratory effort, lungs clear to auscultation, no wheeze, rales, rhonchi. Normal insp/exp effort, no accessory muscle use Cardiovascular: RRR, no murmur, no edema Vessels: no JVD or carotid bruit Abdomen: normal bowel sounds, soft, nontender, no hepatosplenomegaly Musculoskeletal: no cyanosis or clubbing, extremities motor strength 5/5 Skin: Bruises present around IV site. Neurologic: PERRL, EOMI, accommodation nl, no face palsy, no dysarthria CN's II- XI intact bilaterally and moves all extremities Psychiatric: A+Ox3, euthymic affect : deferred Results & Data Results & Data ([facility]) Vital Signs (Past 12 Hours) Vital Signs Temp Pulse Pulse Resp BP Pulse Ox O2 Del Method 06/30/22 08:10 36.3 C L 75 19 161/70 H 97 Room Air 06/30/22 07:36 67 06/30/22 04:00 36.4 C L 70 18 133/73 97 Room Air Laboratory Results Laboratory Results WBC 7.55 K/ul (4.8-10.8) 06/30/22 07:47 RBC 4.53 M/uL (3.93-5.22) 06/30/22 07:47 Hgb 13.3 g/dl (12.0-16.0) 06/30/22 07:47 Hct 40.6 % (34.1-44.9) 06/30/22 07:47 MCV 89.6 fL (80.0-100.0) 06/30/22 07:47 MCH 29.4 pg (25.0-34.0) 06/30/22 07:47 MCHC 32.8 g/dL (32.0-36.0) 06/30/22 07:47 RDW Std Deviation 49.2 fL (36.4-46.3) H 06/30/22 07:47 RDW Coeff of Mark 15.1 % (11.5-14.5) H 06/30/22 07:47 Plt Count 288 K/uL (130-400) 06/30/22 07:47 MPV 8.9 fL (9.4-12.3) L 06/30/22 07:47 Immature Gran % (Auto) 0.5 % 06/29/22 07:55 Neut % (Auto) 78.0 % 06/29/22 07:55 Lymph % (Auto) 11.8 % 06/29/22 07:55 [place] % (Auto) 9.1 % 06/29/22 07:55 Eos % (Auto) 0.5 % 06/29/22 07:55 Baso % (Auto) 0.1 % 06/29/22 07:55 Neut # (Auto) 5.67 K/uL (1.4-6.5) 06/29/22 07:55 Lymph # (Auto) 0.86 K/uL (1.2-3.4) L 06/29/22 07:55 [place] # (Auto) 0.66 K/uL (0.24-0.82) 06/29/22 07:55 Eos # (Auto) 0.04 K/uL (0-0.50) 06/29/22 07:55 Baso # (Auto) 0.01 K/uL (0-0.2) 06/29/22 07:55 Immature Gran # (Auto) 0.04 K/uL (0.00-0.02) H 06/29/22 07:55 PT 33.2 Seconds (9.0-12.0) H 06/30/22 07:47 INR 3.3 (0.9-1.1) H 06/30/22 07:47 Sodium 140 mmol/L (136-145) 06/30/22 07:47 Potassium 5.1 mmol/L (3.5-5.1) 06/30/22 07:47 Chloride 107 mmol/L (98-107) 06/30/22 07:47 Carbon Dioxide 27 mmol/L (21-32) 06/30/22 07:47 Anion Gap 6 (3-11) 06/30/22 07:47 BUN 33 mg/dl (6-23) H 06/30/22 07:47 Creatinine 0.99 mg/dl (0.6-1.2) 06/30/22 07:47 Est Cr Clr Drug Dosing 43.5 ml/min 06/30/22 07:47 Est GFR ( Amer) 60.6 ml/min 06/30/22 07:47 Est GFR (Non-Af Amer) 52.3 ml/min 06/30/22 07:47 BUN/Creatinine Ratio 33.3 (10-20) H 06/30/22 07:47 Glucose 92 mg/dl (70-99(Fasting)) 06/30/22 07:47 Calcium 9.4 mg/dl (8.5-10.1) 06/30/22 07:47 Total Bilirubin 0.7 mg/dl (0.2-1.0) 06/29/22 07:55 AST 16 U/L (13-39) 06/29/22 07:55 ALT 15 U/L (7-52) 06/29/22 07:55 Alkaline Phosphatase 180 U/L (34-104) H 06/29/22 07:55 Total Protein 6.4 gm/dl (6.0-8.3) 06/29/22 07:55 Albumin 3.7 gm/dl (3.4-5.0) 06/29/22 07:55 Globulin 2.7 gm/dl (2.5-4.0) 06/29/22 07:55 Albumin/Globulin Ratio 1.4 (0.9-2) 06/29/22 07:55 Urine Color Dark Yellow 06/29/22 15:46 Urine Appearance Cloudy (Clear) A 06/29/22 15:46 Urine pH 6.0 (4.5-7.5) 06/29/22 15:46 Ur Specific [place] 1.029 (1.000-1.030) 06/29/22 15:46 Urine Protein Trace (Negative) H 06/29/22 15:46 Urine Glucose (UA) Negative (Negative) 06/29/22 15:46 Urine Ketones Trace (Negative) H 06/29/22 15:46 Urine Blood Negative (Negative) 06/29/22 15:46 Urine Nitrite Negative (Negative) 06/29/22 15:46 Urine Bilirubin Negative (Negative) 06/29/22 15:46 Urine Urobilinogen Negative (Negative) 06/29/22 15:46 Ur Leukocyte Esterase 1+ (Negative) H 06/29/22 15:46 Urine WBC (Auto) >30 /hpf (0-5) H 06/29/22 15:46 Urine RBC (Auto) 10-30 /hpf (0-4) H 06/29/22 15:46 U Hyaline Cast (Auto) 0 /lpf (0-5) 06/29/22 15:46 U Epithel Cells (Auto) >30 /lpf (0-5) H 06/29/22 15:46 Urine Bacteria (Auto) Negative (Negative) 06/29/22 15:46 SARS-CoV-2, RNA, NAAT NEGATIVE (NEGATIVE) 06/29/22 Unknown Impressions Lumbar Spine MRI 06/29/22 07:33 MR lumbar spine wo con CLINICAL HISTORY: Intractable back pain (L radiculitis) TECHNIQUE: Multiplanar sequences through the lumbar spine were obtained, without intravenous contrast. Comparison: Comparison is made to CT lumbar spine 06/26/2022 FINDINGS: The alignment is anatomical. L1-L2: No significant abnormality. L2-L3: There is a broad-based posterior disc bulge with mild canal stenosis, AP diameter 10 mm, and moderate right and mild left neuroforaminal stenosis. L3-L4: There is a broad-based posterior disc bulge resulting in moderate right and mild left neuroforaminal stenosis. L4-L5: There is facet arthropathy and posterior disc bulge resulting in severe left and moderate right neuroforaminal stenosis. L5-S1: There is mild to moderate bilateral neural foraminal stenosis. The spinal ligaments are intact, without evidence of disruption or abnormal signal intensity. The spinal cord is normal in signal intensity and there is no evidence of cord contusion. There is no evidence of an extradural, intradural, extramedullary or intramedullary lesion. Visualized soft tissues are normal. Nonspecific STIR signal is in the S2 vertebral body. IMPRESSION: 1. STIR signal in the S2 vertebral body may represent contusion from prior fall. 2. Multilevel degenerative changes with up to severe left and moderate right foraminal stenosis. There is up to mild canal stenosis. ACT 112: Negative or not required by law. Electronically signed by: Herb Cristobal M.D. 06/29/2022 9:[address] 06/29/22 17:13 CT head/brain wo con CLINICAL HISTORY: 82 years-old Female with Recent Fall. Supratheraeutic INR. Acute head injury status post fall TECHNIQUE: Multiple axial CT images of the head were obtained without contrast. A dose lowering technique was utilized adhering to the principles of ALARA. CT DOSE: 850.93 mGy.cm COMPARISON: June 16, 2022 FINDINGS: No acute intracranial hemorrhage, midline shift, intracranial mass, h ydrocephalus, territorial ischemia or abnormal extra-axial collection. Age- related involutional changes. White matter hypodensities suggestive of chronic microvascular ischemic disease. Chronic right occipital infarct. The calvarium is intact. Hyperostosis frontalis interna. Prior bilateral lens repair. The paranasal sinuses, mastoid air cells, and middle ear cavities are clear. IMPRESSION: No acute intracranial abnormality or calvarial fracture. ACT 112: Negative or not required by law. The above report was generated using voice recognition software. It may contain grammatical, syntax or spelling errors. Electronically signed by: Medhat Adorno M.D. 06/29/2022 8:20 PM
--- NOTE | 2022-06-30 15:13 | Electrocardiogram Report ---
Test Reason : Blood Pressure : / mmHG Vent. Rate : 060 BPM Atrial Rate : 053 BPM P-R Int : 000 ms QRS Dur : 068 ms QT Int : 406 ms P-R-T Axes : 000 010 058 degrees QTc Int : 406 ms Poor data quality, interpretation may be adversely affected Atrial fibrillation Low voltage QRS Septal infarct (cited on or before 16-JUN-2022) Nonspecific T wave abnormality Abnormal ECG When compared with ECG of 16-JUN-2022 12:44, No significant change was found Confirmed by Dave Wilson ([id number]) on 06/30/2022 3:13:14 PM Referred By: REFERRED SELF Confirmed By:Dave Wilson
[2022-07-01] MEDS: ACETAMINOPHEN 325 MG TAB PO SCH ×5 (04:09→23:27)
[2022-07-01 07:06] LABS: Basophils # (auto) 0.02 K/uL (0-0.2); Basophils % (auto) 0.3 %; Eosinophils # (auto) 0.14 K/uL (0-0.50); Eosinophils % (auto) 2.2 %; Hematocrit (blood only) 36.6 % (34.1-44.9); Immature Granulocytes # (auto) 0.03 K/uL (0.00-0.02); Immature Granulocytes % (auto) 0.5 %; Lymphocytes # (auto) 1.31 K/uL (1.2-3.4); Lymphocytes % (auto) 20.7 %; Mean Corpuscular Hemoglobin 29.1 pg (25.0-34.0); Mean Corpuscular Hgb Conc 32.8 g/dL (32.0-36.0); Mean Corpuscular Volume 88.8 fL (80.0-100.0); Mean Platelet Volume 9.2 fL (9.4-12.3); Monocytes # (auto) 0.59 K/uL (0.24-0.82); Monocytes % (auto) 9.3 %; Neutrophils # (auto) 4.24 K/uL (1.4-6.5); Platelet Count 279 K/uL (130-400); RDW Standard Deviation 48.6 fL (36.4-46.3); Red Blood Count 4.12 M/uL (3.93-5.22); White Blood Count 6.33 K/ul (4.8-10.8)
[2022-07-01 07:22] LABS: INR 2.7 (0.9-1.1); Prothrombin Time 26.9 Seconds (9.0-12.0)
[2022-07-01 07:55] LABS: Calcium 8.7 mg/dl (8.5-10.1); Potassium 4.4 mmol/L (3.5-5.1)
[2022-07-01 08:01] LABS: BUN Creatinine Ratio 43.8 (10-20); Est GFR (African American) 78.5 ml/min; Est GFR (Non-African American) 67.7 ml/min
[2022-07-01] MEDS: GABAPENTIN 100 MG CAP PO SCH (10:35)
[2022-07-01] MEDS: dilTIAZem HCL 120 MG CAPCR PO SCH (10:35)
[2022-07-01] MEDS: ESCITALOPRAM OXALATE 10 MG TAB PO SCH (10:35)
[2022-07-01] MEDS: LIDOCAINE 5% 1 PATCH TD SCH (10:36)
--- NOTE | 2022-07-01 10:49 | XRay Report ---
XR hip LT 2V w pelvis HISTORY: 82 years-old Female Pain in left hip acute pain of the pelvis and left hip COMPARISON: Pelvis radiograph June 16, 2022 TECHNIQUE: AP view the pelvis with 2 views of the left hip FINDINGS: Demineralized appearance of the bones. The pelvic ring appears intact. Bilateral hip total joint arth roplasties with proximal femoral cerclage wires. Heterotopic ossifications again noted. No acute frac ture, dislocation or evidence of hardware complication. Arterial calcifications. Central pelvic calci fications are redemonstrated, possibly uterine in nature. IMPRESSION: No acute fracture or dislocation identified. ACT 112: Negative or not required by law. The above report was generated using voice recognition software. It may contain grammatical, syntax o r spelling errors. Electronically signed by: Medhat Adorno M.D. 07/01/2022 10:47 AM
--- NOTE | 2022-07-01 13:01 | Hospitalist Progress Note ---
Date of Service July 01, 2022 Assessment & Plan (1) Supratherapeutic INR: (2) Atrial fibrillation: (3) Dyslipidemia: (4) Osteoarthritis: (5) Back pain: Plan 82 y/o with supraytherapeutic INR; adverse reaction (SOB) to IV vitamin K; administer p.o. Back pain; s/p fall a few weeks ago; degenerative changes. Trial of conservative tx measures including: IV Tylenol, gabapentin, lidocaine patch. She was also found to have supratherapeutic INR Supratherapeutic INR status post 10 mg of oral vitamin K Permanent atrial fibrillation: History of atrial fibrillation on warfarin for several years. She stop drinking boost which contains vitamin K and had continued previous dose of warfarin which likely contributed to the supratherapeutic INR -Discussed with Dr. Talley and pharmacy for further recommendations; recommended oral vitamin K 10 mg -Avoid premedicated or IV vitamin K as no life-threatening bleeding noted -CT headno evidence of hemorrhage INR decreased from 9.5-2.7 today. Echocardiogram shows EF of 60 to 65%; left atrium and right atrium severely dilated. Plan; Continue to monitor for any signs or symptoms of bleeding given the supratherapeutic INR. - Continue to hold warfarin; PT/INR daily. Discussed with her daughter over the phone regarding alternatives including DOAC's. We will set up PCP follow-up and discharge to have further discussion. Her INR has to be less than 2 to initiate any DOAC's. -Continue on her home dose of Cardizem. Back pain: Left buttock pain Osteoarthritis -After recent falls imaging performed and negative for fracture -Lumbar MRI today with degenerative changes and the followin. STIR signal in the S2 vertebral body may represent contusion from prior fall. 2. Multilevel degenerative changes with up to severe left and moderate right foraminal stenosis. There is up to mild canal stenosis. Significant pain on any movement on left buttock/hip. X-ray done today did not show any kind of fracture or dislocation. Will obtain CT of left hip to see if there is any care for occult fracture PT OT evaluation; OT recommends SNF. Patient has home PT OT set up as per Daughter from next week Dyslipidemia: Controlled by diet: 03/31 lipid panel: TG 97, LDL 132, HDL 67 Depression: -On Lexapro; continue Disposition: PCP: Dr. Mirza Code Status: Full Code VTE prophylaxis: Supratherapeutic INR; teds for now PT OT evaluation pending. Awaiting CT of left hip Admission and Anticipated Discharge Date Admission Date: June 29, 2022 Subjective Patient seen and examined at bedside. She reports significant pain on left buttocks on any kind of movement. Subconjunctival hemorrhage improving. No bleeding or new bruises noted. Review of Systems Review of Systems: All systems reviewed & are unremarkable except as noted in Subjective Physical Exam Physical Exam: Constitutional: WD/WN, vitals as above, NAD, sitting up in bed, pleasant, conversing easily Head: Normocephalic, Atraumatic Eyes: Bilateral subconjunctival hemorrhages present; improved from yesterday. Respiratory: normal respiratory effort, lungs clear to auscultation, no wheeze, rales, rhonchi. Normal insp/exp effort, no accessory muscle use Cardiovascular: RRR, no murmur, no edema Vessels: no JVD or carotid bruit Abdomen: normal bowel sounds, soft, nontender, no hepatosplenomegaly Musculoskeletal: Tenderness present in left buttock; no overlying skin changes. Skin: Bruises present around IV site. Neurologic: PERRL, EOMI, accommodation nl, no face palsy, no dysarthria CN's II- XI intact bilaterally and moves all extremities Psychiatric: A+Ox3, euthymic affect : deferred Results & Data Results & Data ([facility]) Vital Signs (Past 12 Hours) Vital Signs Temp Pulse Pulse Resp BP BP Pulse Ox 07/01/22 11:49 36.4 C L 77 18 120/72 98 07/01/22 08:28 69 07/01/22 06:43 36.5 C 70 20 120/67 98 07/01/22 04:00 36.4 C L 65 20 134/71 96 O2 Del Method 07/01/22 11:49 Room Air 07/01/22 08:28 07/01/22 06:43 Room Air 07/01/22 04:00 Room Air Laboratory Results Laboratory Results WBC 6.33 K/ul (4.8-10.8) 07/01/22 06:47 RBC 4.12 M/uL (3.93-5.22) 07/01/22 06:47 Hgb 12.0 g/dl (12.0-16.0) 07/01/22 06:47 Hct 36.6 % (34.1-44.9) 07/01/22 06:47 MCV 88.8 fL (80.0-100.0) 07/01/22 06:47 MCH 29.1 pg (25.0-34.0) 07/01/22 06:47 MCHC 32.8 g/dL (32.0-36.0) 07/01/22 06:47 RDW Std Deviation 48.6 fL (36.4-46.3) H 07/01/22 06:47 RDW Coeff of Mark 15.0 % (11.5-14.5) H 07/01/22 06:47 Plt Count 279 K/uL (130-400) 07/01/22 06:47 MPV 9.2 fL (9.4-12.3) L 07/01/22 06:47 Immature Gran % (Auto) 0.5 % 07/01/22 06:47 Neut % (Auto) 67.0 % 07/01/22 06:47 Lymph % (Auto) 20.7 % 07/01/22 06:47 [place] % (Auto) 9.3 % 07/01/22 06:47 Eos % (Auto) 2.2 % 07/01/22 06:47 Baso % (Auto) 0.3 % 07/01/22 06:47 Neut # (Auto) 4.24 K/uL (1.4-6.5) 07/01/22 06:47 Lymph # (Auto) 1.31 K/uL (1.2-3.4) 07/01/22 06:47 [place] # (Auto) 0.59 K/uL (0.24-0.82) 07/01/22 06:47 Eos # (Auto) 0.14 K/uL (0-0.50) 07/01/22 06:47 Baso # (Auto) 0.02 K/uL (0-0.2) 07/01/22 06:47 Immature Gran # (Auto) 0.03 K/uL (0.00-0.02) H 07/01/22 06:47 PT 26.9 Seconds (9.0-12.0) H 07/01/22 06:47 INR 2.7 (0.9-1.1) H 07/01/22 06:47 Sodium 137 mmol/L (136-145) 07/01/22 06:47 Potassium 4.4 mmol/L (3.5-5.1) 07/01/22 06:47 Chloride 108 mmol/L (98-107) H 07/01/22 06:47 Carbon Dioxide 24 mmol/L (21-32) 07/01/22 06:47 Anion Gap 5 (3-11) 07/01/22 06:47 BUN 35 mg/dl (6-23) H 07/01/22 06:47 Creatinine 0.80 mg/dl (0.6-1.2) 07/01/22 06:47 Est Cr Clr Drug Dosing 54.0 ml/min 07/01/22 06:47 Est GFR ( Amer) 78.5 ml/min 07/01/22 06:47 Est GFR (Non-Af Amer) 67.7 ml/min 07/01/22 06:47 BUN/Creatinine Ratio 43.8 (10-20) H 07/01/22 06:47 Glucose 100 mg/dl (70-99(Fasting)) H 07/01/22 06:47 Calcium 8.7 mg/dl (8.5-10.1) 07/01/22 06:47 Total Bilirubin 0.7 mg/dl (0.2-1.0) 06/29/22 07:55 AST 16 U/L (13-39) 06/29/22 07:55 ALT 15 U/L (7-52) 06/29/22 07:55 Alkaline Phosphatase 180 U/L (34-104) H 06/29/22 07:55 Total Protein 6.4 gm/dl (6.0-8.3) 06/29/22 07:55 Albumin 3.7 gm/dl (3.4-5.0) 06/29/22 07:55 Globulin 2.7 gm/dl (2.5-4.0) 06/29/22 07:55 Albumin/Globulin Ratio 1.4 (0.9-2) 06/29/22 07:55 Urine Color Dark Yellow 06/29/22 15:46 Urine Appearance Cloudy (Clear) A 06/29/22 15:46 Urine pH 6.0 (4.5-7.5) 06/29/22 15:46 Ur Specific [place] 1.029 (1.000-1.030) 06/29/22 15:46 Urine Protein Trace (Negative) H 06/29/22 15:46 Urine Glucose (UA) Negative (Negative) 06/29/22 15:46 Urine Ketones Trace (Negative) H 06/29/22 15:46 Urine Blood Negative (Negative) 06/29/22 15:46 Urine Nitrite Negative (Negative) 06/29/22 15:46 Urine Bilirubin Negative (Negative) 06/29/22 15:46 Urine Urobilinogen Negative (Negative) 06/29/22 15:46 Ur Leukocyte Esterase 1+ (Negative) H 06/29/22 15:46 Urine WBC (Auto) >30 /hpf (0-5) H 06/29/22 15:46 Urine RBC (Auto) 10-30 /hpf (0-4) H 06/29/22 15:46 U Hyaline Cast (Auto) 0 /lpf (0-5) 06/29/22 15:46 U Epithel Cells (Auto) >30 /lpf (0-5) H 06/29/22 15:46 Urine Bacteria (Auto) Negative (Negative) 06/29/22 15:46 SARS-CoV-2, RNA, NAAT NEGATIVE (NEGATIVE) 06/29/22 Unknown Impressions Lumbar Spine MRI 06/29/22 07:33 MR lumbar spine wo con CLINICAL HISTORY: Intractable back pain (L radiculitis) TECHNIQUE: Multiplanar sequences through the lumbar spine were obtained, without intravenous contrast. Comparison: Comparison is made to CT lumbar spine 06/26/2022 FINDINGS: The alignment is anatomical. L1-L2: No significant abnormality. L2-L3: There is a broad-based posterior disc bulge with mild canal stenosis, AP diameter 10 mm, and moderate right and mild left neuroforaminal stenosis. L3-L4: There is a broad-based posterior disc bulge resulting in moderate right and mild left neuroforaminal stenosis. L4-L5: There is facet arthropathy and posterior disc bulge resulting in severe left and moderate right neuroforaminal stenosis. L5-S1: There is mild to moderate bilateral neural foraminal stenosis. The spinal ligaments are intact, without evidence of disruption or abnormal signal intensity. The spinal cord is normal in signal intensity and there is no evidence of cord contusion. There is no evidence of an extradural, intradural, extramedullary or intramedullary lesion. Visualized soft tissues are normal. Nonspecific STIR signal is in the S2 vertebral body. IMPRESSION: 1. STIR signal in the S2 vertebral body may represent contusion from prior fall. 2. Multilevel degenerative changes with up to severe left and moderate right foraminal stenosis. There is up to mild canal stenosis. ACT 112: Negative or not required by law. Electronically signed by: Herb Cristobal M.D. 06/29/2022 9:[address] 06/29/22 17:13 CT head/brain wo con CLINICAL HISTORY: 82 years-old Female with Recent Fall. Supratheraeutic INR. Acute head injury status post fall TECHNIQUE: Multiple axial CT images of the head were obtained without contrast. A dose lowering technique was utilized adhering to the principles of ALARA. CT DOSE: 850.93 mGy.cm COMPARISON: June 16, 2022 FINDINGS: No acute intracranial hemorrhage, midline shift, intracranial mass, hydrocephalus, territorial ischemia or abnormal extra-axial collection. Age- related involutional changes. White matter hypodensities suggestive of chronic microvascular ischemic disease. Chronic right occipital infarct. The calvarium is intact. Hyperostosis frontalis interna. Prior bilateral lens repair. The paranasal sinuses, mastoid air cells, and middle ear cavities are clear. IMPRESSION: No acute intracranial abnormality or calvarial fracture. ACT 112: Negative or not required by law. The above report was generated using voice recognition software. It may contain grammatical, syntax or spelling errors. Electronically signed by: Medhat Adorno M.D. 06/29/2022 8:20 PM Hip/Pelvis X-Ray 07/01/22 09:33 XR hip LT 2V w pelvis HISTORY: 82 years-old Female Pain in left hip acute pain of the pelvis and left hip COMPARISON: Pelvis radiograph June 16, 2022 TECHNIQUE: AP view the pelvis with 2 views of the left hip FINDINGS: Demineralized appearance of the bones. The pelvic ring appears intact. Bilateral hip total joint arthroplasties with proximal femoral cerclage wires. Heterotopic ossifications again noted. No acute fracture, dislocation or evidence of hardware complication. Arterial calcifications. Central pelvic calcifications are redemonstrated, possibly uterine in nature. IMPRESSION: No acute fracture or dislocation identified. ACT 112: Negative or not required by law. The above report was generated using voice recognition software. It may contain grammatical, syntax or spelling errors. Electronically signed by: Medhat Adonro M.D. 07/01/2022 10:47 AM
[2022-07-01] MEDS: LIDOCAINE 2% JELLY 5 ML TUBE EXT SCH ×3 (13:59→23:26)
[2022-07-02] MEDS: LIDOCAINE 2% JELLY 5 ML TUBE EXT SCH ×2 (06:09→12:09)
[2022-07-02] MEDS: ACETAMINOPHEN 325 MG TAB PO SCH ×2 (06:09→11:39)
[2022-07-02 08:14] LABS: Basophils # (auto) 0.03 K/uL (0-0.2); Basophils % (auto) 0.5 %; Eosinophils # (auto) 0.14 K/uL (0-0.50); Eosinophils % (auto) 2.4 %; Hematocrit (blood only) 38.5 % (34.1-44.9); Hemoglobin 12.4 g/dl (12.0-16.0); Immature Granulocytes # (auto) 0.02 K/uL (0.00-0.02); Immature Granulocytes % (auto) 0.3 %; Lymphocytes % (auto) 24.1 %; Mean Corpuscular Hemoglobin 29.7 pg (25.0-34.0); Mean Corpuscular Hgb Conc 32.2 g/dL (32.0-36.0); Mean Corpuscular Volume 92.3 fL (80.0-100.0); Mean Platelet Volume 9.1 fL (9.4-12.3); Monocytes % (auto) 8.6 %; Neutrophils # (auto) 3.73 K/uL (1.4-6.5); Neutrophils % (auto) 64.1 %; Platelet Count 297 K/uL (130-400); RDW Coefficient of Variation 14.9 % (11.5-14.5); RDW Standard Deviation 50.1 fL (36.4-46.3); Red Blood Count 4.17 M/uL (3.93-5.22); White Blood Count 5.82 K/ul (4.8-10.8)
[2022-07-02 08:34] LABS: INR 2.4 (0.9-1.1); Prothrombin Time 24.3 Seconds (9.0-12.0)
[2022-07-02] MEDS: dilTIAZem HCL 120 MG CAPCR PO SCH (08:58)
[2022-07-02] MEDS: ESCITALOPRAM OXALATE 10 MG TAB PO SCH (08:58)
[2022-07-02] MEDS: GABAPENTIN 100 MG CAP PO SCH (08:58)
[2022-07-02 09:47] LABS: Albumin Globulin Ratio 1.4 (0.9-2); Albumin Level 3.3 gm/dl (3.4-5.0); BUN Creatinine Ratio 32.6 (10-20); Bilirubin,Total 0.7 mg/dl (0.2-1.0); Calcium 8.7 mg/dl (8.5-10.1); Creatinine Clr Calc Pharmacy 48.6 ml/min; Est GFR (Non-African American) 59.5 ml/min; Globulin 2.4 gm/dl (2.5-4.0); Potassium 4.3 mmol/L (3.5-5.1); Total Protein 5.7 gm/dl (6.0-8.3)
--- NOTE | 2022-07-02 10:48 | CT Scan Report ---
LEFT HIP CT CT DOSE: 1296.87 mGy.cm HISTORY: Left hip pain. Severe intractable pain after fall. ?occult fracture TECHNIQUE: Multiaxial CT images of the left hip were performed and reformatted in the sagittal and co jaqui plane without the use of contrast. A dose lowering technique was utilized adhering to the prin ciples of REED. COMPARISON: pelvis and left hip radiograph 07/01/2022. Abdomen and pelvis CT 11/10/2017. FINDINGS: There is left hip arthroplasty as well as a lateral cortical plate, screws, and cerclage wi res within the proximal left femur. The hardware appears intact. The metallic artifact results in sub optimal evaluation the left hip. However, no definite acute fracture or dislocation. The visualized p elvic bones appear intact. Soft tissues are unremarkable. Mild presacral edema, unchanged. IMPRESSION: 1. Postoperative changes noted within the left hip as described above. The hardware appears intact. 2. No definite acute fracture or dislocation within the left hip. ACT 112: Negative or not required by law. Electronically signed by: Ricky Blanchard M.D. 07/02/2022 10:45 AM
--- NOTE | 2022-07-02 11:52 | Discharge Summary ---
Date of Service July 02, 2022 Admission HPI Per Admitting Provider Ms. Kamara is an 82-year-old female that presented to the [facility] ED today with back pain. She lives alone and at the beginning of June had 2 falls which she describes the first to be mechanical on June 11 and the second to be unwitnessed and more syncopal in nature with a brief period of LOC which she feels was a few minutes. She was seen as outpatient and placed on a Zio patch which has not been returned. An ECHO was also planned for July 26. With her falls she had bruising and back pain that has not resolved despite Voltaren gel prescription and as needed Tylenol. She is hesitant to trial opioids. Numerous imaging of her back and hips have been obtained over the past few weeks and negative for fracture. Lumbar MRI obtained today with results indicating an S2 vertebral body contusion from prior fall and multilevel degenerative changes. Incidentally in the ED, INR found to be supratherapeutic greater than 9.5. Takes Coumadin for chronic atrial fibrillation. Some lower limb bruising from previous falls and conjunctival hemorrhage bilaterally not affecting vision. She did take her Coumadin this morning. Her daughter Lisa accompanied her to the ED and was assisting with history. As mentioned patient lives in the bottom floor of her two-story home where all of her needs can be accessed on 1 floor. She does use a 4 wheeled walker at home and [facility] at home has just started coming to the house with PT starting next week. She is relatively independent at baseline with her ADLs requiring some assistance from her daughter with showers. Family provides food and Meals on Wheels has been started. 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 Patient lying in her hospital bed AAOx4 and able to have a meaningful conversation. Patient reports that she feels fine outside of her back pain. Patient reports having some numbness and tingling down her left leg depending on her position. Patient denies loss of bowel or bladder control, headache, visual changes, chest pain, palpitations, abdominal pain, appetite changes, additional recent falls or trauma. Conservative management including scheduled Tylenol, trial gabapentin and lidocaine patch. If no improvement, consider pain management consultation. I was able to talk with Dr. Talley from the anticoagulation clinic who advised to administer an additional dose of vitamin K for total of 10 mg. Patient reports hypersensitivity to IV vitamin K in the past however there is no [facility]. She has been reversed in the past with 2.5 mg and 5 mg in 2018 for supratherape utic INR. For now since no life-threatening bleeding continue with p.o. dosing as necessary after rechecking INR in a.m.. From a risk versus benefit perspective of continuation of anticoagulation conversation would be best suited as outpatient by her PCP or development geologist involved. Patient will be admitted for further evaluation and management. Please see A/P for further details. Admission Exam Per Admitting Provider Neuro: AAOx4, PERRLA, no aphagia, memory changes, CNII-XII grossly intact HEENT: head normocephalic, moist mucus membranes. Conjunctival hemorrhages bilaterally. PERRLA CV: S1/S2, (-) M/G/R, (-) edema, cap refill < 3 seconds Resp: Lungs CTA in all sung. On RA GI: Abdomen S/NT/ND, Ax4 bowel sounds, (-) CVA tenderness Musculoskeletal: 5/5 B/L UE strength, 5/5 B/L LE strength. No gait disturbance Skin: (-) rashes , (-) erythema.(+) ecchymosis right greater than left lower extremity abbott Psych: euthymic mood Principal Diagnosis Supratherapeutic INR status post 10 mg of oral vitamin K Permanent atrial fibrillation: Left hip pain Discharge Exam Constitutional: WD/WN, vitals as above, NAD, sitting up in bed, pleasant, conversing easily Head: Normocephalic, Atraumatic Eyes: Bilateral subconjunctival hemorrhages present; improved from yesterday. Respiratory: normal respiratory effort, lungs clear to auscultation, no wheeze, rales, rhonchi. Normal insp/exp effort, no accessory muscle use Cardiovascular: RRR, no murmur, no edema Vessels: no JVD or carotid bruit Abdomen: normal bowel sounds, soft, nontender, no hepatosplenomegaly Musculoskeletal: Tenderness present in left buttock; no overlying skin changes. Skin: Bruises present around IV site. Neurologic: PERRL, EOMI, accommodation nl, no face palsy, no dysarthria CN's II- XI intact bilaterally and moves all extremities Psychiatric: A+Ox3, euthymic affect : deferred Discharge Data Allergies Allergy/AdvReac Type Severity Reaction Status Date / Time phytonadione (vitamin K1) Allergy Unknown IV Verified 06/24/19 10:17 FORMULATION - SOB, HTN, FLUSHING morphine AdvReac Mild N/V Verified 06/24/19 10:17 propoxyphene AdvReac Mild N/V Verified 06/24/19 10:17 Consultations 06/29/22 10:11 ED Decision to Admit Stat Ordered Studies 06/29/22 07:33 MR lumbar spine wo con Stat 06/29/22 17:13 CT head/brain wo con Routine 07/01/22 12:02 CT hip LT wo con Routine Hospital Course (1) Supratherapeutic INR: (2) Atrial fibrillation: (3) Dyslipidemia: (4) Osteoarthritis: (5) Back pain: Plan Patient is a 82-year-old female with past medical history of atrial fibrillation on warfarin, bilateral hip replacement presents to the ED with back pain. Patient had a fall 3 days prior to the admission; was having intractable back pain and hip pain. On admission, she was found to have INR of greater than 9.5. She had subconjunctival hemorrhage. Her CT head without contrast was negative for intracranial hemorrhage. She had lumbar MRI done which showed STIR signal in the S2 vertebral body may represent contusion from prior fall. She was admitted to the hospital; pain control with Tylenol and lidocaine patch was done. She received 10 mg of oral vitamin K after discussion with anticoagulation clinic. Her INR down trended subsequently to 2.7 at discharge. She had x-ray of hip and CT of the left hip done; no acute fractures were seen. PT OT evaluation was done; recommended rehab. After discussion with the patient and daughter, decision was made to discharged back home with continued support from her family.. Patient has physical therapy and occupational therapy coming to the home starting tomorrow. Her warfarin was discontinued at discharge. Follow-up with her primary care doctor is set up to discuss future anticoagulation options. PT/INR to be checked as outpatient after follow-up; her daughter is interested in starting alternative anticoagulation medications ( DOACs). PT/INR should be less than 2 to start on DOAC's. Prescription for Voltaren gel and low-dose tramadol was prescribed for pain control. Total Time Total Time Spent Total Time Spent (In Minutes): 40 Total Time Includes: Examination of the Patient, Discharge Planning, Medication Reconciliation, Communication With Other Providers and Other Discharge Plan Discharge Items Patient Disposition: Home - Self-Care Reason For Visit: BACK PAIN Activity: Resume your previous activity Non-emergency contact: Primary Care Provider Call non-emergency contact if: you have any medication questions and your symptoms worsen Follow-up/Referrals: Radha Mirza DO [Primary Care Provider] - (Date & Time 07/05/2022 10:40 AM Provider Miracle Montiel MD [facility] ) Diet: Regular Addtl Attending Provider Instructions: You were admitted to the hospital with a fall. You had MRI of the lumbar spine done which did not show any kind of fracture. The CAT scan of the head did not show any bleeding. You had x-ray hip and CT of the hip done; no fracture or dislocation found. For the pain, take Tylenol 650 mg as needed every 6 hours. Voltaren gel is also prescribed to you to be applied to the painful area. A prescription for tramadol is sent to your pharmacy. Take 25 mg as needed for the pain control. Try to minimize using tramadol as much as possible. You were found to have high INR. You are given vitamin K to reverse the effect of warfarin. Your INR today is 2.4. Please follow-up with your primary care doctor (an appointment will be set up for you) and discuss regarding further anticoagulation options. Pending Studies at Discharge: No Stand-Alone Forms: [facility], Smoking Cessation Medications and DC Order Prescriptions: New diclofenac sodium [Voltaren Arthritis Pain] 1 % gel 2 g topical QID Qty: 100 0RF Rx Instructions: apply to single elbow, wrist or hand; for hand includes palm/fingers/back of hand tramadol 50 mg tablet 25 mg PO Q8H PRN (Reason: pain) Qty: 10 0RF Continued acetaminophen [Tylenol] 325 mg Tablet 650 mg PO DIRECTED PRN (Reason: Pain) Label Comments: Takes 650 mg PO daily in AM PRN docusate sodium [Stool Softener] 100 mg Capsule 0 mg PO BID PRN (Reason: Constipation) Label Comments: Takes one tablet daily diltiazem HCl [Tiadylt ER] 120 mg Capsule,Extended Release 24 Hr 120 mg PO DAILY escitalopram oxalate [Lexapro] 10 mg Tablet 10 mg PO DAILY multivitamin 1 PO DAILY Discontinued warfarin 5 mg tablet 0 mg PO DIRECTED Label Comments: Per pt she takes 7.5 mg PO daily. She follows Clinic recommendations when they tell her to hold taking it Discharge Orders: Discharge Order (Routine); Ordered 07/02/22 Ordered By: Jeffery Valente Admission Data Admit Date/Time: 06/29/22 10:18 Attending Provider: Jeffery Valente Admit Provider: Jeffery Valente Primary Care Provider: Radha Mirza Other Providers: Jeffery Valente
== END 2022-07-02 13:06 | disposition home or self-care (01) | DRG 948 ==
LOC: ED 06:35 → EDINP 10:18 → 2N 13:54